=== PATIENT | male | born 1970 | race African-American/Black ===

== ENCOUNTER 2018-01-14 15:43 | Inpatient (IN) | payer MEDICARE, OTHER ==
[~2018-01-14] VITALS: Ht 175.3 cm; Wt 61.4 kg
[2018-01-14] VITALS (21 sets, daily range): BP systolic 98–141; BP diastolic 62–92; PULSE 88–127; RESP 18–40; TEMP 99–99.9; O2SAT 88–100
--- NOTE | 2018-01-14 16:01 | PD ---
HPI Chief Complaint: altered mental status Time Seen by Provider: 16:01 Travel History International Travel<30 days: No Contact w/Intl Traveler<30days: No Traveled to known affect area: No History of Present Illness HPI 47-year-old male came to the emergency room with history of fever and altered mental status. Patient is coming from a assisted. He has underlying CP and usually quite agitated. However for past 24 hours or so they have noticed that patient is not as talkative and more lethargic. They gave him Tylenol and sent him here. Patient is a GCS of 8 upon arrival. He was tachycardic. Patient is unable to give any history. History was obtained as per EMS. As per the paramedics when they went to pick him up patient was saturating in the 70s. In the ER on 50% Ventimask his sats were 87-88%. They went up to 99% on nonrebreather. PFSH Past Medical History Narrative Medical List of his past medical, surgical, social and family history was reviewed from nursing note. Social History Tobacco Use: No Allergies-Medications (Allergen,Severity, Reaction): Coded Allergies: No Known Allergies (Verified Allergy, Unknown, 01/14/18) Comments No known drug allergies. Reported Meds & Prescriptions Reported Meds & Active Scripts Active Reported Trazodone (Trazodone HCl) 100 Mg Tablet 100 Mg PO HS Trazodone (Trazodone HCl) 100 Mg Tablet 100 Mg PO TID Topamax (Topiramate) 200 Mg Tab 200 Mg PO DAILY IN THE EVENING Seroquel (Quetiapine Fumarate) 200 Mg Tab 200 Mg PO TID Potassium Chloride Liq (Potassium Chloride) 40 Meq/15 Ml Soln 80 Meq PO BID Nuedexta 20-10 mg (Dextromethorphan HBr-Quinidine) 20 Mg-10 Mg Cap 1 Cap PO BID [place] (Hydrocodone-Acetaminophen) 5 Mg-325 Mg Tab 1 Tab PO BID PRN Multi-Vitamin/Minerals (Multiple Vitamins W/ Minerals) 1 Tab Tab 1 Tab PO DAILY Lisinopril 20 Mg Tab 20 Mg PO DAILY Klonopin (Clonazepam) 1 Mg Tab 1 Mg PO QID Klonopin (Clonazepam) 1 Mg Tab 1 Mg PO Q8HR PRN Hydrocodone-Acetaminophen 5-325 mg Tab 1 Tab PO TID Dilantin-125 Liq (Phenytoin) 125 Mg/5 Ml Susp 125 Mg PO Q8HR Tylenol (Acetaminophen) 325 Mg Tab 650 Mg PO Q6H PRN Narrative Medication Awaiting for the nurse to the medical reconciliation. Review of Systems ROS Limitations: Altered Mental Status Except as stated in HPI: all other systems reviewed are Neg Physical Exam Narrative GENERAL: Unresponsive, moderate distress SKIN: Focused skin assessment warm/dry. HEAD: Atraumatic. Normocephalic. EYES: Pupils equal and round. No scleral icterus. No injection or drainage. ENT: No nasal bleeding or discharge. Dry mucous membrane NECK: Trachea midline. No JVD. CARDIOVASCULAR: Regular rate and rhythm. Tachycardia. No murmur appreciated. RESPIRATORY: No accessory muscle use. Clear to auscultation. Breath sounds equal bilaterally. GASTROINTESTINAL: Abdomen soft, non-tender, nondistended. Hepatic and splenic margins not palpable. : Hypospadias MUSCULOSKELETAL: No obvious deformities. No clubbing. No cyanosis. No edema. NEUROLOGICAL: GCS of 8 PSYCHIATRIC: Unable to assess Data Data Last Documented VS Vital Signs Date Time Temp Pulse Resp B/P (MAP) Pulse Ox O2 Delivery O2 Flow Rate FiO2 01/14/18 17:36 99.5 106 18 126/83 (97) 100 Ventilator 50 Orders Orders Sepsis Workup Initiated (01/14/18 ) Complete Blood Count With Diff (01/14/18 16:07) Comprehensive Metabolic Panel (01/14/18 16:07) Lactic Acid Sepsis Protocol (01/14/18 16:07) Urinalysis - C+S If Indicated (01/14/18 16:07) Blood Culture (01/14/18 16:07) Chest, Single Ap (01/14/18 16:07) Blood Glucose (01/14/18 16:07) Ecg Monitoring (01/14/18 16:07) Iv Access Insert/Monitor (01/14/18 16:07) Oximetry (01/14/18 16:07) Oxygen Administration (01/14/18 16:07) Vancomycin Inj (Vancomycin Inj) (01/14/18 16:07) Piperacil-Tazo 4.5 Gm Premix (Zosyn 4.5 (01/14/18 16:07) Sodium Chlor 0.9% 1000 Ml Inj (Ns 1000 M (01/14/18 16:07) Sodium Chlor 0.9% 1000 Ml Inj (Ns 1000 M (01/14/18 16:07) Sodium Chlor 0.9% 1000 Ml Inj (Ns 1000 M (01/14/18 16:07) Etomidate Inj (Amidate Inj) (01/14/18 16:22) Succinylcholine Inj (Quelicin Inj) (01/14/18 16:22) Succinylcholine Inj (Quelicin Inj) (01/14/18 16:45) Etomidate Inj (Amidate Inj) (01/14/18 16:45) Urinary Catheter Insert/Apply (01/14/18 16:34) ^ Orogastric Tube (01/14/18 16:34) Midazolam Inj (Versed Inj) (01/14/18 16:45) Propofol 500 Mg/50 Ml Inj (Diprivan 500 (01/14/18 16:55) Midazolam Inj (Versed Inj) (01/14/18 17:00) Propofol 1000 Mg/100 Ml Inj (Diprivan 10 (01/14/18 17:00) Hydromorphone Pf Inj (Dilaudid Pf Inj) (01/14/18 17:00) Arterial Blood Gas (Abg) (01/14/18 17:05) Calcium Gluconate Inj (Calcium Gluconate (01/14/18 17:30) Insulin Human Regular Inj (Novolin R Inj (01/14/18 17:45) Dextrose 50% In Johnny (Vial) Inj (D50w (Vi (01/14/18 17:30) Sodium Bicarbonate 8.4% Inj (Sodium Bica (01/14/18 17:30) Albuterol Concentrated Neb (Albuterol Co (01/14/18 17:30) Sodium Polysty Sulfate Liq (Kayexalate L (01/14/18 17:45) Admit Order (Ed Use Only) (01/14/18 17:35) Admit To Inpatient (01/14/18 ) Inpatient Certification (01/14/18 ) Code Status (01/14/18 17:38) Vital Signs (Adult) NILE.Q1H (01/14/18 17:38) Activity Bed Rest (01/14/18 17:38) Relay Man / Telemetry NILE.Q8H (01/14/18 17:38) Intake + Output NILE.Q8H (01/14/18 17:38) Bedside Glucose NILE.BGM (01/14/18 17:38) Urinary Catheter Management NILE.Q8H (01/14/18 17:38) Diet Npo (01/14/18 Dinner) Sodium Chlor 0.9% 1000 Ml Inj (Ns 1000 M (01/14/18 17:38) Sodium Chloride 0.9% Flush (Ns Flush) (01/14/18 17:45) Sodium Chloride 0.9% Flush (Ns Flush) (01/14/18 21:00) Acetaminophen (Tylenol) (01/14/18 17:45) Fentanyl Inj (Fentanyl Inj) (01/14/18 17:45) Albuterol-Ipratropium Neb (Duoneb Neb) (01/14/18 17:45) Albuterol-Ipratropium Neb (Duoneb Neb) (01/14/18 17:45) Chlorhexidine 0.12% Liq (Peridex 0.12% L (01/14/18 20:00) Complete Blood Count With Diff (01/15/18 06:00) Comprehensive Metabolic Panel (01/15/18 06:00) Sputum Culture And Gram Stain (01/14/18 17:38) Chest, Single Ap (01/15/18 06:00) Resp Ventilation- Pressure (01/14/18 ) Arterial Blood Gas (Abg) (01/14/18 18:30) Consult Cm-Day 5 Ltac Eval (01/14/18 ) Heparin Inj (Heparin Inj) (01/15/18 12:00) Scd Bilateral/Knee High NILE.BID (01/14/18 17:38) ^ Initiate Protocol (01/14/18 17:38) Instruction (01/14/18 17:38) [facility] [place] Nursing Information (01/14/18 17:45) Chlorhexidine 2% Cloth (Chlorhexidine 2% (01/15/18 04:00) Chlorhexidine 2% Cloth (Chlorhexidine 2% (01/14/18 17:45) [facility] Pcr Surveillance (01/14/18 17:38) Propofol 1000 Mg/100 Ml Inj (Diprivan 10 (01/14/18 17:45) ^ Infusion (01/14/18 17:38) Insulin Aspart Supplemtl Scale (Novolog (01/14/18 18:00) Ct Abd/Pel W/O Iv Contrast (01/14/18 ) Piperacil-Tazo 3.375 Gm Premix (Zosyn 3. (01/14/18 23:00) Azithromycin Inj (Zithromax Inj) (01/14/18 18:00) Legionella Urinary Antigen (01/14/18 17:48) Pneumococcal Urinary Antigen (01/14/18 17:48) Influenzae A/B Antigen (01/14/18 17:48) Labs Laboratory Tests Test 01/14/18 16:18 01/14/18 17:00 01/14/18 17:05 White Blood Count 8.6 TH/MM3 Red Blood Count 4.79 MIL/MM3 Hemoglobin 13.3 GM/DL Hematocrit 43.8 % Mean Corpuscular Volume 91.5 FL Mean Corpuscular Hemoglobin 27.7 PG Mean Corpuscular Hemoglobin Concent 30.3 % Red Cell Distribution Width 15.0 % Platelet Count 168 TH/MM3 Mean Platelet Volume 10.7 FL Neutrophils (%) (Auto) 65.0 % Lymphocytes (%) (Auto) 20.8 % Monocytes (%) (Auto) 13.8 % Eosinophils (%) (Auto) 0.0 % Basophils (%) (Auto) 0.4 % Neutrophils # (Auto) 5.6 TH/MM3 Lymphocytes # (Auto) 1.8 TH/MM3 Monocytes # (Auto) 1.2 TH/MM3 Eosinophils # (Auto) 0.0 TH/MM3 Basophils # (Auto) 0.0 TH/MM3 CBC Comment DIFF FINAL Differential Comment Blood Urea Nitrogen 68 MG/DL Creatinine 3.72 MG/DL Random Glucose 160 MG/DL Total Protein 8.1 GM/DL Albumin 3.3 GM/DL Calcium Level 9.0 MG/DL Alkaline Phosphatase 80 U/L Aspartate Amino Transf (AST/SGOT) 24 U/L Alanine Aminotransferase (ALT/SGPT) 19 U/L Total Bilirubin 0.2 MG/DL Sodium Level 154 MEQ/L Potassium Level 6.9 MEQ/L Chloride Level 120 MEQ/L Carbon Dioxide Level 37.2 MEQ/L Anion Gap -3 MEQ/L Estimat Glomerular Filtration Rate 21 ML/MIN Lactic Acid Level 0.6 mmol/L Urine Color YELLOW Urine Turbidity HAZY Urine pH 7.0 Urine Specific [place] 1.025 Urine Protein 300 mg/dL Urine Glucose (UA) NEG mg/dL Urine Ketones NEG mg/dL Urine Occult Blood SMALL Urine Nitrite POS Urine Bilirubin NEG Urine Urobilinogen 2.0 MG/DL Urine Leukocyte Esterase LARGE Urine RBC 20 /hpf Urine WBC 129 /hpf Urine Squamous Epithelial Cells <1 /hpf Urine Bacteria RARE /hpf Urine Hyaline Casts 1 /lpf Urine Granular Casts 6 /lpf Microscopic Urinalysis Comment CATH-CULTURE IND Blood Gas Puncture Site RT RADIAL Blood Gas Patient Temperature 98.6 Blood Gas HCO3 28 mmol/L Blood Gas Base Excess 3.1 mmol/L Blood Gas Oxygen Saturation 98 % Arterial Blood pH 7.40 Arterial Blood Partial Pressure CO2 46 mmHg Arterial Blood Partial Pressure O2 408 mmHG Arterial Blood Oxygen Content 16.1 Vol % Arterial Blood Carboxyhemoglobin 1.1 % Arterial Blood Methemoglobin 0.7 % Blood Gas Hemoglobin 10.9 G/DL Oxygen Delivery Device VENTILATOR Blood Gas Ventilator Setting PRVC/20/550/1.0/+5 Blood Gas Inspired Oxygen 100 % [facility] Medical Decision Making Medical Screen Exam Complete: Yes Emergency Medical Condition: Yes Medical Record Reviewed: Yes Differential Diagnosis Sepsis, pneumonia, UTI Narrative Course 5:11 PM patient is a full code. Based on his GCS and hypoxia decided to intubate him. Please refer to my procedure note. Patient tolerated the procedure well. He was given IV Zosyn and vancomycin as per sepsis protocol. Awaiting for blood test results. Patient will be admitted to the ICU. Patient is getting fluid hydration as per sepsis protocol. 5:37 PM chemistry results just came back. Patient has significant hyperkalemia with acute renal failure. His sodium and chloride is significantly elevated as well. I have given him hyperkalemia treatment as per the protocol. I discussed the case with Dr. Oh was accepted the patient. He wanted Kayexalate down the OG tube which has been ordered. Critical Care Narrative Aggregate critical care time was 75 minutes. Time to perform other separately billable procedures was not included in the critical care time. My time did not include minutes spent treating any other patients simultaneously or on activities that did not directly contribute to the patient's treatment. The services I provided to this patient were to treat and/or prevent clinically significant deterioration that could result in: Respiratory distress, hypoxia, altered mental status, sepsis protocol, vent management, hyperkalemia, hypokalemia management, acute renal failure, metabolic acidosis I provided critical care services requiring my management, as noted below: Chart data review, documentation time, medication orders and management, vital sign assessments/reviewing monitor data, ordering and reviewing lab tests, ordering and interpreting/reviewing x-rays and diagnostic studies, care of the patient and discussion of the patient with the admitting physicians. Procedures Procedure Narrative After the risks and benefits were discussed the following procedure was performed: INTUBATION: The patient was put in optimal position for the procedure. Rapid sequence intubation was initiated by me using 20 milligrams of etomidate IV and 100 milligrams of succinylcholine IV. The patient was intubated with a 7.5 cuffed endotracheal tube. Tube placement was confirmed by visualization of the tube and balloon passing through the cords, capnometry and subsequent chest x-ray. Breath sounds were equal and well aerated bilaterally postintubation. No breath sounds over stomach. Patient tolerated procedure well. EKG Prior to Arrival: No Physician Communication Physician Communication Dr. Oh Diagnosis Primary Impression: Sepsis Qualified Codes: A41.9 - Sepsis, unspecified organism Additional Impressions: Respiratory failure Qualified Codes: J96.01 - Acute respiratory failure with hypoxia Unresponsive Hypoxia Acute renal failure Qualified Codes: N17.9 - Acute kidney failure, unspecified Hyperkalemia Dehydration with hypernatremia Metabolic acidosis Admitting Information Admitting Physician Requests: it Doreen Chapman MD Jan 14, 2018 16:01
[2018-01-14] MEDS ORDERED: SODIUM CHLOR 0.9% 1000 ML INJ 1,000 ML IV ONE ×2 (16:07)
[2018-01-14] MEDS ORDERED: SODIUM CHLOR 0.9% 1000 ML INJ 100 ML IV ONE (16:07)
[2018-01-14] MEDS ORDERED: VANCOMYCIN INJ 1 MG in SODIUM CHLOR 0.9% 250 ML INJ 250 ML IV STA (16:07)
[2018-01-14] MEDS ORDERED: PIPERACIL-TAZO 4.5 GM PREMIX 100 ML IV STA (16:07)
[2018-01-14] MEDS ORDERED: SUCCINYLCHOLINE CHLORIDE 200 MG/10 ML VIAL ONE (16:22)
[2018-01-14] MEDS ORDERED: ETOMIDATE 40 MG/20 ML VIAL ONE (16:22)
[2018-01-14] MEDS ORDERED: MIDAZOLAM HCL 5 MG/ML VIAL (1 ML) ONE ×2 (16:45→19:32)
[2018-01-14] MEDS ORDERED: ETOMIDATE 20 MG/10 ML VIAL IV PUSH ONE (16:45)
[2018-01-14] MEDS ORDERED: SUCCINYLCHOLINE CHLORIDE 100 MG/5 ML SYRINGE IV PUSH ONE (16:45)
[2018-01-14] MEDS ORDERED: PROPOFOL 500 MG/50 ML INJ 50 ML ONE (16:55)
[2018-01-14] MEDS ORDERED: HYDROmorphone HCL PF 1 MG/ML VIAL IV PUSH ONE (17:00)
[2018-01-14] MEDS ORDERED: PROPOFOL 1000 MG/100 ML INJ 100 ML IV PRN (17:00)
[2018-01-14] MEDS ORDERED: MIDAZOLAM HCL 2 MG/2 ML VIAL IV PUSH ONE (17:00)
[2018-01-14 17:01] LABS: AUTOMATED NEUTROPHIL # 5.6 TH/MM3 (1.8-7.7); BASOPHIL % 0.4 % (0.0-2.0); HEMATOCRIT 43.8 % (39.0-51.0); HEMOGLOBIN 13.3 GM/DL (13.0-17.0); LYMPH % 20.8 % (9.0-44.0); LYMPHOCYTE # 1.8 TH/MM3 (1.0-4.8); MEAN CELL VOLUME 91.5 FL (80.0-100.0); MEAN CORPUSCULAR HEMOGLOBIN 27.7 PG (27.0-34.0); MEAN CORPUSCULAR HGB CONC 30.3 % (32.0-36.0); MEAN PLATELET VOLUME 10.7 FL (7.0-11.0); MONO % 13.8 % (0.0-8.0); MONOCYTE # 1.2 TH/MM3 (0-0.9); PLATELET COUNT 168 TH/MM3 (150-450); RED BLOOD COUNT 4.79 MIL/MM3 (4.50-5.90); WHITE BLOOD COUNT 8.6 TH/MM3 (4.0-11.0)
--- NOTE | 2018-01-14 17:18 | RADRPT ---
EXAM DATE/TIME: 01/14/2018 16:52 [facility] COMPARISON: No previous studies available for comparison. INDICATIONS : Evaluate ET tube placement. MEDICAL HISTORY : Unobtainable SURGICAL HISTORY : Unobtainable ENCOUNTER: Initial ACUITY: 1 day PAIN SCORE: 0/10 LOCATION: Bilateral chest FINDINGS: ETT is at the level of the clavicles. NGT is in the stomach. Minimal bilateral patchy airspace diseas e. Cardiomedi some contours are within normal limits. Bony thorax is intact. CONCLUSION: 1. ETT in good position. NGT in the stomach. 2. Minimal patchy bilateral lower lung zone airspace disease, likely atelectasis. Delbert Villanueva MD on January 14, 2018 at 17:17 Board Certified Radiologist. This report was verified electronically.
[2018-01-14 17:26] LABS: ALBUMIN 3.3 GM/DL (3.4-5.0); ALKALINE PHOSPHATASE 80 U/L (45-117); ALT (GPT) 19 U/L (12-78); AST (GOT) 24 U/L (15-37); BICARBONATE 37.2 MEQ/L (21.0-32.0); BLOOD UREA NITROGEN 68 MG/DL (7-18); CHLORIDE 120 MEQ/L (98-107); CREATININE 3.72 MG/DL (0.60-1.30); GLOMERULAR FILTRATION RATE 21 ML/MIN (>89); GLUCOSE,RANDOM 160 MG/DL (74-106); SODIUM (NA) 154 MEQ/L (136-145); TOTAL BILIRUBIN ADULT 0.2 MG/DL (0.2-1.0); TOTAL PROTEIN 8.1 GM/DL (6.4-8.2)
[2018-01-14] MEDS ORDERED: RESP: ALBUTEROL CONC 2.5 MG/0.5 ML NEB INH ONE (17:30)
[2018-01-14] MEDS ORDERED: DEXTROSE 50% IN WATER 50 ML VIAL(D50) IV PUSH ONE (17:30)
[2018-01-14] MEDS ORDERED: SODIUM BICARBONATE 8.4% SOLN 50 MEQ/50 ML VIAL SLOW IVP ONE (17:30)
[2018-01-14] MEDS ORDERED: CALCIUM GLUCONATE 10% 1 GM/10 ML VIAL SLOW IVP ONE (17:30)
[2018-01-14] MEDS ORDERED: SODIUM CHLOR 0.9% 1000 ML INJ 1,000 ML IV SCH (17:38)
[2018-01-14] MEDS ORDERED: RESP: ALBUTEROL 2.5 MG/IPRATROPIUM 0.5 MG NEB (PRN) INH (17:45)
[2018-01-14] MEDS ORDERED: MISCELLANEOUS NURSING INFORMATION XX SCH (17:45)
[2018-01-14] MEDS ORDERED: ACETAMINOPHEN 325 MG TAB PO PRN (17:45)
[2018-01-14] MEDS ORDERED: CHLORHEXIDINE GLUCONATE 2 % 1 PACK (2 CLOTHS) TOP PRN (17:45)
[2018-01-14] MEDS ORDERED: INSULIN HUMAN REGULAR 1,000 UNITS/10 ML VIAL IV PUSH ONE (17:45)
[2018-01-14] MEDS ORDERED: SODIUM POLYSTYRENE SULFONATE SUSP 15 GM/60 ML CUP PO ONE (17:45)
[2018-01-14] MEDS ORDERED: TYLE325T PO (17:47)
[2018-01-14] MEDS ORDERED: HYDR-3516 PO (17:47)
[2018-01-14] MEDS ORDERED: LISI-515 PO (17:47)
[2018-01-14] MEDS ORDERED: NORC5TAB PO (17:47)
[2018-01-14] MEDS ORDERED: POTA10LI10 PO (17:47)
[2018-01-14] MEDS ORDERED: SERO200T PO (17:47)
[2018-01-14] MEDS ORDERED: NUED20CA PO (17:47)
[2018-01-14] MEDS ORDERED: TOPI200 PO (17:47)
[2018-01-14] MEDS ORDERED: TRAZ100T10 PO ×2 (17:47)
[2018-01-14] MEDS ORDERED: CLON1 PO ×2 (17:47)
[2018-01-14] MEDS ORDERED: MULTTAB62 PO (17:47)
[2018-01-14] MEDS ORDERED: DILA125S PO (17:47)
[2018-01-14] MEDS: INSULIN ASPART SUPPLEMENTAL SCALE SQ SCH (18:00)
[2018-01-14 18:21] LABS: BACTERIA, URINE RARE /hpf; BILIRUBIN, URINE NEG (NEG); BLOOD, URINE SMALL (NEG); GLUCOSE,URINE NEG (NEG); HYALINE CAST, URINE 1 /lpf (RARE); KETONE, URINE NEG (NEG); NITRITE,URINE POS (NEG); SQUAMOUS EPITHELIAL CELL URINE <1 /hpf (0-5); URINE COLOR YELLOW (YELLW/STRAW); URINE LEUKOCYTE ESTERASE LARGE (NEG)
[2018-01-14] MEDS ORDERED: ROCURONIUM INJ 50 MG/5 ML VIAL IV ONE (18:45)
[2018-01-14] MEDS: RESP: ALBUTEROL 2.5 MG/IPRATROPIUM 0.5 MG NEB (SCH) NEB ×2 (19:09→19:14)
[2018-01-14] MEDS: PROPOFOL 1000 MG/100 ML INJ 100 ML IV PRN ×2 (19:29→20:33)
[2018-01-14] MEDS: SODIUM POLYSTYRENE SULFONATE SUSP 15 GM/60 ML CUP OG-TUBE SCH ×4 (19:36→23:44)
[2018-01-14] MEDS: CHLORHEXIDINE 0.12% (ORAL KIT) 15 ML CUP MT SCH (20:00)
--- NOTE | 2018-01-14 20:15 | RADRPT ---
EXAM DATE/TIME: 01/14/2018 19:56 [facility] COMPARISON: No previous studies available for comparison. INDICATIONS : Tachycardia, fever, and lethargy. ORAL CONTRAST: No oral contrast ingested. RADIATION DOSE: 5.17 CTDIvol (mGy) MEDICAL HISTORY : Seizures. Hypertension. Mental retardation SURGICAL HISTORY : None. ENCOUNTER: Initial ACUITY: 1 day PAIN SCALE: Non-responsive LOCATION: cranial TECHNIQUE: Volumetric scanning of the abdomen and pelvis was performed. Using automated exposure control and ad justment of the mA and/or kV according to patient size, radiation dose was kept as low as reasonably achievable to obtain optimal diagnostic quality images. DICOM format image data is available electro nically for review and comparison. FINDINGS: Patchy infiltrates are noted within the posterior lung bases bilaterally. Tiny bilateral pleural effu sions are noted. The heart is enlarged. Tiny pericardial effusion is noted. The liver is enlarged. Sc attered low-density lesions are noted throughout the liver parenchyma measuring 1.7, 1.2 and 1.5 cm. Without intravenous contrast enhancement it is difficult to determine etiology of these low density l esions. No biliary ductal dilatation is noted the gallbladder is distended but demonstrates no calcif ied gallstone or pericholecystic fluid. There is a 1.9 cm right adrenal nodule consistent with probab le adrenal adenoma. The left adrenal gland is unremarkable. No hydronephrosis is noted. No calcified renal calculus is noted the spleen is unremarkable. Uncomplicated colonic diverticulosis is noted. No acute diverticulitis is noted. The abdominal aorta and inferior vena cava are unremarkable. No ascit es is noted. The appendix is normal. The urinary bladder is nondistended and demonstrates diffuse wal l thickening raising the possibility of cystitis. Clinical correlation is recommended. The bladder co ntains a Walsh catheter. Degenerative changes and scoliosis of the thoracolumbar spine are noted. CONCLUSION: 1. Patchy infiltrate within the posterior lung bases bilaterally raising possibility of atelectasis o r pneumonia. 2. Tiny bilateral pleural effusions. 3. Cardiomegaly and tiny pericardial effusion. 4. Hepatomegaly. 5. Scattered low-density lesions throughout the liver which are indeterminate in etiology. 6. 1.9 cm right adrenal nodule consistent with probable adrenal adenoma. 7. Uncomplicated colonic diverticulosis. 8. Diffuse urinary bladder wall thickening raising the possibility of cystitis. Clinical correlation is recommended. 9. Degenerative changes and scoliosis of the thoraco-lumbar spine. Pedrito Hastings MD on January 14, 2018 at 20:06 Board Certified Radiologist. This report was verified electronically.
--- NOTE | 2018-01-14 20:19 | RADRPT ---
EXAM DATE/TIME: 01/14/2018 19:56 [facility] COMPARISON: CHEST SINGLE AP, January 14, 2018, 16:52. INDICATIONS : Tachycardia, fever and lethargy. RADIATION DOSE: 5.17 CTDIvol (mGy) ; Combined studies - Thorax/Abdomen/Pelvis MEDICAL HISTORY : Seizures. Hypertension. Mental retardation SURGICAL HISTORY : None. ENCOUNTER: Initial ACUITY: 1 day PAIN SCALE: Non-responsive LOCATION: chest TECHNIQUE: Volumetric scanning of the chest was performed. Using automated exposure control and adjustment of t he mA and/or kV according to patient size, radiation dose was kept as low as reasonably achievable to obtain optimal diagnostic quality images. DICOM format image data is available electronically for r eview and comparison. Follow-up recommendations for detected pulmonary nodules are based at a minimum on nodule size and pa tient risk factors according to Fleischner Society Guidelines. FINDINGS: LUNGS: Posterior bibasilar patchiness noted consistent with pneumonia or atelectasis. There is no pneumothor ax. No concerning pulmonary nodule is visualized. PLEURAE: Tiny bilateral pleural effusions are noted. MEDIASTINUM: The heart is prominent in size. Tiny pericardial effusion is noted AXILLAE: Within normal limits. No lymphadenopathy. MUSCULOSKELETAL: Degenerative changes and scoliosis of the thoracic spine are noted. MISCELLANEOUS: The visualized upper abdominal organs demonstrate no acute abnormality. CONCLUSION: 1. Posterior bibasilar patchiness consistent with pneumonia or atelectasis. Clinical correlation is r ecommended. 2. Cardiomegaly. 3. Tiny pericardial effusion. 4. Tiny bilateral pleural effusions. 5. Degenerative changes and scoliosis of the thoracic spine. Pedrito Hastings MD on January 14, 2018 at 20:14 Board Certified Radiologist. This report was verified electronically.
[2018-01-14] MEDS: SODIUM CHLORIDE 0.9% FLUSH 10 ML FLUSH IV FLUSH SCH (20:33)
[2018-01-14] MEDS ORDERED: LORazepam 2 MG/ML VIAL ONE (20:41)
[2018-01-14] MEDS ORDERED: LORazepam 2 MG/ML VIAL IV ONE (20:45)
[2018-01-14] MEDS ORDERED: VANCOMYCIN INJ 1,000 MG in SODIUM CHLOR 0.9% 250 ML INJ 250 ML IV STA (20:50)
[2018-01-14] MEDS ORDERED: FAMOTIDINE 20 MG/2 ML VIAL IV PUSH SCH (21:00)
[2018-01-14] MEDS: FAMOTIDINE 20 MG/2 ML VIAL IV PUSH SCH (21:29)
[2018-01-14 21:31] LABS: BICARBONATE 32.7 MEQ/L (21.0-32.0); CALCIUM 8.9 MG/DL (8.5-10.1); CREATININE 3.26 MG/DL (0.60-1.30)
[2018-01-14] MEDS: AZITHROMYCIN INJ 500 MG in SODIUM CHLOR 0.9% 250 ML INJ 250 ML IV SCH (21:32)
--- NOTE | 2018-01-14 21:49 | HHI.HP ---
[facility] Service Critical Care Medicine Primary Care Physician Brady Fletcher MD Admission Diagnosis respiratory failure, acute renal failure, unresponsive, sepsis Diagnosis: (1) Acute hypoxemic respiratory failure Diagnosis: Principal (2) Acute encephalopathy Diagnosis: Principal (3) Acute renal failure Diagnosis: Principal (4) Hyperkalemia Diagnosis: Principal (5) Sepsis Diagnosis: Principal (6) Dehydration with hypernatremia Diagnosis: Principal (7) Seizure disorder Diagnosis: Secondary Chief Complaint: Altered mental status Sepsis Travel History International Travel<30 Days: No Contact w/Intl Traveler <30 Da: No Traveled to Known Affected Are: No Sepsis Criteria SIRS Criteria (2 or more): Heart rate over 90, RR > 20 or PaCO2 < 32 Sepsis Criteria (SIRS+source): Infect source susp/known Severe Sepsis (+one): Acute Oliguria/Renal Failure Criteria Outcome: Meets severe sepsis criteria History of Present Illness Patient is a 47-year-old -Marshallese male with past medical history significant for cerebral palsy, hypertension, agitation at baseline, seizure disorder on Topamax and Dilantin was brought to the emergency department for fever and altered mental station. Apparently he is usually quite agitated at baseline, over the last 24 hours had been lethargic. Due to the mental status change patient was brought to the ICU. GCS was 8 on arrival patient was tachypneic, tachycardic and critically ill. In NH at the time of EMS pickup oxygen saturation was in the 70s. In the ER on 50% Ventimask oxygen saturation 87-88%. Intubated due to hypoxemic respiratory failure and also for airway protection. Lab work showed patient had significant hyperkalemia and acute renal failure. Potassium was 6.9 treated with calcium chloride, IV insulin and D50, bicarb and Kayexalate. Patient also received 1 L normal saline bolus and was placed on normal saline infusion. UA showed evidence of severe UTI. Empirically received Zosyn and vancomycin in the ED I evaluated the patient in the ICU. CT chest showed bibasilar infiltrates indicating possible pneumonia, CT abdomen showed indeterminate low-density liver lesions and some bladder thickness indicating cystitis. Patient will be continued on vancomycin and Zosyn and azithromycin. Repeat sodium came back at 160 potassium is down to 4. I will discontinue normal saline and place on half- normal saline at 150 ml per hour. Bolus of 1 L half-normal saline ordered. Cultures have been ordered and is pending at this time. Patient has urinary catheter and is making urine which is cloudy. Apparently had shaking movements after arrival to ICU subsided with 2 mg IV Ativan. EEG had been ordered. Also check Dilantin level. Review of Systems ROS Limitations: Intubated, Altered Mental Status Past Family Social History Allergies: Coded Allergies: No Known Allergies (Verified Allergy, Unknown, 01/14/18) Past Medical History Cerebral palsy Seizure disorder Agitation Hypertension Past Surgical History Unable to obtain intubated patient Reported Medications Trazodone (Trazodone HCl) 100 Mg Tablet 100 Mg PO HS Trazodone (Trazodone HCl) 100 Mg Tablet 100 Mg PO TID Topamax (Topiramate) 200 Mg Tab 200 Mg PO DAILY IN THE EVENING Seroquel (Quetiapine Fumarate) 200 Mg Tab 200 Mg PO TID Potassium Chloride Liq (Potassium Chloride) 40 Meq/15 Ml Soln 80 Meq PO BID Nuedexta 20-10 mg (Dextromethorphan HBr-Quinidine) 20 Mg-10 Mg Cap 1 Cap PO BID [place] (Hydrocodone-Acetaminophen) 5 Mg-325 Mg Tab 1 Tab PO BID PRN Multi-Vitamin/Minerals (Multiple Vitamins W/ Minerals) 1 Tab Tab 1 Tab PO DAILY Lisinopril 20 Mg Tab 20 Mg PO DAILY Klonopin (Clonazepam) 1 Mg Tab 1 Mg PO QID Klonopin (Clonazepam) 1 Mg Tab 1 Mg PO Q8HR PRN Hydrocodone-Acetaminophen 5-325 mg Tab 1 Tab PO TID Dilantin-125 Liq (Phenytoin) 125 Mg/5 Ml Susp 125 Mg PO Q8HR Tylenol (Acetaminophen) 325 Mg Tab 650 Mg PO Q6H PRN Active Ordered Medications Reviewed Family History Unable to obtain intubated patient Social History Patient has cerebral palsy and is a assisted resident. No further history is obtainable Physical Exam Vital Signs Vital Signs Date Time Temp Pulse Resp B/P (MAP) Pulse Ox O2 Delivery O2 Flow Rate FiO2 01/14/18 21:00 50 01/14/18 20:30 99.1 98 22 98/62 (74) 100 01/14/18 20:30 99 01/14/18 19:11 100 50 01/14/18 19:00 99.0 104 18 115/65 (82) 100 Ventilator 50 3/2/18 18:30 99.0 110 20 141/92 (108) 100 Ventilator 50 18 17:59 99.1 103 20 126/81 (96) 100 Ventilator 50 18 17:36 99.5 106 18 126/83 (97) 100 Ventilator 50 18 17:17 99.9 109 20 138/92 (107) 100 Ventilator 50 01/14/18 16:43 96 100 01/14/18 16:29 100 01/14/18 16:16 40 87 Venturi Mask 50 01/14/18 16:15 88 Venturi Mask 50 01/14/18 16:15 88 Venturi Mask 50 18 16:10 127 40 126/76 (93) 93 Physical Exam GENERAL: Critically ill intubated sedated with propofol SKIN: warm/dry. HEAD: Atraumatic. Normocephalic. EYES: Bilateral corneal opacities ENT: Orotracheally intubated. Dry mucous membrane NECK: Trachea midline. No JVD. CARDIOVASCULAR: Regular rate and rhythm. Tachycardic. No murmur appreciated. RESPIRATORY: Breath sounds equal bilaterally. No wheezes or crackles GASTROINTESTINAL: Abdomen soft, non-tender, nondistended. Hepatic and splenic margins not palpable. : Hypospadias. Walsh in place with cloudy urine MUSCULOSKELETAL: Lower extremity muscle wasting NEUROLOGICAL: Intubated sedated, Withdraws x4 to painful stimuli, Do not follow commands Laboratory Laboratory Tests Test 01/14/18 16:18 01/14/18 17:00 01/14/18 17:05 01/14/18 20:44 White Blood Count 8.6 Red Blood Count 4.79 Hemoglobin 13.3 Hematocrit 43.8 Mean Corpuscular Volume 91.5 Mean Corpuscular Hemoglobin 27.7 Mean Corpuscular Hemoglobin Concent 30.3 Red Cell Distribution Width 15.0 Platelet Count 168 Mean Platelet Volume 10.7 Neutrophils (%) (Auto) 65.0 Lymphocytes (%) (Auto) 20.8 Monocytes (%) (Auto) 13.8 Eosinophils (%) (Auto) 0.0 Basophils (%) (Auto) 0.4 Neutrophils # (Auto) 5.6 Lymphocytes # (Auto) 1.8 Monocytes # (Auto) 1.2 Eosinophils # (Auto) 0.0 Basophils # (Auto) 0.0 CBC Comment DIFF FINAL Differential Comment Blood Urea Nitrogen 68 Creatinine 3.72 Random Glucose 160 Total Protein 8.1 Albumin 3.3 Calcium Level 9.0 Alkaline Phosphatase 80 Aspartate Amino Transf (AST/SGOT) 24 Alanine Aminotransferase (ALT/SGPT) 19 Total Bilirubin 0.2 Sodium Level 154 Potassium Level 6.9 Chloride Level 120 Carbon Dioxide Level 37.2 Anion Gap -3 Estimat Glomerular Filtration Rate 21 Lactic Acid Level 0.6 Urine Color YELLOW Urine Turbidity HAZY Urine pH 7.0 Urine Specific [place] 1.025 Urine Protein 300 Urine Glucose (UA) NEG Urine Ketones NEG Urine Occult Blood SMALL Urine Nitrite POS Urine Bilirubin NEG Urine Urobilinogen 2.0 Urine Leukocyte Esterase LARGE Urine RBC 20 Urine WBC 129 Urine Squamous Epithelial Cells <1 Urine Bacteria RARE Urine Hyaline Casts 1 Urine Granular Casts 6 Microscopic Urinalysis Comment CATH-CULTURE IND Blood Gas Puncture Site RT RADIAL Blood Gas Patient Temperature 98.6 Blood Gas HCO3 28 Blood Gas Base Excess 3.1 Blood Gas Oxygen Saturation 98 Arterial Blood pH 7.40 Arterial Blood Partial Pressure CO2 46 Arterial Blood Partial Pressure O2 408 Arterial Blood Oxygen Content 16.1 Arterial Blood Carboxyhemoglobin 1.1 Arterial Blood Methemoglobin 0.7 Blood Gas Hemoglobin 10.9 Oxygen Delivery Device VENTILATOR Blood Gas Ventilator Setting PRVC/20/550/1.0/+5 Blood Gas Inspired Oxygen 100 Date/Time Source Procedure Growth Status 01/14/18 16:15 Blood Peripheral Aerobic Blood Culture Pending Received 01/14/18 16:15 Blood Peripheral Anaerobic Blood Culture Pending Received 01/14/18 17:00 Urine Clean Catch Urine Culture Pending Received Result Diagram: 01/14/18 1618 01/14/[address] chest shows bibasilar infiltrate CT abdomen shows evidence of cystitis, bibasilar infiltrates, indeterminate low- density liver lesions Septic Shock Reassessment Septic shock perfusion: reassessment completed Caprini VTE Risk Assessment Caprini VTE Risk Assessment: Mod/High Risk (score >= 2) Caprini Risk Assessment Model Point Value = 1 Point Value = 2 Point Value = 3 Point Value = 5 Age 41-60 Minor surgery BMI > 25 kg/m2 Swollen legs Varicose veins or History of unexplained or recurrent spontaneous Oral contraceptives or hormone replacement Sepsis (< 1 month) Serious lung disease, including pneumonia (< 1 month) Abnormal pulmonary function Acute myocardial infarction Congestive heart failure (< 1 month) History of inflammatory bowel disease Medical patient at bed rest Age 61-74 Arthroscopic surgery Major open surgery (> 45 min) Laparoscopic surgery (> 45 min) Malignancy Confined to bed (> 72 hours) Immobilizing plaster cast Central venous access Age >= 75 History of VTE Family history of VTE Factor V Leiden Prothrombin [id number] Lupus anticoagulant Anticardiolipin antibodies Elevated serum homocysteine Heparin-induced thrombocytopenia Other congenital or acquired thrombophilia Stroke (< 1 month) Elective arthroplasty Hip, pelvis, or leg fracture Acute spinal cord injury (< 1 month) Prophylaxis Regimen Total Risk Factor Score Risk Level Prophylaxis Regimen 0-1 Low Early ambulation 2 Moderate Order ONE of the following: *Sequential Compression Device (SCD) *Heparin 5000 units SQ BID 3-4 Higher Order ONE of the following medications: *Heparin 5000 units SQ TID *Enoxaparin/Lovenox 40 mg SQ daily (WT < 150 kg, CrCl > 30 mL/min) *Enoxaparin/Lovenox 30 mg SQ daily (WT < 150 kg, CrCl > 10-29 mL/min) *Enoxaparin/Lovenox 30 mg SQ BID (WT < 150 kg, CrCl > 30 mL/min) AND/OR *Sequential Compression Device (SCD) 5 or more Highest Order ONE of the following medications: *Heparin 5000 units SQ TID (Preferred with Epidurals) *Enoxaparin/Lovenox 40 mg SQ daily (WT < 150 kg, CrCl > 30 mL/min) *Enoxaparin/Lovenox 30 mg SQ daily (WT < 150 kg, CrCl > 10-29 mL/min) *Enoxaparin/Lovenox 30 mg SQ BID (WT < 150 kg, CrCl > 30 mL/min) AND *Sequential Compression Device (SCD) Assessment and Plan Assessment and Plan NEURO: Acute metabolic encephalopathy Seizure disorder Underlying cerebral palsy -Propofol for sedation and ventilator synchrony -Ativan as needed for agitation and seizure -Continue Dilantin and Topamax, check Dilantin level -EEG in a.m. RESP: Acute hypoxemic respiratory failure Healthcare associated pneumonia -PRVC mode of ventialtion -DuoNeb every 6 hours as needed -Continue empiric vancomycin and Zosyn with azithromycin -Start vent weaning when mental status permits CV: History of hypertension -Received normal saline bolus in the ED -Change maintenance fluid to half-normal saline after 1 L normal saline bolus -Holding lisinopril -Not requiring antihypertensive medication at this time GI: -N.p.o., IV famotidine -Start tube feeds in 24 hours ENDO Acute kidney failure Severe dehydration Hypernatremia Hyperkalemia -Monitor renal function closely. Walsh catheter. -CT abdomen pelvis did not show any evidence of obstruction -Half-normal saline 1 L bolus, change maintenance fluid to half-normal saline at 150 mL/h -Status post hyperkalemia treatment with Kayexalate, calcium chloride, IV bicarb , IV insulin and dextrose, and DuoNeb ID: Severe sepsis UTI Healthcare associated pneumonia -Follow-up on blood urine and sputum cultures, urine for Legionella and pneumococcal antigen -Broad-spectrum antibiotics with vancomycin and Zosyn and azithromycin HEME: -Monitor CBC, CMP, coags PROPH: -Bilateral lower extremity SCDs/MATEO. Heparin 5000 units subcu every 12, IV famotidine LINES: -Utilize peripheral IVs, central line if needed CC time 45 min Code Status Full Discussed Condition With Bedside RN Problem Qualifiers (1) Acute renal failure: Qualified Codes: N17.9 - Acute kidney failure, unspecified (2) Sepsis: Qualified Codes: A41.9 - Sepsis, unspecified organism Eloisa Chang MD Jan 14, 2018 21:49
[2018-01-14] MEDS ORDERED: SODIUM CHLOR 0.45% 1000 ML INJ 1,000 ML IV ONE (22:00)
[2018-01-14] MEDS: SODIUM CHLOR 0.45% 1000 ML INJ 1,000 ML IV SCH (22:17)
[2018-01-14] MEDS: PIPERACIL-TAZO 3.375 GM PREMIX 50 ML IV SCH (23:42)
[2018-01-15] VITALS (45 sets, daily range): BP systolic 94–205; BP diastolic 54–116; PULSE 71–109; RESP 16; TEMP 94.6–98.6; O2SAT 99–100
[2018-01-15] MEDS: hydrALAZINE HCL 20 MG/ML VIAL IV PUSH PRN ×2 (00:06→04:11)
[2018-01-15] MEDS: PROPOFOL 1000 MG/100 ML INJ 100 ML IV PRN ×5 (00:07→20:27)
[2018-01-15] MEDS: SODIUM POLYSTYRENE SULFONATE SUSP 15 GM/60 ML CUP OG-TUBE SCH (00:10)
[2018-01-15] MEDS: RESP: ALBUTEROL 2.5 MG/IPRATROPIUM 0.5 MG NEB (SCH) NEB ×4 (03:47→21:07)
[2018-01-15] MEDS: CHLORHEXIDINE GLUCONATE 2 % 1 PACK (2 CLOTHS) TOP SCH (04:00)
[2018-01-15] MEDS: SODIUM CHLOR 0.45% 1000 ML INJ 1,000 ML IV SCH ×2 (04:14→11:41)
--- NOTE | 2018-01-15 05:22 | RADRPT ---
EXAM DATE/TIME: 01/15/2018 04:27 [facility] COMPARISON: CHEST SINGLE AP, January 14, 2018, 16:52. INDICATIONS : Shortness of breath, possible pulmonary disease. MEDICAL HISTORY : Hypertension. Cerebral Palsy Seizures SURGICAL HISTORY : None. ENCOUNTER: Subsequent ACUITY: 2 days PAIN SCORE: Non-responsive. LOCATION: Bilateral chest FINDINGS: ET tube tip above the level of the clavicles. Gastric tube tip projects within the stomach and the s tra-port is located almost 3 cm above the hemidiaphragm. The right lung is clear. No definite infil trates seen on the left side, however, a plastic device superimposes over the left lower lung. CONCLUSION: 1. Cannot exclude left lower lobe infiltrate. 2. The side-port of the gastric tube is 3 cm above the hemidiaphragm and the tube needs to be advance d. 3. ET tube tip is high, above the level of the clavicles. Jarad Richardson MD on January 15, 2018 at 5:20 Board Certified Radiologist. This report was verified electronically.
[2018-01-15 05:50] LABS: AUTOMATED NEUTROPHIL # 5.5 TH/MM3 (1.8-7.7); BASOPHIL % 0.4 % (0.0-2.0); EOSINOPHIL % 0.1 % (0.0-4.0); HEMATOCRIT 41.2 % (39.0-51.0); HEMOGLOBIN 12.9 GM/DL (13.0-17.0); LYMPH % 25.2 % (9.0-44.0); LYMPHOCYTE # 2.2 TH/MM3 (1.0-4.8); MEAN CELL VOLUME 88.8 FL (80.0-100.0); MEAN CORPUSCULAR HEMOGLOBIN 27.9 PG (27.0-34.0); MEAN CORPUSCULAR HGB CONC 31.4 % (32.0-36.0); MEAN PLATELET VOLUME 11.4 FL (7.0-11.0); MONO % 11.5 % (0.0-8.0); NEUT % 62.8 % (16.0-70.0); PLATELET COUNT 112 TH/MM3 (150-450); RED BLOOD COUNT 4.64 MIL/MM3 (4.50-5.90); RED CELL DISTRIBUTION WIDTH 14.6 % (11.6-17.2); WHITE BLOOD COUNT 8.7 TH/MM3 (4.0-11.0)
[2018-01-15] MEDS: INSULIN ASPART SUPPLEMENTAL SCALE SQ SCH ×5 (06:00→23:24)
[2018-01-15 06:14] LABS: ALBUMIN 2.7 GM/DL (3.4-5.0); ALKALINE PHOSPHATASE 68 U/L (45-117); ALT (GPT) 17 U/L (12-78); AST (GOT) 26 U/L (15-37); BICARBONATE 31.3 MEQ/L (21.0-32.0); BLOOD UREA NITROGEN 55 MG/DL (7-18); CALCIUM 8.6 MG/DL (8.5-10.1); CHLORIDE 120 MEQ/L (98-107); CREATININE 2.76 MG/DL (0.60-1.30); GLOMERULAR FILTRATION RATE 30 ML/MIN (>89); GLUCOSE,RANDOM 84 MG/DL (74-106); PHENYTOIN (DILANTIN) 8.7 MCG/ML (10.0-20.0); TOTAL BILIRUBIN ADULT 0.4 MG/DL (0.2-1.0); TOTAL PROTEIN 6.7 GM/DL (6.4-8.2)
[2018-01-15 06:18] LABS: SODIUM (NA) 157 MEQ/L (136-145)
[2018-01-15] MEDS: PHENYTOIN SUSP 100 MG/4 ML CUP PO SCH ×3 (06:37→20:11)
[2018-01-15] MEDS: PIPERACIL-TAZO 3.375 GM PREMIX 50 ML IV SCH ×3 (06:38→20:11)
[2018-01-15] MEDS: TOPIRAMATE 200 MG TAB PO SCH (09:06)
[2018-01-15] MEDS: QUEtiapine FUMARATE 200 MG TAB PO SCH ×3 (09:06→17:29)
[2018-01-15] MEDS: SODIUM CHLORIDE 0.9% FLUSH 10 ML FLUSH IV FLUSH SCH ×2 (09:07→20:10)
[2018-01-15] MEDS: CHLORHEXIDINE 0.12% (ORAL KIT) 15 ML CUP MT SCH ×2 (09:07→20:00)
[2018-01-15] MEDS ORDERED: HEPARIN SODIUM - SQ 10,000 UNITS/ML VIAL SQ SCH (12:00)
--- NOTE | 2018-01-15 12:38 | HHI.CCPN ---
Subjective Remarks/Hospital Course 01/14: Patient is a 47-year-old -[place] male with past medical history significant for cerebral palsy, hypertension, agitation at baseline, seizure disorder on Topamax and Dilantin was brought to the emergency department for fever and altered mental station. Apparently he is usually quite agitated at baseline, over the last 24 hours had been lethargic. Due to the mental status change patient was brought to the ICU. GCS was 8 on arrival patient was tachypneic, tachycardic and critically ill. In NH at the time of EMS pickup oxygen saturation was in the 70s. In the ER on 50% Ventimask oxygen saturation 87-88%. Intubated due to hypoxemic respiratory failure and also for airway protection. Lab work showed patient had significant hyperkalemia and acute renal failure. Potassium was 6.9 treated with calcium chloride, IV insulin and D50, bicarb and Kayexalate. Patient also received 1 L normal saline bolus and was placed on normal saline infusion. UA showed evidence of severe UTI. Empirically received Zosyn and vancomycin in the ED Dr. Chang evaluated the patient in the ICU. CT chest showed bibasilar infiltrates indicating possible pneumonia, CT abdomen showed indeterminate low- density liver lesions and some bladder thickness indicating cystitis. Patient will be continued on vancomycin and Zosyn and azithromycin. Repeat sodium came back at 160 potassium is down to 4. I will discontinue normal saline and place on half-normal saline at 150 ml per hour. Bolus of 1 L half-normal saline ordered. Cultures have been ordered and is pending at this time. Patient has urinary catheter and is making urine which is cloudy. Apparently had shaking movements after arrival to ICU subsided with 2 mg IV Ativan. EEG had been ordered. Also check Dilantin level. 01/15: Remains sedated, orally intubated on mechanical ventilation. Objective Vital Signs Date Time Temp Pulse Resp B/P (MAP) Pulse Ox O2 Delivery O2 Flow Rate FiO2 01/15/18 12:19 100 45 01/15/18 06:30 86 01/15/18 06:30 98.2 106/62 (77) 01/14/18 20:30 22 01/14/18 19:00 Ventilator Intake and Output 01/15/18 01/15/18 01/16/18 08:00 16:00 00:00 Intake Total 440 ml 2617 ml Output Total 1300 ml Balance -860 ml 2617 ml Result Diagram: 01/15/18 0423 01/15/18 0423 Other Results Microbiology Date/Time Source Procedure Growth Status 01/14/18 20:36 Nasal Washing Influenza Types A,B Antigen (DENISHA) - Final NEGATIVE FOR FLU A AND B ANTIGEN.... Complete 01/14/18 17:00 Urine Catheterized Urine Legionella Antigen - Final PRESUMPTIVE NEGATIVE FOR LEGIONELLA P... Complete 01/14/18 17:00 Urine Catheterized Urine Streptococcus pneumoniae Antigen (M - Final PRESUMPTIVE NEGATIVE FOR STREPTOCOCCU... Complete Laboratory Tests Test 01/14/18 17:05 01/14/18 21:56 Blood Gas Puncture Site RT RADIAL RT RADIAL Blood Gas Patient Temperature 98.6 98.6 Blood Gas HCO3 28 mmol/L (22-26) 31 mmol/L (22-26) Blood Gas Base Excess 3.1 mmol/L (-2-2) 8.1 mmol/L (-2-2) Blood Gas Oxygen Saturation 98 % (90-100) 97 % (90-100) Arterial Blood pH 7.40 (7.380-7.420) 7.59 (7.380-7.420) Arterial Blood Partial Pressure CO2 46 mmHg (38-42) 32 mmHg (38-42) Arterial Blood Partial Pressure O2 408 mmHG (61-120) 137 mmHg (61-120) Arterial Blood Oxygen Content 16.1 Vol % (12.0-20.0) 16.1 Vol % (12.0-20.0) Arterial Blood Carboxyhemoglobin 1.1 % (0-4) 1.0 % (0-4) Arterial Blood Methemoglobin 0.7 % (0-2) 1.5 % (0-2) Blood Gas Hemoglobin 10.9 G/DL (12.0-16.0) 11.7 G/DL (12.0-16.0) Oxygen Delivery Device VENTILATOR VENTILATOR Blood Gas Ventilator Setting [facility]/20/550/1.0/+5 SEE COMMENTS Blood Gas Inspired Oxygen 100 % 50 % Imaging CT chest shows bibasilar infiltrate CT abdomen shows evidence of cystitis, bibasilar infiltrates, indeterminate low- density liver lesions Objective Remarks GENERAL: Critically ill intubated sedated with propofol SKIN: warm/dry. HEAD: Atraumatic. Normocephalic. EYES: Bilateral corneal opacities ENT: Orotracheally intubated. Dry mucous membrane NECK: Trachea midline. No JVD. CARDIOVASCULAR: Regular rate and rhythm. Tachycardic. No murmur appreciated. RESPIRATORY: Breath sounds equal bilaterally. No wheezes or crackles GASTROINTESTINAL: Abdomen soft, non-tender, nondistended. Hepatic and splenic margins not palpable. : Hypospadias. Walsh in place with cloudy urine MUSCULOSKELETAL: Lower extremity muscle wasting NEUROLOGICAL: Intubated sedated, Withdraws x4 to painful stimuli, Does not follow commands A/P Assessment and Plan NEURO: Acute metabolic encephalopathy Seizure disorder Underlying cerebral palsy -Propofol for sedation and ventilator synchrony -Ativan as needed for agitation and seizure -Continue Dilantin and Topamax, check Dilantin level -Follow-up EEG. RESP: Acute hypoxemic respiratory failure Healthcare associated pneumonia -PRVC mode mechanical ventilation -DuoNeb every 6 hours as needed -Continue empiric vancomycin and Zosyn with azithromycin -Start vent weaning when mental status permits CV: History of hypertension -Received normal saline bolus in the ED -Change maintenance fluid : Decrease half and is to 50 cc/h, start D5 water at 50 cc/h for hypernatremia. Add free water. -Holding lisinopril -Not requiring antihypertensive medication at this time GI: - IV famotidine -Start tube feeds with Jevity 1.5 and advanced to goal as tolerated. ENDO Acute kidney failure Severe dehydration Hypernatremia Hyperkalemia -Monitor renal function closely. Walsh catheter. -CT abdomen pelvis did not show any evidence of obstruction -Status post fluid resuscitation. Change half and is to 50 cc per hour and add D5 water and free water via OG tube in view of hypernatremia -Status post hyperkalemia treatment with Kayexalate, calcium chloride, IV bicarb , IV insulin and dextrose, and DuoNeb ID: Severe sepsis UTI Healthcare associated pneumonia -Follow-up on blood urine and sputum cultures, urine for Legionella and pneumococcal antigen -Broad-spectrum antibiotics with vancomycin and Zosyn and azithromycin HEME: Thrombocytopenia -Monitor CBC, CMP, coags. Hold heparin and check HIV screen for thrombocytopenia PROPH: -Bilateral lower extremity SCDs/MATEO. Heparin 5000 units subcu every 12 to be held on 01/15, check hit screen in view of thrombocytopenia, IV famotidine LINES: -Utilize peripheral IVs, central line if needed CC time 45 min excluding procedures Dioni Oh MD Jan 15, 2018 12:38
[2018-01-15] MEDS ORDERED: DEXTROSE 5% IN WATE 1000ML INJ 1,000 ML IV SCH (12:45)
[2018-01-15] MEDS: FREE WATER G-TUBE SCH ×4 (13:07→23:24)
--- NOTE | 2018-01-15 13:37 | MG ---
cc: La Heath MD EEG NUMBER: [id number] REFERRING PROVIDER: Dr. Chang ROOM: 508-B INTRODUCTION: With hyperventilation and photic, intubated, sedated. Diprivan at 50 mcg, unable to turn off due to severe agitation. Intubated, responds to stimulation during hookup. No imaging. He is a 47-year-old correction patient with underlying cerebral palsy, talking and more lethargic, shaking. Resolved with 2 mg of Ativan. History of CP as stated, hypertension, seizure, blind, encephalopathic. On Dilantin, Zosyn, Fentanyl, propofol. DESCRIPTION OF RECORD: There is artifact but overall some slowing of background of predominantly 3-4 Hz. There is a phase reversal seen over the left temporal parietal region at epoch of 14, not continuous. Again noted over the right parietal cental at epoch 10, as well as left central parietal at the same epoch but again not continuous. Hyperventilation could not be performed. He is intubated and sedated. Photic stimulation does elicit a driving response. IMPRESSION: Abnormal EEG due to background slowing; however, likely due to sedation, some scattered phase reversal seen but no active seizure-like activity. Clinical correlation. La Heath MD DF/PATTY , 12:16 PM , 01:36 PM
[2018-01-15] MEDS: MIDAZOLAM 100 MG/NS 100 ML DRIP Premix IV PRN (16:03)
[2018-01-15] MEDS: AZITHROMYCIN INJ 500 MG in SODIUM CHLOR 0.9% 250 ML INJ 250 ML IV SCH (17:28)
[2018-01-15] MEDS: FAMOTIDINE 20 MG/2 ML VIAL IV PUSH SCH (20:10)
[2018-01-15 21:36] LABS: BICARBONATE 26.6 MEQ/L (21.0-32.0); CALCIUM 8.1 MG/DL (8.5-10.1); CREATININE 2.36 MG/DL (0.60-1.30)
[2018-01-16] VITALS (18 sets, daily range): BP systolic 97–145; BP diastolic 59–84; PULSE 83–108; RESP 16; TEMP 97–98; O2SAT 99–100
[2018-01-16] MEDS: PROPOFOL 1000 MG/100 ML INJ 100 ML IV PRN ×4 (00:36→16:24)
[2018-01-16] MEDS: SODIUM CHLOR 0.45% 1000 ML INJ 1,000 ML IV SCH ×2 (02:58→23:58)
[2018-01-16] MEDS: FREE WATER G-TUBE SCH ×6 (02:59→23:58)
[2018-01-16] MEDS: CHLORHEXIDINE GLUCONATE 2 % 1 PACK (2 CLOTHS) TOP SCH (02:59)
[2018-01-16] MEDS: RESP: ALBUTEROL 2.5 MG/IPRATROPIUM 0.5 MG NEB (SCH) NEB ×4 (03:29→21:07)
[2018-01-16] MEDS: PIPERACIL-TAZO 3.375 GM PREMIX 50 ML IV SCH ×3 (05:44→23:58)
[2018-01-16] MEDS: PHENYTOIN SUSP 100 MG/4 ML CUP PO SCH ×3 (05:44→21:13)
--- NOTE | 2018-01-16 05:47 | RADRPT ---
EXAM DATE/TIME: 01/16/2018 03:13 [facility] COMPARISON: CHEST SINGLE AP, January 15, 2018, 4:27. INDICATIONS : Shortness of breath, possible pulmonary disease. MEDICAL HISTORY : Hypertension. Cerebral palsy Seizures SURGICAL HISTORY : None. ENCOUNTER: Subsequent ACUITY: 3 days PAIN SCORE: Non-responsive. LOCATION: Bilateral chest FINDINGS: ET tube tip is above the level of the clavicles. Gastric tube is coiled within the stomach. Interva l development of consolidation in the left lower lung with loss of delineation of the entire left hem idiaphragm and air bronchograms. The right lung is clear. CONCLUSION: Interval development of left lower lobe consolidation. Jarad Richardson MD on January 16, 2018 at 5:45 Board Certified Radiologist. This report was verified electronically.
[2018-01-16] MEDS: INSULIN ASPART SUPPLEMENTAL SCALE SQ SCH ×3 (05:59→18:00)
[2018-01-16] MEDS: MIDAZOLAM 100 MG/NS 100 ML DRIP Premix IV PRN (07:54)
[2018-01-16] MEDS: QUEtiapine FUMARATE 200 MG TAB PO SCH ×3 (07:55→18:18)
[2018-01-16] MEDS: CHLORHEXIDINE 0.12% (ORAL KIT) 15 ML CUP MT SCH ×2 (07:56→21:12)
[2018-01-16] MEDS: SODIUM CHLORIDE 0.9% FLUSH 10 ML FLUSH IV FLUSH SCH ×2 (07:56→21:12)
[2018-01-16] MEDS: TOPIRAMATE 200 MG TAB PO SCH (07:56)
--- NOTE | 2018-01-16 10:33 | HHI.CCPN ---
Subjective Remarks/Hospital Course 01/14: Patient is a 47-year-old -Greek male with past medical history significant for cerebral palsy, hypertension, agitation at baseline, seizure disorder on Topamax and Dilantin was brought to the emergency department for fever and altered mental station. Apparently he is usually quite agitated at baseline, over the last 24 hours had been lethargic. Due to the mental status change patient was brought to the ICU. GCS was 8 on arrival patient was tachypneic, tachycardic and critically ill. In NH at the time of EMS pickup oxygen saturation was in the 70s. In the ER on 50% Ventimask oxygen saturation 87-88%. Intubated due to hypoxemic respiratory failure and also for airway protection. Lab work showed patient had significant hyperkalemia and acute renal failure. Potassium was 6.9 treated with calcium chloride, IV insulin and D50, bicarb and Kayexalate. Patient also received 1 L normal saline bolus and was placed on normal saline infusion. UA showed evidence of severe UTI. Empirically received Zosyn and vancomycin in the ED Dr. Chang evaluated the patient in the ICU. CT chest showed bibasilar infiltrates indicating possible pneumonia, CT abdomen showed indeterminate low- density liver lesions and some bladder thickness indicating cystitis. Patient will be continued on vancomycin and Zosyn and azithromycin. Repeat sodium came back at 160 potassium is down to 4. I will discontinue normal saline and place on half-normal saline at 150 ml per hour. Bolus of 1 L half-normal saline ordered. Cultures have been ordered and is pending at this time. Patient has urinary catheter and is making urine which is cloudy. Apparently had shaking movements after arrival to ICU subsided with 2 mg IV Ativan. EEG had been ordered. Also check Dilantin level. 01/15: Remains sedated, orally intubated on mechanical ventilation. 01/16: Remains sedated, orally intubated on mechanical ventilation. Tolerating tube feeds. Objective Vital Signs Date Time Temp Pulse Resp B/P (MAP) Pulse Ox O2 Delivery O2 Flow Rate FiO2 01/16/18 07:49 99 35 01/16/18 06:00 96 01/16/18 04:00 97.0 16 106/67 (80) 01/14/18 19:00 Ventilator Intake and Output 01/16/18 01/16/18 01/17/18 08:00 16:00 00:00 Intake Total 342 ml Output Total 950 ml Balance -608 ml Result Diagram: 01/15/18 0423 01/15/182025 Other Results Microbiology Date/Time Source Procedure Growth Status 01/14/18 20:36 Nasal Washing Influenza Types A,B Antigen (DENISHA) - Final NEGATIVE FOR FLU A AND B ANTIGEN.... Complete 01/14/18 17:00 Urine Catheterized Urine Legionella Antigen - Final PRESUMPTIVE NEGATIVE FOR LEGIONELLA P... Complete 01/14/18 17:00 Urine Catheterized Urine Streptococcus pneumoniae Antigen (M - Final PRESUMPTIVE NEGATIVE FOR STREPTOCOCCU... Complete Imaging CT chest shows bibasilar infiltrate CT abdomen shows evidence of cystitis, bibasilar infiltrates, indeterminate low- density liver lesions Objective Remarks GENERAL: Critically ill intubated sedated with propofol SKIN: warm/dry. HEAD: Atraumatic. Normocephalic. EYES: Bilateral corneal opacities ENT: Orotracheally intubated. Dry mucous membrane NECK: Trachea midline. No JVD. CARDIOVASCULAR: Regular rate and rhythm. Tachycardic. No murmur appreciated. RESPIRATORY: Breath sounds equal bilaterally. No wheezes or crackles GASTROINTESTINAL: Abdomen soft, non-tender, nondistended. Hepatic and splenic margins not palpable. : Hypospadias. Walsh in place with cloudy urine MUSCULOSKELETAL: Lower extremity muscle wasting NEUROLOGICAL: Intubated sedated, Withdraws x4 to painful stimuli, Does not follow commands A/P Assessment and Plan NEURO: Acute metabolic encephalopathy Seizure disorder Underlying cerebral palsy -Propofol for sedation and ventilator synchrony -Ativan as needed for agitation and seizure -Continue Dilantin and Topamax, check Dilantin level -Follow-up EEG. RESP: Acute hypoxemic respiratory failure Healthcare associated pneumonia -PRVC mode mechanical ventilation -DuoNeb every 6 hours as needed -Continue empiric vancomycin and Zosyn with azithromycin -Start vent weaning when mental status permits CV: History of hypertension -Received normal saline bolus in the ED -Change maintenance fluid : 1/2NS 50 cc/h, D5 water at 50 cc/h for hypernatremia. Continue free water. -Holding lisinopril -Not requiring antihypertensive medication at this time GI: - IV famotidine -Tolerating tube feeds with Jevity 1.5, advanced to goal ENDO Acute kidney failure Severe dehydration Hypernatremia Hyperkalemia -Monitor renal function closely. Walsh catheter. -CT abdomen pelvis did not show any evidence of obstruction -Status post fluid resuscitation. Continue 1/2NS and free water via OG tube in view of hypernatremia. Stop D5W. -Status post hyperkalemia treatment with Kayexalate, calcium chloride, IV bicarb , IV insulin and dextrose, and DuoNeb ID: Severe sepsis UTI Healthcare associated pneumonia -Follow-up on blood urine and sputum cultures, urine for Legionella and pneumococcal antigen -Broad-spectrum antibiotics with vancomycin and Zosyn and azithromycin HEME: Thrombocytopenia -Monitor CBC, CMP, coags. Hold heparin and check HIV screen for thrombocytopenia PROPH: -Bilateral lower extremity SCDs/MATEO. Heparin 5000 units subcu every 12 to be held on 01/15, check HIT screen in view of thrombocytopenia, IV famotidine LINES: -Utilize peripheral IVs, central line if needed CC time 35 min excluding procedures Dioni Oh MD Jan 16, 2018 10:33
[2018-01-16 10:46] LABS: AUTOMATED NEUTROPHIL # 3.3 TH/MM3 (1.8-7.7); BASOPHIL % 0.4 % (0.0-2.0); EOSINOPHIL # 0.1 TH/MM3 (0-0.4); EOSINOPHIL % 1.8 % (0.0-4.0); HEMATOCRIT 34.7 % (39.0-51.0); HEMOGLOBIN 11.1 GM/DL (13.0-17.0); LYMPH % 17.8 % (9.0-44.0); LYMPHOCYTE # 0.8 TH/MM3 (1.0-4.8); MEAN CELL VOLUME 86.7 FL (80.0-100.0); MEAN CORPUSCULAR HEMOGLOBIN 27.6 PG (27.0-34.0); MEAN CORPUSCULAR HGB CONC 31.9 % (32.0-36.0); MEAN PLATELET VOLUME 10.5 FL (7.0-11.0); MONO % 9.4 % (0.0-8.0); MONOCYTE # 0.4 TH/MM3 (0-0.9); NEUT % 70.6 % (16.0-70.0); PLATELET COUNT 103 TH/MM3 (150-450); RED CELL DISTRIBUTION WIDTH 14.9 % (11.6-17.2); WHITE BLOOD COUNT 4.7 TH/MM3 (4.0-11.0)
[2018-01-16 11:17] LABS: ALBUMIN 2.3 GM/DL (3.4-5.0); ALKALINE PHOSPHATASE 60 U/L (45-117); ALT (GPT) 14 U/L (12-78); AST (GOT) 20 U/L (15-37); BICARBONATE 30.4 MEQ/L (21.0-32.0); BLOOD UREA NITROGEN 44 MG/DL (7-18); CALCIUM 8.1 MG/DL (8.5-10.1); CHLORIDE 113 MEQ/L (98-107); GLOMERULAR FILTRATION RATE 31 ML/MIN (>89); GLUCOSE,RANDOM 99 MG/DL (74-106); SODIUM (NA) 149 MEQ/L (136-145); TOTAL BILIRUBIN ADULT 0.3 MG/DL (0.2-1.0); TOTAL PROTEIN 5.7 GM/DL (6.4-8.2)
[2018-01-16] MEDS ORDERED: POTASSIUM CHLORIDE 25 MEQ EFFERVESCENT TAB OG-TUBE ONE (11:30)
[2018-01-16 13:16] LABS: HEPARIN INDUCED PLATELET AB Weak Positive (NEGATIVE)
[2018-01-16] MEDS ORDERED: POTASSIUM CHLORIDE 25 MEQ EFFERVESCENT TAB PO ONE (13:30)
[2018-01-16] MEDS: AZITHROMYCIN INJ 500 MG in SODIUM CHLOR 0.9% 250 ML INJ 250 ML IV SCH (18:18)
[2018-01-16] MEDS: FAMOTIDINE 20 MG/2 ML VIAL IV PUSH SCH (21:12)
[2018-01-17] VITALS (20 sets, daily range): BP systolic 90–158; BP diastolic 56–104; PULSE 77–109; RESP 12–24; TEMP 98.1–100.2; O2SAT 98–100
[2018-01-17] MEDS: FREE WATER G-TUBE SCH ×6 (03:29→23:29)
[2018-01-17] MEDS: CHLORHEXIDINE GLUCONATE 2 % 1 PACK (2 CLOTHS) TOP SCH (03:29)
[2018-01-17] MEDS: PROPOFOL 1000 MG/100 ML INJ 100 ML IV PRN ×4 (03:29→23:29)
[2018-01-17] MEDS: RESP: ALBUTEROL 2.5 MG/IPRATROPIUM 0.5 MG NEB (SCH) NEB ×4 (03:35→20:30)
[2018-01-17] MEDS: PHENYTOIN SUSP 100 MG/4 ML CUP PO SCH ×3 (05:21→20:52)
[2018-01-17] MEDS: INSULIN ASPART SUPPLEMENTAL SCALE SQ SCH ×5 (05:21→23:30)
[2018-01-17] MEDS: MIDAZOLAM 100 MG/NS 100 ML DRIP Premix IV PRN (05:22)
[2018-01-17] MEDS ORDERED: MIDAZOLAM HCL 5 MG/ML VIAL (1 ML) ONE (05:42)
[2018-01-17] MEDS ORDERED: MIDAZOLAM HCL 2 MG/2 ML VIAL IV PUSH ONE (05:45)
[2018-01-17] MEDS ORDERED: ROCURONIUM INJ 50 MG/5 ML VIAL IV ONE (05:45)
--- NOTE | 2018-01-17 05:56 | RADRPT ---
EXAM DATE/TIME: 01/17/2018 05:30 [facility] COMPARISON: CT ABDOMEN & PELVIS W/O CONTRAST, January 14, 2018, 19:56. CT THORAX W/O CONTRAST, January 14, 2018, 19: 56. CHEST SINGLE AP, January 16, 2018, 3:13. INDICATIONS : Post ET tube placement MEDICAL HISTORY : Hypertension. cerebral palsy, seizures SURGICAL HISTORY : None. ENCOUNTER: Subsequent ACUITY: 4 - 6 days PAIN SCORE: Non-responsive. LOCATION: Bilateral chest FINDINGS: Portable AP view of the chest demonstrates a normal-sized cardiac silhouette. Nasogastric tube course s beyond the GE junction. Endotracheal tube has been placed and distal tip is at the clavicular head level measuring approximately 5.4 cm from the bill. There is persistent left basilar/retrocardiac o pacity obscuring the left hemidiaphragm. No pneumothorax is identified. CONCLUSION: 1. The endotracheal tube distal tip measures 5.4 cm from the bill. 2. Stable left basilar airspace opacity. Bernardo Redd MD on January 17, 2018 at 5:52 Board Certified Radiologist. This report was verified electronically.
[2018-01-17] MEDS: PIPERACIL-TAZO 3.375 GM PREMIX 50 ML IV SCH ×2 (06:08→15:10)
--- NOTE | 2018-01-17 06:08 | PD.PROCEDR ---
Procedure Note Procedure PROCEDURE NOTE PROCEDURE: Endotracheal intubation INDICATION: ETT dislodged, resp failure DETAILS OF PROCEDURE: Tube feeds placed on hold. The patient was placed in optimal position and preoxygenated with 100% FiO2 via [id number]. Oximeter oxygen saturation of 100% was obtained prior to direct laryngoscopy. The patient was on propofol drip 50 mcg/kg/min and versed drip for sedation. He was administered Versed 2 mg IV and Rocuronium 50 mg IV. Direct laryngoscopy was performed with a 3 Gonzalez laryngoscope blade and ETT cuff was visualized with cuff above the cords. Obtained a Glidescope and and a grade I Cormack-Lehane view was obtained. The endotracheal tube was visualized passing through the cords. Correct placement was confirmed with colorimetric CO2 detector. Breath sounds were equal bilaterally. No sounds auscultated over the stomach. The endotracheal tube was secured with a commercial tube aguilar at a depth of 27 cm at the lips. The patient was connected to the ventilator. The patient tolerated the procedure well without any apparent complication. Oxygen saturations were maintained greater than 99% at all times. Stat chest x-ray was ordered and demonstrated satisfactory position. Cathryn Burt MD Jan 17, 2018 06:08
--- NOTE | 2018-01-17 06:46 | RADRPT ---
EXAM DATE/TIME: 01/17/2018 06:19 [facility] COMPARISON: CHEST SINGLE AP, January 17, 2018, 5:30. INDICATIONS : Post ET tube placement. MEDICAL HISTORY : Hypertension. Cerebral palsy Seizures SURGICAL HISTORY : None. ENCOUNTER: Subsequent ACUITY: 4 - 6 days PAIN SCORE: Non-responsive. LOCATION: Bilateral chest FINDINGS: Rotated AP view of the chest demonstrates a normal-sized cardiac silhouette. Endotracheal tube is pre sent with distal tip measuring 2.6 cm from the bill. Nasogastric tube courses beyond the GE junctio n. There is stable left basilar/retrocardiac airspace opacity obscuring the left hemidiaphragm. No pn eumothorax is identified. CONCLUSION: 1. Endotracheal tube distal tip measures approximately 2.6 cm from the bill. 2. Stable left basilar airspace opacity. Bernardo Redd MD on January 17, 2018 at 6:43 Board Certified Radiologist. This report was verified electronically.
[2018-01-17] MEDS: CHLORHEXIDINE 0.12% (ORAL KIT) 15 ML CUP MT SCH ×2 (08:00→20:00)
--- NOTE | 2018-01-17 08:53 | HHI.CCPN ---
Subjective Remarks/Hospital Course 01/14: Patient is a 47-year-old -Scottish male with past medical history significant for cerebral palsy, hypertension, agitation at baseline, seizure disorder on Topamax and Dilantin was brought to the emergency department for fever and altered mental station. Apparently he is usually quite agitated at baseline, over the last 24 hours had been lethargic. Due to the mental status change patient was brought to the ICU. GCS was 8 on arrival patient was tachypneic, tachycardic and critically ill. In NH at the time of EMS pickup oxygen saturation was in the 70s. In the ER on 50% Ventimask oxygen saturation 87-88%. Intubated due to hypoxemic respiratory failure and also for airway protection. Lab work showed patient had significant hyperkalemia and acute renal failure. Potassium was 6.9 treated with calcium chloride, IV insulin and D50, bicarb and Kayexalate. Patient also received 1 L normal saline bolus and was placed on normal saline infusion. UA showed evidence of severe UTI. Empirically received Zosyn and vancomycin in the ED Dr. Chang evaluated the patient in the ICU. CT chest showed bibasilar infiltrates indicating possible pneumonia, CT abdomen showed indeterminate low- density liver lesions and some bladder thickness indicating cystitis. Patient will be continued on vancomycin and Zosyn and azithromycin. Repeat sodium came back at 160 potassium is down to 4. I will discontinue normal saline and place on half-normal saline at 150 ml per hour. Bolus of 1 L half-normal saline ordered. Cultures have been ordered and is pending at this time. Patient has urinary catheter and is making urine which is cloudy. Apparently had shaking movements after arrival to ICU subsided with 2 mg IV Ativan. EEG had been ordered. Also check Dilantin level. 01/15: Remains sedated, orally intubated on mechanical ventilation. 01/16: Remains sedated, orally intubated on mechanical ventilation. Tolerating tube feeds. 01/17 Patient was reintubated early this morning as his ETT dislodged. Sedated with Versed, Diprivan. Afebrile. Objective Vital Signs Date Time Temp Pulse Resp B/P (MAP) Pulse Ox O2 Delivery O2 Flow Rate FiO2 01/17/18 06:00 100 01/17/18 04:00 98.2 16 134/84 (101) 100 01/17/18 04:00 35 01/14/18 19:00 Ventilator Intake and Output 01/17/18 01/17/18 01/18/18 08:00 16:00 00:00 Intake Total 1476 ml Output Total 525 ml Balance 951 ml Result Diagram: 01/16/18 0940 01/16/18 2108 Other Results Laboratory Tests Test 01/16/18 09:20 01/16/18 09:40 01/16/18 21:08 Blood Urea Nitrogen 44 MG/DL Creatinine 2.70 MG/DL Random Glucose 99 MG/DL Total Protein 5.7 GM/DL Albumin 2.3 GM/DL Calcium Level 8.1 MG/DL Alkaline Phosphatase 60 U/L Aspartate Amino Transf (AST/SGOT) 20 U/L Alanine Aminotransferase (ALT/SGPT) 14 U/L Total Bilirubin 0.3 MG/DL Sodium Level 149 MEQ/L Potassium Level 2.8 MEQ/L 4.7 MEQ/L Chloride Level 113 MEQ/L Carbon Dioxide Level 30.4 MEQ/L Anion Gap 6 MEQ/L Estimat Glomerular Filtration Rate 31 ML/MIN White Blood Count 4.7 TH/MM3 Red Blood Count 4.00 MIL/MM3 Hemoglobin 11.1 GM/DL Hematocrit 34.7 % Mean Corpuscular Volume 86.7 FL Mean Corpuscular Hemoglobin 27.6 PG Mean Corpuscular Hemoglobin Concent 31.9 % Red Cell Distribution Width 14.9 % Platelet Count 103 TH/MM3 Mean Platelet Volume 10.5 FL Neutrophils (%) (Auto) 70.6 % Lymphocytes (%) (Auto) 17.8 % Monocytes (%) (Auto) 9.4 % Eosinophils (%) (Auto) 1.8 % Basophils (%) (Auto) 0.4 % Neutrophils # (Auto) 3.3 TH/MM3 Lymphocytes # (Auto) 0.8 TH/MM3 Monocytes # (Auto) 0.4 TH/MM3 Eosinophils # (Auto) 0.1 TH/MM3 Basophils # (Auto) 0.0 TH/MM3 CBC Comment DIFF FINAL Differential Comment Imaging Last Impressions Chest X-Ray 01/17/18 0000 Signed Impressions: Service Date/Time: Wednesday, January 17, 2018 06:19 - CONCLUSION: 1. Endotracheal tube distal tip measures approximately 2.6 cm from the bill. 2. Stable left basilar airspace opacity. Bernardo Redd MD Chest CT 01/14/18 0000 Signed Impressions: Service Date/Time: Sunday, January 14, 2018 19:56 - CONCLUSION: 1. Posterior bibasilar patchiness consistent with pneumonia or atelectasis. Clinical correlation is recommended. 2. Cardiomegaly. 3. Tiny pericardial effusion. 4. Tiny bilateral pleural effusions. 5. Degenerative changes and scoliosis of the thoracic spine. Pedrito Hastings MD Abdomen/Pelvis CT 01/14/18 0000 Signed Impressions: Service Date/Time: Sunday, January 14, 2018 19:56 - CONCLUSION: 1. Patchy infiltrate within the posterior lung bases bilaterally raising possibility of atelectasis or pneumonia. 2. Tiny bilateral pleural effusions. 3. Cardiomegaly and tiny pericardial effusion. 4. Hepatomegaly. 5. Scattered low-density lesions throughout the liver which are indeterminate in etiology. 6. 1.9 cm right adrenal nodule consistent with probable adrenal adenoma. 7. Uncomplicated colonic diverticulosis. 8. Diffuse urinary bladder wall thickening raising the possibility of cystitis. Clinical correlation is recommended. 9. Degenerative changes and scoliosis of the thoraco-lumbar spine. Pedrito Hastings MD Objective Remarks GENERAL: Patient is 47 yo intubated and sedated SKIN: Warm and dry. HEAD: Normocephalic. EYES: No scleral icterus. No injection or drainage. NECK: Supple, trachea midline. No JVD or lymphadenopathy. CARDIOVASCULAR: Regular rate and rhythm without murmurs, gallops, or rubs. RESPIRATORY: Breath sounds equal bilaterally. No accessory muscle use. GASTROINTESTINAL: Abdomen soft, non-tender, nondistended. MUSCULOSKELETAL: No cyanosis, or edema. Neuro: Sedated A/P Assessment and Plan NEURO: Acute metabolic encephalopathy Seizure disorder Underlying cerebral palsy -Propofol/ Versed for sedation and ventilator synchrony. Daily sedation vacation. -Ativan as needed for agitation and seizure -Continue Dilantin 125mg Q8 and Topamax, Dilantin level 8.7 on 01/15 RESP: Acute hypoxemic respiratory failure- Reintubated earlier today ( ETT dislodged) Healthcare associated pneumonia -Continue with vent support keep sat >92% -DuoNeb every 6 hours as needed SBT daily as sona. Check ABG CV: History of hypertension -Monitor HR and BP keep MAP>65mmHg GI: - IV famotidine -Tolerating tube feeds with Jevity 1.5, advanced to goal Acute kidney failure Severe dehydration Hypernatremia -Monitor renal function, I/O's, avoid nephrotoxins -CT abdomen pelvis did not show any evidence of hydronephrosis -Status post fluid resuscitation. Continue 1/2NS@50ml/hr, Free water 200ml Q4 and free water monitor sodium level. -Follow up BMP ID: UTI Healthcare associated pneumonia -Broad-spectrum antibiotics with vancomycin and Zosyn and azithromycin -Monitor for signs of infections ( Fever, WBC) Urine cx: Proteus Strep pneumonia and Legionella urinary Ag, Flu screening all negative on 01/14 HEME: Thrombocytopenia -Monitor CBC, CMP, coags. -Hep PLT induced ab: weakly positive, check SARA PROPH: -Bilateral lower extremity SCDs/MATEO. Heparin held on 01/15, Hep PLT ab weakly +, check SARA, heme eval, IV famotidine LINES: -Utilize peripheral IVs, Level 3 Wilder Delaney MD Jan 17, 2018 08:53
[2018-01-17] MEDS: SODIUM CHLORIDE 0.9% FLUSH 10 ML FLUSH IV FLUSH SCH ×2 (09:00→20:52)
[2018-01-17] MEDS: QUEtiapine FUMARATE 200 MG TAB PO SCH ×3 (09:08→17:34)
[2018-01-17] MEDS: TOPIRAMATE 200 MG TAB PO SCH (09:08)
[2018-01-17 11:58] LABS: AUTOMATED NEUTROPHIL # 4.4 TH/MM3 (1.8-7.7); BASOPHIL % 0.5 % (0.0-2.0); EOSINOPHIL # 0.2 TH/MM3 (0-0.4); HEMATOCRIT 33.5 % (39.0-51.0); HEMOGLOBIN 10.4 GM/DL (13.0-17.0); LYMPH % 9.9 % (9.0-44.0); LYMPHOCYTE # 0.6 TH/MM3 (1.0-4.8); MEAN CELL VOLUME 87.4 FL (80.0-100.0); MEAN CORPUSCULAR HEMOGLOBIN 27.2 PG (27.0-34.0); MEAN CORPUSCULAR HGB CONC 31.1 % (32.0-36.0); MEAN PLATELET VOLUME 11.3 FL (7.0-11.0); MONO % 11.3 % (0.0-8.0); MONOCYTE # 0.7 TH/MM3 (0-0.9); NEUT % 75.3 % (16.0-70.0); PLATELET COUNT 112 TH/MM3 (150-450); RED BLOOD COUNT 3.84 MIL/MM3 (4.50-5.90); RED CELL DISTRIBUTION WIDTH 15.3 % (11.6-17.2); WHITE BLOOD COUNT 5.8 TH/MM3 (4.0-11.0)
[2018-01-17 12:25] LABS: ALKALINE PHOSPHATASE 62 U/L (45-117); TOTAL BILIRUBIN ADULT 0.4 MG/DL (0.2-1.0); TOTAL PROTEIN 5.6 GM/DL (6.4-8.2)
[2018-01-17 12:29] LABS: ALBUMIN 2.2 GM/DL (3.4-5.0); ALT (GPT) 15 U/L (12-78); AST (GOT) 23 U/L (15-37); BICARBONATE 25.4 MEQ/L (21.0-32.0); BLOOD UREA NITROGEN 40 MG/DL (7-18); CALCIUM 7.7 MG/DL (8.5-10.1); CHLORIDE 114 MEQ/L (98-107); CREATININE 2.66 MG/DL (0.60-1.30); GLOMERULAR FILTRATION RATE 31 ML/MIN (>89); GLUCOSE,RANDOM 78 MG/DL (74-106); SODIUM (NA) 149 MEQ/L (136-145)
[2018-01-17] MEDS: AZITHROMYCIN INJ 500 MG in SODIUM CHLOR 0.9% 250 ML INJ 250 ML IV SCH (17:36)
[2018-01-17] MEDS: SODIUM CHLOR 0.45% 1000 ML INJ 1,000 ML IV SCH (20:15)
[2018-01-17 20:49] LABS: IRON (FE) 23 MCG/DL (65-175)
[2018-01-17] MEDS: FAMOTIDINE 20 MG/2 ML VIAL IV PUSH SCH (20:52)
[2018-01-17] MEDS: PIPERACIL-TAZO 2.25 GM PREMIX 50 ML IV SCH (20:52)
[2018-01-17 21:14] LABS: % SATURATION IRON PROFILE 13.1 % (20-50); FERRITIN 91 NG/ML (26-388); FOLATE 11.4 NG/ML (3.1-17.5); TOTAL IRON BINDING CAPACITY 175 MCG/DL (250-450)
[2018-01-18] VITALS (37 sets, daily range): BP systolic 122–210; BP diastolic 77–115; PULSE 76–129; RESP 12–45; O2SAT 93–100
[2018-01-18] MEDS: CHLORHEXIDINE GLUCONATE 2 % 1 PACK (2 CLOTHS) TOP SCH (03:16)
[2018-01-18] MEDS: FREE WATER G-TUBE SCH ×5 (03:16→20:00)
[2018-01-18] MEDS: PROPOFOL 1000 MG/100 ML INJ 100 ML IV PRN (03:16)
[2018-01-18] MEDS: PIPERACIL-TAZO 2.25 GM PREMIX 50 ML IV SCH ×4 (03:16→20:25)
[2018-01-18] MEDS: RESP: ALBUTEROL 2.5 MG/IPRATROPIUM 0.5 MG NEB (SCH) NEB ×5 (03:45→23:34)
[2018-01-18 04:52] LABS: BICARBONATE 25.9 MEQ/L (21.0-32.0); CALCIUM 7.8 MG/DL (8.5-10.1); CREATININE 2.29 MG/DL (0.60-1.30)
[2018-01-18] MEDS: PHENYTOIN SUSP 100 MG/4 ML CUP PO SCH ×3 (05:20→22:00)
[2018-01-18] MEDS: MIDAZOLAM 100 MG/NS 100 ML DRIP Premix IV PRN (05:20)
[2018-01-18] MEDS: INSULIN ASPART SUPPLEMENTAL SCALE SQ SCH ×3 (05:21→15:52)
[2018-01-18] MEDS ORDERED: Vancomycin Consult Pharmacy 1 EA OTHER SCH (07:30)
--- NOTE | 2018-01-18 07:30 | HHI.CCPN ---
Subjective Remarks/Hospital Course 01/14: Patient is a 47-year-old -[place] male with past medical history significant for cerebral palsy, hypertension, agitation at baseline, seizure disorder on Topamax and Dilantin was brought to the emergency department for fever and altered mental station. Apparently he is usually quite agitated at baseline, over the last 24 hours had been lethargic. Due to the mental status change patient was brought to the ICU. GCS was 8 on arrival patient was tachypneic, tachycardic and critically ill. In NH at the time of EMS pickup oxygen saturation was in the 70s. In the ER on 50% Ventimask oxygen saturation 87-88%. Intubated due to hypoxemic respiratory failure and also for airway protection. Lab work showed patient had significant hyperkalemia and acute renal failure. Potassium was 6.9 treated with calcium chloride, IV insulin and D50, bicarb and Kayexalate. Patient also received 1 L normal saline bolus and was placed on normal saline infusion. UA showed evidence of severe UTI. Empirically received Zosyn and vancomycin in the ED Dr. Chang evaluated the patient in the ICU. CT chest showed bibasilar infiltrates indicating possible pneumonia, CT abdomen showed indeterminate low- density liver lesions and some bladder thickness indicating cystitis. Patient will be continued on vancomycin and Zosyn and azithromycin. Repeat sodium came back at 160 potassium is down to 4. I will discontinue normal saline and place on half-normal saline at 150 ml per hour. Bolus of 1 L half-normal saline ordered. Cultures have been ordered and is pending at this time. Patient has urinary catheter and is making urine which is cloudy. Apparently had shaking movements after arrival to ICU subsided with 2 mg IV Ativan. EEG had been ordered. Also check Dilantin level. 01/15: Remains sedated, orally intubated on mechanical ventilation. 01/16: Remains sedated, orally intubated on mechanical ventilation. Tolerating tube feeds. 01/17 Patient was reintubated early this morning as his ETT dislodged. Sedated with Versed, Diprivan. Afebrile. 01/18 No events overnight. Sedated with Diprivan, Versed and intubated. Afebrile. Objective Vital Signs Date Time Temp Pulse Resp B/P (MAP) Pulse Ox O2 Delivery O2 Flow Rate FiO2 01/18/18 06:00 90 01/18/18 04:41 100 30 01/18/18 04:00 97.5 12 129/80 (96) 01/14/18 19:00 Ventilator Intake and Output 01/18/18 01/18/18 01/19/18 08:00 16:00 00:00 Intake Total 1322 ml Output Total 1050 ml Balance 272 ml Result Diagram: 01/17/18 1046 01/18/18 0415 Other Results Laboratory Tests Test 01/17/18 10:46 01/17/18 13:25 01/17/18 19:57 01/18/18 04:15 White Blood Count 5.8 TH/MM3 Red Blood Count 3.84 MIL/MM3 Hemoglobin 10.4 GM/DL Hematocrit 33.5 % Mean Corpuscular Volume 87.4 FL Mean Corpuscular Hemoglobin 27.2 PG Mean Corpuscular Hemoglobin Concent 31.1 % Red Cell Distribution Width 15.3 % Platelet Count 112 TH/MM3 Mean Platelet Volume 11.3 FL Neutrophils (%) (Auto) 75.3 % Lymphocytes (%) (Auto) 9.9 % Monocytes (%) (Auto) 11.3 % Eosinophils (%) (Auto) 3.0 % Basophils (%) (Auto) 0.5 % Neutrophils # (Auto) 4.4 TH/MM3 Lymphocytes # (Auto) 0.6 TH/MM3 Monocytes # (Auto) 0.7 TH/MM3 Eosinophils # (Auto) 0.2 TH/MM3 Basophils # (Auto) 0.0 TH/MM3 CBC Comment DIFF FINAL Differential Comment Blood Urea Nitrogen 40 MG/DL 34 MG/DL Creatinine 2.66 MG/DL 2.29 MG/DL Random Glucose 78 MG/DL 122 MG/DL Total Protein 5.6 GM/DL Albumin 2.2 GM/DL Calcium Level 7.7 MG/DL 7.8 MG/DL Alkaline Phosphatase 62 U/L Aspartate Amino Transf (AST/SGOT) 23 U/L Alanine Aminotransferase (ALT/SGPT) 15 U/L Total Bilirubin 0.4 MG/DL Sodium Level 149 MEQ/L 147 MEQ/L Potassium Level 4.0 MEQ/L 3.7 MEQ/L Chloride Level 114 MEQ/L 116 MEQ/L Carbon Dioxide Level 25.4 MEQ/L 25.9 MEQ/L Anion Gap 10 MEQ/L 5 MEQ/L Estimat Glomerular Filtration Rate 31 ML/MIN 37 ML/MIN Blood Smear Pathologist Review Haptoglobin 95 MG/DL Iron Level 23 MCG/DL Total Iron Binding Capacity 175 MCG/DL Percent Iron Saturation 13.1 % Ferritin 91 NG/ML Lactate Dehydrogenase 270 U/L Vitamin B12 Level 494 PG/ML Folate 11.4 NG/ML Test 01/18/18 06:00 Imaging Last Impressions Chest X-Ray 01/17/18 0000 Signed Impressions: Service Date/Time: Wednesday, January 17, 2018 06:19 - CONCLUSION: 1. Endotracheal tube distal tip measures approximately 2.6 cm from the bill. 2. Stable left basilar airspace opacity. Bernardo Redd MD Chest CT 01/14/18 0000 Signed Impressions: Service Date/Time: Sunday, January 14, 2018 19:56 - CONCLUSION: 1. Posterior bibasilar patchiness consistent with pneumonia or atelectasis. Clinical correlation is recommended. 2. Cardiomegaly. 3. Tiny pericardial effusion. 4. Tiny bilateral pleural effusions. 5. Degenerative changes and scoliosis of the thoracic spine. Pedrito Hastings MD Abdomen/Pelvis CT 01/14/18 0000 Signed Impressions: Service Date/Time: Sunday, January 14, 2018 19:56 - CONCLUSION: 1. Patchy infiltrate within the posterior lung bases bilaterally raising possibility of atelectasis or pneumonia. 2. Tiny bilateral pleural effusions. 3. Cardiomegaly and tiny pericardial effusion. 4. Hepatomegaly. 5. Scattered low-density lesions throughout the liver which are indeterminate in etiology. 6. 1.9 cm right adrenal nodule consistent with probable adrenal adenoma. 7. Uncomplicated colonic diverticulosis. 8. Diffuse urinary bladder wall thickening raising the possibility of cystitis. Clinical correlation is recommended. 9. Degenerative changes and scoliosis of the thoraco-lumbar spine. Pedrito Hastings MD Objective Remarks GENERAL: Patient is 47 yo intubated and sedated SKIN: Warm and dry. HEAD: Normocephalic. EYES: No scleral icterus. No injection or drainage. NECK: Supple, trachea midline. No JVD or lymphadenopathy. CARDIOVASCULAR: Regular rate and rhythm without murmurs, gallops, or rubs. RESPIRATORY: Breath sounds equal bilaterally. No accessory muscle use. GASTROINTESTINAL: Abdomen soft, non-tender, nondistended. MUSCULOSKELETAL: No cyanosis, or edema. Neuro: Sedated A/P Assessment and Plan NEURO: Acute metabolic encephalopathy Seizure disorder Underlying cerebral palsy -Propofol/ Versed for sedation and ventilator synchrony. Daily sedation vacation. -Ativan as needed for agitation and seizure -Continue Dilantin 125mg Q8 and Topamax, Dilantin level 8.7 on 01/15 RESP: Acute hypoxemic respiratory failure- Reintubated earlier today ( ETT dislodged) Healthcare associated pneumonia -Continue with vent support keep sat >92% -DuoNeb every 6 hours as needed SBT daily as sona. CV: History of hypertension -Monitor HR and BP keep MAP>65mmHg GI: - IV famotidine -Tolerating tube feeds with Jevity 1.5@60ml/hr Acute kidney failure Severe dehydration Hypernatremia -Monitor renal function, I/O's, avoid nephrotoxins Cr:2.29 today from 2.66 -CT abdomen pelvis did not show any evidence of hydronephrosis -Status post fluid resuscitation. Continue 1/2NS@50ml/hr, Free water 200ml Q4 monitor sodium level. ID: UTI MRSA pneumonia -Broad-spectrum antibiotics with vancomycin, Zosyn and azithromycin -Monitor for signs of infections ( Fever, WBC) Urine cx: Proteus Sputum cx: MRSA Strep pneumonia and Legionella urinary Ag, Flu screening all negative on 01/14 HEME: Thrombocytopenia -Monitor CBC, CMP, coags. -Hep PLT induced ab: weakly positive, check SARA PROPH: -Bilateral lower extremity SCDs/MATEO. Heparin held on 01/15, Hep PLT ab weakly +, follow up SARA, heme eval, IV famotidine LINES: -Utilize peripheral IVs, Level 3 Wilder Delaney MD Jan 18, 2018 07:30
[2018-01-18 08:28] LABS: INTERNATIONAL NORMALIZED RATIO 1.3 RATIO; PROTHROMBIN TIME - PATIENT 12.9 SEC (9.8-11.6)
[2018-01-18] MEDS: CHLORHEXIDINE 0.12% (ORAL KIT) 15 ML CUP MT SCH ×2 (08:37→20:00)
[2018-01-18] MEDS: QUEtiapine FUMARATE 200 MG TAB PO SCH ×3 (08:38→17:44)
[2018-01-18] MEDS: SODIUM CHLORIDE 0.9% FLUSH 10 ML FLUSH IV FLUSH SCH ×2 (08:39→20:25)
[2018-01-18] MEDS ORDERED: VANCOMYCIN INJ 1,500 MG in SODIUM CHLORID 0.9% 500 ML INJ 500 ML IV ONE (10:00)
[2018-01-18 10:57] LABS: AUTOMATED NEUTROPHIL # 5.1 TH/MM3 (1.8-7.7); BASOPHIL # 0.1 TH/MM3 (0-0.2); BASOPHIL % 0.9 % (0.0-2.0); EOSINOPHIL # 0.3 TH/MM3 (0-0.4); EOSINOPHIL % 3.4 % (0.0-4.0); HEMOGLOBIN 10.6 GM/DL (13.0-17.0); LYMPH % 19.9 % (9.0-44.0); LYMPHOCYTE # 1.6 TH/MM3 (1.0-4.8); MEAN CELL VOLUME 86.6 FL (80.0-100.0); MEAN CORPUSCULAR HEMOGLOBIN 27.8 PG (27.0-34.0); MEAN CORPUSCULAR HGB CONC 32.1 % (32.0-36.0); MEAN PLATELET VOLUME 10.6 FL (7.0-11.0); MONO % 11.7 % (0.0-8.0); MONOCYTE # 0.9 TH/MM3 (0-0.9); NEUT % 64.1 % (16.0-70.0); PLATELET COUNT 95 TH/MM3 (150-450); RED BLOOD COUNT 3.81 MIL/MM3 (4.50-5.90); RED CELL DISTRIBUTION WIDTH 14.8 % (11.6-17.2); WHITE BLOOD COUNT 7.9 TH/MM3 (4.0-11.0)
--- NOTE | 2018-01-18 11:45 | MB ---
cc: Tatyana Rose MD DATE OF CONSULT: 01/17/2018 CHIEF COMPLAINT: 1. Thrombocytopenia. 2. Respiratory failure. 3. Acute renal failure. 4. Sepsis. HISTORY OF PRESENT ILLNESS: Mr. Early is a 47-year-old gentleman with a history of cerebral palsy, hypertension, baseline agitation, seizure disorder, on Topamax and Dilantin, who was brought into the emergency department on January 14 with fever and altered mental status. The majority of the history and physical was obtained from chart review, as the patient is intubated and sedated and unable to answer questions. Per admission History and Physical, he is agitated at baseline. In 24 hours leading up to hospital admission, he became lethargic. He was found to be tachypneic, tachycardic and critically ill. Oxygen saturation was in the 70s percent when EMS [facility]. He was intubated due to hypoxemic respiratory failure and for airway protection. He was also found to be hyperkalemic and in acute renal failure. His potassium was 6.9 on admission. LABORATORY DATA: Additional laboratory studies from admission with a platelet count of 168,000, hemoglobin of 13.3 and white blood cell count of 8.6. Sodium was 154, potassium 6.9, creatinine is 3.72, total bilirubin 0.2, AST 24, ALT 19, alkaline phosphatase is 80, total protein is 8.1 and albumin is 3.3. Additional laboratory studies show platelet count on January 15 of 112,000, platelet count on January 16 of 103,000 and a platelet count today, January 17, of 112,000. Laboratory studies from September 2012 with a white blood cell count of 7.8, hemoglobin 15.1 and a platelet count of 157,000. IMAGING STUDIES: From January 14, with a CT scan of the chest which showed posterior bibasilar patchiness, consistent with pneumonia or atelectasis, cardiomegaly, tiny pericardial effusion, tiny bilateral pleural effusions. Abdomen and pelvis CT with hepatomegaly. Scattered low density lesions throughout the liver. 1.9 cm right adrenal nodule, consistent with probable adrenal adenoma. Diffuse urinary bladder wall thickening, raising the possibility of cystitis. REVIEW OF SYSTEMS: Unable to obtain as the patient is intubated and sedated. PAST MEDICAL HISTORY: 1. Cerebral palsy. 2. Seizure disorder. 3. Agitation at baseline. 4. Hypertension. MEDICATIONS IN THE INTERMEDIATE: Trazodone, Topamax, Seroquel, potassium chloride, [place], lisinopril, Klonopin, Percocet, Dilantin, Tylenol. FAMILY HISTORY: Unable to obtain as the patient is intubated and sedated. SOCIAL HISTORY: He has cerebral palsy and is a [facility] resident. PHYSICAL EXAMINATION: GENERAL: Critically ill man, intubated, sedated. SKIN: Warm and dry. HEAD: Normocephalic. EYES: No scleral icterus. ENT: With ET tube in place. NECK: Supple, with no palpable lymphadenopathy. CARDIOVASCULAR: Regular rate and rhythm, with no murmurs. RESPIRATORY: Breath sounds equal bilaterally. ABDOMEN: Soft, nontender, nondistended, bowel sounds present. MUSCULOSKELETAL: Thin lower extremities, muscle wasting present. NEUROLOGIC: Intubated and sedated. ASSESSMENT AND PLAN: Thrombocytopenia in a patient with a baseline platelet count around 150,000, that has fallen to low 100s since hospital stay. He is currently intubated and sedated, with sepsis, with medication list that includes azithromycin and Zosyn. We will obtain workup to include ferritin, iron profile, B12, folate, coag, smear. Abdominal imaging revealed evidence of hepatomegaly. Low probably of heparin-induced thrombocytopenia with low 4 T score. Possibility of disseminated intravascular coagulation with sepsis. We will check coags and fibrinogen. We will order peripheral blood cell smear for pathology review. We will also order LDH and haptoglobin. On review of medications, new medications include azithromycin, which has a 1% chance of thrombocytopenia. Feel that clinical picture of thrombocytopenia due to sepsis and new antibiotic use predominates. Hematology service will continue to follow. MD KELSEA Magana/GALINA , 06:04 PM , 10:11 PM [place]
[2018-01-18] MEDS: TOPIRAMATE 200 MG TAB PO SCH (12:12)
[2018-01-18] MEDS ORDERED: RESP: ALBUTEROL 2.5 MG/IPRATROPIUM 0.5 MG NEB (PRN) NEB (13:30)
[2018-01-18] MEDS: AZITHROMYCIN INJ 500 MG in SODIUM CHLOR 0.9% 250 ML INJ 250 ML IV SCH (17:45)
[2018-01-18] MEDS ORDERED: DEXT 5%-NACL 0.45% 1000 ML INJ 1,000 ML IV SCH (18:00)
[2018-01-18] MEDS: hydrALAZINE HCL 20 MG/ML VIAL IV PUSH PRN ×2 (18:40→23:31)
[2018-01-18] MEDS: FAMOTIDINE 20 MG/2 ML VIAL IV PUSH SCH (20:26)
[2018-01-18] MEDS: LORazepam 2 MG/ML VIAL IV PUSH PRN (20:26)
--- NOTE | 2018-01-18 21:53 | PD.ONC.PN ---
Subjective Subjective Remarks s/p extubation. Resting in bed, agitated. Objective Data Date Time Temp Pulse Resp B/P (MAP) Pulse Ox O2 Delivery O2 Flow Rate FiO2 01/18/18 20:51 93 21 01/18/18 18:00 99.1 97 19 189/93 (125) 01/18/18 17:45 99.1 99 13 210/98 (135) 01/18/18 17:00 99.1 99 23 100 01/18/18 16:00 99.0 93 20 97 01/18/18 15:00 99.0 101 24 99 01/18/18 14:35 97 Nasal Cannula 2.00 01/18/18 14:35 97 Nasal Cannula 2 01/18/18 14:00 99.1 93 40 98 01/18/18 13:00 99.3 118 27 100 01/18/18 12:30 99.3 106 29 186/95 (125) 99 01/18/18 12:00 30 01/18/18 12:00 99.0 98 35 169/97 (121) 98 01/18/18 11:39 98 30 01/18/18 11:30 99.0 102 43 165/107 (126) 96 01/18/18 11:00 99.1 103 27 167/87 (113) 98 01/18/18 10:45 99.3 104 25 171/77 (108) 99 01/18/18 10:30 99.5 110 32 164/88 (113) 99 01/18/18 10:15 99.5 129 37 174/103 (126) 95 01/18/18 10:02 99.1 118 40 190/94 (126) 97 01/18/18 10:00 99.0 116 29 181/115 (137) 98 01/18/18 09:45 97.3 110 40 169/91 (117) 97 01/18/18 09:30 97.3 101 31 171/96 (121) 97 01/18/18 09:15 98.2 91 15 172/98 (122) 99 01/18/18 09:00 97.9 92 20 163/91 (115) 100 01/18/18 08:52 99 30 01/18/18 08:52 30 01/18/18 08:45 98.4 85 18 151/92 (111) 100 01/18/18 08:30 98.4 89 17 136/85 (102) 99 01/18/18 08:15 98.4 82 12 131/78 (95) 99 01/18/18 08:00 98.4 80 12 122/77 (92) 99 01/18/18 08:00 30 01/18/18 06:00 90 01/18/18 04:41 100 30 01/18/18 04:00 79 01/18/18 04:00 30 01/18/18 04:00 97.5 79 12 129/80 (96) 99 01/18/18 02:00 76 01/18/18 01:10 98 30 01/18/18 00:00 30 01/18/18 00:00 84 01/18/18 00:00 98.1 84 12 137/79 (98) 100 01/17/18 22:30 99 30 01/17/18 22:12 99 30 01/17/18 22:00 77 01/18/18 01/18/18 01/18/18 07:00 15:00 23:00 Intake Total 1422 ml 50 ml 2820 ml Output Total 1050 ml 2700 ml Balance 372 ml 50 ml 120 ml Result Diagram: 01/18/18 1015 01/18/18 0415 Laboratory Results Laboratory Tests Test 01/18/18 04:15 01/18/18 08:14 01/18/18 10:15 01/18/18 12:52 Blood Urea Nitrogen 34 MG/DL Creatinine 2.29 MG/DL Random Glucose 122 MG/DL Calcium Level 7.8 MG/DL Sodium Level 147 MEQ/L Potassium Level 3.7 MEQ/L Chloride Level 116 MEQ/L Carbon Dioxide Level 25.9 MEQ/L Anion Gap 5 MEQ/L Estimat Glomerular Filtration Rate 37 ML/MIN Prothrombin Time 12.9 SEC Prothromb Time International Ratio 1.3 RATIO Activated Partial Thromboplast Time 32.2 SEC Fibrinogen 209 mg/dL White Blood Count 7.9 TH/MM3 Red Blood Count 3.81 MIL/MM3 Hemoglobin 10.6 GM/DL Hematocrit 33.0 % Mean Corpuscular Volume 86.6 FL Mean Corpuscular Hemoglobin 27.8 PG Mean Corpuscular Hemoglobin Concent 32.1 % Red Cell Distribution Width 14.8 % Platelet Count 95 TH/MM3 Mean Platelet Volume 10.6 FL Neutrophils (%) (Auto) 64.1 % Lymphocytes (%) (Auto) 19.9 % Monocytes (%) (Auto) 11.7 % Eosinophils (%) (Auto) 3.4 % Basophils (%) (Auto) 0.9 % Neutrophils # (Auto) 5.1 TH/MM3 Lymphocytes # (Auto) 1.6 TH/MM3 Monocytes # (Auto) 0.9 TH/MM3 Eosinophils # (Auto) 0.3 TH/MM3 Basophils # (Auto) 0.1 TH/MM3 CBC Comment AUTO DIFF Differential Comment AUTO DIFF CONFIRMED Platelet Estimate LOW Platelet Morphology Comment ENLARGED Red Cell Morphology Comment NORMAL Hematology Comments Blood Gas Puncture Site RT RADIAL Blood Gas Patient Temperature 98.6 Blood Gas HCO3 25 mmol/L Blood Gas Base Excess -0.3 mmol/L Blood Gas Oxygen Saturation 97 % Arterial Blood pH 7.33 Arterial Blood Partial Pressure CO2 49 mmHg Arterial Blood Partial Pressure O2 123 mmHg Arterial Blood Oxygen Content 12.8 Vol % Arterial Blood Carboxyhemoglobin 0.8 % Arterial Blood Methemoglobin 1.4 % Blood Gas Hemoglobin 9.3 G/DL Oxygen Delivery Device VENTILATOR Blood Gas Ventilator Setting CPAP +5PEEP/10PSV Blood Gas Inspired Oxygen 40 % Culture Results Microbiology Date/Time Source Procedure Growth Status 01/17/18 11:20 Sputum Endotracheal Gram Stain - Final Resulted 01/17/18 11:20 Sputum Culture - Preliminary S. Aureus Mrsa Resulted Administered Medications Medications (Trade) Dose Ordered Sig/Sally Route PRN Reason Start Time Stop Time Status Last Admin Dose Admin Sodium Chloride (NS Flush) 2 ml BID IV FLUSH 01/14/18 21:00 01/18/18 20:25 Fentanyl Citrate (fentaNYL INJ) 50 mcg Q1H PRN IV PUSH SEE LABEL COMMENTS 01/14/18 17:45 01/18/18 21:23 Chlorhexidine Gluconate (Peridex 0.12% Liq) 15 ml BID@08,20 MT 01/14/18 20:00 01/18/18 08:37 Chlorhexidine Gluconate (Chlorhexidine 2% Cloth) 3 pack Taper DAILY@04 TOP 01/15/18 04:00 01/11/19 03:59 01/18/18 03:16 Propofol 100 ml @ 1.77 mls/hr TITRATE PRN IV SEDATION 01/14/18 17:45 01/18/18 03:16 Azithromycin 500 mg/Sodium Chloride 250 ml @ 250 mls/hr Q24H IV 01/14/18 18:00 01/18/18 17:45 Famotidine (Pepcid Inj) 20 mg HS IV PUSH 01/14/18 21:00 01/18/18 20:26 Lorazepam (Ativan Inj) 1 mg Q2H PRN IV PUSH seizures 01/14/18 22:00 01/18/18 20:26 Phenytoin (Dilantin Liq) 125 mg Q8HR PO 01/15/18 06:00 01/18/18 14:00 Quetiapine Fumarate (SEROquel) 200 mg TID PO 01/15/18 09:00 01/18/18 17:44 Topiramate (Topamax) 200 mg DAILY PO 01/15/18 09:00 01/18/18 12:12 Hydralazine HCl (Apresoline Inj) 20 mg Q4H PRN IV PUSH SBP >160 01/14/18 22:15 01/18/18 18:40 Water (Free Water) 200 ml Q4HR G-TUBE 01/15/18 12:45 01/18/18 12:00 Midazolam HCl 100 ml @ 2 mls/hr TITRATE PRN IV SEDATION 01/15/18 15:00 01/18/18 05:20 Piperacillin Sod/ Tazobactam Sod 50 ml @ 100 mls/hr Q6H IV 01/17/18 21:00 01/18/18 20:25 Albuterol/ Ipratropium (Duoneb Neb) 1 ampule Q4HR NEB NEB 01/18/18 16:00 01/18/18 20:48 Dextrose/Sodium Chloride 1,000 ml @ 50 mls/hr Q20H IV 01/18/18 18:00 01/18/18 17:45 Objective Remarks GENERAL: thin, chronically ill appearing man, no distress SKIN: Warm and dry. HEAD: Normocephalic. EYES: No darinage CARDIOVASCULAR: Regular rate and rhythm without murmurs. RESPIRATORY: Breath sounds equal bilaterally. No accessory muscle use. GASTROINTESTINAL: Abdomen soft, non-tender, nondistended. EXTREMITIES: No cyanosis, or edema. MUSCULOSKELETAL: Adequate muscle tone. NEUROLOGICAL: No obvious focal deficit. Awake, alert, and oriented x3. PSYCHIATRIC: Appropriate mood and affect; insight and judgment normal. Assessment/Plan Assessment 1. Thrombocytopenia: Uncertain of baseline platelet count. Platelets 168K on admission to the hospital. No evidence of TMA. Prolonged, PT, PTT. Low fibrinogen. Component of DIC given sepsis and infection. HIT antibody is positive with weak positive OD. From studies 1-5% of patients with weak positive and OD from 0.4 to 1.0 return positive. Low liklihood for SARA to be positive. Pending results. No evidence of clot. Will check ultrasound bilateral upper and lower extremities. Ideally would be on anticoagulation. Unable to give heparin, lovenox at this time. Arixtra cannot be used due to renal function. Could consider full intensity anticoagulation with argatroban, however higher risk of bleeding given platelet and prolonged, PT, PTT, low fibrinogen. Will discuss with ICU team. 2. Anemia: anemia of chronic inflammation. No evidence of hemolysis. Vitamin B12, folate replete 3. CASE: due to dehyration 4. ID: MRSA pneumonia, UTI Tatyana Rose MD Jan 18, 2018 21:53
--- NOTE | 2018-01-18 23:20 | RADRPT ---
EXAM DATE/TIME: 01/18/2018 22:13 [facility] COMPARISON: No previous studies available for comparison. INDICATIONS : Bilateral leg swelling. MEDICAL HISTORY : Blind. Seizures. MRSA. Anemia. Hypertension. SURGICAL HISTORY : Unable to obtain. ENCOUNTER: Initial ACUITY: 1 day PAIN SCORE: Non-responsive LOCATION: Bilateral legs. TECHNIQUE: Venous ultrasound of the left and right leg was performed from the inguinal ligament to the proximal calf. Real-time, color Doppler and spectral tracing, compression and augmentation techniques were us ed. FINDINGS: RIGHT LEG: There is normal compressibility of the deep venous system from the inguinal region to the proximal ca lf. No echogenic clot is seen in the lumen of the common femoral, femoral, popliteal, and posterior tibial veins. There is a normal response of the venous system to proximal and distal augmentation an d respiration. LEFT LEG: There is normal compressibility of the deep venous system from the inguinal region to the proximal ca lf. No echogenic clot is seen in the lumen of the common femoral, femoral, and popliteal veins. The posterior tibial vein was not visualized. There is a normal response of the venous system to proxima l and distal augmentation and respiration. CONCLUSION: No DVT or superficial venous thrombosis is identified within either lower extremity. Bernardo Redd MD on January 18, 2018 at 23:17 Board Certified Radiologist. This report was verified electronically.
--- NOTE | 2018-01-18 23:23 | RADRPT ---
EXAM DATE/TIME: 01/18/2018 22:27 [facility] COMPARISON: No previous studies available for comparison. INDICATIONS : Bilateral arm swelling. MEDICAL HISTORY : Blind. Seizures. MRSA. Anemia. Hypertension. SURGICAL HISTORY : Unable to obtain. ENCOUNTER: Initial ACUITY: 1 day PAIN SCORE: Non-responsive LOCATION: Bilateral arms. FINDINGS: RIGHT UPPER EXTREMITY: There are abnormal intraluminal echoes with lack of normal compression within the basilic vein. There is no blood flow seen indicating occlusive thrombus. The remaining veins of the right upper extremit y including the internal jugular vein are patent. LEFT UPPER EXTREMITY: There is lack of normal compression of the left subclavian, axillary, and basilic veins. There is lac k of normal blood flow within these vessels consistent with occlusive thrombus. The cephalic vein is not visualized. The remaining veins of the left upper extremity are patent including the internal jug ular vein. CONCLUSION: 1. In the right upper extremity, there is occlusive thrombus within the basilic vein. The remaining v eins of the left upper extremity are patent. 2. In the left upper extremity, there is occlusive thrombus within the subclavian, axillary, and basi lic veins. Bernardo Redd MD on January 18, 2018 at 23:18 Board Certified Radiologist. This report was verified electronically.
[2018-01-19] VITALS (16 sets, daily range): BP systolic 166–203; BP diastolic 80–103; PULSE 91–118; RESP 18–42; O2SAT 92–98
[2018-01-19] MEDS: PIPERACIL-TAZO 2.25 GM PREMIX 50 ML IV SCH ×3 (03:13→16:35)
[2018-01-19] MEDS: FREE WATER G-TUBE SCH ×3 (03:13→09:39)
[2018-01-19] MEDS: RESP: ALBUTEROL 2.5 MG/IPRATROPIUM 0.5 MG NEB (SCH) NEB ×5 (03:53→20:00)
[2018-01-19] MEDS: PHENYTOIN SUSP 100 MG/4 ML CUP PO SCH ×3 (04:53→20:13)
[2018-01-19 05:36] LABS: AUTOMATED NEUTROPHIL # 8.1 TH/MM3 (1.8-7.7); BASOPHIL % 0.3 % (0.0-2.0); EOSINOPHIL # 0.1 TH/MM3 (0-0.4); EOSINOPHIL % 0.6 % (0.0-4.0); HEMATOCRIT 34.2 % (39.0-51.0); HEMOGLOBIN 11.1 GM/DL (13.0-17.0); LYMPH % 5.1 % (9.0-44.0); LYMPHOCYTE # 0.5 TH/MM3 (1.0-4.8); MEAN CELL VOLUME 85.4 FL (80.0-100.0); MEAN CORPUSCULAR HEMOGLOBIN 27.8 PG (27.0-34.0); MEAN CORPUSCULAR HGB CONC 32.5 % (32.0-36.0); MEAN PLATELET VOLUME 10.7 FL (7.0-11.0); MONO % 8.9 % (0.0-8.0); MONOCYTE # 0.9 TH/MM3 (0-0.9); NEUT % 85.1 % (16.0-70.0); PLATELET COUNT 121 TH/MM3 (150-450); RED CELL DISTRIBUTION WIDTH 14.2 % (11.6-17.2); WHITE BLOOD COUNT 9.6 TH/MM3 (4.0-11.0)
[2018-01-19] MEDS: INSULIN ASPART SUPPLEMENTAL SCALE SQ SCH ×5 (06:00→23:04)
[2018-01-19 06:11] LABS: BICARBONATE 26.7 MEQ/L (21.0-32.0); CALCIUM 7.8 MG/DL (8.5-10.1); CREATININE 1.72 MG/DL (0.60-1.30); RANDOM VANCOMYCIN 13.9 COMMENT
[2018-01-19] MEDS ORDERED: SODIUM PHOSPHATE INJ 30 MMOL in SODIUM CHLOR 0.9% 250 ML INJ 240 ML IV PRN (07:15)
[2018-01-19] MEDS ORDERED: POTASSIUM CHLORIDE 25 MEQ EFFERVESCENT TAB PO PRN (07:15)
[2018-01-19] MEDS ORDERED: POTASSIUM PHOSPHATE INJ 30 MMOL in SODIUM CHLOR 0.9% 250 ML INJ 250 ML IV PRN (07:15)
[2018-01-19] MEDS ORDERED: POTASSIUM PHOSPHATE MONOBASIC 500 MG TAB PO PRN (07:15)
[2018-01-19] MEDS ORDERED: POTASSIUM CHLOR 40 MEQ PREMIX 100 ML IV PRN ×2 (07:15)
[2018-01-19] MEDS ORDERED: POTASSIUM PHOSPHATE MONOBASIC 500 MG TAB PO/TUBE PRN (07:15)
[2018-01-19] MEDS ORDERED: MAGNESIUM OXIDE 400 MG TAB PO PRN (07:15)
[2018-01-19] MEDS ORDERED: MAGNESIUM SULFATE INJ 4 GM in SODIUM CHLORIDE 0.9% INJ 92 ML IV PRN (07:15)
--- NOTE | 2018-01-19 07:15 | HHI.CCPN ---
Subjective Remarks/Hospital Course 01/14: Patient is a 47-year-old -[place] male with past medical history significant for cerebral palsy, hypertension, agitation at baseline, seizure disorder on Topamax and Dilantin was brought to the emergency department for fever and altered mental station. Apparently he is usually quite agitated at baseline, over the last 24 hours had been lethargic. Due to the mental status change patient was brought to the ICU. GCS was 8 on arrival patient was tachypneic, tachycardic and critically ill. In NH at the time of EMS pickup oxygen saturation was in the 70s. In the ER on 50% Ventimask oxygen saturation 87-88%. Intubated due to hypoxemic respiratory failure and also for airway protection. Lab work showed patient had significant hyperkalemia and acute renal failure. Potassium was 6.9 treated with calcium chloride, IV insulin and D50, bicarb and Kayexalate. Patient also received 1 L normal saline bolus and was placed on normal saline infusion. UA showed evidence of severe UTI. Empirically received Zosyn and vancomycin in the ED Dr. Chang evaluated the patient in the ICU. CT chest showed bibasilar infiltrates indicating possible pneumonia, CT abdomen showed indeterminate low- density liver lesions and some bladder thickness indicating cystitis. Patient will be continued on vancomycin and Zosyn and azithromycin. Repeat sodium came back at 160 potassium is down to 4. I will discontinue normal saline and place on half-normal saline at 150 ml per hour. Bolus of 1 L half-normal saline ordered. Cultures have been ordered and is pending at this time. Patient has urinary catheter and is making urine which is cloudy. Apparently had shaking movements after arrival to ICU subsided with 2 mg IV Ativan. EEG had been ordered. Also check Dilantin level. 01/15: Remains sedated, orally intubated on mechanical ventilation. 01/16: Remains sedated, orally intubated on mechanical ventilation. Tolerating tube feeds. 01/17 Patient was reintubated early this morning as his ETT dislodged. Sedated with Versed, Diprivan. Afebrile. 01/18 No events overnight. Sedated with Diprivan, Versed and intubated. Afebrile. 01/19 Patient was extubated yesterday on 2L oxygen with good sats. T:100.0 Objective Vital Signs Date Time Temp Pulse Resp B/P (MAP) Pulse Ox O2 Delivery O2 Flow Rate FiO2 01/19/18 02:00 105 01/19/18 00:00 100.0 31 166/80 (108) 92 01/18/18 21:30 Nasal Cannula 2.00 01/18/18 20:51 21 Result Diagram: 01/19/18 0424 01/19/18 0424 Other Results Laboratory Tests Test 01/18/18 08:14 01/18/18 10:15 01/18/18 12:52 01/19/18 04:24 Prothrombin Time 12.9 SEC Prothromb Time International Ratio 1.3 RATIO Activated Partial Thromboplast Time 32.2 SEC Fibrinogen 209 mg/dL White Blood Count 7.9 TH/MM3 9.6 TH/MM3 Red Blood Count 3.81 MIL/MM3 4.00 MIL/MM3 Hemoglobin 10.6 GM/DL 11.1 GM/DL Hematocrit 33.0 % 34.2 % Mean Corpuscular Volume 86.6 FL 85.4 FL Mean Corpuscular Hemoglobin 27.8 PG 27.8 PG Mean Corpuscular Hemoglobin Concent 32.1 % 32.5 % Red Cell Distribution Width 14.8 % 14.2 % Platelet Count 95 TH/MM3 121 TH/MM3 Mean Platelet Volume 10.6 FL 10.7 FL Neutrophils (%) (Auto) 64.1 % 85.1 % Lymphocytes (%) (Auto) 19.9 % 5.1 % Monocytes (%) (Auto) 11.7 % 8.9 % Eosinophils (%) (Auto) 3.4 % 0.6 % Basophils (%) (Auto) 0.9 % 0.3 % Neutrophils # (Auto) 5.1 TH/MM3 8.1 TH/MM3 Lymphocytes # (Auto) 1.6 TH/MM3 0.5 TH/MM3 Monocytes # (Auto) 0.9 TH/MM3 0.9 TH/MM3 Eosinophils # (Auto) 0.3 TH/MM3 0.1 TH/MM3 Basophils # (Auto) 0.1 TH/MM3 0.0 TH/MM3 CBC Comment AUTO DIFF DIFF FINAL Differential Comment AUTO DIFF CONFIRMED Platelet Estimate LOW Platelet Morphology Comment ENLARGED Red Cell Morphology Comment NORMAL Hematology Comments Blood Gas Puncture Site RT RADIAL Blood Gas Patient Temperature 98.6 Blood Gas HCO3 25 mmol/L Blood Gas Base Excess -0.3 mmol/L Blood Gas Oxygen Saturation 97 % Arterial Blood pH 7.33 Arterial Blood Partial Pressure CO2 49 mmHg Arterial Blood Partial Pressure O2 123 mmHg Arterial Blood Oxygen Content 12.8 Vol % Arterial Blood Carboxyhemoglobin 0.8 % Arterial Blood Methemoglobin 1.4 % Blood Gas Hemoglobin 9.3 G/DL Oxygen Delivery Device VENTILATOR Blood Gas Ventilator Setting CPAP +5PEEP/10PSV Blood Gas Inspired Oxygen 40 % Blood Urea Nitrogen 22 MG/DL Creatinine 1.72 MG/DL Random Glucose 81 MG/DL Calcium Level 7.8 MG/DL Sodium Level 147 MEQ/L Potassium Level 2.0 MEQ/L Chloride Level 109 MEQ/L Carbon Dioxide Level 26.7 MEQ/L Anion Gap 11 MEQ/L Estimat Glomerular Filtration Rate 51 ML/MIN Random Vancomycin Level 13.9 COMMENT Imaging Last Impressions Upper Extremity Ultrasound 01/18/18 0000 Signed Impressions: Service Date/Time: Thursday, January 18, 2018 22:27 - CONCLUSION: 1. In the right upper extremity, there is occlusive thrombus within the basilic vein. The remaining veins of the left upper extremity are patent. 2. In the left upper extremity, there is occlusive thrombus within the subclavian, axillary, and basilic veins. Bernardo Redd MD Lower Extremity Ultrasound 01/18/18 0000 Signed Impressions: Service Date/Time: Thursday, January 18, 2018 22:13 - CONCLUSION: No DVT or superficial venous thrombosis is identified within either lower extremity. Bernardo Redd MD Chest X-Ray 01/17/18 0000 Signed Impressions: Service Date/Time: Wednesday, January 17, 2018 06:19 - CONCLUSION: 1. Endotracheal tube distal tip measures approximately 2.6 cm from the bill. 2. Stable left basilar airspace opacity. Bernardo Redd MD Chest CT 01/14/18 0000 Signed Impressions: Service Date/Time: Sunday, January 14, 2018 19:56 - CONCLUSION: 1. Posterior bibasilar patchiness consistent with pneumonia or atelectasis. Clinical correlation is recommended. 2. Cardiomegaly. 3. Tiny pericardial effusion. 4. Tiny bilateral pleural effusions. 5. Degenerative changes and scoliosis of the thoracic spine. Pedrito Hastings MD Abdomen/Pelvis CT 01/14/18 0000 Signed Impressions: Service Date/Time: Sunday, January 14, 2018 19:56 - CONCLUSION: 1. Patchy infiltrate within the posterior lung bases bilaterally raising possibility of atelectasis or pneumonia. 2. Tiny bilateral pleural effusions. 3. Cardiomegaly and tiny pericardial effusion. 4. Hepatomegaly. 5. Scattered low-density lesions throughout the liver which are indeterminate in etiology. 6. 1.9 cm right adrenal nodule consistent with probable adrenal adenoma. 7. Uncomplicated colonic diverticulosis. 8. Diffuse urinary bladder wall thickening raising the possibility of cystitis. Clinical correlation is recommended. 9. Degenerative changes and scoliosis of the thoraco-lumbar spine. Pedrito Hastings MD Objective Remarks GENERAL: Patient is 47 yo lying in bed in NAD SKIN: Warm and dry. HEAD: Normocephalic. EYES: No scleral icterus. No injection or drainage. NECK: Supple, trachea midline. No JVD or lymphadenopathy. CARDIOVASCULAR: Tachycardic without murmurs, gallops, or rubs. RESPIRATORY: Breath sounds equal bilaterally. No accessory muscle use. GASTROINTESTINAL: Abdomen soft, non-tender, nondistended. MUSCULOSKELETAL: No cyanosis, or edema. Neuro: non verbal, A/P Assessment and Plan NEURO: Acute metabolic encephalopathy Seizure disorder Underlying cerebral palsy Monitor neuro status and avoid sedatives. -Ativan as needed for agitation and seizure -Continue Dilantin 125mg Q8 and Topamax, Dilantin level 8.7 on 01/15 RESP: Acute hypoxemic respiratory failure- Reintubated earlier today ( ETT dislodged) Healthcare associated pneumonia -Continue with oxygen keep sat >92% -DuoNeb every 6 hours as needed CV: History of hypertension -Place on Lopressor 50mg Q12- Monitor HR and BP keep MAP>65mmHg GI: - IV famotidine -Speech eval, diet per speech Acute kidney failure Severe dehydration Hypernatremia -Monitor renal function, I/O's, avoid nephrotoxins Renal function is improving with Cr: 1.79 from 2.29, will need K replacement today -d/c IVF -CT abdomen pelvis did not show any evidence of hydronephrosis ID: UTI MRSA pneumonia -Broad-spectrum antibiotics with vancomycin, Zosyn and azithromycin -Monitor for signs of infections ( Fever, WBC) Urine cx: Proteus Sputum cx: MRSA Strep pneumonia and Legionella urinary Ag, Flu screening all negative on 01/14 HEME: Thrombocytopenia -Monitor CBC, CMP, coags. -Hep PLT induced ab: weakly positive, follow up on SARA, will discuss with Heme about starting Argatroban PROPH: -Bilateral lower extremity SCDs/MATEO. Heparin held on 01/15, Hep PLT ab weakly +, follow up SARA, heme eval, IV famotidine :Doppler US UE: In the right upper extremity, there is occlusive thrombus within the basilic vein. In the left upper extremity, there is occlusive thrombus within the subclavian, axillary, and basilic veins. Doppler US LE: No DVT LINES: -Utilize peripheral IVs, Level 2 Wilder Delaney MD Jan 19, 2018 07:15
[2018-01-19 08:05] LABS: DIRECT BILIRUBIN ADULT 0.2 MG/DL (0.0-0.2)
[2018-01-19 08:09] LABS: ALBUMIN 2.5 GM/DL (3.4-5.0)
[2018-01-19 08:11] LABS: MAGNESIUM 1.9 MG/DL (1.5-2.5)
[2018-01-19 08:12] LABS: INDIRECT BILIRUBIN 0.4 MG/DL (0.0-0.8); PHOSPHORUS 1.2 MG/DL (2.5-4.9); TOTAL BILIRUBIN ADULT 0.6 MG/DL (0.2-1.0); TOTAL PROTEIN 6.5 GM/DL (6.4-8.2)
[2018-01-19] MEDS: LORazepam 2 MG/ML VIAL IV PUSH PRN ×3 (09:36→20:28)
[2018-01-19] MEDS: hydrALAZINE HCL 20 MG/ML VIAL IV PUSH PRN ×3 (09:36→20:13)
[2018-01-19] MEDS: SODIUM CHLORIDE 0.9% FLUSH 10 ML FLUSH IV FLUSH SCH ×2 (09:37→20:12)
[2018-01-19] MEDS: CHLORHEXIDINE GLUCONATE 2 % 1 PACK (2 CLOTHS) TOP SCH (09:38)
[2018-01-19] MEDS: POTASSIUM CHLOR 20 MEQ PREMIX 100 ML IV PRN ×2 (09:47→13:55)
[2018-01-19] MEDS: TOPIRAMATE 200 MG TAB PO SCH ×2 (09:48→14:48)
[2018-01-19] MEDS: QUEtiapine FUMARATE 200 MG TAB PO SCH ×3 (09:48→18:00)
[2018-01-19] MEDS: CHLORHEXIDINE 0.12% (ORAL KIT) 15 ML CUP MT SCH ×2 (09:49→19:55)
[2018-01-19 11:17] LABS: INTERNATIONAL NORMALIZED RATIO 1.1 RATIO
[2018-01-19] MEDS ORDERED: MISCELLANEOUS PHARMACY INFORMATION OTHER ONE (12:15)
[2018-01-19] MEDS: SODIUM CHLORIDE 0.9% FLUSH 10 ML FLUSH IV FLUSH PRN (12:39)
[2018-01-19] MEDS ORDERED: VANCOMYCIN INJ 1,250 MG in SODIUM CHLOR 0.9% 250 ML INJ 250 ML IV ONE (13:00)
[2018-01-19] MEDS: ARGATROBAN INJ 250 MG in SODIUM CHLOR 0.9% 250 ML INJ 250 ML IV PRN (14:50)
--- NOTE | 2018-01-19 14:55 | PD.ONC.PN ---
Subjective Subjective Remarks Tmax 100F overnight. patient is non-verbal. has been moaning all morning. per nurse this is his baseline. no bleeding. Objective Data Date Time Temp Pulse Resp B/P (MAP) Pulse Ox O2 Delivery O2 Flow Rate FiO2 01/19/18 14:10 19 01/19/18 13:47 93 Nasal Cannula 4.00 01/19/18 02:00 105 01/19/18 00:00 100.0 113 31 166/80 (108) 92 01/19/18 00:00 113 01/18/18 22:00 113 01/18/18 21:30 96 Nasal Cannula 2.00 01/18/18 20:51 93 21 01/18/18 20:00 99.3 101 45 166/77 (106) 95 01/18/18 20:00 101 01/18/18 18:00 99.1 97 19 189/93 (125) 01/18/18 17:45 99.1 99 13 210/98 (135) 01/18/18 17:00 99.1 99 23 100 01/18/18 16:00 99.0 93 20 97 01/18/18 15:00 99.0 101 24 99 01/19/18 01/19/18 01/19/18 07:00 15:00 23:00 Intake Total 50 ml Balance 50 ml Result Diagram: 01/19/18 0424 01/19/18 0424 Laboratory Results Laboratory Tests Test 01/19/18 04:24 01/19/18 07:45 01/19/18 10:43 White Blood Count 9.6 TH/MM3 Red Blood Count 4.00 MIL/MM3 Hemoglobin 11.1 GM/DL Hematocrit 34.2 % Mean Corpuscular Volume 85.4 FL Mean Corpuscular Hemoglobin 27.8 PG Mean Corpuscular Hemoglobin Concent 32.5 % Red Cell Distribution Width 14.2 % Platelet Count 121 TH/MM3 Mean Platelet Volume 10.7 FL Neutrophils (%) (Auto) 85.1 % Lymphocytes (%) (Auto) 5.1 % Monocytes (%) (Auto) 8.9 % Eosinophils (%) (Auto) 0.6 % Basophils (%) (Auto) 0.3 % Neutrophils # (Auto) 8.1 TH/MM3 Lymphocytes # (Auto) 0.5 TH/MM3 Monocytes # (Auto) 0.9 TH/MM3 Eosinophils # (Auto) 0.1 TH/MM3 Basophils # (Auto) 0.0 TH/MM3 CBC Comment DIFF FINAL Differential Comment Blood Urea Nitrogen 22 MG/DL Creatinine 1.72 MG/DL Random Glucose 81 MG/DL Total Protein 6.5 GM/DL Albumin 2.5 GM/DL Calcium Level 7.8 MG/DL Phosphorus Level 1.2 MG/DL Magnesium Level 1.9 MG/DL Alkaline Phosphatase 74 U/L Aspartate Amino Transf (AST/SGOT) 26 U/L Alanine Aminotransferase (ALT/SGPT) 25 U/L Total Bilirubin 0.6 MG/DL Direct Bilirubin 0.2 MG/DL Sodium Level 147 MEQ/L Potassium Level 2.0 MEQ/L Chloride Level 109 MEQ/L Carbon Dioxide Level 26.7 MEQ/L Anion Gap 11 MEQ/L Estimat Glomerular Filtration Rate 51 ML/MIN Indirect Bilirubin 0.4 MG/DL Random Vancomycin Level 13.9 COMMENT Fibrinogen 436 mg/dL Prothrombin Time 11.0 SEC Prothromb Time International Ratio 1.1 RATIO Activated Partial Thromboplast Time 25.6 SEC Culture Results Microbiology Date/Time Source Procedure Growth Status 01/17/18 11:20 Sputum Endotracheal Gram Stain - Final Complete 01/17/18 11:20 Sputum Culture - Final S. Aureus Mrsa Complete Administered Medications Medications (Trade) Dose Ordered Sig/Sally Route PRN Reason Start Time Stop Time Status Last Admin Dose Admin Sodium Chloride (NS Flush) 2 ml UNSCH PRN IV FLUSH FLUSH AFTER USING IV ACCESS 01/14/18 17:45 01/19/18 12:39 Sodium Chloride (NS Flush) 2 ml BID IV FLUSH 01/14/18 21:00 01/19/18 09:37 Fentanyl Citrate (fentaNYL INJ) 50 mcg Q1H PRN IV PUSH SEE LABEL COMMENTS 01/14/18 17:45 01/19/18 12:38 Chlorhexidine Gluconate (Peridex 0.12% Liq) 15 ml BID@08,20 MT 01/14/18 20:00 01/19/18 09:49 Chlorhexidine Gluconate (Chlorhexidine 2% Cloth) 3 pack Taper DAILY@04 TOP 01/15/18 04:00 01/11/19 03:59 01/18/18 03:16 Propofol 100 ml @ 1.77 mls/hr TITRATE PRN IV SEDATION 3/2/18 17:45 01/18/18 03:16 Azithromycin 500 mg/Sodium Chloride 250 ml @ 250 mls/hr Q24H IV 01/14/18 18:00 01/18/18 17:45 Famotidine (Pepcid Inj) 20 mg HS IV PUSH 01/14/18 21:00 01/18/18 20:26 Lorazepam (Ativan Inj) 1 mg Q2H PRN IV PUSH seizures 01/14/18 22:00 01/19/18 09:36 Phenytoin (Dilantin Liq) 125 mg Q8HR PO 01/15/18 06:00 01/18/18 14:00 Quetiapine Fumarate (SEROquel) 200 mg TID PO 01/15/18 09:00 01/19/18 09:48 Topiramate (Topamax) 200 mg DAILY PO 01/15/18 09:00 01/19/18 09:48 Hydralazine HCl (Apresoline Inj) 20 mg Q4H PRN IV PUSH SBP >160 01/14/18 22:15 01/19/18 09:36 Midazolam HCl 100 ml @ 2 mls/hr TITRATE PRN IV SEDATION 01/15/18 15:00 01/18/18 05:20 Albuterol/ Ipratropium (Duoneb Neb) 1 ampule Q4HR NEB NEB 01/18/18 16:00 01/19/18 03:53 Potassium Chloride 100 ml @ 50 mls/hr Q2H PRN IV For Potassium 2.8 - 3.2 mEq/L 01/19/18 07:15 01/19/18 13:55 Potassium Phosphate (K-Phos) 2,000 mg Q4H PRN PO For Phosphorus < 2.5 mg/dL 01/19/18 07:15 01/19/18 11:33 Objective Remarks GENERAL: Middle aged male, lying in bed, moaning, in restraints. SKIN: Warm and dry. HEAD: Normocephalic. EYES: No scleral icterus. No injection or drainage. NECK: Supple, trachea midline. CARDIOVASCULAR: Regular rate and rhythm RESPIRATORY: anterior vincent clear. GASTROINTESTINAL: Abdomen soft, non-tender, nondistended. EXTREMITIES: No cyanosis NEUROLOGICAL: awake. does not answer questions. does not follow commands. Assessment/Plan Problem List: (1) Thrombocytopenia ICD Codes: D69.6 - Thrombocytopenia, unspecified Plan: --likely d/t hepatosplenomegaly + sepsis + recent antibiotic use. --+HIT KIM, SARA pending. --coags WNL today. --++ DVT, RUE + LUE --peripheral blood smear pending. --LDH mildly elevated, haptoglobin WNL, no sign of hemolysis Assessment 47y/o male admitted with AMS. Hematology consulted for thrombocytopenia. history of cerebral palsy, hypertension, baseline agitation, seizure disorder, on Topamax and Dilantin, who was brought into the emergency department on January 14 with fever and altered mental status. The majority of the history and Plan 1. start Argatroban d/t + HIT + bilateral upper extremity DVT. monitor closely for bleeding. await SARA 2. monitor CBC 3. continue supportive care. Attending Statement The exam, history, and the medical decision-making described in the above note were completed with the assistance of the mid-level provider. I reviewed and agree with the findings presented. I attest that I had a [id number] encounter with the patient on the same day, and personally performed and documented my assessment and findings in the medical record. 47 yoM admitted with sepsis. Now with upper extremity clot. 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 SARA pending. Continue argatroban. Gia Rosario Jan 19, 2018 14:55 Tatyana Rose MD Jan 21, 2018 19:06
[2018-01-19] MEDS: AZITHROMYCIN INJ 500 MG in SODIUM CHLOR 0.9% 250 ML INJ 250 ML IV SCH (16:34)
--- NOTE | 2018-01-19 17:13 | PD.ONC.PN ---
Subjective Subjective Remarks Laying in bed. Agitated. s/p extubation. Objective Data Date Time Temp Pulse Resp B/P (MAP) Pulse Ox O2 Delivery O2 Flow Rate FiO2 01/19/18 14:10 19 01/19/18 13:47 93 Nasal Cannula 4.00 01/19/18 02:00 105 01/19/18 00:00 100.0 113 31 166/80 (108) 92 01/19/18 00:00 113 01/18/18 22:00 113 01/18/18 21:30 96 Nasal Cannula 2.00 01/18/18 20:51 93 21 01/18/18 20:00 99.3 101 45 166/77 (106) 95 01/18/18 20:00 101 01/18/18 18:00 99.1 97 19 189/93 (125) 01/18/18 17:45 99.1 99 13 210/98 (135) 01/18/18 17:00 99.1 99 23 100 01/19/18 01/19/18 01/19/18 07:00 15:00 23:00 Intake Total 50 ml 480 ml Balance 50 ml 480 ml Result Diagram: 01/19/18 0424 01/19/18 0424 Laboratory Results Laboratory Tests Test 01/19/18 04:24 01/19/18 07:45 01/19/18 10:43 White Blood Count 9.6 TH/MM3 Red Blood Count 4.00 MIL/MM3 Hemoglobin 11.1 GM/DL Hematocrit 34.2 % Mean Corpuscular Volume 85.4 FL Mean Corpuscular Hemoglobin 27.8 PG Mean Corpuscular Hemoglobin Concent 32.5 % Red Cell Distribution Width 14.2 % Platelet Count 121 TH/MM3 Mean Platelet Volume 10.7 FL Neutrophils (%) (Auto) 85.1 % Lymphocytes (%) (Auto) 5.1 % Monocytes (%) (Auto) 8.9 % Eosinophils (%) (Auto) 0.6 % Basophils (%) (Auto) 0.3 % Neutrophils # (Auto) 8.1 TH/MM3 Lymphocytes # (Auto) 0.5 TH/MM3 Monocytes # (Auto) 0.9 TH/MM3 Eosinophils # (Auto) 0.1 TH/MM3 Basophils # (Auto) 0.0 TH/MM3 CBC Comment DIFF FINAL Differential Comment Blood Urea Nitrogen 22 MG/DL Creatinine 1.72 MG/DL Random Glucose 81 MG/DL Total Protein 6.5 GM/DL Albumin 2.5 GM/DL Calcium Level 7.8 MG/DL Phosphorus Level 1.2 MG/DL Magnesium Level 1.9 MG/DL Alkaline Phosphatase 74 U/L Aspartate Amino Transf (AST/SGOT) 26 U/L Alanine Aminotransferase (ALT/SGPT) 25 U/L Total Bilirubin 0.6 MG/DL Direct Bilirubin 0.2 MG/DL Sodium Level 147 MEQ/L Potassium Level 2.0 MEQ/L Chloride Level 109 MEQ/L Carbon Dioxide Level 26.7 MEQ/L Anion Gap 11 MEQ/L Estimat Glomerular Filtration Rate 51 ML/MIN Indirect Bilirubin 0.4 MG/DL Random Vancomycin Level 13.9 COMMENT Fibrinogen 436 mg/dL Prothrombin Time 11.0 SEC Prothromb Time International Ratio 1.1 RATIO Activated Partial Thromboplast Time 25.6 SEC Culture Results Microbiology Date/Time Source Procedure Growth Status 01/17/18 11:20 Sputum Endotracheal Gram Stain - Final Complete 01/17/18 11:20 Sputum Culture - Final S. Aureus Mrsa Complete Administered Medications Medications (Trade) Dose Ordered Sig/Sally Route PRN Reason Start Time Stop Time Status Last Admin Dose Admin Sodium Chloride (NS Flush) 2 ml UNSCH PRN IV FLUSH FLUSH AFTER USING IV ACCESS 01/14/18 17:45 01/19/18 12:39 Sodium Chloride (NS Flush) 2 ml BID IV FLUSH 01/14/18 21:00 01/19/18 09:37 Chlorhexidine Gluconate (Peridex 0.12% Liq) 15 ml BID@08,20 MT 01/14/18 20:00 01/19/18 09:49 Chlorhexidine Gluconate (Chlorhexidine 2% Cloth) 3 pack Taper DAILY@04 TOP 01/15/18 04:00 01/11/19 03:59 01/18/18 03:16 Azithromycin 500 mg/Sodium Chloride 250 ml @ 250 mls/hr Q24H IV 01/14/18 18:00 01/19/18 16:34 Famotidine (Pepcid Inj) 20 mg HS IV PUSH 01/14/18 21:00 01/18/18 20:26 Lorazepam (Ativan Inj) 1 mg Q2H PRN IV PUSH seizures 01/14/18 22:00 01/19/18 14:50 Phenytoin (Dilantin Liq) 125 mg Q8HR PO 01/15/18 06:00 01/19/18 14:48 Quetiapine Fumarate (SEROquel) 200 mg TID PO 01/15/18 09:00 01/19/18 14:48 Topiramate (Topamax) 200 mg DAILY PO 01/15/18 09:00 01/19/18 14:48 Hydralazine HCl (Apresoline Inj) 20 mg Q4H PRN IV PUSH SBP >160 01/14/18 22:15 01/19/18 14:50 Albuterol/ Ipratropium (Duoneb Neb) 1 ampule Q4HR NEB NEB 01/18/18 16:00 01/19/18 15:50 Potassium Chloride 100 ml @ 50 mls/hr Q2H PRN IV For Potassium 2.8 - 3.2 mEq/L 01/19/18 07:15 01/19/18 13:55 Potassium Phosphate (K-Phos) 2,000 mg Q4H PRN PO For Phosphorus < 2.5 mg/dL 01/19/18 07:15 01/19/18 11:33 Argatroban 250 mg/ Sodium Chloride 252.5 ml @ 8.39 mls/hr TITRATE PRN IV aPTT < 50 01/19/18 12:15 01/19/18 14:50 Objective Remarks GENERAL: chronically ill appearing man in no distress SKIN: Warm and dry. HEAD: Normocephalic. CARDIOVASCULAR: Regular rate and rhythm without murmurs. RESPIRATORY: Breath sounds equal bilaterally. No accessory muscle use. GASTROINTESTINAL: Abdomen soft, non-tender, nondistended. EXTREMITIES: No cyanosis, or edema. MUSCULOSKELETAL: wasting of bilateral lower extremities NEUROLOGICAL: No obvious focal deficit. Awake, alert, and oriented x3. PSYCHIATRIC: Appropriate mood and affect; insight and judgment normal. Assessment/Plan Problem List: (1) Thrombocytopenia ICD Codes: D69.6 - Thrombocytopenia, unspecified Plan: --likely d/t hepatosplenomegaly + sepsis + recent antibiotic use. --+HIT KIM, SARA pending. --coags WNL today. --++ DVT, RUE + LUE --peripheral blood smear pending. --LDH mildly elevated, haptoglobin WNL, no sign of hemolysis Assessment 47y/o male admitted with AMS. Hematology consulted for thrombocytopenia. history of cerebral palsy, hypertension, baseline agitation, seizure disorder, on Topamax and Dilantin, who was brought into the emergency department on January 14 with fever and altered mental status. Plan 1. start Argatroban d/t + HIT + bilateral upper extremity DVT. monitor closely for bleeding. await SARA 2. monitor CBC 3. continue supportive care. Attending Statement The exam, history, and the medical decision-making described in the above note were completed with the assistance of the mid-level provider. I reviewed and agree with the findings presented. I attest that I had a [id number] encounter with the patient on the same day, and personally performed and documented my assessment and findings in the medical record. 47 yoM with cerebral palsy admitted with AMS/sedation and found to have UTI and MRSA pneumonia. Thrombocytopenia, prolonged coags, low fibrinogen likely secondary to component of DIC given sepsis and infection on admission. This has resolved with normalization of coags and increase in fibrinogen. Platelet count rising. Ultrasound reveals upper extremity VTE. Will need to start on systemic anticoagulation. Given low positive HIT will anticoagulation with argatroban ( short acting, LFT's WNL). Will follow up SARA. Will discuss with family/ custodial staff patient's clotting history and activity level to determine provoked nature of clot. Tatyana Rose MD Jan 19, 2018 17:13
[2018-01-19] MEDS: PIPERACIL-TAZO 3.375 GM PREMIX 50 ML IV SCH (18:00)
[2018-01-19 18:46] LABS: PHOSPHORUS 2.9 MG/DL (2.5-4.9)
[2018-01-19] MEDS: FAMOTIDINE 20 MG/2 ML VIAL IV PUSH SCH (20:13)
[2018-01-19] MEDS: METOPROLOL TARTRATE 50 MG TAB PO SCH (20:14)
[2018-01-20] VITALS (23 sets, daily range): BP systolic 123–237; BP diastolic 55–110; PULSE 87–115; RESP 20–40; TEMP 99–99.5; O2SAT 90–100
[2018-01-20] MEDS: PIPERACIL-TAZO 3.375 GM PREMIX 50 ML IV SCH ×3 (00:01→17:00)
[2018-01-20] MEDS: CHLORHEXIDINE GLUCONATE 2 % 1 PACK (2 CLOTHS) TOP SCH ×2 (00:02→20:11)
[2018-01-20] MEDS: RESP: ALBUTEROL 2.5 MG/IPRATROPIUM 0.5 MG NEB (SCH) NEB ×7 (00:40→23:36)
[2018-01-20 03:37] LABS: AUTOMATED NEUTROPHIL # 7.8 TH/MM3 (1.8-7.7); BASOPHIL % 0.2 % (0.0-2.0); EOSINOPHIL # 0.2 TH/MM3 (0-0.4); EOSINOPHIL % 2.2 % (0.0-4.0); HEMATOCRIT 36.8 % (39.0-51.0); HEMOGLOBIN 11.9 GM/DL (13.0-17.0); LYMPH % 8.3 % (9.0-44.0); LYMPHOCYTE # 0.8 TH/MM3 (1.0-4.8); MEAN CELL VOLUME 86.7 FL (80.0-100.0); MEAN CORPUSCULAR HEMOGLOBIN 28.1 PG (27.0-34.0); MEAN CORPUSCULAR HGB CONC 32.4 % (32.0-36.0); MEAN PLATELET VOLUME 11.1 FL (7.0-11.0); MONO % 11.2 % (0.0-8.0); MONOCYTE # 1.1 TH/MM3 (0-0.9); NEUT % 78.1 % (16.0-70.0); PLATELET COUNT 133 TH/MM3 (150-450); RED BLOOD COUNT 4.25 MIL/MM3 (4.50-5.90); RED CELL DISTRIBUTION WIDTH 14.9 % (11.6-17.2)
[2018-01-20 04:19] LABS: BICARBONATE 27.3 MEQ/L (21.0-32.0); CALCIUM 8.2 MG/DL (8.5-10.1); CREATININE 1.72 MG/DL (0.60-1.30); MAGNESIUM 2.1 MG/DL (1.5-2.5); PHOSPHORUS 2.9 MG/DL (2.5-4.9); RANDOM VANCOMYCIN 14.5 COMMENT
[2018-01-20] MEDS: PHENYTOIN SUSP 100 MG/4 ML CUP PO SCH ×3 (04:49→21:16)
[2018-01-20] MEDS: INSULIN ASPART SUPPLEMENTAL SCALE SQ SCH ×3 (04:59→17:04)
[2018-01-20] MEDS: LABETALOL HCL 100 MG/20 ML VIAL IV PUSH PRN ×2 (06:07→09:58)
[2018-01-20] MEDS: POTASSIUM CHLOR 20 MEQ PREMIX 100 ML IV PRN ×5 (06:08→22:26)
[2018-01-20] MEDS: hydrALAZINE HCL 20 MG/ML VIAL IV PUSH PRN ×2 (06:22→11:29)
--- NOTE | 2018-01-20 07:35 | HHI.CCPN ---
Subjective Remarks/Hospital Course 01/14: Patient is a 47-year-old -[place] male with past medical history significant for cerebral palsy, hypertension, agitation at baseline, seizure disorder on Topamax and Dilantin was brought to the emergency department for fever and altered mental station. Apparently he is usually quite agitated at baseline, over the last 24 hours had been lethargic. Due to the mental status change patient was brought to the ICU. GCS was 8 on arrival patient was tachypneic, tachycardic and critically ill. In NH at the time of EMS pickup oxygen saturation was in the 70s. In the ER on 50% Ventimask oxygen saturation 87-88%. Intubated due to hypoxemic respiratory failure and also for airway protection. Lab work showed patient had significant hyperkalemia and acute renal failure. Potassium was 6.9 treated with calcium chloride, IV insulin and D50, bicarb and Kayexalate. Patient also received 1 L normal saline bolus and was placed on normal saline infusion. UA showed evidence of severe UTI. Empirically received Zosyn and vancomycin in the ED Dr. Chang evaluated the patient in the ICU. CT chest showed bibasilar infiltrates indicating possible pneumonia, CT abdomen showed indeterminate low- density liver lesions and some bladder thickness indicating cystitis. Patient will be continued on vancomycin and Zosyn and azithromycin. Repeat sodium came back at 160 potassium is down to 4. I will discontinue normal saline and place on half-normal saline at 150 ml per hour. Bolus of 1 L half-normal saline ordered. Cultures have been ordered and is pending at this time. Patient has urinary catheter and is making urine which is cloudy. Apparently had shaking movements after arrival to ICU subsided with 2 mg IV Ativan. EEG had been ordered. Also check Dilantin level. 01/15: Remains sedated, orally intubated on mechanical ventilation. 01/16: Remains sedated, orally intubated on mechanical ventilation. Tolerating tube feeds. 01/17 Patient was reintubated early this morning as his ETT dislodged. Sedated with Versed, Diprivan. Afebrile. 01/18 No events overnight. Sedated with Diprivan, Versed and intubated. Afebrile. 01/19 Patient was extubated yesterday on 2L oxygen with good sats. T:100.0 01/20 Patient is on 4L oxygen, T:100.6 last night. Hypertensive. Objective Vital Signs Date Time Temp Pulse Resp B/P (MAP) Pulse Ox O2 Delivery O2 Flow Rate FiO2 01/20/18 06:00 87 01/20/18 04:17 100 Nasal Cannula 4.00 01/20/18 04:00 96.6 26 188/90 (122) 01/18/18 20:51 21 Intake and Output 01/20/18 01/20/18 01/21/18 08:00 16:00 00:00 Intake Total 100 ml Output Total 500 ml Balance -400 ml Result Diagram: 01/20/18 0140 01/20/18 0140 Other Results Laboratory Tests Test 01/19/18 07:45 01/19/18 10:43 01/19/18 17:52 01/19/18 22:31 Fibrinogen 436 mg/dL Prothrombin Time 11.0 SEC Prothromb Time International Ratio 1.1 RATIO Activated Partial Thromboplast Time 25.6 SEC 40.5 SEC 46.7 SEC Potassium Level 3.4 MEQ/L Phosphorus Level 2.9 MG/DL Test 01/20/18 01:40 White Blood Count 10.0 TH/MM3 Red Blood Count 4.25 MIL/MM3 Hemoglobin 11.9 GM/DL Hematocrit 36.8 % Mean Corpuscular Volume 86.7 FL Mean Corpuscular Hemoglobin 28.1 PG Mean Corpuscular Hemoglobin Concent 32.4 % Red Cell Distribution Width 14.9 % Platelet Count 133 TH/MM3 Mean Platelet Volume 11.1 FL Neutrophils (%) (Auto) 78.1 % Lymphocytes (%) (Auto) 8.3 % Monocytes (%) (Auto) 11.2 % Eosinophils (%) (Auto) 2.2 % Basophils (%) (Auto) 0.2 % Neutrophils # (Auto) 7.8 TH/MM3 Lymphocytes # (Auto) 0.8 TH/MM3 Monocytes # (Auto) 1.1 TH/MM3 Eosinophils # (Auto) 0.2 TH/MM3 Basophils # (Auto) 0.0 TH/MM3 CBC Comment DIFF FINAL Differential Comment Activated Partial Thromboplast Time 50.4 SEC Blood Urea Nitrogen 16 MG/DL Creatinine 1.72 MG/DL Random Glucose 86 MG/DL Calcium Level 8.2 MG/DL Phosphorus Level 2.9 MG/DL Magnesium Level 2.1 MG/DL Sodium Level 149 MEQ/L Potassium Level 2.7 MEQ/L Chloride Level 112 MEQ/L Carbon Dioxide Level 27.3 MEQ/L Anion Gap 10 MEQ/L Estimat Glomerular Filtration Rate 51 ML/MIN Random Vancomycin Level 14.5 COMMENT Imaging Last Impressions Upper Extremity Ultrasound 01/18/18 0000 Signed Impressions: Service Date/Time: Thursday, January 18, 2018 22:27 - CONCLUSION: 1. In the right upper extremity, there is occlusive thrombus within the basilic vein. The remaining veins of the left upper extremity are patent. 2. In the left upper extremity, there is occlusive thrombus within the subclavian, axillary, and basilic veins. Bernardo Redd MD Lower Extremity Ultrasound 01/18/18 0000 Signed Impressions: Service Date/Time: Thursday, January 18, 2018 22:13 - CONCLUSION: No DVT or superficial venous thrombosis is identified within either lower extremity. Bernardo Redd MD Chest X-Ray 01/17/18 0000 Signed Impressions: Service Date/Time: Wednesday, January 17, 2018 06:19 - CONCLUSION: 1. Endotracheal tube distal tip measures approximately 2.6 cm from the bill. 2. Stable left basilar airspace opacity. Bernardo Redd MD Chest CT 01/14/18 0000 Signed Impressions: Service Date/Time: Sunday, January 14, 2018 19:56 - CONCLUSION: 1. Posterior bibasilar patchiness consistent with pneumonia or atelectasis. Clinical correlation is recommended. 2. Cardiomegaly. 3. Tiny pericardial effusion. 4. Tiny bilateral pleural effusions. 5. Degenerative changes and scoliosis of the thoracic spine. Pedrito Hastings MD Abdomen/Pelvis CT 01/14/18 0000 Signed Impressions: Service Date/Time: Sunday, January 14, 2018 19:56 - CONCLUSION: 1. Patchy infiltrate within the posterior lung bases bilaterally raising possibility of atelectasis or pneumonia. 2. Tiny bilateral pleural effusions. 3. Cardiomegaly and tiny pericardial effusion. 4. Hepatomegaly. 5. Scattered low-density lesions throughout the liver which are indeterminate in etiology. 6. 1.9 cm right adrenal nodule consistent with probable adrenal adenoma. 7. Uncomplicated colonic diverticulosis. 8. Diffuse urinary bladder wall thickening raising the possibility of cystitis. Clinical correlation is recommended. 9. Degenerative changes and scoliosis of the thoraco-lumbar spine. Pedrito Hastings MD Objective Remarks GENERAL: Patient is 47 yo lying in bed in NAD SKIN: Warm and dry. HEAD: Normocephalic. EYES: No scleral icterus. No injection or drainage. NECK: Supple, trachea midline. No JVD or lymphadenopathy. CARDIOVASCULAR: Tachycardic without murmurs, gallops, or rubs. RESPIRATORY: Breath sounds equal bilaterally. No accessory muscle use. GASTROINTESTINAL: Abdomen soft, non-tender, nondistended. MUSCULOSKELETAL: No cyanosis, or edema. Neuro: non verbal, A/P Assessment and Plan NEURO: Acute metabolic encephalopathy Seizure disorder Underlying cerebral palsy Monitor neuro status and avoid sedatives. -Ativan as needed for agitation and seizure -Continue Dilantin 125mg Q8 and Topamax, Dilantin level 8.7 on 01/15, RESP: Acute hypoxemic respiratory failure- extubated 01/18 Healthcare associated pneumonia -Continue with oxygen keep sat >92% -DuoNeb every 6 hours as needed Check CXR CV: Hypertension On Lopressor 50mg Q12, add Hydralazine 50mg Q8- Monitor HR and BP keep MAP> 65mmHg GI: - IV famotidine -Place on mechanical soft diet per speech Acute kidney failure- improving Hypernatremia, hypokalemia -Monitor renal function, I/O's, avoid nephrotoxins Renal function is improving with Cr: 1.72 today, will need K replacement today Place on D5W@50ml/hr -CT abdomen pelvis did not show any evidence of hydronephrosis ID: UTI MRSA pneumonia -Broad-spectrum antibiotics with vancomycin, Zosyn and azithromycin -Monitor for signs of infections ( Fever, WBC) Panculture(Blood, sputum, UA with cx if indicated. Urine cx: Proteus Sputum cx: MRSA Strep pneumonia and Legionella urinary Ag, Flu screening all negative on 01/14 HEME: Thrombocytopenia -Monitor CBC, CMP, coags. -Hep PLT induced ab: weakly positive, follow up on SARA, On Argatroban PROPH: -Bilateral lower extremity SCDs/MATEO. Heparin held on 01/15, Hep PLT ab weakly +, follow up SARA, On Argatroban per Heme. IV famotidine :Doppler US UE: In the right upper extremity, there is occlusive thrombus within the basilic vein. In the left upper extremity, there is occlusive thrombus within the subclavian, axillary, and basilic veins. Doppler US LE: No DVT LINES: -Utilize peripheral IVs, Level 3 Wilder Delaney MD Jan 20, 2018 07:35
[2018-01-20] MEDS: CHLORHEXIDINE 0.12% (ORAL KIT) 15 ML CUP MT SCH ×2 (08:00→20:00)
--- NOTE | 2018-01-20 08:20 | RADRPT ---
EXAM DATE/TIME: 01/20/2018 07:55 [facility] COMPARISON: CHEST SINGLE AP, January 17, 2018, 6:19. INDICATIONS : Infiltrates. MEDICAL HISTORY : Blind. Seizures. MRSA. Anemia. Hypertension. SURGICAL HISTORY : Non-responsive. ENCOUNTER: Subsequent ACUITY: 1 week PAIN SCORE: Non-responsive. LOCATION: Bilateral chest FINDINGS: The heart is enlarged. The lungs demonstrate mild chronic interstitial changes with an area of consol idation in the left lung base. This area has mildly improved when compared to previous study dated 04/01. The visualized bony structures are grossly intact. No pneumothorax is seen. CONCLUSION: 1. Cardiomegaly. 2. Atelectasis/consolidation in the left lung base. This is mildly improved compared to previous stud y of 01/17/18. Arnulfo Naranjo MD on January 20, 2018 at 8:17 Board Certified Radiologist. This report was verified electronically.
[2018-01-20] MEDS: SODIUM CHLORIDE 0.9% FLUSH 10 ML FLUSH IV FLUSH SCH ×2 (09:13→21:16)
[2018-01-20] MEDS: METOPROLOL TARTRATE 50 MG TAB PO SCH ×2 (09:13→21:16)
[2018-01-20] MEDS: QUEtiapine FUMARATE 200 MG TAB PO SCH ×3 (09:14→16:59)
[2018-01-20] MEDS: DEXTROSE 5% IN WATE 1000ML INJ 1,000 ML IV SCH (09:14)
[2018-01-20] MEDS: hydrALAZINE HCL 50 MG TAB PO SCH ×3 (09:14→21:16)
[2018-01-20] MEDS: LORazepam 2 MG/ML VIAL IV PUSH PRN ×4 (09:58→23:31)
[2018-01-20] MEDS: ARGATROBAN INJ 250 MG in SODIUM CHLOR 0.9% 250 ML INJ 250 ML IV PRN (10:58)
[2018-01-20 11:24] LABS: BACTERIA, URINE RARE /hpf; BILIRUBIN, URINE NEG (NEG); BLOOD, URINE NEG (NEG); GLUCOSE,URINE NEG (NEG); HYALINE CAST, URINE 4 /lpf (RARE); KETONE, URINE TRACE mg/dL (NEG); MUCUS URINE FEW /lpf (OCC); NITRITE,URINE NEG (NEG); PH, URINE 5.5 (5.0-8.5); SQUAMOUS EPITHELIAL CELL URINE 4 /hpf (0-5); URINE COLOR YELLOW (YELLW/STRAW); URINE LEUKOCYTE ESTERASE LARGE (NEG); WHITE BLOOD CELL CLUMPS MANY
[2018-01-20] MEDS: VANCOMYCIN 1,000 MG/NS 250 ML IV SCH ×2 (11:28)
--- NOTE | 2018-01-20 11:53 | PD.ONC.PN ---
Subjective Subjective Remarks Tmax 100.6 overnight. Patient resting in room. non-verbal. Objective Data Date Time Temp Pulse Resp B/P (MAP) Pulse Ox O2 Delivery O2 Flow Rate FiO2 01/20/18 10:00 102 01/20/18 09:00 99.5 98 26 233/110 (151) 99 01/20/18 09:00 98 01/20/18 08:00 99.1 96 31 237/109 (151) 98 01/20/18 08:00 96 01/20/18 07:30 97 Nasal Cannula 2.00 01/20/18 07:30 99.1 87 24 223/98 (139) 97 01/20/18 07:00 99.3 92 39 225/95 (138) 98 01/20/18 07:00 92 01/20/18 06:00 87 01/20/18 04:17 100 Nasal Cannula 4.00 01/20/18 04:00 96.6 98 26 188/90 (122) 99 01/20/18 04:00 98 01/20/18 02:00 98 01/20/18 00:41 99 Nasal Cannula 4.00 01/20/18 00:00 99.9 99 22 188/94 (125) 97 01/20/18 00:00 99 01/19/18 22:00 102 01/19/18 20:07 Nasal Cannula 4.00 01/19/18 20:00 118 01/19/18 20:00 100.6 118 42 190/99 (129) 01/19/18 18:00 114 01/19/18 18:00 100.6 116 24 193/81 (118) 01/19/18 17:00 117 01/19/18 16:00 114 01/19/18 14:10 19 01/19/18 14:00 109 01/19/18 14:00 100.2 109 33 186/96 (126) 01/19/18 13:47 93 Nasal Cannula 4.00 01/19/18 13:00 114 19 196/86 (122) 01/19/18 13:00 114 01/19/18 12:00 100.4 109 21 184/81 (115) 01/19/18 12:00 109 01/20/18 01/20/18 01/20/18 07:00 15:00 23:00 Intake Total 100 ml Output Total 500 ml Balance -400 ml Result Diagram: 01/20/18 0140 01/20/18 0140 Laboratory Results Laboratory Tests Test 01/19/18 17:52 01/19/18 22:31 01/20/18 01:40 01/20/18 10:22 Activated Partial Thromboplast Time 40.5 SEC 46.7 SEC 50.4 SEC Potassium Level 3.4 MEQ/L 2.7 MEQ/L Phosphorus Level 2.9 MG/DL 2.9 MG/DL White Blood Count 10.0 TH/MM3 Red Blood Count 4.25 MIL/MM3 Hemoglobin 11.9 GM/DL Hematocrit 36.8 % Mean Corpuscular Volume 86.7 FL Mean Corpuscular Hemoglobin 28.1 PG Mean Corpuscular Hemoglobin Concent 32.4 % Red Cell Distribution Width 14.9 % Platelet Count 133 TH/MM3 Mean Platelet Volume 11.1 FL Neutrophils (%) (Auto) 78.1 % Lymphocytes (%) (Auto) 8.3 % Monocytes (%) (Auto) 11.2 % Eosinophils (%) (Auto) 2.2 % Basophils (%) (Auto) 0.2 % Neutrophils # (Auto) 7.8 TH/MM3 Lymphocytes # (Auto) 0.8 TH/MM3 Monocytes # (Auto) 1.1 TH/MM3 Eosinophils # (Auto) 0.2 TH/MM3 Basophils # (Auto) 0.0 TH/MM3 CBC Comment DIFF FINAL Differential Comment Blood Urea Nitrogen 16 MG/DL Creatinine 1.72 MG/DL Random Glucose 86 MG/DL Calcium Level 8.2 MG/DL Magnesium Level 2.1 MG/DL Sodium Level 149 MEQ/L Chloride Level 112 MEQ/L Carbon Dioxide Level 27.3 MEQ/L Anion Gap 10 MEQ/L Estimat Glomerular Filtration Rate 51 ML/MIN Random Vancomycin Level 14.5 COMMENT Urine Color YELLOW Urine Turbidity CLOUDY Urine pH 5.5 Urine Specific [place] 1.025 Urine Protein 100 mg/dL Urine Glucose (UA) NEG mg/dL Urine Ketones TRACE mg/dL Urine Occult Blood NEG Urine Nitrite NEG Urine Bilirubin NEG Urine Urobilinogen LESS THAN 2.0 MG/DL Urine Leukocyte Esterase LARGE Urine RBC 13 /hpf Urine WBC 133 /hpf Urine WBC Clumps MANY Urine Squamous Epithelial Cells 4 /hpf Urine Bacteria RARE /hpf Urine Hyaline Casts 4 /lpf Urine Mucus FEW /lpf Microscopic Urinalysis Comment CATH-CULTURE IND Culture Results Microbiology Date/Time Source Procedure Growth Status 01/20/18 09:02 Blood Peripheral Aerobic Blood Culture Pending Received 01/20/18 09:02 Blood Peripheral Anaerobic Blood Culture Pending Received 01/20/18 08:59 Blood Peripheral Aerobic Blood Culture Pending Received 01/20/18 08:59 Blood Peripheral Anaerobic Blood Culture Pending Received 01/20/18 10:22 Sputum Expectorated Sputum Gram Stain Pending Received 01/20/18 10:22 Sputum Expectorated Sputum Sputum Culture Pending Received 01/20/18 10:22 Urine Catheterized Urine Urine Culture Pending Received Imaging Studies Last 24 hours Impressions Chest X-Ray 01/20/18 0000 Signed Impressions: Service Date/Time: January 07:55 - CONCLUSION: 1. Cardiomegaly. 2. Atelectasis/consolidation in the left lung base. This is mildly improved compared to previous study of 01/17/18. Arnulfo Naranjo MD Administered Medications Medications (Trade) Dose Ordered Sig/Sally Route PRN Reason Start Time Stop Time Status Last Admin Dose Admin Sodium Chloride (NS Flush) 2 ml UNSCH PRN IV FLUSH FLUSH AFTER USING IV ACCESS 01/14/18 17:45 01/19/18 12:39 Sodium Chloride (NS Flush) 2 ml BID IV FLUSH 01/14/18 21:00 01/20/18 09:13 Chlorhexidine Gluconate (Peridex 0.12% Liq) 15 ml BID@08,20 MT 01/14/18 20:00 01/19/18 09:49 Chlorhexidine Gluconate (Chlorhexidine 2% Cloth) Taper DAILY@04 TOP 01/15/18 04:00 01/11/19 03:59 01/18/18 03:16 Azithromycin 500 mg/Sodium Chloride 250 ml @ 250 mls/hr Q24H IV 01/14/18 18:00 01/19/18 16:34 Famotidine (Pepcid Inj) 20 mg HS IV PUSH 01/14/18 21:00 01/19/18 20:13 Lorazepam (Ativan Inj) 1 mg Q2H PRN IV PUSH seizures 01/14/18 22:00 01/20/18 09:58 Phenytoin (Dilantin Liq) 125 mg Q8HR PO 01/15/18 06:00 01/20/18 04:49 Quetiapine Fumarate (SEROquel) 200 mg TID PO 01/15/18 09:00 01/20/18 09:14 Topiramate (Topamax) 200 mg DAILY PO 01/15/18 09:00 01/19/18 14:48 Hydralazine HCl (Apresoline Inj) 20 mg Q4H PRN IV PUSH SBP >160 01/14/18 22:15 01/20/18 11:29 Albuterol/ Ipratropium (Duoneb Neb) 1 ampule Q4HR NEB NEB 01/18/18 16:00 01/20/18 09:49 Potassium Chloride 100 ml @ 50 mls/hr Q2H PRN IV For Potassium 2.8 - 3.2 mEq/L 01/19/18 07:15 01/20/18 10:24 Potassium Phosphate (K-Phos) 2,000 mg Q4H PRN PO For Phosphorus < 2.5 mg/dL 01/19/18 07:15 01/19/18 11:33 Piperacillin Sod/ Tazobactam Sod 50 ml @ 100 mls/hr Q8H IV 01/19/18 18:00 01/20/18 09:15 Argatroban 250 mg/ Sodium Chloride 252.5 ml @ 8.39 mls/hr TITRATE PRN IV aPTT < 50 01/19/18 12:15 01/20/18 10:58 Metoprolol Tartrate (Lopressor) 50 mg Q12HR PO 01/19/18 21:00 01/20/18 09:13 Labetalol HCl (Trandate Inj) 10 mg Q4H PRN IV PUSH SYS BP GREATER THAN 170 MMHG 01/20/18 05:00 01/20/18 09:58 Hydralazine HCl (Apresoline) 50 mg Q8HR PO 01/20/18 07:30 01/20/18 09:14 Dextrose 1,000 ml @ 50 mls/hr Q20H IV 01/20/18 07:30 01/20/18 09:14 Vancomycin HCl 1000 mg/Sodium Chloride 250 ml @ 250 mls/hr Q24H IV 01/20/18 13:00 01/20/18 11:28 Objective Remarks GENERAL: Middle aged male, supine in bed in nad. SKIN: Warm and dry. HEAD: Normocephalic. NECK: Supple, trachea midline. CARDIOVASCULAR: Regular rate and rhythm RESPIRATORY: anterior vincent clear. GASTROINTESTINAL: Abdomen soft, non-tender, nondistended. EXTREMITIES: No cyanosis NEUROLOGICAL: awake. does not track with eyes. does not answer questions. does not follow commands. Assessment/Plan Problem List: (1) Thrombocytopenia ICD Codes: D69.6 - Thrombocytopenia, unspecified Plan: --likely d/t hepatosplenomegaly + sepsis + recent antibiotic use. --+HIT KIM, SARA pending. --coags WNL today. --++ DVT, RUE + LUE --peripheral blood smear shows no fragmented red blood cells. --LDH mildly elevated, haptoglobin WNL, no sign of hemolysis Assessment 47y/o male admitted with AMS. Hematology consulted for thrombocytopenia. history of cerebral palsy, hypertension, baseline agitation, seizure disorder, on Topamax and Dilantin, who was brought into the emergency department on January 14 with fever and altered mental status. Plan 1. continue Argatroban, await SARA 2. monitor CBC 3. continue supportive care. Attending Statement The exam, history, and the medical decision-making described in the above note were completed with the assistance of the mid-level provider. I reviewed and agree with the findings presented. I attest that I had a [id number] encounter with the patient on the same day, and personally performed and documented my assessment and findings in the medical record. 47 yoM with cerebral palsy, baseline agitation admitted with sepsis. Hematolgoy consulted for TCP. Found to have upper extremity VTE. 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 SARA pending. Continue argatroban. Gia Rosario Jan 20, 2018 11:53 Tatyana Rose MD Jan 21, 2018 19:11
[2018-01-20] MEDS ORDERED: DILTIAZEM HCL 25 MG/5 ML VIAL IV ONE (12:00)
[2018-01-20] MEDS: niCARdipine INJ 25 MG in SODIUM CHLOR 0.9% 250 ML INJ 240 ML IV PRN ×2 (12:39→15:21)
[2018-01-20] MEDS: niCARdipine INJ 50 MG in SODIUM CHLORID 0.9% 500 ML INJ 480 ML IV PRN ×2 (17:00→21:16)
[2018-01-20] MEDS: AZITHROMYCIN INJ 500 MG in SODIUM CHLOR 0.9% 250 ML INJ 250 ML IV SCH (17:00)
[2018-01-20] MEDS: FAMOTIDINE 20 MG/2 ML VIAL IV PUSH SCH (21:16)
[2018-01-21] VITALS (15 sets, daily range): BP systolic 138–156; BP diastolic 62–70; PULSE 86–146; RESP 25–55; TEMP 98.4; O2SAT 92–97
[2018-01-21] MEDS: PIPERACIL-TAZO 3.375 GM PREMIX 50 ML IV SCH ×3 (01:03→18:09)
[2018-01-21] MEDS: POTASSIUM CHLOR 20 MEQ PREMIX 100 ML IV PRN ×6 (01:03→23:33)
[2018-01-21] MEDS: LORazepam 2 MG/ML VIAL IV PUSH PRN ×2 (01:51→20:31)
[2018-01-21] MEDS: niCARdipine INJ 50 MG in SODIUM CHLORID 0.9% 500 ML INJ 480 ML IV PRN ×4 (02:42→16:38)
[2018-01-21] MEDS: DEXTROSE 5% IN WATE 1000ML INJ 1,000 ML IV SCH (02:43)
[2018-01-21] MEDS: RESP: ALBUTEROL 2.5 MG/IPRATROPIUM 0.5 MG NEB (SCH) NEB ×5 (04:00→20:29)
[2018-01-21] MEDS: INSULIN ASPART SUPPLEMENTAL SCALE SQ SCH ×4 (04:55→18:00)
[2018-01-21] MEDS: PHENYTOIN SUSP 100 MG/4 ML CUP PO SCH ×3 (04:56→20:30)
[2018-01-21] MEDS: METOPROLOL TARTRATE 50 MG TAB PO SCH ×2 (04:56→20:31)
[2018-01-21] MEDS: hydrALAZINE HCL 50 MG TAB PO SCH ×3 (05:26→20:31)
--- NOTE | 2018-01-21 07:17 | HHI.CCPN ---
Subjective Remarks/Hospital Course 01/14: Patient is a 47-year-old -[place] male with past medical history significant for cerebral palsy, hypertension, agitation at baseline, seizure disorder on Topamax and Dilantin was brought to the emergency department for fever and altered mental station. Apparently he is usually quite agitated at baseline, over the last 24 hours had been lethargic. Due to the mental status change patient was brought to the ICU. GCS was 8 on arrival patient was tachypneic, tachycardic and critically ill. In NH at the time of EMS pickup oxygen saturation was in the 70s. In the ER on 50% Ventimask oxygen saturation 87-88%. Intubated due to hypoxemic respiratory failure and also for airway protection. Lab work showed patient had significant hyperkalemia and acute renal failure. Potassium was 6.9 treated with calcium chloride, IV insulin and D50, bicarb and Kayexalate. Patient also received 1 L normal saline bolus and was placed on normal saline infusion. UA showed evidence of severe UTI. Empirically received Zosyn and vancomycin in the ED Dr. Chang evaluated the patient in the ICU. CT chest showed bibasilar infiltrates indicating possible pneumonia, CT abdomen showed indeterminate low- density liver lesions and some bladder thickness indicating cystitis. Patient will be continued on vancomycin and Zosyn and azithromycin. Repeat sodium came back at 160 potassium is down to 4. I will discontinue normal saline and place on half-normal saline at 150 ml per hour. Bolus of 1 L half-normal saline ordered. Cultures have been ordered and is pending at this time. Patient has urinary catheter and is making urine which is cloudy. Apparently had shaking movements after arrival to ICU subsided with 2 mg IV Ativan. EEG had been ordered. Also check Dilantin level. 01/15: Remains sedated, orally intubated on mechanical ventilation. 01/16: Remains sedated, orally intubated on mechanical ventilation. Tolerating tube feeds. 01/17 Patient was reintubated early this morning as his ETT dislodged. Sedated with Versed, Diprivan. Afebrile. 01/18 No events overnight. Sedated with Diprivan, Versed and intubated. Afebrile. 01/19 Patient was extubated yesterday on 2L oxygen with good sats. T:100.0 01/20 Patient is on 4L oxygen, T:100.6 last night. Hypertensive. 01/21 Patient is lying in bed in NAD. On Cardene drip 15mg/hr, BP is better. Afebrile. On Argatroban drip. Objective Vital Signs Date Time Temp Pulse Resp B/P (MAP) Pulse Ox O2 Delivery O2 Flow Rate FiO2 01/21/18 07:00 109 153/69 01/21/18 04:00 99.1 25 97 01/20/18 23:35 Nasal Cannula 3.00 01/18/18 20:51 21 Intake and Output 01/21/18 01/21/18 01/22/18 08:00 16:00 00:00 Intake Total 2350 ml Output Total 600 ml Balance 1750 ml Result Diagram: 01/20/18 0140 01/20/18 1937 Other Results Laboratory Tests Test 01/20/18 10:22 01/20/18 19:37 Urine Color YELLOW Urine Turbidity CLOUDY Urine pH 5.5 Urine Specific [place] 1.025 Urine Protein 100 mg/dL Urine Glucose (UA) NEG mg/dL Urine Ketones TRACE mg/dL Urine Occult Blood NEG Urine Nitrite NEG Urine Bilirubin NEG Urine Urobilinogen LESS THAN 2.0 MG/DL Urine Leukocyte Esterase LARGE Urine RBC 13 /hpf Urine WBC 133 /hpf Urine WBC Clumps MANY Urine Squamous Epithelial Cells 4 /hpf Urine Bacteria RARE /hpf Urine Hyaline Casts 4 /lpf Urine Mucus FEW /lpf Microscopic Urinalysis Comment CATH-CULTURE IND Potassium Level 2.8 MEQ/L Imaging Last Impressions Chest X-Ray 01/20/18 0000 Signed Impressions: Service Date/Time: January 07:55 - CONCLUSION: 1. Cardiomegaly. 2. Atelectasis/consolidation in the left lung base. This is mildly improved compared to previous study of 01/17/18. Arnulfo Naranjo MD Upper Extremity Ultrasound 01/18/18 0000 Signed Impressions: Service Date/Time: Thursday, January 18, 2018 22:27 - CONCLUSION: 1. In the right upper extremity, there is occlusive thrombus within the basilic vein. The remaining veins of the left upper extremity are patent. 2. In the left upper extremity, there is occlusive thrombus within the subclavian, axillary, and basilic veins. Bernardo Redd MD Lower Extremity Ultrasound 3/6/18 0000 Signed Impressions: Service Date/Time: Thursday, January 18, 2018 22:13 - CONCLUSION: No DVT or superficial venous thrombosis is identified within either lower extremity. Bernardo Redd MD Chest CT 01/14/18 0000 Signed Impressions: Service Date/Time: Sunday, January 14, 2018 19:56 - CONCLUSION: 1. Posterior bibasilar patchiness consistent with pneumonia or atelectasis. Clinical correlation is recommended. 2. Cardiomegaly. 3. Tiny pericardial effusion. 4. Tiny bilateral pleural effusions. 5. Degenerative changes and scoliosis of the thoracic spine. Pedrito Hastings MD Abdomen/Pelvis CT 01/14/18 0000 Signed Impressions: Service Date/Time: Sunday, January 14, 2018 19:56 - CONCLUSION: 1. Patchy infiltrate within the posterior lung bases bilaterally raising possibility of atelectasis or pneumonia. 2. Tiny bilateral pleural effusions. 3. Cardiomegaly and tiny pericardial effusion. 4. Hepatomegaly. 5. Scattered low-density lesions throughout the liver which are indeterminate in etiology. 6. 1.9 cm right adrenal nodule consistent with probable adrenal adenoma. 7. Uncomplicated colonic diverticulosis. 8. Diffuse urinary bladder wall thickening raising the possibility of cystitis. Clinical correlation is recommended. 9. Degenerative changes and scoliosis of the thoraco-lumbar spine. Pedrito Hastings MD Objective Remarks GENERAL: Patient is 47 yo lying in bed in NAD SKIN: Warm and dry. HEAD: Normocephalic. EYES: No scleral icterus. No injection or drainage. NECK: Supple, trachea midline. No JVD or lymphadenopathy. CARDIOVASCULAR: Tachycardic without murmurs, gallops, or rubs. RESPIRATORY: Breath sounds equal bilaterally. No accessory muscle use. GASTROINTESTINAL: Abdomen soft, non-tender, nondistended. MUSCULOSKELETAL: No cyanosis, or edema. Neuro: non verbal, A/P Assessment and Plan NEURO: Acute metabolic encephalopathy Seizure disorder Underlying cerebral palsy Monitor neuro status and avoid sedatives. -Ativan as needed for agitation and seizure -Continue Dilantin 125mg Q8 and Topamax, Dilantin level 8.7 on 01/15, RESP: Acute hypoxemic respiratory failure- extubated 01/18 Healthcare associated pneumonia -Continue with oxygen keep sat >92% -DuoNeb every 6 hours as needed CXR 01/20: Atelectasis/consolidation in the left lung base. This is mildly improved compared to previous study of 01/17/18. CV: Hypertension Wean off Cardene drip, on Lopressor 50mg Q12, Hydralazine 50mg Q8, add Clonidine 0.2mg Q8 Monitor HR and BP keep MAP>65mmHg GI: - IV famotidine - on mechanical soft diet per speech Acute kidney failure- improving Hypernatremia, hypokalemia -Monitor renal function, I/O's, avoid nephrotoxins -Renal function is improving with Cr: 1.44 from 1.72. d/c IVF -CT abdomen pelvis did not show any evidence of hydronephrosis ID: UTI MRSA pneumonia -Broad-spectrum antibiotics with vancomycin, Zosyn and azithromycin -Monitor for signs of infections ( Fever, WBC) Panculture(Blood, sputum, Urine) 01/20 Urine cx: Proteus Sputum cx: MRSA Strep pneumonia and Legionella urinary Ag, Flu screening all negative on 01/14 HEME: Thrombocytopenia -Monitor CBC, CMP, coags. -Hep PLT induced ab: weakly positive, follow up on SARA, On Argatroban drip per Heme PROPH: -Bilateral lower extremity SCDs/MATEO. Heparin held on 01/15, Hep PLT ab weakly +, follow up SARA, On Argatroban drip. IV famotidine :Doppler US UE: In the right upper extremity, there is occlusive thrombus within the basilic vein. In the left upper extremity, there is occlusive thrombus within the subclavian, axillary, and basilic veins. Doppler US LE: No DVT LINES: -Utilize peripheral IVs, Follow up on labs Level 2 Wilder Delaney MD Jan 21, 2018 07:17
[2018-01-21] MEDS: CHLORHEXIDINE 0.12% (ORAL KIT) 15 ML CUP MT SCH ×2 (08:00→20:00)
[2018-01-21] MEDS: cloNIDine HCL 0.2 MG TAB PO SCH ×3 (08:18→23:34)
[2018-01-21] MEDS: QUEtiapine FUMARATE 200 MG TAB PO SCH ×3 (08:19→18:10)
[2018-01-21] MEDS: ARGATROBAN INJ 250 MG in SODIUM CHLOR 0.9% 250 ML INJ 250 ML IV PRN (08:24)
--- NOTE | 2018-01-21 10:08 | PD.ONC.PN ---
Subjective Subjective Remarks Afebrile overnight. Patient moans and makes noises, but is otherwise non-verbal. in restraints. Objective Data Date Time Temp Pulse Resp B/P (MAP) Pulse Ox O2 Delivery O2 Flow Rate FiO2 01/21/18 08:00 112 01/21/18 08:00 99.3 146 55 140/62 (88) 97 01/21/18 07:36 96 Nasal Cannula 2.00 01/21/18 07:00 109 153/69 01/21/18 06:00 112 01/21/18 04:00 107 01/21/18 04:00 99.1 107 25 150/68 (95) 97 01/21/18 02:42 104 140/60 01/21/18 02:00 101 01/21/18 00:00 98 01/21/18 00:00 98.6 98 29 142/65 (90) 95 01/20/18 23:35 94 Nasal Cannula 3.00 01/20/18 22:00 95 01/20/18 21:31 96 Nasal Cannula 4.00 01/20/18 21:16 109 136/65 01/20/18 20:00 103 01/20/18 20:00 98.8 103 27 123/56 (78) 96 01/20/18 18:00 102 01/20/18 17:00 115 01/20/18 17:00 112 151/63 01/20/18 16:00 103 01/20/18 16:00 99.0 103 38 132/55 (80) 96 01/20/18 15:21 105 148/69 01/20/18 15:00 98.6 109 39 185/84 (117) 95 01/20/18 15:00 109 01/20/18 14:00 99.0 103 40 180/84 (116) 96 01/20/18 14:00 103 01/20/18 13:00 99.3 97 34 206/99 (134) 90 01/20/18 12:39 94 205/111 01/20/18 12:00 90 01/20/18 12:00 99.0 90 20 228/109 (148) 99 01/20/18 11:00 98.8 88 35 98 01/20/18 10:00 102 01/20/18 10:00 99.7 102 23 231/105 (147) 96 01/21/18 01/21/18 01/21/18 07:00 15:00 23:00 Intake Total 2350 ml Output Total 600 ml Balance 1750 ml Result Diagram: 01/20/18 0140 01/20/18 193 Laboratory Results Laboratory Tests Test 01/20/18 10:22 01/20/18 19:37 Urine Color YELLOW Urine Turbidity CLOUDY Urine pH 5.5 Urine Specific [place] 1.025 Urine Protein 100 mg/dL Urine Glucose (UA) NEG mg/dL Urine Ketones TRACE mg/dL Urine Occult Blood NEG Urine Nitrite NEG Urine Bilirubin NEG Urine Urobilinogen LESS THAN 2.0 MG/DL Urine Leukocyte Esterase LARGE Urine RBC 13 /hpf Urine WBC 133 /hpf Urine WBC Clumps MANY Urine Squamous Epithelial Cells 4 /hpf Urine Bacteria RARE /hpf Urine Hyaline Casts 4 /lpf Urine Mucus FEW /lpf Microscopic Urinalysis Comment CATH-CULTURE IND Potassium Level 2.8 MEQ/L Culture Results Microbiology Date/Time Source Procedure Growth Status 01/20/18 09:02 Blood Peripheral Aerobic Blood Culture Pending Received 01/20/18 09:02 Blood Peripheral Anaerobic Blood Culture Pending Received 01/20/18 08:59 Blood Peripheral Aerobic Blood Culture Pending Received 01/20/18 08:59 Blood Peripheral Anaerobic Blood Culture Pending Received 01/20/18 10:22 Sputum Expectorated Sputum Gram Stain - Final Resulted 01/20/18 10:22 Sputum Expectorated Sputum Sputum Culture Pending Resulted 01/20/18 10:22 Urine Catheterized Urine Urine Culture Pending Received Administered Medications Medications (Trade) Dose Ordered Sig/Sally Route PRN Reason Start Time Stop Time Status Last Admin Dose Admin Sodium Chloride (NS Flush) 2 ml UNSCH PRN IV FLUSH FLUSH AFTER USING IV ACCESS 01/14/18 17:45 01/19/18 12:39 Sodium Chloride (NS Flush) 2 ml BID IV FLUSH 01/14/18 21:00 01/20/18 21:16 Chlorhexidine Gluconate (Peridex 0.12% Liq) 15 ml BID@08,20 MT 01/14/18 20:00 01/19/18 09:49 Chlorhexidine Gluconate (Chlorhexidine 2% Cloth) Taper DAILY@04 TOP 01/15/18 04:00 01/11/19 03:59 01/18/18 03:16 Azithromycin 500 mg/Sodium Chloride 250 ml @ 250 mls/hr Q24H IV 01/14/18 18:00 01/20/18 17:00 Famotidine (Pepcid Inj) 20 mg HS IV PUSH 01/14/18 21:00 01/20/18 21:16 Lorazepam (Ativan Inj) 1 mg Q2H PRN IV PUSH seizures 01/14/18 22:00 01/21/18 01:51 Phenytoin (Dilantin Liq) 125 mg Q8HR PO 01/15/18 06:00 01/21/18 04:56 Quetiapine Fumarate (SEROquel) 200 mg TID PO 01/15/18 09:00 01/21/18 08:19 Topiramate (Topamax) 200 mg DAILY PO 01/15/18 09:00 01/19/18 14:48 Hydralazine HCl (Apresoline Inj) 20 mg Q4H PRN IV PUSH SBP >160 01/14/18 22:15 01/20/18 11:29 Albuterol/ Ipratropium (Duoneb Neb) 1 ampule Q4HR NEB NEB 01/18/18 16:00 01/21/18 07:36 Potassium Chloride 100 ml @ 50 mls/hr Q2H PRN IV For Potassium 2.8 - 3.2 mEq/L 01/19/18 07:15 01/21/18 04:56 Potassium Phosphate (K-Phos) 2,000 mg Q4H PRN PO For Phosphorus < 2.5 mg/dL 01/19/18 07:15 01/19/18 11:33 Piperacillin Sod/ Tazobactam Sod 50 ml @ 100 mls/hr Q8H IV 01/19/18 18:00 01/21/18 01:03 Argatroban 250 mg/ Sodium Chloride 252.5 ml @ 8.39 mls/hr TITRATE PRN IV aPTT < 50 01/19/18 12:15 01/21/18 08:24 Metoprolol Tartrate (Lopressor) 50 mg Q12HR PO 01/19/18 21:00 01/21/18 04:56 Labetalol HCl (Trandate Inj) 10 mg Q4H PRN IV PUSH SYS BP GREATER THAN 170 MMHG 01/20/18 05:00 01/20/18 09:58 Hydralazine HCl (Apresoline) 50 mg Q8HR PO 01/20/18 07:30 01/21/18 05:26 Dextrose 1,000 ml @ 50 mls/hr Q20H IV 01/20/18 07:30 01/21/18 02:43 Vancomycin HCl 1000 mg/Sodium Chloride 250 ml @ 250 mls/hr Q24H IV 01/20/18 13:00 01/20/18 11:28 Nicardipine HCl 50 mg/Sodium Chloride 500 ml @ 50 mls/hr TITRATE PRN IV Blood pressure management 01/20/18 16:00 01/21/18 07:00 Clonidine (Catapres) 0.2 mg Q8H PO 01/21/18 08:00 01/21/18 08:18 Objective Remarks GENERAL: Middle aged male, supine in bed in nad. SKIN: Warm and dry. HEAD: Normocephalic. NECK: Supple, trachea midline. CARDIOVASCULAR: +S1/S2, tachy RESPIRATORY: anterior vincent clear. GASTROINTESTINAL: Abdomen nondistended. EXTREMITIES: No cyanosis NEUROLOGICAL: awake. moans, does not follow commands. Assessment/Plan Problem List: (1) Thrombocytopenia ICD Codes: D69.6 - Thrombocytopenia, unspecified Plan: --likely d/t hepatosplenomegaly + sepsis + recent antibiotic use. --+HIT KIM, SARA negative --coags WNL today. --++ DVT, RUE + LUE --peripheral blood smear shows no fragmented red blood cells. --LDH mildly elevated, haptoglobin WNL, no sign of hemolysis Assessment 47y/o male admitted with AMS. Hematology consulted for thrombocytopenia. history of cerebral palsy, hypertension, baseline agitation, seizure disorder, on Topamax and Dilantin, who was brought into the emergency department on January 14 with fever and altered mental status. Plan 1. HIT negative. 2. stop Argatroban, start heparin. Attending Statement The exam, history, and the medical decision-making described in the above note were completed with the assistance of the mid-level provider. I reviewed and agree with the findings presented. I attest that I had a [id number] encounter with the patient on the same day, and personally performed and documented my assessment and findings in the medical record. 47 yoM with baseline seizure disorder, cerebral palsy admitted with AMS, sepsis. Per report he is back to his baseline mental status. Hematology service initially consulted for TCP. At that time he had prolongation of coags and low fibrinogen. Some component of DIC due to sepsis. This has resolved. 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 Argatroban transition to heparin today. 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 If renal function improves could consider apixaban. Gia Rosario Jan 21, 2018 10:08 Tatyana Rose MD Jan 21, 2018 18:59
[2018-01-21 10:56] LABS: AUTOMATED NEUTROPHIL # 4.7 TH/MM3 (1.8-7.7); BASOPHIL % 0.5 % (0.0-2.0); EOSINOPHIL # 0.3 TH/MM3 (0-0.4); EOSINOPHIL % 5.1 % (0.0-4.0); HEMATOCRIT 32.9 % (39.0-51.0); HEMOGLOBIN 10.6 GM/DL (13.0-17.0); LYMPH % 10.8 % (9.0-44.0); LYMPHOCYTE # 0.7 TH/MM3 (1.0-4.8); MEAN CELL VOLUME 86.8 FL (80.0-100.0); MEAN CORPUSCULAR HEMOGLOBIN 27.9 PG (27.0-34.0); MEAN CORPUSCULAR HGB CONC 32.1 % (32.0-36.0); MEAN PLATELET VOLUME 10.3 FL (7.0-11.0); MONO % 11.9 % (0.0-8.0); MONOCYTE # 0.8 TH/MM3 (0-0.9); NEUT % 71.7 % (16.0-70.0); PLATELET COUNT 150 TH/MM3 (150-450); RED BLOOD COUNT 3.79 MIL/MM3 (4.50-5.90); RED CELL DISTRIBUTION WIDTH 14.8 % (11.6-17.2); WHITE BLOOD COUNT 6.6 TH/MM3 (4.0-11.0)
[2018-01-21 11:26] LABS: BICARBONATE 26.7 MEQ/L (21.0-32.0); CALCIUM 8.4 MG/DL (8.5-10.1); CREATININE 1.44 MG/DL (0.60-1.30)
[2018-01-21] MEDS: TOPIRAMATE 200 MG TAB PO SCH (12:36)
[2018-01-21] MEDS: HEPARIN-D5W 25,000 U/250 ML 250 ML IV PRN (13:44)
[2018-01-21] MEDS: VANCOMYCIN 1,000 MG/NS 250 ML IV SCH ×2 (18:11)
[2018-01-21] MEDS: SODIUM CHLORIDE 0.9% FLUSH 10 ML FLUSH IV FLUSH SCH ×2 (18:12→20:31)
[2018-01-21] MEDS: AZITHROMYCIN INJ 500 MG in SODIUM CHLOR 0.9% 250 ML INJ 250 ML IV SCH (18:12)
[2018-01-21] MEDS: FAMOTIDINE 20 MG/2 ML VIAL IV PUSH SCH (20:31)
[2018-01-22] VITALS (12 sets, daily range): BP systolic 130–166; BP diastolic 66–85; PULSE 62–116; RESP 21–32; TEMP 98.6–99.7; O2SAT 88–99
[2018-01-22] MEDS: niCARdipine INJ 50 MG in SODIUM CHLORID 0.9% 500 ML INJ 480 ML IV PRN ×4 (00:46→21:30)
[2018-01-22] MEDS: RESP: ALBUTEROL 2.5 MG/IPRATROPIUM 0.5 MG NEB (SCH) NEB ×6 (01:09→20:45)
[2018-01-22] MEDS: POTASSIUM CHLOR 20 MEQ PREMIX 100 ML IV PRN ×5 (02:00→22:52)
[2018-01-22] MEDS: LORazepam 2 MG/ML VIAL IV PUSH PRN ×3 (02:17→16:08)
[2018-01-22] MEDS: PIPERACIL-TAZO 3.375 GM PREMIX 50 ML IV SCH ×2 (02:17→10:22)
[2018-01-22] MEDS: CHLORHEXIDINE GLUCONATE 2 % 1 PACK (2 CLOTHS) TOP SCH (04:00)
[2018-01-22 05:11] LABS: AUTOMATED NEUTROPHIL # 3.8 TH/MM3 (1.8-7.7); BASOPHIL % 0.4 % (0.0-2.0); EOSINOPHIL # 0.4 TH/MM3 (0-0.4); EOSINOPHIL % 6.9 % (0.0-4.0); HEMATOCRIT 33.1 % (39.0-51.0); HEMOGLOBIN 10.5 GM/DL (13.0-17.0); LYMPH % 16.9 % (9.0-44.0); MEAN CELL VOLUME 86.8 FL (80.0-100.0); MEAN CORPUSCULAR HEMOGLOBIN 27.6 PG (27.0-34.0); MEAN CORPUSCULAR HGB CONC 31.8 % (32.0-36.0); MONO % 12.9 % (0.0-8.0); MONOCYTE # 0.8 TH/MM3 (0-0.9); NEUT % 62.9 % (16.0-70.0); PLATELET COUNT 166 TH/MM3 (150-450); RED BLOOD COUNT 3.82 MIL/MM3 (4.50-5.90); RED CELL DISTRIBUTION WIDTH 15.2 % (11.6-17.2)
[2018-01-22 05:13] LABS: BICARBONATE 21.1 MEQ/L (21.0-32.0); CALCIUM 8.3 MG/DL (8.5-10.1); CREATININE 1.38 MG/DL (0.60-1.30)
[2018-01-22] MEDS: INSULIN ASPART SUPPLEMENTAL SCALE SQ SCH ×4 (06:00→17:20)
[2018-01-22] MEDS: hydrALAZINE HCL 50 MG TAB PO SCH ×2 (06:09→21:27)
[2018-01-22] MEDS: PHENYTOIN SUSP 100 MG/4 ML CUP PO SCH ×3 (06:14→21:28)
[2018-01-22] MEDS: CHLORHEXIDINE 0.12% (ORAL KIT) 15 ML CUP MT SCH ×2 (08:00→20:00)
[2018-01-22] MEDS ORDERED: POTASSIUM CHLORIDE 25 MEQ EFFERVESCENT TAB PO ONE (08:30)
[2018-01-22] MEDS: METOPROLOL TARTRATE 50 MG TAB PO SCH (08:32)
[2018-01-22] MEDS: cloNIDine HCL 0.2 MG TAB PO SCH ×2 (08:32→16:29)
[2018-01-22] MEDS: TOPIRAMATE 200 MG TAB PO SCH (08:32)
[2018-01-22] MEDS: QUEtiapine FUMARATE 200 MG TAB PO SCH ×3 (08:32→17:20)
[2018-01-22] MEDS: HEPARIN-D5W 25,000 U/250 ML 250 ML IV PRN (08:35)
[2018-01-22] MEDS: SODIUM CHLORIDE 0.9% FLUSH 10 ML FLUSH IV FLUSH SCH ×2 (08:35→21:29)
--- NOTE | 2018-01-22 13:06 | HHI.CCPN ---
Subjective Remarks/Hospital Course 01/14: Patient is a 47-year-old -[place]ron[place] male with past medical history significant for cerebral palsy, hypertension, agitation at baseline, seizure disorder on Topamax and Dilantin was brought to the emergency department for fever and altered mental station. Apparently he is usually quite agitated at baseline, over the last 24 hours had been lethargic. Due to the mental status change patient was brought to the ICU. GCS was 8 on arrival patient was tachypneic, tachycardic and critically ill. In NH at the time of EMS pickup oxygen saturation was in the 70s. In the ER on 50% Ventimask oxygen saturation 87-88%. Intubated due to hypoxemic respiratory failure and also for airway protection. Lab work showed patient had significant hyperkalemia and acute renal failure. Potassium was 6.9 treated with calcium chloride, IV insulin and D50, bicarb and Kayexalate. Patient also received 1 L normal saline bolus and was placed on normal saline infusion. UA showed evidence of severe UTI. Empirically received Zosyn and vancomycin in the ED Dr. Chang evaluated the patient in the ICU. CT chest showed bibasilar infiltrates indicating possible pneumonia, CT abdomen showed indeterminate low- density liver lesions and some bladder thickness indicating cystitis. Patient will be continued on vancomycin and Zosyn and azithromycin. Repeat sodium came back at 160 potassium is down to 4. I will discontinue normal saline and place on half-normal saline at 150 ml per hour. Bolus of 1 L half-normal saline ordered. Cultures have been ordered and is pending at this time. Patient has urinary catheter and is making urine which is cloudy. Apparently had shaking movements after arrival to ICU subsided with 2 mg IV Ativan. EEG had been ordered. Also check Dilantin level. 01/15: Remains sedated, orally intubated on mechanical ventilation. 01/16: Remains sedated, orally intubated on mechanical ventilation. Tolerating tube feeds. 01/17 Patient was reintubated early this morning as his ETT dislodged. Sedated with Versed, Diprivan. Afebrile. 01/18 No events overnight. Sedated with Diprivan, Versed and intubated. Afebrile. 01/19 Patient was extubated yesterday on 2L oxygen with good sats. T:100.0 01/20 Patient is on 4L oxygen, T:100.6 last night. Hypertensive. 01/21 Patient is lying in bed in NAD. On Cardene drip 15mg/hr, BP is better. Afebrile. On Argatroban drip. Subjective: 01/22 Afebrile. On RA. Remains on cardene drip 10mg/hr. On heparin drip 1100 units/hr. Taking po; thickened liquids; nurse states he ate a chicken sandwich. He is nonverbal but communicates his needs by crying out when he needs a nurse, pursed lips to indicate he doesn't want anything else to eat, etc. This is his baseline per my discussion with [facility]. Objective Vital Signs Date Time Temp Pulse Resp B/P (MAP) Pulse Ox O2 Delivery O2 Flow Rate FiO2 01/22/18 10:58 94 134/71 01/22/18 08:00 99.5 21 95 01/21/18 20:32 21 01/21/18 07:36 Nasal Cannula 2.00 Intake and Output 01/22/18 01/22/18 01/22/18 07:59 15:59 23:59 Intake Total 150 ml 785 ml Balance 150 ml 785 ml Result Diagram: 01/22/18 0411 01/22/18 1020 Other Results Microbiology Date/Time Source Procedure Growth Status 01/20/18 10:22 Sputum Expectorated Sputum Gram Stain - Final Complete 01/20/18 10:22 Sputum Expectorated Sputum Sputum Culture - Final HEAVY GROWTH NORMAL RESPIRATORY RENATE Complete 01/20/18 10:22 Urine Catheterized Urine Urine Culture - Final NO GROWTH IN 48 HOURS. Complete Imaging Last Impressions Chest X-Ray 01/20/18 0000 Signed Impressions: Service Date/Time: January 07:55 - CONCLUSION: 1. Cardiomegaly. 2. Atelectasis/consolidation in the left lung base. This is mildly improved compared to previous study of 01/17/18. Arnulfo Naranjo MD Upper Extremity Ultrasound 01/18/18 0000 Signed Impressions: Service Date/Time: Thursday, January 18, 2018 22:27 - CONCLUSION: 1. In the right upper extremity, there is occlusive thrombus within the basilic vein. The remaining veins of the left upper extremity are patent. 2. In the left upper extremity, there is occlusive thrombus within the subclavian, axillary, and basilic veins. Bernardo Redd MD Lower Extremity Ultrasound 01/18/18 0000 Signed Impressions: Service Date/Time: Thursday, January 18, 2018 22:13 - CONCLUSION: No DVT or superficial venous thrombosis is identified within either lower extremity. Bernardo Redd MD Chest CT 01/14/18 0000 Signed Impressions: Service Date/Time: Sunday, January 14, 2018 19:56 - CONCLUSION: 1. Posterior bibasilar patchiness consistent with pneumonia or atelectasis. Clinical correlation is recommended. 2. Cardiomegaly. 3. Tiny pericardial effusion. 4. Tiny bilateral pleural effusions. 5. Degenerative changes and scoliosis of the thoracic spine. Pedrito Hastings MD Abdomen/Pelvis CT 01/14/18 0000 Signed Impressions: Service Date/Time: Sunday, January 14, 2018 19:56 - CONCLUSION: 1. Patchy infiltrate within the posterior lung bases bilaterally raising possibility of atelectasis or pneumonia. 2. Tiny bilateral pleural effusions. 3. Cardiomegaly and tiny pericardial effusion. 4. Hepatomegaly. 5. Scattered low-density lesions throughout the liver which are indeterminate in etiology. 6. 1.9 cm right adrenal nodule consistent with probable adrenal adenoma. 7. Uncomplicated colonic diverticulosis. 8. Diffuse urinary bladder wall thickening raising the possibility of cystitis. Clinical correlation is recommended. 9. Degenerative changes and scoliosis of the thoraco-lumbar spine. Pedrito Hastings MD Objective Remarks GENERAL: Patient is 47 yo laying in bed. SKIN: Warm and dry. HEAD: Normocephalic. EYES: Resists attempts at eye opening. Chronic changes with scarred cornea on the left, unable to visualize right well as it deviates upward upon attempts to visualize. No scleral icterus. No injection or drainage. NECK: Supple, trachea midline. No JVD or lymphadenopathy. CARDIOVASCULAR: Tachycardic rate 102 without murmurs, gallops, or rubs. RESPIRATORY: Breath sounds equal bilaterally, clear. No accessory muscle use. On RA. GASTROINTESTINAL: Abdomen soft, non-tender, nondistended. Bowel sounds present. Scar from prior PEG site LUQ, healed without drainage. : Qiunteros in place MUSCULOSKELETAL: No cyanosis, or edema. NEURO: Eyes closed, resists attempts to open, nonverbal. Deformities bilateral hands, contractures BLE. Moves all extremities. A/P Assessment and Plan NEURO: Acute metabolic encephalopathy Seizure disorder Underlying cerebral palsy Fully dependent for ADL baseline Blind Monitor neuro status -Ativan as needed for seizure -Continue Dilantin 125mg Q8 and Topamax 200 daily, Albumin corrected Dilantin level 13.6 on 01/15. - Contineu seroquel 200 mg po tid. Klonopin 1 mg po q8 hours prn anxiety. Trazodone held since admission, will continue to hold due to initiation of linezolid. RESP: Acute hypoxemic respiratory failure- extubated 01/18 Healthcare associated pneumonia (MRSA) -On RA. -Decrease DuoNeb to every 6 hours. EZPAP q6 hoursresp CXR 01/20: Atelectasis/consolidation in the left lung base. This is mildly improved compared to previous study of 01/17/18. CV: Hypertension Wean off Cardene drip for SBP <160. Use labetalol prn to facilitate cardene weaning. Increase Lopressor 75 mg Q12, Hydralazine 50mg Q6, Clonidine 0.2mg Q8 Lisinopril held due to KATHERINE. GI: - IV famotidine - on mechanical soft, nectar thick regular diet. Followed by speech Acute kidney failure- improving Hypernatremia, hypokalemia Quinteros in place. Not previously removed due to concern for hypospadia. Discussed with [facility], patient chronically incontinent and wears a diaper without indwelling catheter at AR. potassium 50 meQ po now. Continue to replace per protocol. Per ED documentation, was placed by RN on one attempt. Will d/c quinteros and monitor for evidence of retention. -Monitor renal function, I/O's, avoid nephrotoxins. -CT abdomen pelvis did not show any evidence of hydronephrosis ID: UTI MRSA pneumonia -Has been on Broad-spectrum antibiotics with vancomycin, Zosyn and azithromycin 01/14 #9. Will d/c azithromycin. Urine cx from 01/14 with proteus, repeat urine culrue 01/20 negative final. Will d/ c Zosyn. Does not have chronic quinteros at AR, removing. Has been on vancomycin, last trough 3.8 was below target at 14.5. Do not see contraindication to linezolid, so will d/c vanc and use linezolid po. Will need 14 days coverage for MRSA pneumonia. Continue to hold trazodone. Urine cx: Proteus Sputum cx: MRSA Strep pneumonia and Legionella urinary Ag, Flu screening all negative on 01/14 HEME: Thrombocytopenia R basilic superficial thrombosis L subclavian, axillary DVT, and basilic thrombosis -Monitor CBC, CMP, coags. -Hep PLT induced ab: weakly positive, SARA negative. Argatroban discontinued and now on heparin drip per hematology. Platelets normalized. Consider transition to OAT ?rivaroxaban. PROPH: -Bilateral lower extremity SCDs/MATEO. Heparin drip as per above. IV famotidine LINES: -Utilize peripheral IVs, Will remain in IMC for now as weaning off cardene drip for HTN. Po meds adjusted. Consult hospitalist to assume care 01/23. Level 2 Cathryn Burt MD Jan 22, 2018 13:06
--- NOTE | 2018-01-22 13:15 | PD.ONC.PN ---
Subjective Subjective Remarks T-max 99.5 this morning Patient occasionally moaning Per RN, he has been taking his nasal cannula off; O2 sats are now noted to be in the mid 80s Objective Data Date Time Temp Pulse Resp B/P (MAP) Pulse Ox O2 Delivery O2 Flow Rate FiO2 01/22/18 10:58 94 134/71 01/22/18 10:00 97 01/22/18 08:00 99.5 109 21 166/72 (103) 95 01/22/18 08:00 109 01/22/18 04:00 98.9 111 21 163/72 (102) 99 01/22/18 04:00 116 01/22/18 02:00 109 01/22/18 00:46 99 152/81 01/22/18 00:00 94 01/22/18 00:00 98.6 89 22 152/81 (104) 92 01/21/18 22:00 86 01/21/18 20:32 96 21 01/21/18 20:00 98.4 107 51 146/64 (91) 93 01/21/18 20:00 92 01/21/18 18:00 112 01/21/18 16:38 118 150/68 01/21/18 16:03 93 01/21/18 16:00 112 01/21/18 16:00 98.6 121 38 156/70 (98) 92 01/21/18 14:00 112 01/22/18 01/22/18 01/22/18 07:00 15:00 23:00 Intake Total 150 ml 785 ml Balance 150 ml 785 ml Result Diagram: 01/22/18 0411 01/22/18 1020 Laboratory Results Laboratory Tests Test 01/21/18 20:15 01/22/18 04:11 01/22/18 10:20 Activated Partial Thromboplast Time 45.7 SEC 35.7 SEC White Blood Count 6.0 TH/MM3 Red Blood Count 3.82 MIL/MM3 Hemoglobin 10.5 GM/DL Hematocrit 33.1 % Mean Corpuscular Volume 86.8 FL Mean Corpuscular Hemoglobin 27.6 PG Mean Corpuscular Hemoglobin Concent 31.8 % Red Cell Distribution Width 15.2 % Platelet Count 166 TH/MM3 Mean Platelet Volume 10.0 FL Neutrophils (%) (Auto) 62.9 % Lymphocytes (%) (Auto) 16.9 % Monocytes (%) (Auto) 12.9 % Eosinophils (%) (Auto) 6.9 % Basophils (%) (Auto) 0.4 % Neutrophils # (Auto) 3.8 TH/MM3 Lymphocytes # (Auto) 1.0 TH/MM3 Monocytes # (Auto) 0.8 TH/MM3 Eosinophils # (Auto) 0.4 TH/MM3 Basophils # (Auto) 0.0 TH/MM3 CBC Comment DIFF FINAL Differential Comment Blood Urea Nitrogen 7 MG/DL Creatinine 1.38 MG/DL Random Glucose 88 MG/DL Calcium Level 8.3 MG/DL Sodium Level 143 MEQ/L Potassium Level 2.7 MEQ/L 3.2 MEQ/L Chloride Level 111 MEQ/L Carbon Dioxide Level 21.1 MEQ/L Anion Gap 11 MEQ/L Estimat Glomerular Filtration Rate 66 ML/MIN Culture Results Microbiology Date/Time Source Procedure Growth Status 01/20/18 09:02 Blood Peripheral Aerobic Blood Culture - Preliminary NO GROWTH IN 2 DAYS Resulted 01/20/18 09:02 Blood Peripheral Anaerobic Blood Culture - Preliminary NO GROWTH IN 2 DAYS Resulted 01/20/18 08:59 Blood Peripheral Aerobic Blood Culture - Preliminary NO GROWTH IN 2 DAYS Resulted 01/20/18 08:59 Blood Peripheral Anaerobic Blood Culture - Preliminary NO GROWTH IN 2 DAYS Resulted 01/20/18 10:22 Sputum Expectorated Sputum Gram Stain - Final Complete 01/20/18 10:22 Sputum Expectorated Sputum Sputum Culture - Final HEAVY GROWTH NORMAL RESPIRATORY RENATE Complete 01/20/18 10:22 Urine Catheterized Urine Urine Culture - Final NO GROWTH IN 48 HOURS. Complete Administered Medications Medications (Trade) Dose Ordered Sig/Sally Route PRN Reason Start Time Stop Time Status Last Admin Dose Admin Sodium Chloride (NS Flush) 2 ml UNSCH PRN IV FLUSH FLUSH AFTER USING IV ACCESS 01/14/18 17:45 01/19/18 12:39 Sodium Chloride (NS Flush) 2 ml BID IV FLUSH 01/14/18 21:00 01/22/18 08:35 Acetaminophen (Tylenol) 650 mg Q6H PRN PO PAIN 1 TO 5 AND/OR FEVER >101F 01/14/18 17:45 01/21/18 20:40 Chlorhexidine Gluconate (Peridex 0.12% Liq) 15 ml BID@08,20 MT 01/14/18 20:00 01/19/18 09:49 Chlorhexidine Gluconate (Chlorhexidine 2% Cloth) Taper DAILY@04 TOP 01/15/18 04:00 01/11/19 03:59 01/18/18 03:16 Azithromycin 500 mg/Sodium Chloride 250 ml @ 250 mls/hr Q24H IV 01/14/18 18:00 01/21/18 18:12 Famotidine (Pepcid Inj) 20 mg HS IV PUSH 01/14/18 21:00 01/21/18 20:31 Lorazepam (Ativan Inj) 1 mg Q2H PRN IV PUSH seizures 01/14/18 22:00 01/22/18 12:10 Phenytoin (Dilantin Liq) 125 mg Q8HR PO 01/15/18 06:00 01/22/18 06:14 Quetiapine Fumarate (SEROquel) 200 mg TID PO 01/15/18 09:00 01/22/18 08:32 Topiramate (Topamax) 200 mg DAILY PO 01/15/18 09:00 01/22/18 08:32 Hydralazine HCl (Apresoline Inj) 20 mg Q4H PRN IV PUSH SBP >160 01/14/18 22:15 01/20/18 11:29 Albuterol/ Ipratropium (Duoneb Neb) 1 ampule Q4HR NEB NEB 01/18/18 16:00 01/22/18 08:19 Potassium Chloride 100 ml @ 50 mls/hr Q2H PRN IV For Potassium 2.8 - 3.2 mEq/L 01/19/18 07:15 01/22/18 02:00 Potassium Phosphate (K-Phos) 2,000 mg Q4H PRN PO For Phosphorus < 2.5 mg/dL 01/19/18 07:15 01/19/18 11:33 Piperacillin Sod/ Tazobactam Sod 50 ml @ 100 mls/hr Q8H IV 01/19/18 18:00 01/22/18 10:22 Metoprolol Tartrate (Lopressor) 50 mg Q12HR PO 01/19/18 21:00 01/22/18 08:32 Labetalol HCl (Trandate Inj) 10 mg Q4H PRN IV PUSH SYS BP GREATER THAN 170 MMHG 3/8/18 05:00 01/20/18 09:58 Hydralazine HCl (Apresoline) 50 mg Q8HR PO 01/20/18 07:30 01/22/18 06:09 Vancomycin HCl 1000 mg/Sodium Chloride 250 ml @ 250 mls/hr Q24H IV 01/20/18 13:00 01/21/18 18:11 Nicardipine HCl 50 mg/Sodium Chloride 500 ml @ 50 mls/hr TITRATE PRN IV Blood pressure management 01/20/18 16:00 01/22/18 10:58 Clonidine (Catapres) 0.2 mg Q8H PO 01/21/18 08:00 01/22/18 08:32 Heparin Sodium/ Dextrose 250 ml @ 11 mls/hr TITRATE PRN IV Coagulation Management 01/21/18 10:45 01/22/18 08:35 Objective Remarks GENERAL: Middle aged male, supine in bed in no obvious distress. SKIN: Warm and dry. HEAD: Normocephalic. NECK: Supple, trachea midline. CARDIOVASCULAR: +S1/S2, tachy RESPIRATORY: Anterior vincent clear. O2 sats in the mid 80s. GASTROINTESTINAL: Abdomen nondistended. EXTREMITIES: No cyanosis. Severe muscle wasting in the bilateral lower extremities NEUROLOGICAL: Not following commands. Eyes closed during exam today. He is moving his head back and forth Assessment/Plan Problem List: (1) Thrombocytopenia ICD Codes: D69.6 - Thrombocytopenia, unspecified Plan: --likely d/t hepatosplenomegaly + sepsis + recent antibiotic use. --+HIT KIM, SARA negative --coags WNL today. --++ DVT, RUE + LUE --peripheral blood smear shows no fragmented red blood cells. --LDH mildly elevated, haptoglobin WNL, no sign of hemolysis Assessment 47y/o male admitted with AMS. Hematology consulted for thrombocytopenia. history of cerebral palsy, hypertension, baseline agitation, seizure disorder, on Topamax and Dilantin, who was brought into the emergency department on January 14 with fever and altered mental status. Plan 1. Patient tolerating heparin drip. 2. Platelets have now normalized. Attending Statement The exam, history, and the medical decision-making described in the above note were completed with the assistance of the mid-level provider. I reviewed and agree with the findings presented. I attest that I had a [id number] encounter with the patient on the same day, and personally performed and documented my assessment and findings in the medical record. No c/o No bleeding Thrombocytopenia has resolved. Plat are NL x 2 days. Renae Vergara Jan 22, 2018 13:15 Jono Last MD Jan 23, 2018 00:22
[2018-01-22] MEDS: LINEZOLID 600 MG TAB PO SCH (21:28)
[2018-01-22] MEDS: FAMOTIDINE 20 MG/2 ML VIAL IV PUSH SCH (21:28)
[2018-01-22] MEDS: METOPROLOL TARTRATE 25 MG TAB PO SCH (21:28)
[2018-01-22] MEDS: clonazePAM 1 MG TAB PO PRN (21:30)
[2018-01-22] MEDS: hydrALAZINE HCL 20 MG/ML VIAL IV PUSH PRN (21:30)
[2018-01-23] VITALS (14 sets, daily range): BP systolic 144–171; BP diastolic 72–87; PULSE 88–120; RESP 22–32; TEMP 98.8–99.8; O2SAT 93–100
[2018-01-23] MEDS: hydrALAZINE HCL 20 MG/ML VIAL IV PUSH PRN ×2 (00:59→06:12)
[2018-01-23] MEDS: hydrALAZINE HCL 50 MG TAB PO SCH ×4 (00:59→20:27)
[2018-01-23] MEDS: cloNIDine HCL 0.2 MG TAB PO SCH ×4 (00:59→23:58)
[2018-01-23] MEDS: niCARdipine INJ 50 MG in SODIUM CHLORID 0.9% 500 ML INJ 480 ML IV PRN ×3 (01:32→20:27)
[2018-01-23] MEDS: RESP: ALBUTEROL 2.5 MG/IPRATROPIUM 0.5 MG NEB (SCH) NEB ×4 (03:44→21:21)
[2018-01-23] MEDS: CHLORHEXIDINE GLUCONATE 2 % 1 PACK (2 CLOTHS) TOP SCH (04:00)
[2018-01-23 04:47] LABS: AUTOMATED NEUTROPHIL # 3.4 TH/MM3 (1.8-7.7); BASOPHIL % 0.6 % (0.0-2.0); EOSINOPHIL # 0.4 TH/MM3 (0-0.4); EOSINOPHIL % 6.6 % (0.0-4.0); HEMATOCRIT 32.8 % (39.0-51.0); HEMOGLOBIN 10.6 GM/DL (13.0-17.0); LYMPH % 20.7 % (9.0-44.0); LYMPHOCYTE # 1.3 TH/MM3 (1.0-4.8); MEAN CELL VOLUME 85.4 FL (80.0-100.0); MEAN CORPUSCULAR HEMOGLOBIN 27.5 PG (27.0-34.0); MEAN CORPUSCULAR HGB CONC 32.3 % (32.0-36.0); MEAN PLATELET VOLUME 9.6 FL (7.0-11.0); MONO % 15.6 % (0.0-8.0); MONOCYTE # 0.9 TH/MM3 (0-0.9); NEUT % 56.5 % (16.0-70.0); PLATELET COUNT 199 TH/MM3 (150-450); RED BLOOD COUNT 3.84 MIL/MM3 (4.50-5.90); WHITE BLOOD COUNT 6.1 TH/MM3 (4.0-11.0)
[2018-01-23 05:12] LABS: CREATININE 1.37 MG/DL (0.60-1.30); MAGNESIUM 1.2 MG/DL (1.5-2.5)
[2018-01-23] MEDS: INSULIN ASPART SUPPLEMENTAL SCALE SQ SCH ×4 (06:00→17:15)
[2018-01-23] MEDS: PHENYTOIN SUSP 100 MG/4 ML CUP PO SCH ×3 (06:12→20:29)
[2018-01-23] MEDS: POTASSIUM CHLOR 20 MEQ PREMIX 100 ML IV PRN ×5 (06:13→23:58)
[2018-01-23] MEDS: CHLORHEXIDINE 0.12% (ORAL KIT) 15 ML CUP MT SCH ×2 (08:00→20:00)
[2018-01-23] MEDS ORDERED: POTASSIUM CHLORIDE INJ 20 MEQ, MAGNESIUM SULFATE INJ 2 GM in SODIUM CHLOR 0.9% 1000 ML ... IV ONE (08:15)
[2018-01-23] MEDS: HEPARIN-D5W 25,000 U/250 ML 250 ML IV PRN (08:20)
[2018-01-23] MEDS: QUEtiapine FUMARATE 200 MG TAB PO SCH ×3 (08:22→17:46)
[2018-01-23] MEDS: LINEZOLID 600 MG TAB PO SCH ×2 (08:22→20:27)
[2018-01-23] MEDS: SODIUM CHLORIDE 0.9% FLUSH 10 ML FLUSH IV FLUSH SCH ×2 (08:23→20:28)
[2018-01-23] MEDS: METOPROLOL TARTRATE 25 MG TAB PO SCH ×2 (08:23→20:27)
[2018-01-23] MEDS: TOPIRAMATE 200 MG TAB PO SCH (08:23)
[2018-01-23] MEDS: POTASSIUM CHLORIDE 25 MEQ EFFERVESCENT TAB PO SCH ×2 (09:00→20:28)
--- NOTE | 2018-01-23 09:14 | HHI.PR ---
Subjective Remarks Nursing reports the patient has had more loose stools since last night; has been successfully weaning cardene w/o setbacks. Otherwise no deteriorations. Reports very good p.o. intake. Patient appears to be quite nonverbal at baseline. Objective Vital Signs Date Time Temp Pulse Resp B/P (MAP) Pulse Ox O2 Delivery O2 Flow Rate FiO2 01/23/18 08:46 95 21 01/23/18 06:00 120 01/23/18 04:00 96 01/23/18 04:00 98.8 96 30 149/72 (97) 100 01/23/18 02:00 97 01/23/18 01:32 97 152/72 01/23/18 00:00 99.2 91 28 144/75 (98) 95 01/23/18 00:00 91 01/22/18 22:00 106 01/22/18 21:30 121 175/176 01/22/18 20:46 93 01/22/18 20:00 110 01/22/18 20:00 99.2 110 28 165/77 (106) 94 01/22/18 18:00 105 01/22/18 16:31 115 160/73 01/22/18 16:00 88 01/22/18 16:00 99.7 88 27 130/85 (100) 88 01/22/18 14:00 108 01/22/18 12:00 62 01/22/18 12:00 99.5 62 32 134/66 (88) 99 01/22/18 10:58 94 134/71 01/22/18 10:00 97 I/O 01/22/18 01/22/18 01/22/18 01/23/18 01/23/18 01/23/18 07:00 15:00 23:00 07:00 15:00 23:00 Intake Total 150 ml 785 ml 2710 ml 1041 ml Output Total 1500 ml Balance 150 ml 785 ml 1210 ml 1041 ml Intake Oral 1440 ml 480 ml IV Total 150 ml 785 ml 1270 ml 561 ml Output Urine Total 1500 ml # Voids 4 # Bowel Movements 2 4 Result Diagram: 01/23/18 0400 01/23/18 0400 Objective Remarks Hyperactive bowel sounds, abdomen otherwise appears nontender, nondistended Patient lying in bed, no acute distress, on room air A/P Assessment and Plan New onset diarrhea -likely colitis since there's no n/v; checking for c. diff hypokalemia - replaicng via IV and po, mg low, replacing w/ standing order Acute metabolic encephalopathy - resolved Seizure disorder -Ativan as needed for seizure -Continue Dilantin 125mg Q8 and Topamax 200 daily, Albumin corrected Dilantin level 13.6 on 01/15. Underlying cerebral palsy - on mechanical soft, nectar thick regular diet. Followed by speech Blind - fall precautions - Contineu seroquel 200 mg po tid. Klonopin 1 mg po q8 hours prn anxiety. Trazodone held since admission, will continue to hold due to initiation of linezolid. Acute hypoxemic respiratory failure- extubated 01/18 - resolved Healthcare associated pneumonia (MRSA) DuoNeb EZPAP CXR 01/20: Atelectasis/consolidation in the left lung base. This is mildly improved compared to previous study of 01/17/18. was recently switched form vanc to linezolid; s/p tx w/ zosyn and zithromax; HTN urgency Weaning cardene. continue Lopressor, Hydralazine, Clonidine Lisinopril held due to KATHERINE. Acute kidney failure- improving Walsh in place. Not previously removed due to concern for hypospadia. Discussed with correction, patient chronically incontinent and wears a diaper without indwelling catheter at -. -CT abdomen pelvis did not show any evidence of hydronephrosis Proteus UTI - resolved thrombocytopenia R basilic superficial thrombosis L subclavian, axillary DVT, and basilic thrombosis -Monitor CBC, CMP, coags. -Hep PLT induced ab: weakly positive, SARA negative. on heparin drip per hematology. Consider transition to OAT ?rivaroxaban. Will remain in IMC for now as weaning off cardene drip for HTN and severe electrolyte derangements. Po meds adjusted. Lane Castro MD Jan 23, 2018 09:14
[2018-01-23] MEDS: clonazePAM 1 MG TAB PO PRN ×2 (11:30→20:28)
[2018-01-23] MEDS ORDERED: PHARMACY ORDERED LAB ONE (12:45)
--- NOTE | 2018-01-23 15:17 | PD.ONC.PN ---
Subjective Subjective Remarks T-max 99.8 this morning Per RN, he has had some oozing where his catheter was removed however this is getting better Objective Data Date Time Temp Pulse Resp B/P (MAP) Pulse Ox O2 Delivery O2 Flow Rate FiO2 01/23/18 14:00 93 01/23/18 12:21 96 169/87 01/23/18 12:00 99.6 93 31 169/87 (114) 95 01/23/18 12:00 93 01/23/18 10:00 91 01/23/18 08:46 95 21 01/23/18 08:00 105 01/23/18 08:00 99.8 105 28 171/79 (109) 95 01/23/18 06:00 120 01/23/18 04:00 96 01/23/18 04:00 98.8 96 30 149/72 (97) 100 01/23/18 02:00 97 01/23/18 01:32 97 152/72 01/23/18 00:00 99.2 91 28 144/75 (98) 95 01/23/18 00:00 91 01/22/18 22:00 106 01/22/18 21:30 121 175/176 01/22/18 20:46 93 01/22/18 20:00 110 01/22/18 20:00 99.2 110 28 165/77 (106) 94 01/22/18 18:00 105 01/22/18 16:31 115 160/73 01/22/18 16:00 88 01/22/18 16:00 99.7 88 27 130/85 (100) 88 01/23/18 01/23/18 01/23/18 07:00 15:00 23:00 Intake Total 1041 ml Balance 1041 ml Result Diagram: 01/23/18 0400 01/23/18 0400 Laboratory Results Laboratory Tests Test 01/23/18 04:00 01/23/18 10:08 White Blood Count 6.1 TH/MM3 Red Blood Count 3.84 MIL/MM3 Hemoglobin 10.6 GM/DL Hematocrit 32.8 % Mean Corpuscular Volume 85.4 FL Mean Corpuscular Hemoglobin 27.5 PG Mean Corpuscular Hemoglobin Concent 32.3 % Red Cell Distribution Width 15.0 % Platelet Count 199 TH/MM3 Mean Platelet Volume 9.6 FL Neutrophils (%) (Auto) 56.5 % Lymphocytes (%) (Auto) 20.7 % Monocytes (%) (Auto) 15.6 % Eosinophils (%) (Auto) 6.6 % Basophils (%) (Auto) 0.6 % Neutrophils # (Auto) 3.4 TH/MM3 Lymphocytes # (Auto) 1.3 TH/MM3 Monocytes # (Auto) 0.9 TH/MM3 Eosinophils # (Auto) 0.4 TH/MM3 Basophils # (Auto) 0.0 TH/MM3 CBC Comment DIFF FINAL Differential Comment Activated Partial Thromboplast Time 54.7 SEC Blood Urea Nitrogen 7 MG/DL Creatinine 1.37 MG/DL Random Glucose 96 MG/DL Calcium Level 8.0 MG/DL Magnesium Level 1.2 MG/DL Sodium Level 142 MEQ/L Potassium Level 2.8 MEQ/L Chloride Level 110 MEQ/L Carbon Dioxide Level 21.0 MEQ/L Anion Gap 11 MEQ/L Estimat Glomerular Filtration Rate 67 ML/MIN Stool C. difficile Toxin (PCR) NEGATIVE Stl C. difficile Toxin Epiderm 027 PRESUMPTIVE NEGATIVE Administered Medications Medications (Trade) Dose Ordered Sig/Sally Route PRN Reason Start Time Stop Time Status Last Admin Dose Admin Sodium Chloride (NS Flush) 2 ml UNSCH PRN IV FLUSH FLUSH AFTER USING IV ACCESS 01/14/18 17:45 01/19/18 12:39 Sodium Chloride (NS Flush) 2 ml BID IV FLUSH 01/14/18 21:00 01/23/18 08:23 Acetaminophen (Tylenol) 650 mg Q6H PRN PO PAIN 1 TO 5 AND/OR FEVER >101F 01/14/18 17:45 01/21/18 20:40 Chlorhexidine Gluconate (Peridex 0.12% Liq) 15 ml BID@08,20 MT 01/14/18 20:00 01/19/18 09:49 Chlorhexidine Gluconate (Chlorhexidine 2% Cloth) Taper DAILY@04 TOP 01/15/18 04:00 01/11/19 03:59 01/18/18 03:16 Famotidine (Pepcid Inj) 20 mg HS IV PUSH 01/14/18 21:00 01/22/18 21:28 Lorazepam (Ativan Inj) 1 mg Q2H PRN IV PUSH seizures 01/14/18 22:00 01/22/18 16:08 Phenytoin (Dilantin Liq) 125 mg Q8HR PO 01/15/18 06:00 01/23/18 14:52 Quetiapine Fumarate (SEROquel) 200 mg TID PO 01/15/18 09:00 01/23/18 12:25 Topiramate (Topamax) 200 mg DAILY PO 01/15/18 09:00 01/23/18 08:23 Hydralazine HCl (Apresoline Inj) 20 mg Q4H PRN IV PUSH SBP >160 01/14/18 22:15 01/23/18 06:12 Potassium Chloride 100 ml @ 50 mls/hr Q2H PRN IV For Potassium 2.8 - 3.2 mEq/L 01/19/18 07:15 01/23/18 12:22 Magnesium Oxide (Mag-Ox) 800 mg UNSCH PRN PO For Magnesium 1.2 - 1.6 mg/dL 01/19/18 07:15 01/23/18 08:22 Potassium Phosphate (K-Phos) 2,000 mg Q4H PRN PO For Phosphorus < 2.5 mg/dL 01/19/18 07:15 01/19/18 11:33 Labetalol HCl (Trandate Inj) 10 mg Q4H PRN IV PUSH SYS BP GREATER THAN 170 MMHG 01/20/18 05:00 01/20/18 09:58 Clonidine (Catapres) 0.2 mg Q8H PO 01/21/18 08:00 01/23/18 08:22 Heparin Sodium/ Dextrose 250 ml @ 11 mls/hr TITRATE PRN IV Coagulation Management 01/21/18 10:45 01/23/18 08:20 Clonazepam (KlonoPIN) 1 mg Q8H PRN PO ANXIETY 01/22/18 14:15 01/23/18 11:30 Albuterol/ Ipratropium (Duoneb Neb) 1 ampule Q6HR NEB NEB 01/22/18 16:00 01/23/18 08:45 Nicardipine HCl 50 mg/Sodium Chloride 500 ml @ 50 mls/hr TITRATE PRN IV Blood pressure management 01/22/18 14:30 01/23/18 12:21 Metoprolol Tartrate (Lopressor) 75 mg Q12HR PO 01/22/18 21:00 01/23/18 08:23 Hydralazine HCl (Apresoline) 50 mg Q6H PO 01/22/18 20:00 01/23/18 14:52 Linezolid (Zyvox) 600 mg Q12HR PO 01/22/18 21:00 01/23/18 08:22 Objective Remarks GENERAL: Middle aged male, supine in bed in no obvious distress. SKIN: Warm and dry. HEAD: Normocephalic. NECK: Supple, trachea midline. CARDIOVASCULAR: +S1/S2, tachy RESPIRATORY: Anterior vincent clear. GASTROINTESTINAL: Abdomen nondistended. EXTREMITIES: No cyanosis. Severe muscle wasting in the bilateral lower extremities NEUROLOGICAL: Not following commands. Eyes closed during exam today. He is moving his head back and forth Assessment/Plan Problem List: (1) Thrombocytopenia ICD Codes: D69.6 - Thrombocytopenia, unspecified Plan: 01/23/18: Patient therapeutic on heparin drip. Platelets normal 3 days. Likely transition to anticoagulation by mouth tomorrow if he continues to have no bleeding from his penis. --likely d/t hepatosplenomegaly + sepsis + recent antibiotic use. --+HIT KIM, SARA negative (2) DVT (deep venous thrombosis) ICD Codes: I82.409 - Acute embolism and thrombosis of unspecified deep veins of unspecified lower extremity Plan: --Ultrasound shows DVT in the bilateral upper extremities --On heparin drip Assessment 47y/o male admitted with AMS. Hematology consulted for thrombocytopenia. history of cerebral palsy, hypertension, baseline agitation, seizure disorder, on Topamax and Dilantin, who was brought into the emergency department on January 14 with fever and altered mental status. Attending Statement The exam, history, and the medical decision-making described in the above note were completed with the assistance of the mid-level provider. I reviewed and agree with the findings presented. I attest that I had a [id number] encounter with the patient on the same day, and personally performed and documented my assessment and findings in the medical record. No c/o Plat are back to normal. On heparin for DVT. May transition to oral anticoag. tomorrow. Renae Vergara Jan 23, 2018 15:17 Jono Last MD Jan 23, 2018 22:55
[2018-01-23] MEDS: LABETALOL HCL 100 MG/20 ML VIAL IV PUSH PRN (17:22)
[2018-01-23] MEDS: FAMOTIDINE 20 MG/2 ML VIAL IV PUSH SCH (20:29)
[2018-01-23 22:58] LABS: MAGNESIUM 1.4 MG/DL (1.5-2.5)
[2018-01-24] VITALS (21 sets, daily range): BP systolic 139–184; BP diastolic 64–95; PULSE 91–108; RESP 28–44; TEMP 98–99.2; O2SAT 93–97
[2018-01-24] MEDS: hydrALAZINE HCL 20 MG/ML VIAL IV PUSH PRN (00:10)
[2018-01-24] MEDS: hydrALAZINE HCL 50 MG TAB PO SCH ×4 (00:41→22:56)
[2018-01-24] MEDS: niCARdipine INJ 50 MG in SODIUM CHLORID 0.9% 500 ML INJ 480 ML IV PRN ×4 (01:12→22:54)
[2018-01-24] MEDS: POTASSIUM CHLOR 20 MEQ PREMIX 100 ML IV PRN (02:36)
[2018-01-24] MEDS: CHLORHEXIDINE GLUCONATE 2 % 1 PACK (2 CLOTHS) TOP SCH (03:51)
[2018-01-24] MEDS: MAGNESIUM SULFATE INJ 2 GM in SODIUM CHLORIDE 0.9% INJ 96 ML IV PRN (04:08)
[2018-01-24] MEDS: RESP: ALBUTEROL 2.5 MG/IPRATROPIUM 0.5 MG NEB (SCH) NEB ×4 (04:22→20:56)
[2018-01-24] MEDS: INSULIN ASPART SUPPLEMENTAL SCALE SQ SCH ×5 (06:00→23:07)
[2018-01-24] MEDS: PHENYTOIN SUSP 100 MG/4 ML CUP PO SCH ×3 (06:57→22:59)
[2018-01-24] MEDS: CHLORHEXIDINE 0.12% (ORAL KIT) 15 ML CUP MT SCH ×2 (08:00→20:00)
[2018-01-24] MEDS: POTASSIUM CHLORIDE 25 MEQ EFFERVESCENT TAB PO SCH ×2 (09:20→22:57)
[2018-01-24] MEDS: METOPROLOL TARTRATE 25 MG TAB PO SCH ×2 (09:21→22:58)
[2018-01-24] MEDS: LINEZOLID 600 MG TAB PO SCH ×2 (09:21→22:58)
[2018-01-24] MEDS: QUEtiapine FUMARATE 200 MG TAB PO SCH ×3 (09:21→16:59)
[2018-01-24] MEDS: cloNIDine HCL 0.2 MG TAB PO SCH ×3 (09:21→23:07)
[2018-01-24] MEDS: SODIUM CHLORIDE 0.9% FLUSH 10 ML FLUSH IV FLUSH SCH ×2 (09:21→22:56)
[2018-01-24] MEDS: TOPIRAMATE 200 MG TAB PO SCH (09:21)
[2018-01-24] MEDS: LORazepam 2 MG/ML VIAL IV PUSH PRN ×2 (10:17→17:14)
--- NOTE | 2018-01-24 11:40 | HHI.PR ---
Subjective Remarks C. difficile PCR was negative yesterday yet nursing reports he still is having loose stool. Needed to go back higher up on Cardene drip from 5-10Otherwise no deteriorations. Reports very good p.o. intake. Patient appears to be quite nonverbal at baseline. Objective Vital Signs Date Time Temp Pulse Resp B/P (MAP) Pulse Ox O2 Delivery O2 Flow Rate FiO2 01/24/18 10:01 97 01/24/18 09:33 99 01/24/18 09:30 99 01/24/18 09:15 100 01/24/18 09:00 101 01/24/18 08:45 101 01/24/18 08:30 97 01/24/18 08:15 97 01/24/18 08:00 99 01/24/18 08:00 98.7 99 30 184/95 (124) 97 01/24/18 08:00 99 01/24/18 06:00 98 01/24/18 04:00 95 01/24/18 04:00 99.2 95 28 158/78 (104) 95 01/24/18 02:00 93 01/24/18 01:12 90 146/69 01/24/18 00:00 96 01/24/18 00:00 98.0 96 28 168/81 (110) 93 01/23/18 22:00 88 01/23/18 21:21 93 01/23/18 20:27 104 156/79 01/23/18 20:00 98.9 96 32 156/79 (104) 94 01/23/18 20:00 96 01/23/18 18:00 96 01/23/18 16:00 99.7 98 22 171/86 (114) 94 01/23/18 16:00 98 01/23/18 14:00 93 01/23/18 12:21 96 169/87 01/23/18 12:00 99.6 93 31 169/87 (114) 95 01/23/18 12:00 93 I/O 01/23/18 01/23/18 01/23/18 01/24/18 01/24/18 01/24/18 07:00 15:00 23:00 07:00 15:00 23:00 Intake Total 1041 ml 907 ml 1700 ml 1370 ml Balance 1041 ml 907 ml 1700 ml 1370 ml Intake Oral 480 ml 1200 ml IV Total 561 ml 907 ml 500 ml 1370 ml # Voids 4 3 4 # Bowel Movements 4 3 3 Result Diagram: 01/23/18 0400 01/23/185 Objective Remarks Hyperactive bowel sounds, abdomen otherwise appears nontender, nondistended Patient lying in bed, no acute distress, on room air, nonverbal, spontaneously rotates his head periodically A/P Assessment and Plan diarrhea -likely colitis since there's no n/v; c diff neg. will consider CT abd/GI consult if not improving by lulu HTN urgency Weaning cardene. continue Lopressor, hydralazine, clonidine, will add on nifedipine restarting lisinopril: addendum; held hypokalemia - bmp still pending from this morning Seizure disorder -Ativan as needed for seizure -Continue Dilantin 125mg Q8 and Topamax 200 daily, Albumin corrected Dilantin level 13.6 on 01/15. Underlying cerebral palsy - on mechanical soft, nectar thick regular diet. Followed by speech Blind - fall precautions - Continue seroquel 200 mg po tid. Klonopin 1 mg po q8 hours prn anxiety. Trazodone held since admission, will continue to hold due to initiation of linezolid. Acute hypoxemic respiratory failure- extubated 01/18 - resolved Healthcare associated pneumonia (MRSA) DuoNeb EZPAP CXR 01/20: Atelectasis/consolidation in the left lung base. This is mildly improved compared to previous study of 01/17/18. was recently switched form vanc to linezolid; s/p tx w/ zosyn and zithromax; - ordering procalcitonin to help gauge duration of abx Acute kidney failure- improving Walsh in place. Not previously removed due to concern for hypospadia. Discussed with mcc, patient chronically incontinent and wears a diaper without indwelling catheter at -. -CT abdomen pelvis did not show any evidence of hydronephrosis thrombocytopenia R basilic superficial thrombosis L subclavian, axillary DVT, and basilic thrombosis -Monitor CBC, CMP, coags. -Hep PLT induced ab: weakly positive, SARA negative. on heparin drip per hematology. Consider transition to OAT ?rivaroxaban. Will remain in [facility] for now as weaning off cardene drip for HTN and severe electrolyte derangements. Po meds adjusted. Addendum: BMP showing increasing creatinine, may actually be reflective of benign physiologic changes in response to correction of hypertensive urgency. Nonetheless we will stop lisinopril, give more IV fluids. Will obtain echocardiogram to ensure patient does not have heart failure risk in light of having recent history of acute hypoxic respiratory failure on ventilator. Lane Castro MD Jan 24, 2018 11:40
[2018-01-24] MEDS ORDERED: LISINOPRIL 20 MG TAB PO SCH (11:45)
[2018-01-24 13:27] LABS: HEMATOCRIT 34.9 % (39.0-51.0); HEMOGLOBIN 11.3 GM/DL (13.0-17.0); MEAN CORPUSCULAR HEMOGLOBIN 27.4 PG (27.0-34.0); MEAN CORPUSCULAR HGB CONC 32.3 % (32.0-36.0); MEAN PLATELET VOLUME 10.6 FL (7.0-11.0); PLATELET COUNT 229 TH/MM3 (150-450); RED CELL DISTRIBUTION WIDTH 14.8 % (11.6-17.2); WHITE BLOOD COUNT 6.4 TH/MM3 (4.0-11.0)
[2018-01-24] MEDS: NIFEdipine 10 MG CAP PO SCH ×2 (13:40→22:59)
[2018-01-24 13:52] LABS: BICARBONATE 20.8 MEQ/L (21.0-32.0); CALCIUM 8.9 MG/DL (8.5-10.1); CREATININE 1.52 MG/DL (0.60-1.30)
[2018-01-24] MEDS ORDERED: SODIUM CHLOR 0.9% 1000 ML INJ 1,000 ML IV ONE (16:45)
--- NOTE | 2018-01-24 16:58 | HHI.HCPN ---
Palliative care consulted to assist with goals of care for Mr. Early. No next of kin or contact information in EMR. Spoke with [facility]. Staff reports they lost contact with family many years ago; they have sent certified letters and never got a response. Staff states they are in contact with [employer] and Mr. Early is on the top of the list for a guardian. Contacts listed with [facility] is Italia Hernandez and Ashutosh Sharath, again no contact information. Palliative care will request accurint report for Mr. Early in at attempt to locate contacts and other family. Google search produced possible contact information for Italia Hernandez: [phone]. Attempted to contact, number just rings then rings busy. Unable to narrow down results for either contact on social media without further information. Palliative care will continue to follow throughout hospitalization and review goals of care when medical proxy decision maker is identified. Meena Stanford, [employer] OPERATOR Jan 24, 2018 16:58
--- NOTE | 2018-01-24 17:46 | PD.CONS ---
Consult Service Palliative Care Consult Requested By Dr. Castro Primary Care Physician Brady Fletcher MD Reason for Consultation a. To assist with evaluation and management of symptoms including: Agitation , anxiety b. To assist medical decision maker(s) with: better understanding of current medical conditions; weighing benefits/burdens of medical treatment options; making medical treatment decisions. HPI History of Present Illness This is an unfortunate 47-year-old -[place] male who resides at [facility], admitted to [facility] 01/14 with fever and altered mental status. He has a history of underlying cerebral palsy and at baseline is quite agitated, however developed altered mental status at the [facility] and was transferred to [place] for further evaluation. Patient is both sight and hearing impaired, unable to give any history. History is obtained from the chart. Paramedics report oxygen saturation in the 70s upon initial admission, increasing to 99% on nonrebreather, eventually decompensating to the point of requiring intubation.. ED course: * Laboratory: WBC 8.6, hemoglobin 13.3, hematocrit 43.8, platelets 168, sodium 154, potassium 6.9, BUN 68, creatinine 3.72, calcium 9.0, alkaline phosphatase 80, AST 24, ALT 19, lactic acid 0.6. Urinalysis was positive for nitrite with large leukocyte esterase with culture indicated. Arterial blood gas showed a pH of 7.4, PCO2 46, PaO2 408, HCO3 28, base excess 3.1, 98% on MO VC 550/20/1 0.0/+5/100%. On evaluation this is a middle-aged -[place] male, agitated, shaking his head from side to side in the bed. Eyes are closed and he resists the exam. Both legs show some level of contracture with mild contracture in the left upper extremity. He shrieks frequently tends to come to gentle touch. He has a history of cerebral palsy, seizure disorder, chronic agitation and hypertension. Per the [facility], there has been no contact with family for years, in spite of certified letters and other attempts to locate. An [employer] report has been requested from case management. curtain worker, Meena Stanford, spoke with [facility] and was informed that the patient is at the top of the list to obtain a securities counselor on aging guardian but at this time has no decision-maker. . 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 . Review of Systems ROS Limitations: Clinical Condition, Altered Mental Status, Hearing Impaired, Speech Impaired, Other Constitutional: COMPLAINS OF: Change in appetite Neurologic: COMPLAINS OF: Seizures Psychiatric: COMPLAINS OF: Agitation Past Family Social History Coded Allergies: No Known Allergies (Verified Allergy, Unknown, 01/14/18) Past Medical History Cerebral palsy Seizure disorder Agitation Hypertension . Past Surgical History Unobtainable . Reported Medications Reported Meds & Active Scripts Active Reported Trazodone (Trazodone HCl) 100 Mg Tablet 100 Mg PO HS Trazodone (Trazodone HCl) 100 Mg Tablet 100 Mg PO TID Topamax (Topiramate) 200 Mg Tab 200 Mg PO DAILY IN THE EVENING Seroquel (Quetiapine Fumarate) 200 Mg Tab 200 Mg PO TID Potassium Chloride Liq (Potassium Chloride) 40 Meq/15 Ml Soln 80 Meq PO BID Nuedexta 20-10 mg (Dextromethorphan HBr-Quinidine) 20 Mg-10 Mg Cap 1 Cap PO BID Massena (Hydrocodone-Acetaminophen) 5 Mg-325 Mg Tab 1 Tab PO BID PRN Multi-Vitamin/Minerals (Multiple Vitamins W/ Minerals) 1 Tab Tab 1 Tab PO DAILY Lisinopril 20 Mg Tab 20 Mg PO DAILY Klonopin (Clonazepam) 1 Mg Tab 1 Mg PO QID Klonopin (Clonazepam) 1 Mg Tab 1 Mg PO Q8HR PRN Hydrocodone-Acetaminophen 5-325 mg Tab 1 Tab PO TID Dilantin-125 Liq (Phenytoin) 125 Mg/5 Ml Susp 125 Mg PO Q8HR Tylenol (Acetaminophen) 325 Mg Tab 650 Mg PO Q6H PRN . . Current Medications Medications (Trade) Dose Ordered Sig/Sally Route Start Time Stop Time Status Last Admin (NS Flush) 2 ml UNSCH PRN IV FLUSH 01/14/18 17:45 01/19/18 12:39 (NS Flush) 2 ml BID IV FLUSH 01/14/18 21:00 01/24/18 09:21 (Tylenol) 650 mg Q6H PRN PO 01/14/18 17:45 01/21/18 20:40 (Peridex 0.12% Liq) 15 ml BID@08,20 MT 01/14/18 20:00 01/24/18 08:00 Miscellaneous Information 1 [id number] XX 01/14/18 17:45 (Chlorhexidine 2% Cloth) Taper DAILY@04 TOP 01/15/18 04:00 01/11/19 03:59 01/18/18 03:16 (Chlorhexidine 2% Cloth) 3 pack UNSCH PRN TOP 01/14/18 17:45 (NovoLOG SUPPLEMENTAL SCALE) 1 Q6HR SQ 01/14/18 18:00 (Pepcid Inj) 20 mg HS IV PUSH 01/14/18 21:00 01/23/18 20:29 (Ativan Inj) 1 mg Q2H PRN IV PUSH 01/14/18 22:00 01/24/18 17:14 (Dilantin Liq) 125 mg Q8HR PO 01/15/18 06:00 01/24/18 12:42 (SEROquel) 200 mg TID PO 01/15/18 09:00 01/24/18 16:59 (Topamax) 200 mg DAILY PO 01/15/18 09:00 01/24/18 09:21 (Apresoline Inj) 20 mg Q4H PRN IV PUSH 01/14/18 22:15 01/24/18 00:10 (Duoneb Neb) 1 ampule Q2HR NEB PRN NEB 01/18/18 13:30 Potassium Chloride 100 ml @ 50 mls/hr Q2H PRN IV 01/19/18 07:15 Potassium Chloride 100 ml @ 50 mls/hr Q2H PRN IV 01/19/18 07:15 01/24/18 02:36 (K-Lyte Cl Eff) 50 meq UNSCH PRN PO 01/19/18 07:15 Potassium Chloride 100 ml @ 25 mls/hr UNSCH PRN IV 01/19/18 07:15 Potassium Chloride 100 ml @ 50 mls/hr Q2H PRN IV 01/19/18 07:15 Magnesium Sulfate 4 gm/Sodium Chloride 100 ml @ 50 mls/hr UNSCH PRN IV 01/19/18 07:15 (Mag-Ox) 800 mg UNSCH PRN PO 01/19/18 07:15 01/23/18 08:22 Magnesium Sulfate 2 gm/Sodium Chloride 100 ml @ 50 mls/hr UNSCH PRN IV 01/19/18 07:15 01/24/18 04:08 (K-Phos) 2,000 mg Q4H PRN PO 01/19/18 07:15 01/19/18 11:33 Sodium Phosphate 30 mmol/Sodium Chloride 250 ml @ 42 mls/hr UNSCH PRN IV 01/19/18 07:15 (K-Phos) 2,000 mg UNSCH PRN PO/TUBE 01/19/18 07:15 Potassium Phosphate 30 mmol/ Sodium Chloride 260 ml @ 42 mls/hr UNSCH PRN IV 01/19/18 07:15 (Trandate Inj) 10 mg Q4H PRN IV PUSH 01/20/18 05:00 01/23/18 17:22 (Catapres) 0.2 mg Q8H PO 01/21/18 08:00 01/24/18 16:59 Heparin Sodium/ Dextrose 250 ml @ 11 mls/hr TITRATE PRN IV 01/21/18 10:45 01/23/18 08:20 (KlonoPIN) 1 mg Q8H PRN PO 01/22/18 14:15 01/23/18 20:28 (Duoneb Neb) 1 ampule Q6HR NEB NEB 01/22/18 16:00 01/24/18 10:01 Nicardipine HCl 50 mg/Sodium Chloride 500 ml @ 50 mls/hr TITRATE PRN IV 01/22/18 14:30 01/24/18 13:51 (Lopressor) 75 mg Q12HR PO 01/22/18 21:00 01/24/18 09:21 (Apresoline) 50 mg Q6H PO 01/22/18 20:00 01/24/18 12:41 (Zyvox) 600 mg Q12HR PO 01/22/18 21:00 01/24/18 09:21 (K-Lyte Cl Eff) 25 meq Q12HR PO 01/23/18 09:00 01/24/18 09:20 (Procardia) 10 mg Q8HR PO 01/24/18 14:00 01/24/18 13:40 Sodium Chloride 1,000 ml @ 999 mls/hr BOLUS ONCE IV 01/24/18 16:45 01/24/18 17:45 01/24/18 16:56 Sodium Chloride 1,000 ml @ 42 mls/hr [id number] IV 01/24/18 16:45 . Family History Unobtainable . Substance Use Tobacco: Unobtainable Alcohol: Unobtainable Prescription med abuse: Unobtainable Illicits: Unobtainable . Psychosocial History [facility] in a [facility]. No family in contact with patient. . Spiritual/Cultural Factors Unobtainable. . Living Will: Never completed Health Care Surrogate: Never completed Durable Power of Ios Software Engineer: Never completed Physical Exam Vital Signs Date Time Temp Pulse Resp B/P (MAP) Pulse Ox O2 Delivery O2 Flow Rate FiO2 01/24/18 16:45 114 149/65 01/24/18 16:00 108 01/24/18 15:56 101 145/67 01/24/18 14:00 103 01/24/18 13:51 96 145/69 01/24/18 12:00 98.9 92 30 140/66 (90) 94 01/24/18 12:00 92 01/24/18 10:01 97 01/24/18 10:00 91 01/24/18 09:33 99 01/24/18 09:30 99 01/24/18 09:15 100 01/24/18 09:00 101 01/24/18 08:45 101 01/24/18 08:30 97 01/24/18 08:15 97 01/24/18 08:00 99 01/24/18 08:00 98.7 99 30 184/95 (124) 97 01/24/18 08:00 99 01/24/18 06:00 98 01/24/18 04:00 95 01/24/18 04:00 99.2 95 28 158/78 (104) 95 01/24/18 02:00 93 01/24/18 01:12 90 146/69 01/24/18 00:00 96 01/24/18 00:00 98.0 96 28 168/81 (110) 93 01/23/18 22:00 88 01/23/18 21:21 93 01/23/18 20:27 104 156/79 01/23/18 20:00 98.9 96 32 156/79 (104) 94 01/23/18 20:00 96 01/23/18 18:00 96 Exam CONSTITUTIONAL/GENERAL: This is an adequately nourished patient, in mild distress. TUBES/LINES/DRAINS: Right forearm PIV. SKIN: No jaundice, rashes, or lesions. No wounds seen anteriorly. Skin temperature appropriate. Not diaphoretic. HEAD: Atraumatic. Normocephalic. EYES: Patient resistant to exam, unable to assess. Blind. ENT: Hearing impaired NECK: Trachea midline. Supple, nontender. No palpable thyroid enlargement or nodularity. CARDIOVASCULAR: Regular rhythm, tachycardic rate, 1+ dependent edema. Diminished pulses. RESPIRATORY/CHEST: Mildly tachypneic. Lungs diminished, clear. GASTROINTESTINAL: Abdomen soft, nondistended. Bowel sounds present. GENITOURINARY: Without palpable bladder distension. Walsh catheter in place. MUSCULOSKELETAL: Swelling in both bilateral upper extremities, muscle wasting seen in bilateral lower extremities with contractures, foot drop, trace edema NEUROLOGICAL: Shaking head from side to side constantly, blind, deaf, unable to communicate. PSYCHIATRIC: Agitated, shrieks out from time to time. . Diagnostic Tests Laboratory Laboratory Tests Test 01/21/18 20:15 01/22/18 04:11 01/22/18 10:20 01/23/18 04:00 Activated Partial Thromboplast Time 45.7 SEC (24.3-30.1) 35.7 SEC (24.3-30.1) 54.7 SEC (24.3-30.1) White Blood Count 6.0 TH/MM3 (4.0-11.0) 6.1 TH/MM3 (4.0-11.0) Red Blood Count 3.82 MIL/MM3 (4.50-5.90) 3.84 MIL/MM3 (4.50-5.90) Hemoglobin 10.5 GM/DL (13.0-17.0) 10.6 GM/DL (13.0-17.0) Hematocrit 33.1 % (39.0-51.0) 32.8 % (39.0-51.0) Mean Corpuscular Volume 86.8 FL (80.0-100.0) 85.4 FL (80.0-100.0) Mean Corpuscular Hemoglobin 27.6 PG (27.0-34.0) 27.5 PG (27.0-34.0) Mean Corpuscular Hemoglobin Concent 31.8 % (32.0-36.0) 32.3 % (32.0-36.0) Red Cell Distribution Width 15.2 % (11.6-17.2) 15.0 % (11.6-17.2) Platelet Count 166 TH/MM3 (150-450) 199 TH/MM3 (150-450) Mean Platelet Volume 10.0 FL (7.0-11.0) 9.6 FL (7.0-11.0) Neutrophils (%) (Auto) 62.9 % (16.0-70.0) 56.5 % (16.0-70.0) Lymphocytes (%) (Auto) 16.9 % (9.0-44.0) 20.7 % (9.0-44.0) Monocytes (%) (Auto) 12.9 % (0.0-8.0) 15.6 % (0.0-8.0) Eosinophils (%) (Auto) 6.9 % (0.0-4.0) 6.6 % (0.0-4.0) Basophils (%) (Auto) 0.4 % (0.0-2.0) 0.6 % (0.0-2.0) Neutrophils # (Auto) 3.8 TH/MM3 (1.8-7.7) 3.4 TH/MM3 (1.8-7.7) Lymphocytes # (Auto) 1.0 TH/MM3 (1.0-4.8) 1.3 TH/MM3 (1.0-4.8) Monocytes # (Auto) 0.8 TH/MM3 (0-0.9) 0.9 TH/MM3 (0-0.9) Eosinophils # (Auto) 0.4 TH/MM3 (0-0.4) 0.4 TH/MM3 (0-0.4) Basophils # (Auto) 0.0 TH/MM3 (0-0.2) 0.0 TH/MM3 (0-0.2) CBC Comment DIFF FINAL DIFF FINAL Differential Comment Blood Urea Nitrogen 7 MG/DL (7-18) 7 MG/DL (7-18) Creatinine 1.38 MG/DL (0.60-1.30) 1.37 MG/DL (0.60-1.30) Random Glucose 88 MG/DL (74-106) 96 MG/DL (74-106) Calcium Level 8.3 MG/DL (8.5-10.1) 8.0 MG/DL (8.5-10.1) Sodium Level 143 MEQ/L (136-145) 142 MEQ/L (136-145) Potassium Level 2.7 MEQ/L (3.5-5.1) 3.2 MEQ/L (3.5-5.1) 2.8 MEQ/L (3.5-5.1) Chloride Level 111 MEQ/L (98-107) 110 MEQ/L (98-107) Carbon Dioxide Level 21.1 MEQ/L (21.0-32.0) 21.0 MEQ/L (21.0-32.0) Anion Gap 11 MEQ/L (5-15) 11 MEQ/L (5-15) Estimat Glomerular Filtration Rate 66 ML/MIN (>89) 67 ML/MIN (>89) Magnesium Level 1.2 MG/DL (1.5-2.5) Test 01/23/18 10:08 01/23/18 22:35 01/24/18 12:27 Stool C. difficile Toxin (PCR) NEGATIVE (NEGATIVE) Stl C. difficile Toxin Epiderm 027 PRESUMPTIVE NEGATIVE Potassium Level 3.4 MEQ/L (3.5-5.1) 3.6 MEQ/L (3.5-5.1) Magnesium Level 1.4 MG/DL (1.5-2.5) White Blood Count 6.4 TH/MM3 (4.0-11.0) Red Blood Count 4.10 MIL/MM3 (4.50-5.90) Hemoglobin 11.3 GM/DL (13.0-17.0) Hematocrit 34.9 % (39.0-51.0) Mean Corpuscular Volume 85.0 FL (80.0-100.0) Mean Corpuscular Hemoglobin 27.4 PG (27.0-34.0) Mean Corpuscular Hemoglobin Concent 32.3 % (32.0-36.0) Red Cell Distribution Width 14.8 % (11.6-17.2) Platelet Count 229 TH/MM3 (150-450) Mean Platelet Volume 10.6 FL (7.0-11.0) Activated Partial Thromboplast Time 34.6 SEC (24.3-30.1) Blood Urea Nitrogen 5 MG/DL (7-18) Creatinine 1.52 MG/DL (0.60-1.30) Random Glucose 96 MG/DL (74-106) Calcium Level 8.9 MG/DL (8.5-10.1) Sodium Level 139 MEQ/L (136-145) Chloride Level 108 MEQ/L (98-107) Carbon Dioxide Level 20.8 MEQ/L (21.0-32.0) Anion Gap 10 MEQ/L (5-15) Estimat Glomerular Filtration Rate 59 ML/MIN (>89) . Result Diagram: 01/24/18 1227 01/24/18 1227 Microbiology Microbiology Date/Time Source Procedure Growth Status 01/20/18 09:02 Blood Peripheral Aerobic Blood Culture - Preliminary NO GROWTH IN 4 DAYS Resulted 01/20/18 09:02 Blood Peripheral Anaerobic Blood Culture - Preliminary NO GROWTH IN 4 DAYS Resulted 01/20/18 10:22 Sputum Expectorated Sputum Gram Stain - Final Complete 01/20/18 10:22 Sputum Expectorated Sputum Sputum Culture - Final HEAVY GROWTH NORMAL RESPIRATORY RENATE Complete 01/20/18 10:22 Urine Catheterized Urine Urine Culture - Final NO GROWTH IN 48 HOURS. Complete . Imaging Last Impressions Chest X-Ray 01/20/18 0000 Signed Impressions: Service Date/Time: January 07:55 - CONCLUSION: 1. Cardiomegaly. 2. Atelectasis/consolidation in the left lung base. This is mildly improved compared to previous study of 01/17/18. Arnulfo Naranjo MD Upper Extremity Ultrasound 01/18/18 0000 Signed Impressions: Service Date/Time: Thursday, January 18, 2018 22:27 - CONCLUSION: 1. In the right upper extremity, there is occlusive thrombus within the basilic vein. The remaining veins of the left upper extremity are patent. 2. In the left upper extremity, there is occlusive thrombus within the subclavian, axillary, and basilic veins. Bernardo Redd MD Lower Extremity Ultrasound 01/18/18 0000 Signed Impressions: Service Date/Time: Thursday, January 18, 2018 22:13 - CONCLUSION: No DVT or superficial venous thrombosis is identified within either lower extremity. Bernardo Redd MD Chest CT 01/14/18 0000 Signed Impressions: Service Date/Time: Sunday, January 14, 2018 19:56 - CONCLUSION: 1. Posterior bibasilar patchiness consistent with pneumonia or atelectasis. Clinical correlation is recommended. 2. Cardiomegaly. 3. Tiny pericardial effusion. 4. Tiny bilateral pleural effusions. 5. Degenerative changes and scoliosis of the thoracic spine. Pedrito Hastings MD Abdomen/Pelvis CT 01/14/18 0000 Signed Impressions: Service Date/Time: Sunday, January 14, 2018 19:56 - CONCLUSION: 1. Patchy infiltrate within the posterior lung bases bilaterally raising possibility of atelectasis or pneumonia. 2. Tiny bilateral pleural effusions. 3. Cardiomegaly and tiny pericardial effusion. 4. Hepatomegaly. 5. Scattered low-density lesions throughout the liver which are indeterminate in etiology. 6. 1.9 cm right adrenal nodule consistent with probable adrenal adenoma. 7. Uncomplicated colonic diverticulosis. 8. Diffuse urinary bladder wall thickening raising the possibility of cystitis. Clinical correlation is recommended. 9. Degenerative changes and scoliosis of the thoraco-lumbar spine. Pedrito Hastings MD . Procedures 01/14/18: Endotracheal intubation 01/17/2018: Endotracheal intubation due to tube dislodgment . Patient/Family Conference Issues Discussed: * Palliative care role, purpose, approach * Additional medical, psychosocial, and spiritual history * Patients general health, functional status, and cognitive changes in the months leading up to the current hospitalization * Patient/family understanding of the current medical problems * Patient/family understanding of prognosis * Patients goals of care as best understood from advance directives and/or conversations and/or values * Current medical treatment options and benefits/burdens of those options * Likely scenarios comparing ongoing aggressive care with a transition to comfort measures only * Questions answered to the best of my ability * Palliative care contact information provided Assessment and Plan Disease Oriented Problem List: (1) Cerebral palsy (2) DVT (deep venous thrombosis) (3) Seizure disorder (4) Acute hypoxemic respiratory failure (5) Hyperkalemia Symptom Scale: (1) Agitation 0-10 Scale: Unable to quantify (2) Anxiety 0-10 Scale: Unable to quantify Pertinent Non-Medical Issues Psychosocial: Resides in a care home facility. No family and contact for years. Spiritual: Unobtainable Legal: Pending appointment of a guardian from the [facility]. Ethical issues impacting care: No decision-maker. . Important Contacts No available contacts. [employer] report has been requested. . Prognosis His prognosis is guarded. He is at significant risk of compromise due to his inability to communicate, seizure disorder, cerebral palsy, declining status with dehydration causing hyperkalemia, hypernatremia. Patient was admitted with UTI with sepsis. At this time he has no legal decision maker and is not capacitated to make his own decisions. He is at risk of continued complication and decline. . Code Status: Full Code (By default) Plan PLAN: Legal decision maker: At this time we have no legal decision maker. Patient is incapacitated to make his own decisions, no family has been able to be located for some years, per the [facility], and he has been on the [facility] list awaiting appointment of a guardian. He is reportedly near the top of the list. Will follow up with [facility] to attempt to expedite. Goals: Aggressive by default. CODE STATUS: FULL CODE by default. SYMPTOMS: * Agitation: His agitation is chronic, likely exacerbating his hypertension. He is receiving clonidine 1 mg every 8 hours as needed for anxiety, Seroquel 200 mg p.o. 3 times daily, Lorazepam 1 mg every 2 hours as needed for seizures. He has received 2 mg of Ativan today and frequently shrieks out. Would recommend psychiatry consultation to assist in medication management. * Anxiety: This is likely multifactorial to include unfamiliar stimulus, inability to communicate, baseline disease processes, pain. Ativan is available on an as-needed basis for seizure management, which is difficult to determine, as patient is tremulous and thrashes near continuously. Would recommend scheduled Ativan to decrease his risk of self injury and increase his level of comfort. SUMMARY In summary this is a 47-year-old male both blind and deaf with cerebral palsy unable to communicate admitted with urinary tract infection, dehydration with hyperkalemia and hypernatremia with severe agitation. The [facility] has attempted to find his family for some years but has been unable to. He is awaiting appointment of a [facility] guardian as a decision-maker. [employer] report has been requested to assist in finding a relative as a decision-maker, but at this time the patient does not have a decision-maker. He is severely disabled and would be hospice appropriate if goals were consistent. Palliative care will continue to follow the patient during hospital course as condition evolves, to assist patient/decision-maker with understanding of their medical conditions, weighing benefits/burdens of treatment options, for clarification of goals of treatment. Additionally will assist with any symptoms of palliative concern. . Thank you for the opportunity to participate in the care of Mr. Early. Attestation To help prompt me to consider important information that might be impacting today's encounter and assessment, information from prior notes written by myself or my colleagues may have been "brought forward" into today's note. My signature on this note, however, is an attestation that I personally performed the exam, history, and/or decision-making noted today, and, unless otherwise indicated, the interactions with patient, family, and staff as well as the review of records all occurred today. I also attest that the listed assessment and stated plan reflect my best clinical judgment today based on the combination of historical information, prior notes, and today's exam/ interactions. When time spent is documented, it refers only to time spent today by the signer, or if indicated, combined time spent today by collaborating physician/nurse practitioner. . Angeline Castellano Jan 24, 2018 17:46
[2018-01-24] MEDS: SODIUM CHLOR 0.9% 1000 ML INJ 1,000 ML IV SCH (18:29)
--- NOTE | 2018-01-24 18:59 | PD.ONC.PN ---
Subjective Subjective Remarks Resting in bed. Eyes are closed, intermittent yelling. S/p ativan. Objective Data Date Time Temp Pulse Resp B/P (MAP) Pulse Ox O2 Delivery O2 Flow Rate FiO2 01/24/18 18:00 106 01/24/18 17:46 109 181/84 01/24/18 17:22 102 146/75 01/24/18 17:15 101 133/80 01/24/18 16:45 114 149/65 01/24/18 16:00 98.9 108 44 146/70 (95) 97 01/24/18 16:00 108 01/24/18 15:56 101 145/67 01/24/18 14:00 103 01/24/18 13:51 96 145/69 01/24/18 12:00 98.9 92 30 140/66 (90) 94 01/24/18 12:00 92 01/24/18 10:01 97 01/24/18 10:00 91 01/24/18 09:33 99 01/24/18 09:30 99 01/24/18 09:15 100 01/24/18 09:00 101 01/24/18 08:45 101 01/24/18 08:30 97 01/24/18 08:15 97 01/24/18 08:00 99 01/24/18 08:00 98.7 99 30 184/95 (124) 97 01/24/18 08:00 99 01/24/18 06:00 98 01/24/18 04:00 95 01/24/18 04:00 99.2 95 28 158/78 (104) 95 01/24/18 02:00 93 01/24/18 01:12 90 146/69 01/24/18 00:00 96 01/24/18 00:00 98.0 96 28 168/81 (110) 93 01/23/18 22:00 88 01/23/18 21:21 93 01/23/18 20:27 104 156/79 01/23/18 20:00 98.9 96 32 156/79 (104) 94 01/23/18 20:00 96 01/24/18 01/24/18 01/24/18 07:00 15:00 23:00 Intake Total 1370 ml 2250 ml Balance 1370 ml 2250 ml Result Diagram: 01/24/18 1227 01/24/18 1227 Laboratory Results Laboratory Tests Test 01/23/18 22:35 01/24/18 12:27 Potassium Level 3.4 MEQ/L 3.6 MEQ/L Magnesium Level 1.4 MG/DL White Blood Count 6.4 TH/MM3 Red Blood Count 4.10 MIL/MM3 Hemoglobin 11.3 GM/DL Hematocrit 34.9 % Mean Corpuscular Volume 85.0 FL Mean Corpuscular Hemoglobin 27.4 PG Mean Corpuscular Hemoglobin Concent 32.3 % Red Cell Distribution Width 14.8 % Platelet Count 229 TH/MM3 Mean Platelet Volume 10.6 FL Activated Partial Thromboplast Time 34.6 SEC Blood Urea Nitrogen 5 MG/DL Creatinine 1.52 MG/DL Random Glucose 96 MG/DL Calcium Level 8.9 MG/DL Sodium Level 139 MEQ/L Chloride Level 108 MEQ/L Carbon Dioxide Level 20.8 MEQ/L Anion Gap 10 MEQ/L Estimat Glomerular Filtration Rate 59 ML/MIN Administered Medications Medications (Trade) Dose Ordered Sig/Sally Route PRN Reason Start Time Stop Time Status Last Admin Dose Admin Sodium Chloride (NS Flush) 2 ml UNSCH PRN IV FLUSH FLUSH AFTER USING IV ACCESS 01/14/18 17:45 01/19/18 12:39 Sodium Chloride (NS Flush) 2 ml BID IV FLUSH 01/14/18 21:00 01/24/18 09:21 Acetaminophen (Tylenol) 650 mg Q6H PRN PO PAIN 1 TO 5 AND/OR FEVER >101F 01/14/18 17:45 01/21/18 20:40 Chlorhexidine Gluconate (Peridex 0.12% Liq) 15 ml BID@08,20 MT 01/14/18 20:00 01/24/18 08:00 Chlorhexidine Gluconate (Chlorhexidine 2% Cloth) Taper DAILY@04 TOP 01/15/18 04:00 01/11/19 03:59 01/18/18 03:16 Famotidine (Pepcid Inj) 20 mg HS IV PUSH 01/14/18 21:00 01/23/18 20:29 Lorazepam (Ativan Inj) 1 mg Q2H PRN IV PUSH seizures 01/14/18 22:00 01/24/18 17:14 Phenytoin (Dilantin Liq) 125 mg Q8HR PO 01/15/18 06:00 01/24/18 12:42 Quetiapine Fumarate (SEROquel) 200 mg TID PO 01/15/18 09:00 01/24/18 16:59 Topiramate (Topamax) 200 mg DAILY PO 01/15/18 09:00 01/24/18 09:21 Hydralazine HCl (Apresoline Inj) 20 mg Q4H PRN IV PUSH SBP >160 01/14/18 22:15 01/24/18 00:10 Potassium Chloride 100 ml @ 50 mls/hr Q2H PRN IV For Potassium 2.8 - 3.2 mEq/L 01/19/18 07:15 01/24/18 02:36 Magnesium Oxide (Mag-Ox) 800 mg UNSCH PRN PO For Magnesium 1.2 - 1.6 mg/dL 01/19/18 07:15 01/23/18 08:22 Magnesium Sulfate 2 gm/Sodium Chloride 100 ml @ 50 mls/hr UNSCH PRN IV For Magnesium 1.2 - 1.6 mg/dL 01/19/18 07:15 01/24/18 04:08 Potassium Phosphate (K-Phos) 2,000 mg Q4H PRN PO For Phosphorus < 2.5 mg/dL 01/19/18 07:15 01/19/18 11:33 Labetalol HCl (Trandate Inj) 10 mg Q4H PRN IV PUSH SYS BP GREATER THAN 170 MMHG 01/20/18 05:00 01/23/18 17:22 Clonidine (Catapres) 0.2 mg Q8H PO 01/21/18 08:00 01/24/18 16:59 Heparin Sodium/ Dextrose 250 ml @ 11 mls/hr TITRATE PRN IV Coagulation Management 01/21/18 10:45 01/23/18 08:20 Clonazepam (KlonoPIN) 1 mg Q8H PRN PO ANXIETY 01/22/18 14:15 01/23/18 20:28 Albuterol/ Ipratropium (Duoneb Neb) 1 ampule Q6HR NEB NEB 01/22/18 16:00 01/24/18 10:01 Nicardipine HCl 50 mg/Sodium Chloride 500 ml @ 50 mls/hr TITRATE PRN IV Blood pressure management 3/10/18 14:30 01/24/18 17:22 Metoprolol Tartrate (Lopressor) 75 mg Q12HR PO 01/22/18 21:00 01/24/18 09:21 Hydralazine HCl (Apresoline) 50 mg Q6H PO 01/22/18 20:00 01/24/18 12:41 Linezolid (Zyvox) 600 mg Q12HR PO 01/22/18 21:00 01/24/18 09:21 Potassium Bicarb/ Potassium Chloride (K-Lyte Cl Eff) 25 meq Q12HR PO 01/23/18 09:00 01/24/18 09:20 Nifedipine (Procardia) 10 mg Q8HR PO 01/24/18 14:00 01/24/18 13:40 Sodium Chloride 1,000 ml @ 42 mls/hr [id number] IV 01/24/18 16:45 01/24/18 18:29 Objective Remarks GENERAL: thin, chronically ill appearing man in no distress HEAD: Normocephalic. RESPIRATORY: No accessory muscle use. GASTROINTESTINAL: Abdomen soft, non-tender, nondistended. EXTREMITIES: thin extremities MUSCULOSKELETAL: Adequate muscle tone. NEUROLOGICAL: No obvious focal deficit. Awake, alert, and oriented x3. PSYCHIATRIC: Appropriate mood and affect; insight and judgment normal. Assessment/Plan Problem List: (1) Thrombocytopenia ICD Codes: D69.6 - Thrombocytopenia, unspecified Plan: 01/23/18: Patient therapeutic on heparin drip. Platelets normal 3 days. Likely transition to anticoagulation by mouth tomorrow if he continues to have no bleeding from his penis. --likely d/t hepatosplenomegaly + sepsis + recent antibiotic use. --+HIT KIM, SARA negative (2) DVT (deep venous thrombosis) ICD Codes: I82.409 - Acute embolism and thrombosis of unspecified deep veins of unspecified lower extremity Plan: --Ultrasound shows DVT in the bilateral upper extremities --On heparin drip Assessment 47y/o male admitted with AMS. Hematology consulted for thrombocytopenia. history of cerebral palsy, hypertension, baseline agitation, seizure disorder, on Topamax and Dilantin, who was brought into the emergency department on January 14 with fever and altered mental status. Plan 1. Thrombocytopenia, prolonged coags: resolved 2. Bilateral upper extremity VTE: on heparin gtt. Tatyana Rose MD Jan 24, 2018 18:59
[2018-01-24] MEDS: FAMOTIDINE 20 MG/2 ML VIAL IV PUSH SCH (22:57)
[2018-01-25] VITALS (15 sets, daily range): BP systolic 145–167; BP diastolic 73–80; PULSE 82–112; RESP 24–59; TEMP 98–98.9; O2SAT 93–98
[2018-01-25] MEDS: hydrALAZINE HCL 50 MG TAB PO SCH ×4 (02:53→23:20)
[2018-01-25] MEDS: niCARdipine INJ 50 MG in SODIUM CHLORID 0.9% 500 ML INJ 480 ML IV PRN ×4 (02:54→23:20)
[2018-01-25] MEDS: CHLORHEXIDINE GLUCONATE 2 % 1 PACK (2 CLOTHS) TOP SCH (04:00)
[2018-01-25] MEDS: RESP: ALBUTEROL 2.5 MG/IPRATROPIUM 0.5 MG NEB (SCH) NEB ×4 (04:01→20:44)
[2018-01-25] MEDS: NIFEdipine 10 MG CAP PO SCH (05:39)
[2018-01-25] MEDS: PHENYTOIN SUSP 100 MG/4 ML CUP PO SCH ×3 (05:39→23:21)
[2018-01-25 05:40] LABS: BICARBONATE 22.5 MEQ/L (21.0-32.0); CALCIUM 8.4 MG/DL (8.5-10.1); CREATININE 1.45 MG/DL (0.60-1.30)
[2018-01-25] MEDS: CHLORHEXIDINE 0.12% (ORAL KIT) 15 ML CUP MT SCH ×2 (08:00→20:00)
[2018-01-25] MEDS: LINEZOLID 600 MG TAB PO SCH ×2 (08:11→23:19)
[2018-01-25] MEDS: QUEtiapine FUMARATE 200 MG TAB PO SCH ×3 (08:12→17:02)
[2018-01-25] MEDS: METOPROLOL TARTRATE 25 MG TAB PO SCH ×2 (08:12→23:19)
[2018-01-25] MEDS: TOPIRAMATE 200 MG TAB PO SCH (08:12)
[2018-01-25] MEDS: cloNIDine HCL 0.2 MG TAB PO SCH ×3 (08:12→23:19)
[2018-01-25] MEDS: POTASSIUM CHLORIDE 25 MEQ EFFERVESCENT TAB PO SCH ×2 (08:12→23:20)
[2018-01-25] MEDS: POTASSIUM CHLOR 20 MEQ PREMIX 100 ML IV PRN ×2 (09:31→13:20)
[2018-01-25] MEDS: HEPARIN-D5W 25,000 U/250 ML 250 ML IV PRN (09:31)
[2018-01-25] MEDS: SODIUM CHLORIDE 0.9% FLUSH 10 ML FLUSH IV FLUSH SCH ×2 (09:32→23:21)
[2018-01-25] MEDS: LORazepam 2 MG/ML VIAL IV PUSH PRN ×2 (11:08→23:19)
--- NOTE | 2018-01-25 11:16 | HHI.PR ---
Subjective Remarks There is reports patient still having watery stools. Requiring even more Cardene today despite having added Procardia yesterday. Patient maintaining p.o. intake. Objective Vital Signs Date Time Temp Pulse Resp B/P (MAP) Pulse Ox O2 Delivery O2 Flow Rate FiO2 01/25/18 10:33 92 144/76 01/25/18 09:19 96 01/25/18 08:00 98.9 102 30 167/79 (108) 98 01/25/18 08:00 106 01/25/18 07:02 100 148/68 01/25/18 06:00 98 01/25/18 04:03 93 21 01/25/18 04:00 86 01/25/18 04:00 98.7 98 24 149/75 (99) 98 01/25/18 02:54 90 170/80 01/25/18 02:00 90 01/25/18 00:00 93 01/25/18 00:00 98.5 94 28 153/73 (99) 94 01/24/18 22:54 107 185/83 01/24/18 22:00 98 01/24/18 22:00 117 192/82 01/24/18 20:58 96 21 01/24/18 20:00 101 01/24/18 20:00 98.4 107 28 139/64 (89) 97 01/24/18 18:00 106 01/24/18 17:46 109 181/84 01/24/18 17:22 102 146/75 01/24/18 17:15 101 133/80 01/24/18 16:45 114 149/65 01/24/18 16:00 98.9 108 44 146/70 (95) 97 01/24/18 16:00 108 01/24/18 15:56 101 145/67 01/24/18 14:00 103 01/24/18 13:51 96 145/69 01/24/18 12:00 98.9 92 30 140/66 (90) 94 01/24/18 12:00 92 I/O 01/24/18 01/24/18 01/24/18 01/25/18 01/25/18 01/25/18 07:00 15:00 23:00 07:00 15:00 23:00 Intake Total 1370 ml 2250 ml 1300 ml Balance 1370 ml 2250 ml 1300 ml Intake Oral 1250 ml 800 ml IV Total 1370 ml 1000 ml 500 ml # Voids 4 5 5 # Bowel Movements 3 3 2 Result Diagram: 01/24/18 1227 01/25/18 0440 Objective Remarks abdomen nontender, nondistended, soft Patient lying in bed, no acute distress, on room air, nonverbal, A/P Assessment and Plan diarrhea -likely colitis since there's no n/v; stool studies pending. c diff neg. on IVF to buffer dehydration. will re-order c diff PCR. if pcr and stool studies neg with persistent diarrhea, will consider GI consult HTN urgency Still requiring IV nicardipine, continue Lopressor, hydralazine, clonidine, will add on nifedipine Increase nifedipine dose hypokalemia - , Improving, continue replenishment, recheck in a.m. Seizure disorder -Ativan as needed for seizure -Continue Dilantin 125mg Q8 and Topamax 200 daily, Albumin corrected Dilantin level 13.6 on 01/15. Underlying cerebral palsy - on mechanical soft, nectar thick regular diet. Followed by speech Blind - fall precautions - Continue seroquel 200 mg po tid. Klonopin 1 mg po q8 hours prn anxiety. Trazodone held since admission, will continue to hold due to initiation of linezolid. Acute hypoxemic respiratory failure- extubated 01/18 - resolved Healthcare associated pneumonia (MRSA) DuoNeb EZPAP CXR 01/20: Atelectasis/consolidation in the left lung base. This is mildly improved compared to previous study of 01/17/18. was recently switched form vanc to linezolid; s/p tx w/ zosyn and zithromax; - awaiting procalcitonin to help gauge duration of abx Acute kidney failure Walsh in place. Not previously removed due to concern for hypospadia. [facility] with [facility], patient chronically incontinent and wears a diaper without indwelling catheter at -. -CT abdomen pelvis did not show any evidence of hydronephrosis - likely laggin improvement 2/2 diarrhea, IVFs thrombocytopenia R basilic superficial thrombosis L subclavian, axillary DVT, and basilic thrombosis -Monitor CBC, CMP, coags. -Hep PLT induced ab: weakly positive, SARA negative. on heparin drip per hematology. Consider transition to OAT ?rivaroxaban. Will remain in [facility] for now as weaning off cardene drip for HTN and severe electrolyte derangements. Po meds adjusted. Lane Castro MD Jan 25, 2018 11:16
[2018-01-25] MEDS: INSULIN ASPART SUPPLEMENTAL SCALE SQ SCH ×2 (12:00→18:00)
[2018-01-25] MEDS: NIFEdipine 20 MG CAP PO SCH ×2 (13:09→23:19)
[2018-01-25] MEDS: clonazePAM 1 MG TAB PO PRN (13:13)
--- NOTE | 2018-01-25 18:15 | ECHRPT ---
Indication: CONCLUSIONS The left ventricular systolic function is hyperdynamic with an estimated ejection fraction in the ra nge of 65- 70%. Normal left ventricular size. Severe concentric left ventricular hypertrophy. No regional wall motion abnormalities are present. There is mild tricuspid valve regurgitation. The estimated pulmonary arterial pressure is 46 mmHg. Trace pericardial effusion. BP: 148 / 68 HR: 100 Rhythm: Sinus MEASUREMENTS (Male / Female) Normal Values Technical Quality:good 2D ECHO LVOT Diameter 2.0 cm M-MODE LV Diastolic Diameter MM 4.9 cm 4.2 - 5.9 / 3.9 - 5.3 cm LV Systolic Diameter MM 3.4 cm LV Ejection Fraction MM Teich 59.4 % LV Cardiac Index MM Teich 3736.5 cm/minm IVS Diastolic Thickness MM 2.3 cm 0.6 - 1.0 / 0.6 - 0.9 cm LVPW Diastolic Thickness MM 2.3 cm 0.6 - 1.0 / 0.6 - 0.9 cm LV Relative Wall Thickness MM 0.9 0.24 - 0.42 / 0.22 - 0.42 LV Mass Index MM 328.9 g/m 49 - 115 / 43 - 95 g/m Aortic Root Diameter MM 3.1 cm LA Systolic Diameter MM 3.5 cm LA Ao Ratio MM 1.1 AV Cusp Separation MM 2.1 cm DOPPLER TR Peak Velocity 299.0 cm/s TR Peak Gradient 35.8 mmHg Right Atrial Pressure 10.0 mmHg Pulmonary Artery Systolic Pressu 45.8 mmHg Right Ventricular Systolic Press 45.8 mmHg PV Peak Velocity 134.0 cm/s PV Peak Gradient 7.2 mmHg FINDINGS LEFT VENTRICLE The left ventricular systolic function is hyperdynamic with an estimated ejection fraction in the ra nge of 65- 70%. Normal left ventricular size. Severe concentric left ventricular hypertrophy. No regional wall motion abnormalities are present. RIGHT VENTRICLE Normal right ventricular size and systolic function. LEFT ATRIUM The left atrial size is normal. RIGHT ATRIUM The right atrial size is normal. ATRIAL SEPTUM Normal atrial septal thickness without atrial level shunting by limited color doppler interrogation. AORTA The aortic root and proximal ascending aorta are normal in size on limited imaging. MITRAL VALVE Structurally normal mitral valve. No mitral valve stenosis or regurgitation. AORTIC VALVE Trileaflet aortic valve. No aortic valve stenosis or regurgitation. TRICUSPID VALVE Structurally normal tricuspid valve. There is mild tricuspid valve regurgitation. The estimated pulmonary arterial pressure is 45.8 mmHg. PULMONARY VALVE No pulmonary valve regurgitation or stenosis. VESSELS The inferior vena cava is normal in size. PERICARDIUM No pericardial effusion. Yoni Thurman MD, FACC (Electronically Signed) Final Date:25 January 2018 18:13
--- NOTE | 2018-01-25 18:16 | PD.ONC.PN ---
Subjective Subjective Remarks Resting in bed. Nonverbal, grimaces. Objective Data Date Time Temp Pulse Resp B/P (MAP) Pulse Ox O2 Delivery O2 Flow Rate FiO2 01/25/18 16:00 98.8 106 30 153/74 (100) 95 01/25/18 16:00 109 01/25/18 14:00 97 01/25/18 13:37 96 145/80 01/25/18 12:00 85 01/25/18 12:00 98.9 85 28 145/80 (101) 94 01/25/18 11:29 90 144/76 01/25/18 10:33 92 144/76 01/25/18 10:00 82 01/25/18 09:19 96 01/25/18 08:00 98.9 102 30 167/79 (108) 98 01/25/18 08:00 106 01/25/18 07:02 100 148/68 01/25/18 06:00 98 01/25/18 04:03 93 21 01/25/18 04:00 86 01/25/18 04:00 98.7 98 24 149/75 (99) 98 01/25/18 02:54 90 170/80 01/25/18 02:00 90 01/25/18 00:00 93 01/25/18 00:00 98.5 94 28 153/73 (99) 94 01/24/18 22:54 107 185/83 01/24/18 22:00 98 01/24/18 22:00 117 192/82 01/24/18 20:58 96 21 01/24/18 20:00 101 01/24/18 20:00 98.4 107 28 139/64 (89) 97 01/25/18 01/25/18 01/25/18 07:00 15:00 23:00 Intake Total 1300 ml 100 ml Balance 1300 ml 100 ml Result Diagram: 01/24/18 1227 01/25/18 0440 Laboratory Results Laboratory Tests Test 01/25/18 00:35 01/25/18 04:40 01/25/18 10:44 Activated Partial Thromboplast Time 45.3 SEC 42.6 SEC Blood Urea Nitrogen 6 MG/DL Creatinine 1.45 MG/DL Random Glucose 108 MG/DL Calcium Level 8.4 MG/DL Sodium Level 140 MEQ/L Potassium Level 3.3 MEQ/L Chloride Level 108 MEQ/L Carbon Dioxide Level 22.5 MEQ/L Anion Gap 10 MEQ/L Estimat Glomerular Filtration Rate 63 ML/MIN Procalcitonin 0.36 ng/mL Administered Medications Medications (Trade) Dose Ordered Sig/Sally Route PRN Reason Start Time Stop Time Status Last Admin Dose Admin Sodium Chloride (NS Flush) 2 ml UNSCH PRN IV FLUSH FLUSH AFTER USING IV ACCESS 01/14/18 17:45 01/19/18 12:39 Sodium Chloride (NS Flush) 2 ml BID IV FLUSH 01/14/18 21:00 01/25/18 09:32 Acetaminophen (Tylenol) 650 mg Q6H PRN PO PAIN 1 TO 5 AND/OR FEVER >101F 01/14/18 17:45 01/21/18 20:40 Chlorhexidine Gluconate (Peridex 0.12% Liq) 15 ml BID@08,20 MT 01/14/18 20:00 01/25/18 08:00 Chlorhexidine Gluconate (Chlorhexidine 2% Cloth) Taper DAILY@04 TOP 01/15/18 04:00 01/11/19 03:59 01/25/18 04:00 Famotidine (Pepcid Inj) 20 mg HS IV PUSH 01/14/18 21:00 01/24/18 22:57 Lorazepam (Ativan Inj) 1 mg Q2H PRN IV PUSH seizures 01/14/18 22:00 01/25/18 11:08 Phenytoin (Dilantin Liq) 125 mg Q8HR PO 01/15/18 06:00 01/25/18 13:10 Quetiapine Fumarate (SEROquel) 200 mg TID PO 01/15/18 09:00 01/25/18 17:02 Topiramate (Topamax) 200 mg DAILY PO 01/15/18 09:00 01/25/18 08:12 Hydralazine HCl (Apresoline Inj) 20 mg Q4H PRN IV PUSH SBP >160 01/14/18 22:15 01/24/18 00:10 Potassium Chloride 100 ml @ 50 mls/hr Q2H PRN IV For Potassium 2.8 - 3.2 mEq/L 01/19/18 07:15 01/24/18 02:36 Potassium Chloride 100 ml @ 50 mls/hr Q2H PRN IV For Potassium 3.3 - 3.5 mEq/L 01/19/18 07:15 01/25/18 13:20 Magnesium Oxide (Mag-Ox) 800 mg UNSCH PRN PO For Magnesium 1.2 - 1.6 mg/dL 01/19/18 07:15 01/23/18 08:22 Magnesium Sulfate 2 gm/Sodium Chloride 100 ml @ 50 mls/hr UNSCH PRN IV For Magnesium 1.2 - 1.6 mg/dL 01/19/18 07:15 01/24/18 04:08 Potassium Phosphate (K-Phos) 2,000 mg Q4H PRN PO For Phosphorus < 2.5 mg/dL 01/19/18 07:15 01/19/18 11:33 Labetalol HCl (Trandate Inj) 10 mg Q4H PRN IV PUSH SYS BP GREATER THAN 170 MMHG 01/20/18 05:00 01/23/18 17:22 Clonidine (Catapres) 0.2 mg Q8H PO 01/21/18 08:00 01/25/18 15:45 Heparin Sodium/ Dextrose 250 ml @ 11 mls/hr TITRATE PRN IV Coagulation Management 01/21/18 10:45 01/25/18 09:31 Clonazepam (KlonoPIN) 1 mg Q8H PRN PO ANXIETY 01/22/18 14:15 01/25/18 13:13 Albuterol/ Ipratropium (Duoneb Neb) 1 ampule Q6HR NEB NEB 01/22/18 16:00 01/25/18 14:50 Nicardipine HCl 50 mg/Sodium Chloride 500 ml @ 50 mls/hr TITRATE PRN IV Blood pressure management 01/22/18 14:30 01/25/18 11:29 Metoprolol Tartrate (Lopressor) 75 mg Q12HR PO 01/22/18 21:00 01/25/18 08:12 Hydralazine HCl (Apresoline) 50 mg Q6H PO 01/22/18 20:00 01/25/18 13:09 Linezolid (Zyvox) 600 mg Q12HR PO 01/22/18 21:00 01/25/18 08:11 Potassium Bicarb/ Potassium Chloride (K-Lyte Cl Eff) 25 meq Q12HR PO 01/23/18 09:00 01/25/18 08:12 Sodium Chloride 1,000 ml @ 42 mls/hr [id number] IV 01/24/18 16:45 01/24/18 18:29 Nifedipine (Procardia) 20 mg Q8HR PO 01/25/18 14:00 01/25/18 13:09 Objective Remarks GENERAL: chronically ill appearing man in no distress SKIN: Warm and dry. HEAD: Normocephalic. RESPIRATORY:. No accessory muscle use. EXTREMITIES: thin extremities MUSCULOSKELETAL: muscle wasting Assessment/Plan Problem List: (1) Thrombocytopenia ICD Codes: D69.6 - Thrombocytopenia, unspecified Plan: 01/23/18: Patient therapeutic on heparin drip. Platelets normal 3 days. Likely transition to anticoagulation by mouth tomorrow if he continues to have no bleeding from his penis. --likely d/t hepatosplenomegaly + sepsis + recent antibiotic use. --+HIT KIM, SARA negative (2) DVT (deep venous thrombosis) ICD Codes: I82.409 - Acute embolism and thrombosis of unspecified deep veins of unspecified lower extremity Plan: --Ultrasound shows DVT in the bilateral upper extremities --On heparin drip Assessment 47y/o male admitted with AMS. Hematology consulted for thrombocytopenia. history of cerebral palsy, hypertension, baseline agitation, seizure disorder, on Topamax and Dilantin, who was brought into the emergency department on January 14 with fever and altered mental status. Plan 1. Thrombocytopenia, prolonged coags: resolved 2. Bilateral upper extremity VTE: on heparin gtt. Given improved renal function can consider apixaban for long-term anticoagulation provided this medication can be crushed. As VTE was due to non transient risk factor favor indefinite anticoagulation. Inpatient hematology will continue to follow. Tatyana Rose MD Jan 25, 2018 18:16
--- NOTE | 2018-01-25 19:14 | HHI.HCPN ---
[employer] report was requested from case management. Discussed with Lis LOMBARDI today. While patient is awaiting appointment of a COA guardian, this process can, and has, taken a very long time. At this time the patient has no appointed decision-maker, and is at risk for continued complications and decline. This could subject the patient to treatment which is either inappropriate for his condition or could violate his best interest. If COA cannot appointed a guardian in a timely fashion, for patient protection, social work advantage would be an appropriate alternative. We would first need to determine whether family can be located, which has not been successful through the fpc. If the accurints report does not return a relative decision- maker, we would request that a social work advantage consult be obtained to provide the patient with the appropriate support. Angeline Castellano Jan 25, 2018 7:14 pm
[2018-01-25] MEDS: FAMOTIDINE 20 MG/2 ML VIAL IV PUSH SCH (23:19)
[2018-01-25] MEDS: SODIUM CHLOR 0.9% 1000 ML INJ 1,000 ML IV SCH (23:21)
[2018-01-26] VITALS (19 sets, daily range): BP systolic 129–195; BP diastolic 67–126; PULSE 67–128; RESP 18–62; TEMP 97.9–99.6; O2SAT 91–98
[2018-01-26] MEDS: RESP: ALBUTEROL 2.5 MG/IPRATROPIUM 0.5 MG NEB (SCH) NEB ×2 (03:15→10:03)
[2018-01-26] MEDS: hydrALAZINE HCL 50 MG TAB PO SCH ×5 (03:41→20:10)
[2018-01-26] MEDS: niCARdipine INJ 50 MG in SODIUM CHLORID 0.9% 500 ML INJ 480 ML IV PRN ×5 (03:41→18:53)
[2018-01-26] MEDS: HEPARIN-D5W 25,000 U/250 ML 250 ML IV PRN ×2 (03:45→21:30)
[2018-01-26] MEDS: CHLORHEXIDINE GLUCONATE 2 % 1 PACK (2 CLOTHS) TOP SCH (04:00)
[2018-01-26] MEDS: NIFEdipine 20 MG CAP PO SCH ×3 (05:24→20:10)
[2018-01-26] MEDS: LORazepam 2 MG/ML VIAL IV PUSH PRN ×4 (05:24→21:20)
[2018-01-26] MEDS: PHENYTOIN SUSP 100 MG/4 ML CUP PO SCH ×3 (05:24→22:00)
[2018-01-26] MEDS: INSULIN ASPART SUPPLEMENTAL SCALE SQ SCH ×4 (05:25→17:16)
[2018-01-26] MEDS: CHLORHEXIDINE 0.12% (ORAL KIT) 15 ML CUP MT SCH ×2 (08:00→20:00)
[2018-01-26] MEDS: METOPROLOL TARTRATE 25 MG TAB PO SCH (08:03)
[2018-01-26] MEDS: POTASSIUM CHLORIDE 25 MEQ EFFERVESCENT TAB PO SCH ×2 (08:03→20:10)
[2018-01-26] MEDS: TOPIRAMATE 200 MG TAB PO SCH (08:04)
[2018-01-26] MEDS: LINEZOLID 600 MG TAB PO SCH ×2 (08:04→20:10)
[2018-01-26] MEDS: cloNIDine HCL 0.2 MG TAB PO SCH ×2 (08:04→16:00)
[2018-01-26] MEDS: SODIUM CHLORIDE 0.9% FLUSH 10 ML FLUSH IV FLUSH SCH ×2 (08:04→20:10)
[2018-01-26] MEDS: QUEtiapine FUMARATE 200 MG TAB PO SCH ×4 (08:04→17:16)
[2018-01-26] MEDS: hydrALAZINE HCL 20 MG/ML VIAL IV PUSH PRN (08:18)
[2018-01-26 09:47] LABS: BICARBONATE 18.6 MEQ/L (21.0-32.0); CALCIUM 8.1 MG/DL (8.5-10.1); CREATININE 1.21 MG/DL (0.60-1.30)
[2018-01-26] MEDS: clonazePAM 1 MG TAB PO PRN ×2 (09:56→21:20)
[2018-01-26] MEDS: POTASSIUM CHLOR 20 MEQ PREMIX 100 ML IV PRN ×4 (10:57→16:44)
--- NOTE | 2018-01-26 11:07 | HHI.PR ---
Subjective Remarks Nursing reports that the patient is not taking his medications like he used to, despite them being crushed which was a form that he used to take them in. As a result they are not sure if he is actually been getting his blood pressure medications administered orally. They had to go up on the Cardene dosing even further. On the other hand he has had much less diarrhea since yesterday evening. Objective Vital Signs Date Time Temp Pulse Resp B/P (MAP) Pulse Ox O2 Delivery O2 Flow Rate FiO2 01/26/18 08:00 123 192/88 01/26/18 07:28 112 193/86 01/26/18 06:00 107 01/26/18 04:00 101 01/26/18 04:00 97.9 101 49 195/126 (149) 94 01/26/18 03:41 100 201/93 01/26/18 03:17 94 21 01/26/18 02:00 100 01/26/18 00:00 105 01/26/18 00:00 98.1 105 41 161/85 (110) 93 01/25/18 23:20 116 170/80 01/25/18 22:00 112 01/25/18 20:46 95 21 01/25/18 20:00 98.0 100 59 156/76 (102) 95 01/25/18 20:00 104 01/25/18 18:00 100 01/25/18 16:00 98.8 106 30 153/74 (100) 95 01/25/18 16:00 109 01/25/18 14:00 97 01/25/18 13:37 96 145/80 01/25/18 12:00 85 01/25/18 12:00 98.9 85 28 145/80 (101) 94 01/25/18 11:29 90 144/76 I/O 01/25/18 01/25/18 01/25/18 01/26/18 01/26/18 01/26/18 07:00 15:00 23:00 07:00 15:00 23:00 Intake Total 1300 ml 100 ml 1200 ml 100 ml Balance 1300 ml 100 ml 1200 ml 100 ml Intake Oral 800 ml 1200 ml 100 ml IV Total 500 ml 100 ml # Voids 5 6 4 # Bowel Movements 2 2 2 Result Diagram: 01/24/18 1227 01/26/18 0915 Objective Remarks abdomen nontender, nondistended, soft Patient lying in bed, no acute distress, on room air, nonverbal, spontaneously moving and rotating his head which is his baseline A/P Assessment and Plan diarrhea -Overall much improved, likely colitis since there's no n/v; stool studies pending, repeat C. difficile specimen yet to be collected as diarrhea is now much improved. If recurs consult GI HTN urgency Still a major problem, likely secondary to noncompliance with p.o. meds. Continue with weaning protocol for nifedipine, will increase Lopressor dose 200 twice daily, continue oral hydralazine and clonidine assuming the patient will take this. Patient is on as needed hydralazine and labetalol as needed hypokalemia -likely 2/2 diarrhea, rechecking Mg, continue replenishment, recheck in a.m. Seizure disorder -Ativan as needed for seizure -Continue Dilantin 125mg Q8 and Topamax 200 daily, Albumin corrected Dilantin level 13.6 on 01/15. Underlying cerebral palsy - on mechanical soft, nectar thick regular diet. Followed by speech Blind - fall precautions - Continue seroquel 200 mg po tid. Change in Klonopin from as needed to scheduled per palliative care recommendations, will administer Ativan if refusing Klonopin s Trazodone held since admission, will continue to hold due to initiation of linezolid. Healthcare associated pneumonia (MRSA) DuoNeb EZPAP CXR 01/20: Atelectasis/consolidation in the left lung base. This is mildly improved compared to previous study of 01/17/18. was recently switched form vanc to linezolid; s/p tx w/ zosyn and zithromax; - procal elevated, continue zyvox; afebrile Acute kidney failure -Walsh in place. Not previously removed due to concern for hypospadia. Discussed with retirement, patient chronically incontinent and wears a diaper without indwelling catheter at -. -CT abdomen pelvis did not show any evidence of hydronephrosis - likely laggin improvement 2/2 diarrhea, IVFs thrombocytopenia R basilic superficial thrombosis L subclavian, axillary DVT, and basilic thrombosis -Monitor CBC, CMP, coags. -Hep PLT induced ab: weakly positive, SARA negative. on heparin drip per hematology. Consider transition to OAT ?rivaroxaban. Will remain in [facility] for now as weaning off Cardene drip for HTN and severe electrolyte derangements. Po meds adjusted. Resolved problems: Acute hypoxemic respiratory failure- extubated 3/6 Discharge Planning palliative care following; pt may need NG tube needed if not taking po intake for another [address] Castro MD Jan 26, 2018 11:07
[2018-01-26] MEDS: METOPROLOL TARTRATE 100 MG TAB PO SCH ×2 (11:34→11:38)
[2018-01-26] MEDS: LABETALOL HCL 100 MG/20 ML VIAL IV PUSH PRN ×2 (11:41→21:20)
--- NOTE | 2018-01-26 13:00 | PD.ONC.PN ---
Subjective Subjective Remarks Resting in bed. Mild agitation. Objective Data Date Time Temp Pulse Resp B/P (MAP) Pulse Ox O2 Delivery O2 Flow Rate FiO2 01/26/18 11:12 104 157/71 01/26/18 08:00 99.3 126 58 192/88 (122) 97 01/26/18 08:00 123 192/88 01/26/18 07:28 112 193/86 01/26/18 06:00 107 01/26/18 04:00 101 01/26/18 04:00 97.9 101 49 195/126 (149) 94 01/26/18 03:41 100 201/93 01/26/18 03:17 94 21 01/26/18 02:00 100 01/26/18 00:00 105 01/26/18 00:00 98.1 105 41 161/85 (110) 93 01/25/18 23:20 116 170/80 01/25/18 22:00 112 01/25/18 20:46 95 21 01/25/18 20:00 98.0 100 59 156/76 (102) 95 01/25/18 20:00 104 01/25/18 18:00 100 01/25/18 16:00 98.8 106 30 153/74 (100) 95 01/25/18 16:00 109 01/25/18 14:00 97 01/25/18 13:37 96 145/80 01/26/18 01/26/18 01/26/18 07:00 15:00 23:00 Intake Total 100 ml 500 ml Balance 100 ml 500 ml Result Diagram: 01/24/18 1227 01/26/18 0915 Laboratory Results Laboratory Tests Test 01/26/18 06:57 01/26/18 09:15 Activated Partial Thromboplast Time 50.2 SEC Blood Urea Nitrogen 6 MG/DL Creatinine 1.21 MG/DL Random Glucose 89 MG/DL Calcium Level 8.1 MG/DL Sodium Level 143 MEQ/L Potassium Level 3.0 MEQ/L Chloride Level 113 MEQ/L Carbon Dioxide Level 18.6 MEQ/L Anion Gap 11 MEQ/L Estimat Glomerular Filtration Rate 77 ML/MIN Magnesium Level 1.4 MG/DL Administered Medications Medications (Trade) Dose Ordered Sig/Sally Route PRN Reason Start Time Stop Time Status Last Admin Dose Admin Sodium Chloride (NS Flush) 2 ml UNSCH PRN IV FLUSH FLUSH AFTER USING IV ACCESS 01/14/18 17:45 01/19/18 12:39 Sodium Chloride (NS Flush) 2 ml BID IV FLUSH 01/14/18 21:00 01/26/18 08:04 Acetaminophen (Tylenol) 650 mg Q6H PRN PO PAIN 1 TO 5 AND/OR FEVER >101F 01/14/18 17:45 01/21/18 20:40 Chlorhexidine Gluconate (Peridex 0.12% Liq) 15 ml BID@08,20 MT 01/14/18 20:00 01/26/18 08:00 Chlorhexidine Gluconate (Chlorhexidine 2% Cloth) Taper DAILY@04 TOP 01/15/18 04:00 01/11/19 03:59 01/25/18 04:00 Famotidine (Pepcid Inj) 20 mg HS IV PUSH 01/14/18 21:00 01/25/18 23:19 Lorazepam (Ativan Inj) 1 mg Q2H PRN IV PUSH seizures 01/14/18 22:00 01/26/18 05:24 Phenytoin (Dilantin Liq) 125 mg Q8HR PO 01/15/18 06:00 01/26/18 05:24 Quetiapine Fumarate (SEROquel) 200 mg TID PO 01/15/18 09:00 01/25/18 17:02 Topiramate (Topamax) 200 mg DAILY PO 01/15/18 09:00 01/26/18 08:04 Hydralazine HCl (Apresoline Inj) 20 mg Q4H PRN IV PUSH SBP >160 01/14/18 22:15 01/26/18 08:18 Potassium Chloride 100 ml @ 50 mls/hr Q2H PRN IV For Potassium 2.8 - 3.2 mEq/L 01/19/18 07:15 01/26/18 10:57 Potassium Chloride 100 ml @ 50 mls/hr Q2H PRN IV For Potassium 3.3 - 3.5 mEq/L 01/19/18 07:15 01/25/18 13:20 Magnesium Oxide (Mag-Ox) 800 mg UNSCH PRN PO For Magnesium 1.2 - 1.6 mg/dL 01/19/18 07:15 01/23/18 08:22 Magnesium Sulfate 2 gm/Sodium Chloride 100 ml @ 50 mls/hr UNSCH PRN IV For Magnesium 1.2 - 1.6 mg/dL 01/19/18 07:15 01/24/18 04:08 Potassium Phosphate (K-Phos) 2,000 mg Q4H PRN PO For Phosphorus < 2.5 mg/dL 01/19/18 07:15 01/19/18 11:33 Labetalol HCl (Trandate Inj) 10 mg Q4H PRN IV PUSH SYS BP GREATER THAN 170 MMHG 01/20/18 05:00 01/26/18 11:41 Clonidine (Catapres) 0.2 mg Q8H PO 01/21/18 08:00 01/26/18 08:04 Heparin Sodium/ Dextrose 250 ml @ 11 mls/hr TITRATE PRN IV Coagulation Management 01/21/18 10:45 01/26/18 03:45 Clonazepam (KlonoPIN) 1 mg Q8H PRN PO ANXIETY 01/22/18 14:15 01/26/18 09:56 Albuterol/ Ipratropium (Duoneb Neb) 1 ampule Q6HR NEB NEB 01/22/18 16:00 01/26/18 10:03 Nicardipine HCl 50 mg/Sodium Chloride 500 ml @ 50 mls/hr TITRATE PRN IV Blood pressure management 01/22/18 14:30 01/26/18 11:12 Hydralazine HCl (Apresoline) 50 mg Q6H PO 01/22/18 20:00 01/26/18 03:41 Linezolid (Zyvox) 600 mg Q12HR PO 01/22/18 21:00 01/26/18 08:04 Potassium Bicarb/ Potassium Chloride (K-Lyte Cl Eff) 25 meq Q12HR PO 01/23/18 09:00 01/26/18 08:03 Sodium Chloride 1,000 ml @ 42 mls/hr [id number] IV 01/24/18 16:45 01/25/18 23:21 Nifedipine (Procardia) 20 mg Q8HR PO 01/25/18 14:00 01/26/18 05:24 Lorazepam (Ativan Inj) 1 mg Q4H PRN IV PUSH agitation not responding to po 01/26/18 09:45 01/26/18 09:56 Objective Remarks GENERAL: thin, chronically ill appearing man in no distress SKIN: Warm and dry. HEAD: Normocephalic. CARDIOVASCULAR: Regular rate and rhythm without murmurs. RESPIRATORY: No accessory muscle use. GASTROINTESTINAL: Abdomen soft, non-tender, nondistended. EXTREMITIES: No cyanosis, or edema. MUSCULOSKELETAL: decreased muscle tone NEUROLOGICAL: impaired hearing, impaired vision, cerebral palsy Assessment/Plan Problem List: (1) Thrombocytopenia ICD Codes: D69.6 - Thrombocytopenia, unspecified Plan: 01/23/18: Patient therapeutic on heparin drip. Platelets normal 3 days. Likely transition to anticoagulation by mouth tomorrow if he continues to have no bleeding from his penis. --likely d/t hepatosplenomegaly + sepsis + recent antibiotic use. --+HIT KIM, SARA negative (2) DVT (deep venous thrombosis) ICD Codes: I82.409 - Acute embolism and thrombosis of unspecified deep veins of unspecified lower extremity Plan: --Ultrasound shows DVT in the bilateral upper extremities --On heparin drip Assessment 47y/o male admitted with AMS. Hematology consulted for thrombocytopenia. history of cerebral palsy, hypertension, baseline agitation, seizure disorder, on Topamax and Dilantin, who was brought into the emergency department on January 14 with fever and altered mental status. Plan 1. Thrombocytopenia, prolonged coags: resolved. Prolonged due to DIC as admitted for sepsis 2. Bilateral upper extremity VTE: on heparin gtt. Given improved renal function can consider apixaban for [facility] anticoagulation provided this medication can be crushed. As VTE was due to non transient risk factor favor indefinite anticoagulation. Would recommend continuing with heparin gtt while he is inpatient and until he has a reliable way of obtaining nutrition and receiving pills. Nursing staff reports that patient intermittently refuses to take crushed pills. Inpatient hematology will continue to follow. Tatyana Rose MD Jan 26, 2018 13:00
[2018-01-26] MEDS: clonazePAM 0.5 MG TAB PO SCH ×2 (13:01→17:16)
--- NOTE | 2018-01-26 13:18 | HHI.HCPN ---
[facility] results received: Ran pts ssn and NO RECORDS FOUND Ran pts name and and NO RECORDS FOUND RAN THE FORMER NOK NAME WHO WAS THEN PTS POA, WILDER ODELL AND PROVIDED DANIEL [phone] AND [phone] Attempted to contact results for Wilder Odell [phone] (straight to for [place] residence-- left message requesting call back [phone] (immediately rings busy/disconnected) If above contact information is not successful, would seem appropriate to proceed with social work advantage to determine goals of care for Mr. Early as he has been on the wait list for a guardian and timeframe undetermined for when a guardian would be appointed. Meena Stanford RECON[employer]ISSANCE CREWMEMBER, CLIENT FINANCE ANALYST Jan 26, 2018 13:18
--- NOTE | 2018-01-26 14:29 | HHI.HCPN ---
Reason for visit a. To assist with evaluation and management of symptoms including: Agitation , anxiety b. To assist medical decision maker(s) with: better understanding of current medical conditions; weighing benefits/burdens of medical treatment options; making medical treatment decisions. Subjective/Interval History Patient seen to follow-up on goals of care and symptom management. Patient improved on scheduled Klonopin 0.5 mg 3 times daily. He is also receiving Ativan 1 mg every 4 hours as needed and did receive a dose this morning for agitation and calling out. He continues to receive Seroquel 200 mg 3 times daily for agitation. Clinical course: * Vital signs: Temp 99.6, heart rate 99, blood pressure 161/74, oxygen saturation 97% on room air. He remains on a Cardene drip, with Procardia 20 mg every 8 hours, metoprolol 100 mg every 12 hours and hydralazine every 6 hours. He did not receive this mornings metoprolol as patient refused. * Labs: Sodium 143, potassium 3.0, BUN 6, creatinine 1.21, magnesium 1.4. Urine , sputum and blood cultures remain negative. Patient is lying in bed, reasonably calm, then will suddenly start screaming and flailing. No communication can be held with the patient due to his hearing and sight restrictions. He is refusing food and some medications today. . Family/friend interactions [employer] report returned the name of Italia Hernandez with 2 telephone numbers, one of which is disconnected. Message was left on the working number with an attempt to contact. She was previously listed as the patient's POA but has been out of contact with the patient for many years, per the detention where he has resided. . Advance Directives Living Will: Never completed Health Care Surrogate: Never completed Durable Power of Shell Machine Operator: Never completed Objective Vital Signs Date Time Temp Pulse Resp B/P (MAP) Pulse Ox O2 Delivery O2 Flow Rate FiO2 01/26/18 12:00 99 01/26/18 12:00 99.6 99 26 161/74 (103) 97 01/26/18 11:12 104 157/71 01/26/18 10:00 114 01/26/18 08:00 99.3 126 58 192/88 (122) 97 01/26/18 08:00 126 01/26/18 08:00 123 192/88 01/26/18 07:28 112 193/86 01/26/18 06:00 107 01/26/18 04:00 101 01/26/18 04:00 97.9 101 49 195/126 (149) 94 01/26/18 03:41 100 201/93 01/26/18 03:17 94 21 01/26/18 02:00 100 01/26/18 00:00 105 01/26/18 00:00 98.1 105 41 161/85 (110) 93 01/25/18 23:20 116 170/80 01/25/18 22:00 112 01/25/18 20:46 95 21 01/25/18 20:00 98.0 100 59 156/76 (102) 95 01/25/18 20:00 104 01/25/18 18:00 100 01/25/18 16:00 98.8 106 30 153/74 (100) 95 01/25/18 16:00 109 01/25/18 14:00 97 Intake & Output 01/26/18 01/26/18 07:00 19:00 Intake Total 100 ml 500 ml Balance 100 ml 500 ml Intake Oral 100 ml IV Total 500 ml # Voids 4 # Bowel Movements 2 Physical Exam CONSTITUTIONAL/GENERAL: This is a disabled, contracted, intermittently agitated male, restrained in bed. TUBES/LINES/DRAINS: Right forearm PIV. EYES: Patient resistant to exam, unable to assess. Blind. ENT: Hearing impaired NECK: Trachea midline. Supple. No palpable thyroid enlargement or nodularity. CARDIOVASCULAR: Regular rhythm, tachycardic rate, 1+ dependent edema. Diminished pulses. RESPIRATORY/CHEST: Mildly tachypneic. Lungs diminished, clear. GASTROINTESTINAL: Abdomen soft, nondistended. GENITOURINARY: Without palpable bladder distension. MUSCULOSKELETAL: Swelling in both bilateral upper extremities, muscle wasting seen in bilateral lower extremities with contractures, foot drop, trace edema NEUROLOGICAL: Shaking head from side to side frequently, blind, deaf, unable to communicate. PSYCHIATRIC: Calm her today, still shrieks out from time to time. . Diagnostic Tests Laboratory Laboratory Tests Test 01/23/18 22:35 01/24/18 12:27 01/25/18 00:35 01/25/18 04:40 Potassium Level 3.4 MEQ/L (3.5-5.1) 3.6 MEQ/L (3.5-5.1) 3.3 MEQ/L (3.5-5.1) Magnesium Level 1.4 MG/DL (1.5-2.5) White Blood Count 6.4 TH/MM3 (4.0-11.0) Red Blood Count 4.10 MIL/MM3 (4.50-5.90) Hemoglobin 11.3 GM/DL (13.0-17.0) Hematocrit 34.9 % (39.0-51.0) Mean Corpuscular Volume 85.0 FL (80.0-100.0) Mean Corpuscular Hemoglobin 27.4 PG (27.0-34.0) Mean Corpuscular Hemoglobin Concent 32.3 % (32.0-36.0) Red Cell Distribution Width 14.8 % (11.6-17.2) Platelet Count 229 TH/MM3 (150-450) Mean Platelet Volume 10.6 FL (7.0-11.0) Activated Partial Thromboplast Time 34.6 SEC (24.3-30.1) 45.3 SEC (24.3-30.1) Blood Urea Nitrogen 5 MG/DL (7-18) 6 MG/DL (7-18) Creatinine 1.52 MG/DL (0.60-1.30) 1.45 MG/DL (0.60-1.30) Random Glucose 96 MG/DL (74-106) 108 MG/DL (74-106) Calcium Level 8.9 MG/DL (8.5-10.1) 8.4 MG/DL (8.5-10.1) Sodium Level 139 MEQ/L (136-145) 140 MEQ/L (136-145) Chloride Level 108 MEQ/L (98-107) 108 MEQ/L (98-107) Carbon Dioxide Level 20.8 MEQ/L (21.0-32.0) 22.5 MEQ/L (21.0-32.0) Anion Gap 10 MEQ/L (5-15) 10 MEQ/L (5-15) Estimat Glomerular Filtration Rate 59 ML/MIN (>89) 63 ML/MIN (>89) Procalcitonin 0.36 ng/mL (0.00-0.08) Test 01/25/18 10:44 01/26/18 06:57 01/26/18 09:15 Activated Partial Thromboplast Time 42.6 SEC (24.3-30.1) 50.2 SEC (24.3-30.1) Blood Urea Nitrogen 6 MG/DL (7-18) Creatinine 1.21 MG/DL (0.60-1.30) Random Glucose 89 MG/DL (74-106) Calcium Level 8.1 MG/DL (8.5-10.1) Sodium Level 143 MEQ/L (136-145) Potassium Level 3.0 MEQ/L (3.5-5.1) Chloride Level 113 MEQ/L (98-107) Carbon Dioxide Level 18.6 MEQ/L (21.0-32.0) Anion Gap 11 MEQ/L (5-15) Estimat Glomerular Filtration Rate 77 ML/MIN (>89) Magnesium Level 1.4 MG/DL (1.5-2.5) . Result Diagram: 01/24/18 1227 01/26/18 0915 Microbiology Last Impressions Chest X-Ray 01/20/18 0000 Signed Impressions: Service Date/Time: January 07:55 - CONCLUSION: 1. Cardiomegaly. 2. Atelectasis/consolidation in the left lung base. This is mildly improved compared to previous study of 01/17/18. Arnulfo Naranjo MD Upper Extremity Ultrasound 01/18/18 0000 Signed Impressions: Service Date/Time: Thursday, January 18, 2018 22:27 - CONCLUSION: 1. In the right upper extremity, there is occlusive thrombus within the basilic vein. The remaining veins of the left upper extremity are patent. 2. In the left upper extremity, there is occlusive thrombus within the subclavian, axillary, and basilic veins. Bernardo Redd MD Lower Extremity Ultrasound 01/18/18 0000 Signed Impressions: Service Date/Time: Thursday, January 18, 2018 22:13 - CONCLUSION: No DVT or superficial venous thrombosis is identified within either lower extremity. Bernardo Redd MD Chest CT 01/14/18 0000 Signed Impressions: Service Date/Time: Sunday, January 14, 2018 19:56 - CONCLUSION: 1. Posterior bibasilar patchiness consistent with pneumonia or atelectasis. Clinical correlation is recommended. 2. Cardiomegaly. 3. Tiny pericardial effusion. 4. Tiny bilateral pleural effusions. 5. Degenerative changes and scoliosis of the thoracic spine. Pedrito Hastings MD Abdomen/Pelvis CT 01/14/18 0000 Signed Impressions: Service Date/Time: Sunday, January 14, 2018 19:56 - CONCLUSION: 1. Patchy infiltrate within the posterior lung bases bilaterally raising possibility of atelectasis or pneumonia. 2. Tiny bilateral pleural effusions. 3. Cardiomegaly and tiny pericardial effusion. 4. Hepatomegaly. 5. Scattered low-density lesions throughout the liver which are indeterminate in etiology. 6. 1.9 cm right adrenal nodule consistent with probable adrenal adenoma. 7. Uncomplicated colonic diverticulosis. 8. Diffuse urinary bladder wall thickening raising the possibility of cystitis. Clinical correlation is recommended. 9. Degenerative changes and scoliosis of the thoraco-lumbar spine. Pedrito Hastings MD . Imaging Last Impressions Chest X-Ray 01/20/18 0000 Signed Impressions: Service Date/Time: January 07:55 - CONCLUSION: 1. Cardiomegaly. 2. Atelectasis/consolidation in the left lung base. This is mildly improved compared to previous study of 01/17/18. Arnulfo Naranjo MD Upper Extremity Ultrasound 01/18/18 0000 Signed Impressions: Service Date/Time: Thursday, January 18, 2018 22:27 - CONCLUSION: 1. In the right upper extremity, there is occlusive thrombus within the basilic vein. The remaining veins of the left upper extremity are patent. 2. In the left upper extremity, there is occlusive thrombus within the subclavian, axillary, and basilic veins. Bernardo Redd MD Lower Extremity Ultrasound 01/18/18 0000 Signed Impressions: Service Date/Time: Thursday, January 18, 2018 22:13 - CONCLUSION: No DVT or superficial venous thrombosis is identified within either lower extremity. Bernardo Redd MD Chest CT 01/14/18 0000 Signed Impressions: Service Date/Time: Sunday, January 14, 2018 19:56 - CONCLUSION: 1. Posterior bibasilar patchiness consistent with pneumonia or atelectasis. Clinical correlation is recommended. 2. Cardiomegaly. 3. Tiny pericardial effusion. 4. Tiny bilateral pleural effusions. 5. Degenerative changes and scoliosis of the thoracic spine. Pedrito Hastings MD Abdomen/Pelvis CT 01/14/18 0000 Signed Impressions: Service Date/Time: Sunday, January 14, 2018 19:56 - CONCLUSION: 1. Patchy infiltrate within the posterior lung bases bilaterally raising possibility of atelectasis or pneumonia. 2. Tiny bilateral pleural effusions. 3. Cardiomegaly and tiny pericardial effusion. 4. Hepatomegaly. 5. Scattered low-density lesions throughout the liver which are indeterminate in etiology. 6. 1.9 cm right adrenal nodule consistent with probable adrenal adenoma. 7. Uncomplicated colonic diverticulosis. 8. Diffuse urinary bladder wall thickening raising the possibility of cystitis. Clinical correlation is recommended. 9. Degenerative changes and scoliosis of the thoraco-lumbar spine. Pedrito Hastings MD . Procedures 01/14/18: Endotracheal intubation 01/17/2018: Endotracheal intubation due to tube dislodgment . Assessment and Plan Disease Oriented Problem List: (1) Cerebral palsy (2) DVT (deep venous thrombosis) (3) Seizure disorder (4) Acute hypoxemic respiratory failure (5) Hyperkalemia Symptom Scale: (1) Agitation 0-10 Scale: Unable to quantify (2) Anxiety 0-10 Scale: Unable to quantify Pertinent Non-Medical Issues Psychosocial: Resides in a [facility] facility. No family and contact for years. Spiritual: Unobtainable Legal: Pending appointment of a guardian from the [place]. Ethical issues impacting care: No decision-maker. . Important Contacts No available contacts. [employer] report has been requested. . Prognosis His prognosis is guarded. He is at significant risk of compromise due to his inability to communicate, seizure disorder, cerebral palsy, declining status with dehydration causing hyperkalemia, hypernatremia. Patient was admitted with UTI with sepsis. At this time he has no legal decision maker and is not capacitated to make his own decisions. He is at risk of continued complication and decline. . Code Status: Full Code (By default) Plan PLAN: Legal decision maker: At this time we have no legal decision maker. Patient is incapacitated to make his own decisions, no family has been able to be located for some years, per the detention, and he has been on the [facility] list awaiting appointment of a guardian for some time. [employer] report revealed the name of his prior recorded POA, Italia Hernandez. Telephone message has been left on the only available working number. Will continue to attempt to contact her, however she has not been in contact with the detention in some years. If we are unable to contact her, social work advantage will be consulted to act as a decision-maker for the patient. Goals: Aggressive by default. CODE STATUS: FULL CODE by default. SYMPTOMS: * Agitation: His agitation is chronic, likely exacerbating his hypertension. He is receiving clonidine 0.5 mg every 8 hours, as well as 1 mg every 8 hours as needed for anxiety, Seroquel 200 mg p.o. 3 times daily, Lorazepam 1 mg every 4 hours as needed for anxiety. He has received 2 mg of Ativan today and frequently shrieks out. He has been refusing food and medications today. He remains on a Cardene drip for hypertension management. Given his altered mental status and agitation, would recommend a transdermal medication if possible, such as Catapres patch. * Anxiety: This is likely multifactorial to include unfamiliar stimulus, inability to communicate, baseline disease processes, pain. He is improving on scheduled Klonopin. Ativan is available on an as-needed basis for seizure management, which is difficult to determine, as patient is tremulous and thrashes near continuously. Palliative care will continue to follow the patient during hospital course as condition evolves, to assist patient/decision-maker with understanding of their medical conditions, weighing benefits/burdens of treatment options, for clarification of goals of treatment. Additionally will assist with any symptoms of palliative concern. . Attestation To help prompt me to consider important information that might be impacting today's encounter and assessment, information from prior notes written by myself or my colleagues may have been "brought forward" into today's note. My signature on this note, however, is an attestation that I personally performed the exam, history, and/or decision-making noted today, and, unless otherwise indicated, the interactions with patient, family, and staff as well as the review of records all occurred today. I also attest that the listed assessment and stated plan reflect my best clinical judgment today based on the combination of historical information, prior notes, and today's exam/ interactions. When time spent is documented, it refers only to time spent today by the signer, or if indicated, combined time spent today by collaborating physician/nurse practitioner. . Angeline Castellano Jan 26, 2018 2:29 pm
[2018-01-26] MEDS: SODIUM CHLOR 0.9% 1000 ML INJ 1,000 ML IV SCH (19:30)
[2018-01-26] MEDS: FAMOTIDINE 20 MG/2 ML VIAL IV PUSH SCH (20:09)
[2018-01-26] MEDS ORDERED: MORPHINE SULFATE 2 MG/ML INJ IV PUSH ONE (21:30)
[2018-01-26 23:11] LABS: BICARBONATE 21.7 MEQ/L (21.0-32.0); CALCIUM 8.7 MG/DL (8.5-10.1); CREATININE 1.28 MG/DL (0.60-1.30)
[2018-01-27] VITALS (14 sets, daily range): BP systolic 136–164; BP diastolic 68–76; PULSE 51–135; RESP 22–66; TEMP 98.1–100.2; O2SAT 92–96
[2018-01-27] MEDS: cloNIDine HCL 0.2 MG TAB PO SCH ×4 (00:52→23:52)
[2018-01-27] MEDS: hydrALAZINE HCL 50 MG TAB PO SCH ×4 (00:52→21:55)
[2018-01-27] MEDS: LORazepam 2 MG/ML VIAL IV PUSH PRN (00:52)
[2018-01-27] MEDS: LABETALOL HCL 100 MG/20 ML VIAL IV PUSH PRN ×2 (02:17→10:18)
[2018-01-27] MEDS: niCARdipine INJ 50 MG in SODIUM CHLORID 0.9% 500 ML INJ 480 ML IV PRN ×5 (02:20→21:46)
[2018-01-27] MEDS: CHLORHEXIDINE GLUCONATE 2 % 1 PACK (2 CLOTHS) TOP SCH (04:00)
[2018-01-27] MEDS: PHENYTOIN SUSP 100 MG/4 ML CUP PO SCH ×3 (05:17→21:47)
[2018-01-27] MEDS: NIFEdipine 20 MG CAP PO SCH ×3 (05:17→21:55)
[2018-01-27 05:59] LABS: HEMATOCRIT 32.2 % (39.0-51.0); HEMOGLOBIN 10.7 GM/DL (13.0-17.0); MEAN CORPUSCULAR HEMOGLOBIN 28.2 PG (27.0-34.0); MEAN CORPUSCULAR HGB CONC 33.2 % (32.0-36.0); MEAN PLATELET VOLUME 10.3 FL (7.0-11.0); PLATELET COUNT 282 TH/MM3 (150-450); RED BLOOD COUNT 3.79 MIL/MM3 (4.50-5.90); RED CELL DISTRIBUTION WIDTH 15.5 % (11.6-17.2); WHITE BLOOD COUNT 6.5 TH/MM3 (4.0-11.0)
[2018-01-27] MEDS: INSULIN ASPART SUPPLEMENTAL SCALE SQ SCH ×5 (06:00→23:52)
[2018-01-27] MEDS: TOPIRAMATE 200 MG TAB PO SCH (07:46)
[2018-01-27] MEDS: QUEtiapine FUMARATE 200 MG TAB PO SCH ×3 (07:46→18:00)
[2018-01-27] MEDS: SODIUM CHLORIDE 0.9% FLUSH 10 ML FLUSH IV FLUSH SCH ×2 (07:47→21:48)
[2018-01-27] MEDS: clonazePAM 0.5 MG TAB PO SCH ×3 (07:47→18:00)
[2018-01-27] MEDS: METOPROLOL TARTRATE 100 MG TAB PO SCH ×2 (07:47→21:54)
[2018-01-27] MEDS: CHLORHEXIDINE 0.12% (ORAL KIT) 15 ML CUP MT SCH ×2 (07:47→20:00)
[2018-01-27] MEDS: POTASSIUM CHLORIDE 25 MEQ EFFERVESCENT TAB PO SCH ×2 (07:47→21:46)
[2018-01-27] MEDS: LINEZOLID 600 MG TAB PO SCH ×2 (07:47→21:54)
[2018-01-27 10:00] LABS: BICARBONATE 21.2 MEQ/L (21.0-32.0); CALCIUM 8.4 MG/DL (8.5-10.1); CREATININE 1.27 MG/DL (0.60-1.30)
--- NOTE | 2018-01-27 10:17 | HHI.PR ---
Subjective Remarks Nursing reports that the patient is still not taking his medications. Barely eating. Blood pressure drip improved down to 10 from 15 of Cardene. Diarrhea resolved. Nursing also reports that his heart rate will shoot spontaneously from the upper 40s to over 100. Objective Vital Signs Date Time Temp Pulse Resp B/P (MAP) Pulse Ox O2 Delivery O2 Flow Rate FiO2 01/27/18 06:47 113 166/79 01/27/18 06:00 117 01/27/18 04:00 98.6 84 66 136/70 (92) 92 01/27/18 04:00 103 01/27/18 02:20 104 171/74 01/27/18 02:00 104 01/27/18 00:00 98.1 81 43 150/70 (96) 93 01/27/18 00:00 97 01/26/18 22:14 92 Nasal Cannula 4.00 01/26/18 22:00 67 01/26/18 20:00 74 01/26/18 20:00 99.5 98 28 166/74 (104) 91 01/26/18 18:53 114 163/80 01/26/18 18:09 109 01/26/18 18:07 128 135/78 01/26/18 18:00 128 01/26/18 16:51 106 135/72 01/26/18 16:00 99.6 112 18 129/75 (93) 96 01/26/18 16:00 112 01/26/18 15:00 113 155/73 (100) 95 01/26/18 14:43 116 153/78 01/26/18 14:00 103 01/26/18 14:00 103 150/67 (94) 96 01/26/18 13:00 113 135/68 (90) 95 01/26/18 12:00 99 01/26/18 12:00 99.6 99 26 161/74 (103) 97 01/26/18 11:12 104 157/71 01/26/18 11:00 101 157/71 (99) 93 I/O 01/26/18 01/26/18 01/26/18 01/27/18 01/27/18 01/27/18 07:00 15:00 23:00 07:00 15:00 23:00 Intake Total 100 ml 1200 ml 375 ml 2100 ml Output Total 0 ml Balance 100 ml 1200 ml 375 ml 2100 ml Intake Oral 100 ml 25 ml 100 ml IV Total 1200 ml 350 ml 2000 ml Stool Total 0 ml # Voids 4 6 5 # Bowel Movements 2 2 Result Diagram: 01/27/18 0435 01/27/18 0905 Objective Remarks abdomen nontender, nondistended, soft Patient lying in bed, no acute distress, on room air, nonverbal, spontaneously moving and rotating his head which is his baseline Heart sounds are regular rate rhythm, no murmurs A/P Assessment and Plan Tachybradycardia -Unsure of etiology. Echocardiogram is unremarkable. Will consider cardiology consultation if persistent. HTN urgency Still a major problem, likely secondary to noncompliance with p.o. meds. Continue with weaning protocol for nifedipine, will increase Lopressor dose 200 twice daily, continue oral hydralazine and clonidine assuming the patient will take this. Patient is on as needed hydralazine and labetalol as needed diarrhea -Overall much improved, likely colitis since there's no n/v; stool studies pending, repeat C. difficile specimen yet to be collected as diarrhea is now much improved. If recurs consult GI poor po intake - can consider CT abd although no surgical s/s present hypokalemia -Improved, replace as needed Seizure disorder -Ativan as needed for seizure -Continue Dilantin 125mg Q8 and Topamax 200 daily, Albumin corrected Dilantin level 13.6 on 01/15. Underlying cerebral palsy - on mechanical soft, nectar thick regular diet. Followed by speech Blind - fall precautions - Continue seroquel 200 mg po tid. Change in Klonopin from as needed to scheduled per palliative care recommendations, will administer Ativan if refusing Klonopin s Trazodone held since admission, will continue to hold due to initiation of linezolid. Healthcare associated pneumonia (MRSA) DuoNeb EZPAP CXR 01/20: Atelectasis/consolidation in the left lung base. This is mildly improved compared to previous study of 01/17/18. was recently switched form vanc to linezolid; s/p tx w/ zosyn and zithromax; - procal elevated, continue zyvox; afebrile Acute kidney failure -Walsh in place. Not previously removed due to concern for hypospadia. Discussed with senior care, patient chronically incontinent and wears a diaper without indwelling catheter at -. -CT abdomen pelvis did not show any evidence of hydronephrosis - likely lagging improvement 2/2 diarrhea, IVFs thrombocytopenia R basilic superficial thrombosis L subclavian, axillary DVT, and basilic thrombosis -Monitor CBC, CMP, coags. -Hep PLT induced ab: weakly positive, SARA negative. on heparin drip while inpatient. Consider transition to OAT ?rivaroxaban upon dc per oncology. Will remain in IMC for now as weaning off Cardene drip for HTN and severe electrolyte derangements. Po meds adjusted. Addendum: Had a discussion with healthcare surrogate; in summary she will arrange for possible ethics consultation to help weigh in regards to invasive procedures if warranted. I discussed with her that we may proceed with a noninvasive NG tube option for feeding tomorrow if the patient still does not tolerate p.o. intake. In total, the time spent with the patient was over 35 minute of which more than 50% of patient care was spent discussing his or her care and counseling the patient and corresponding caregivers. Resolved problems: Acute hypoxemic respiratory failure- extubated 3/6 Discharge Planning palliative care following; pt may need NG tube today. Would request palliative care to arrange for a surrogate healthcare decision maker. Lane Castro MD Jan 27, 2018 10:17
[2018-01-27] MEDS: POTASSIUM CHLOR 20 MEQ PREMIX 100 ML IV PRN ×2 (10:27→12:23)
--- NOTE | 2018-01-27 11:25 | HHI.HCPN ---
In review of notes additional number provided to case management from [employer]: #[phone]. CM notes indicate number was to the son of a Italia Hernandez. In speaking with CM, son did not know Mr. Early. Son was asked by CM to have Italia Hernandez return call to further discuss. No return call in over 24hrs. 1045am: Palliative care attempted to contact again utilizing above phone number this morning. Call was forwarded. Left VM stating they were a contact for the patient but were under no obligation to participate in decisions; requested a return call as soon as possible with their decision. Italia Hernandez is not identified as a family member of Mr. Early. [facility] did not know of a relationship between Italia Hernandez and the patient. She was reportedly his POA but she has not been in contact with the facility for many years. [employer] provided no further information for patient, potential family, additional contact information for anyone. Per [place] Statutes, proxy decision makers should be readily available to assist with medical decisions on behalf of individual(s). Given Ms. Hernandez's lack of contact for multiple years, no return contact in over 24hrs for potential match via [employer], appears social work advantage would be appropriate proxy at this time. Meena Stanford MSW, RETAIL MERCHANDISING COORDINATOR Jan 27, 2018 11:25
--- NOTE | 2018-01-27 14:10 | HHI.HCPN ---
Reviewed case management note by Disha Gupta, describing contact with the son of Italia Dick, previously identified as the patient's POA. Per discussions with [facility], attempts have been made to contact Ms. Hernandez over many years with no reply. She has not been in contact with either the patient or the senior living. There is no known relationship between Ms. Hernandez and Mr. Early. I did call the number this morning provided by case management for Ms. Hernandez's son and was transferred to [facility]. I did leave a message requesting return contact to either confirm or declining Ms. Hernandez's interest in participating in Mr. Early's care. At this time no return contact has been received. As he remains in the intensive care unit, a decision maker is essential to providing adequate and appropriate care to the patient. He is declining medications and food, and consideration for more invasive measures is in progress, and at this point a decision-maker is needed. In spite of multiple attempts to contact Ms. Hernandez by both the [place] facility where he has resided for many years and the medical providers at this hospital, no return contact has been provided. As [place] statutes indicate that proxy decision makers should be readily available to assist with medical decisions, social work advantage would appear to be the most appropriate choice at this time. Patient has been approved for a social work advantage consultation to provide a decision-maker for the patient. Angeline Castellano Jan 27, 2018 14:10
[2018-01-27] MEDS: hydrALAZINE HCL 20 MG/ML VIAL IV PUSH PRN ×2 (17:03→21:48)
[2018-01-27] MEDS: MAGNESIUM SULFATE INJ 2 GM in SODIUM CHLORIDE 0.9% INJ 96 ML IV PRN (18:23)
[2018-01-27] MEDS: FAMOTIDINE 20 MG/2 ML VIAL IV PUSH SCH (21:48)
[2018-01-27] MEDS: HEPARIN-D5W 25,000 U/250 ML 250 ML IV PRN (23:00)
[2018-01-27] MEDS: SODIUM CHLOR 0.9% 1000 ML INJ 1,000 ML IV SCH (23:53)
[2018-01-28] VITALS (13 sets, daily range): BP systolic 153–193; BP diastolic 82–97; PULSE 74–108; RESP 22–24; TEMP 97.8–99; O2SAT 95–98
[2018-01-28] MEDS: hydrALAZINE HCL 20 MG/ML VIAL IV PUSH PRN ×3 (03:19→20:40)
[2018-01-28] MEDS: CHLORHEXIDINE GLUCONATE 2 % 1 PACK (2 CLOTHS) TOP SCH (03:19)
[2018-01-28] MEDS: hydrALAZINE HCL 50 MG TAB PO SCH ×4 (03:19→20:39)
[2018-01-28] MEDS: LORazepam 2 MG/ML VIAL IV PUSH PRN (05:52)
[2018-01-28] MEDS: PHENYTOIN SUSP 100 MG/4 ML CUP PO SCH ×3 (05:52→20:38)
[2018-01-28] MEDS: NIFEdipine 20 MG CAP PO SCH ×3 (05:52→20:39)
[2018-01-28] MEDS: LABETALOL HCL 100 MG/20 ML VIAL IV PUSH PRN ×2 (05:56→11:02)
[2018-01-28] MEDS: INSULIN ASPART SUPPLEMENTAL SCALE SQ SCH ×3 (06:00→18:00)
[2018-01-28] MEDS: CHLORHEXIDINE 0.12% (ORAL KIT) 15 ML CUP MT SCH ×2 (08:00→19:32)
[2018-01-28] MEDS: SODIUM CHLORIDE 0.9% FLUSH 10 ML FLUSH IV FLUSH SCH ×2 (09:00→20:39)
[2018-01-28] MEDS: cloNIDine HCL 0.2 MG TAB PO SCH ×2 (09:30→16:22)
[2018-01-28] MEDS: TOPIRAMATE 200 MG TAB PO SCH (09:30)
[2018-01-28] MEDS: LINEZOLID 600 MG TAB PO SCH ×2 (09:30→20:39)
[2018-01-28] MEDS: niCARdipine INJ 50 MG in SODIUM CHLORID 0.9% 500 ML INJ 480 ML IV PRN (09:30)
[2018-01-28] MEDS: METOPROLOL TARTRATE 100 MG TAB PO SCH ×2 (09:31→20:39)
[2018-01-28] MEDS: clonazePAM 0.5 MG TAB PO SCH ×3 (09:31→17:21)
[2018-01-28] MEDS: POTASSIUM CHLORIDE 25 MEQ EFFERVESCENT TAB PO SCH ×2 (09:31→20:38)
[2018-01-28] MEDS: QUEtiapine FUMARATE 200 MG TAB PO SCH ×3 (09:31→17:21)
[2018-01-28] MEDS: SODIUM CHLORIDE 0.9% FLUSH 10 ML FLUSH IV FLUSH PRN ×2 (09:37→11:02)
[2018-01-28] MEDS: cloNIDine HCL 0.1 MG/24 HR PATCH T-DERMAL SCH (12:14)
[2018-01-28 13:12] LABS: BICARBONATE 21.1 MEQ/L (21.0-32.0); CALCIUM 9.2 MG/DL (8.5-10.1); CREATININE 1.39 MG/DL (0.60-1.30)
[2018-01-28 14:06] LABS: ALKALINE PHOSPHATASE 93 U/L (45-117); TOTAL BILIRUBIN ADULT 0.2 MG/DL (0.2-1.0); TOTAL PROTEIN 7.1 GM/DL (6.4-8.2)
[2018-01-28 14:10] LABS: ALBUMIN 2.6 GM/DL (3.4-5.0); ALT (GPT) 68 U/L (12-78); AST (GOT) 44 U/L (15-37); BLOOD UREA NITROGEN 5 MG/DL (7-18); CALCIUM 8.7 MG/DL (8.5-10.1); CHLORIDE 108 MEQ/L (98-107); CREATININE 1.33 MG/DL (0.60-1.30); GLOMERULAR FILTRATION RATE 69 ML/MIN (>89); GLUCOSE,RANDOM 80 MG/DL (74-106); SODIUM (NA) 140 MEQ/L (136-145)
--- NOTE | 2018-01-28 14:11 | PD.ONC.PN ---
Subjective Subjective Remarks Afebrile overnight. resting in bed. non-verbal. Objective Data Date Time Temp Pulse Resp B/P (MAP) Pulse Ox O2 Delivery O2 Flow Rate FiO2 01/28/18 12:13 97 01/28/18 12:00 88 01/28/18 12:00 99.0 88 24 153/82 (105) 97 01/28/18 12:00 88 153/82 01/28/18 10:00 76 01/28/18 09:30 85 186/92 01/28/18 08:00 108 01/28/18 08:00 98.1 108 22 188/89 (122) 96 01/28/18 06:00 87 01/28/18 04:00 98.5 78 24 177/84 (115) 95 01/28/18 04:00 78 01/28/18 02:00 85 01/28/18 00:00 97.8 82 24 170/87 (114) 98 01/28/18 00:00 82 01/27/18 22:00 128 01/27/18 21:46 78 177/79 01/27/18 20:00 99.2 78 24 157/70 (99) 93 01/27/18 20:00 78 01/27/18 19:12 93 Nasal Cannula 4.00 01/27/18 18:00 88 01/27/18 17:51 81 157/91 01/27/18 16:00 95 01/27/18 16:00 99.1 95 22 147/68 (94) 96 01/27/18 15:37 92 153/70 01/27/18 14:00 100 01/28/18 01/28/18 01/28/18 07:00 15:00 23:00 Intake Total 968 ml 160 ml Balance 968 ml 160 ml Result Diagram: 01/27/18 0435 01/28/18 1147 Laboratory Results Laboratory Tests Test 01/28/18 08:55 01/28/18 11:47 Activated Partial Thromboplast Time 53.0 SEC Blood Urea Nitrogen 5 MG/DL Creatinine 1.39 MG/DL Random Glucose 81 MG/DL Calcium Level 9.2 MG/DL Sodium Level 139 MEQ/L Potassium Level 3.7 MEQ/L Chloride Level 108 MEQ/L Carbon Dioxide Level 21.1 MEQ/L Anion Gap 10 MEQ/L Estimat Glomerular Filtration Rate 66 ML/MIN Administered Medications Medications (Trade) Dose Ordered Sig/Sally Route PRN Reason Start Time Stop Time Status Last Admin Dose Admin Sodium Chloride (NS Flush) 2 ml UNSCH PRN IV FLUSH FLUSH AFTER USING IV ACCESS 01/14/18 17:45 01/28/18 11:02 Sodium Chloride (NS Flush) 2 ml BID IV FLUSH 01/14/18 21:00 01/27/18 21:48 Acetaminophen (Tylenol) 650 mg Q6H PRN PO PAIN 1 TO 5 AND/OR FEVER >101F 01/14/18 17:45 01/21/18 20:40 Chlorhexidine Gluconate (Peridex 0.12% Liq) 15 ml BID@08,20 MT 01/14/18 20:00 01/27/18 07:47 Chlorhexidine Gluconate (Chlorhexidine 2% Cloth) Taper DAILY@04 TOP 01/15/18 04:00 01/11/19 03:59 01/25/18 04:00 Famotidine (Pepcid Inj) 20 mg HS IV PUSH 01/14/18 21:00 01/27/18 21:48 Lorazepam (Ativan Inj) 1 mg Q2H PRN IV PUSH seizures 01/14/18 22:00 01/26/18 05:24 Phenytoin (Dilantin Liq) 125 mg Q8HR PO 01/15/18 06:00 01/28/18 13:55 Quetiapine Fumarate (SEROquel) 200 mg TID PO 01/15/18 09:00 01/28/18 12:14 Topiramate (Topamax) 200 mg DAILY PO 01/15/18 09:00 01/28/18 09:30 Hydralazine HCl (Apresoline Inj) 20 mg Q4H PRN IV PUSH SBP >160 01/14/18 22:15 01/28/18 09:36 Albuterol/ Ipratropium (Duoneb Neb) 1 ampule Q2HR NEB PRN NEB SHORTNESS OF BREATH 01/18/18 13:30 01/26/18 17:11 Potassium Chloride 100 ml @ 50 mls/hr Q2H PRN IV For Potassium 2.8 - 3.2 mEq/L 01/19/18 07:15 01/26/18 16:44 Potassium Chloride 100 ml @ 50 mls/hr Q2H PRN IV For Potassium 3.3 - 3.5 mEq/L 01/19/18 07:15 01/27/18 12:23 Magnesium Oxide (Mag-Ox) 800 mg UNSCH PRN PO For Magnesium 1.2 - 1.6 mg/dL 01/19/18 07:15 01/23/18 08:22 Magnesium Sulfate 2 gm/Sodium Chloride 100 ml @ 50 mls/hr UNSCH PRN IV For Magnesium 1.2 - 1.6 mg/dL 01/19/18 07:15 01/27/18 18:23 Potassium Phosphate (K-Phos) 2,000 mg Q4H PRN PO For Phosphorus < 2.5 mg/dL 01/19/18 07:15 01/19/18 11:33 Labetalol HCl (Trandate Inj) 10 mg Q4H PRN IV PUSH SYS BP GREATER THAN 170 MMHG 01/20/18 05:00 01/28/18 11:02 Clonidine (Catapres) 0.2 mg Q8H PO 01/21/18 08:00 01/28/18 09:30 Heparin Sodium/ Dextrose 250 ml @ 11 mls/hr TITRATE PRN IV Coagulation Management 01/21/18 10:45 01/27/18 23:00 Clonazepam (KlonoPIN) 1 mg Q8H PRN PO ANXIETY 01/22/18 14:15 01/26/18 21:20 Hydralazine HCl (Apresoline) 50 mg Q6H PO 01/22/18 20:00 01/28/18 13:54 Linezolid (Zyvox) 600 mg Q12HR PO 01/22/18 21:00 01/28/18 09:30 Potassium Bicarb/ Potassium Chloride (K-Lyte Cl Eff) 25 meq Q12HR PO 01/23/18 09:00 01/28/18 09:31 Sodium Chloride 1,000 ml @ 42 mls/hr [id number] IV 01/24/18 16:45 01/27/18 23:53 Nifedipine (Procardia) 20 mg Q8HR PO 01/25/18 14:00 01/28/18 13:54 Clonazepam (KlonoPIN) 0.5 mg TID PO 01/26/18 13:00 01/28/18 12:14 Lorazepam (Ativan Inj) 1 mg Q4H PRN IV PUSH agitation not responding to po 01/26/18 09:45 01/28/18 05:52 Metoprolol Tartrate (Lopressor) 100 mg Q12HR PO 01/26/18 09:45 01/28/18 09:31 Clonidine (Catapres-Tts 0.1mg Patch.7d) 1 patch Q7D T-DERMAL 01/28/18 12:00 01/28/18 12:14 Objective Remarks GENERAL: chronically ill appearing male, supine in bed, resting. SKIN: Warm and dry. HEAD: Normocephalic. NECK: Supple, trachea midline. CARDIOVASCULAR: Regular rate and rhythm RESPIRATORY: anterior vincent clear. GASTROINTESTINAL: Abdomen soft, non-tender, nondistended. EXTREMITIES: No cyanosis Assessment/Plan Problem List: (1) DVT (deep venous thrombosis) ICD Codes: I82.409 - Acute embolism and thrombosis of unspecified deep veins of unspecified lower extremity Plan: --Ultrasound shows DVT in the bilateral upper extremities --On heparin drip Assessment 47y/o male admitted with AMS. Hematology consulted for thrombocytopenia. history of cerebral palsy, hypertension, baseline agitation, seizure disorder, on Topamax and Dilantin, who was brought into the emergency department on January 14 with fever and altered mental status. Plan 1. continue heparin drip for now. 2. once closer to discharge will transition to oral anticoagulant-->Recommend Eliquis 2.5mg PO BID on discharge Attending Statement The exam, history, and the medical decision-making described in the above note were completed with the assistance of the mid-level provider. I reviewed and agree with the findings presented. I attest that I had a [id number] encounter with the patient on the same day, and personally performed and documented my assessment and findings in the medical record. 47 yoM with cerebral palsy, baseline agitation, seizure disorder admitted with AMS and found to have sepsis. Hematology service initially consulted for thrombocytopenia and was found to have mild DIC with TCP and prolonged coags. This has resolved. Upper extremity VTE. Likely unprovoked due to non transient risk factor of decreased mobility; an element of provoked clot contributing due to sepsis. Poor renal function, poor/vaired oral intake. Creatinine clearance calculated at 26. Difficulty with warfarin due to diet. Unable to use lovenox due to renal function. In apixaban clinical trials patients with creantinine clearance less than 25 and creatinine of greater than 2.5 were excluded from clinical trials. For oral anticoagulation recommend apixaban 2.5 mg BID. Would recommend anticoagulation for a total of 2 months due to risk of bleeding. Embolization of upper extrmity VTE very rare. Unable to discuss risks vs benefits of anticoagulaiton due to comorbid medical conditions. No next of kin. Gia Rosario Jan 28, 2018 14:11 Tatyana Rose MD Jan 29, 2018 00:26
--- NOTE | 2018-01-28 15:31 | HHI.HCPN ---
Reason for visit a. To assist with evaluation and management of symptoms including: Agitation , anxiety b. To assist medical decision maker(s) with: better understanding of current medical conditions; weighing benefits/burdens of medical treatment options; making medical treatment decisions. Subjective/Interval History Patient seen to follow-up on goals of care and symptom management. Continues to refuse food and medications. Blood pressure remains elevated with need for continued Cardene drip. Discussed with Dr. Castro the possibility of a transdermal delivery system of blood pressure medication with a Catapres patch. He was in agreement with that plan and Catapres 0.1 mg patch was ordered to evaluate response as the patient has been having some tachycardia/ bradycardia episodes on telemetry with reported heart rates from 30-128. He remains agitated yelling out from time to time. He continues to require restraints to prevent disruption of medical devices. He has pulled out several IV lines and NG tube. Laboratory studies sodium 140, potassium 3.7, BUN 5, creatinine 1.33, glucose 80 , AST 44, ALT 68, alkaline phosphatase 93, albumin 2.6, lipase 72. . Family/friend interactions Spoke with [facility] staff who normally cares for the patient to obtain background information pending bioethics committee meeting today. She informs me that he has been in that facility since April 2007. His last weight was done in 2014 registering 156.5 pounds (now 136.2). He has since been unable to be weighed due to his agitation and behavior. He is bedbound but occasionally gets up for showers. She describes his behavior as that of an , unable to communicate except by calling out. He forms no words. She states that the staff assesses whether he might be hungry or wet or soiled when this occurs. He had previously had a good appetite, however prior to admission to the hospital he was found to have a decreased appetite with more sedate behavior. He has chronically been on high doses of anti-anxiety/agitation medications to include clonazepam 1 mg 4 times daily, clonazepam 1 mg every 8 hours as needed for agitation, trazodone 100 mg 3 times daily and at at bedtime , Seroquel 200 mg p.o. 3 times daily in addition to pain medication as needed. In spite of high doses of medications, she states he still continued to call out frequently and demonstrate agitation. Bioethics committee meeting was held to include hospice physicians medical residents, palliative care nurse practitioners, nurse managers, social work advantage licensed social worker, Sherin Vivas and administrative technical support agent. Medical background was presented with progression of clinical course and current status. Attempts to reach family members was described. Case was presented for questions. It was determined that Ms. Vivas felt he was an appropriate candidate for DO NOT RESUSCITATE. She expressed concern regarding returning him to the intermediate while he was not eating and discussion was held regarding artificial feeding methods. NG tube temporary feeding was considered, however it was felt that it would exacerbate his underlying agitation, require continued restraints, delay his return to the long term facility and did not provide a long-term solution. Ms. Vivas stated she was not in favor of PEG tube placement due to the inherent risks of that to include continued patient restraint, use of corset to protect device as patient presented a high risk of disrupting or pulling out the tube. It was additionally expressed is a concern that long-term PEG tube feeding would place the patient at extraordinary risk for aspiration, as he would be unable to express any symptoms and would not be compliant with head of bed elevation aspiration precautions and that it would also put him at increased risk of prolonged positioning and possible wounds. It was proposed that the patient, once blood pressure was managed, could return to the long term facility where he resided in hopes that he would be more comfortable with familiar surroundings and smells and resume eating. As he is at risk of continued decline, if he continued to refuse food and fluid, it was determined that hospice services should follow him to the intermediate for continued monitoring. It was felt that he was hospice appropriate in light of his decline in weight, infections, muscle wasting, contractures, reduced oral intake, risk for dehydration and further complications and re-hospitalizations. It was felt that his disability and debility were contributing factors to the decline. If he continues to decline and develop unmanageable symptoms in the facility, he could be transferred to a hospice care center for comfort care, rather than rehospitalized. After discussion and questions, it was deemed the most appropriate course of action for this patient by the attending members. . Advance Directives Living Will: Never completed Health Care Surrogate: Never completed Durable Power of [employer] Internship: Never completed Objective Vital Signs Date Time Temp Pulse Resp B/P (MAP) Pulse Ox O2 Delivery O2 Flow Rate FiO2 01/28/18 12:13 97 01/28/18 12:00 88 01/28/18 12:00 99.0 88 24 153/82 (105) 97 01/28/18 12:00 88 153/82 01/28/18 10:00 76 01/28/18 09:30 85 186/92 01/28/18 08:00 108 01/28/18 08:00 98.1 108 22 188/89 (122) 96 01/28/18 06:00 87 01/28/18 04:00 98.5 78 24 177/84 (115) 95 01/28/18 04:00 78 01/28/18 02:00 85 01/28/18 00:00 97.8 82 24 170/87 (114) 98 01/28/18 00:00 82 01/27/18 22:00 128 01/27/18 21:46 78 177/79 01/27/18 20:00 99.2 78 24 157/70 (99) 93 01/27/18 20:00 78 01/27/18 19:12 93 Nasal Cannula 4.00 01/27/18 18:00 88 01/27/18 17:51 81 157/91 01/27/18 16:00 95 01/27/18 16:00 99.1 95 22 147/68 (94) 96 01/27/18 15:37 92 153/70 Intake & Output 01/28/18 01/28/18 07:00 19:00 Intake Total 1794 ml 160 ml Balance 1794 ml 160 ml Intake Oral 360 ml IV Total 1434 ml 160 ml # Voids 3 # Bowel Movements 3 Physical Exam CONSTITUTIONAL/GENERAL: This is a disabled, contracted, intermittently agitated male, restrained in bed. TUBES/LINES/DRAINS: Right forearm PIV. EYES: Patient resistant to exam, unable to assess. Blind. ENT: Hearing impaired NECK: Trachea midline. Supple. No palpable thyroid enlargement or nodularity. CARDIOVASCULAR: Regular rhythm, tachycardic rate, 1+ dependent edema. Diminished pulses. RESPIRATORY/CHEST: Mildly tachypneic. Lungs diminished, clear. GASTROINTESTINAL: Abdomen soft, nondistended. GENITOURINARY: Without palpable bladder distension. MUSCULOSKELETAL: Swelling in both bilateral upper extremities, muscle wasting seen in bilateral lower extremities with contractures, foot drop, trace edema NEUROLOGICAL: blind, deaf, unable to communicate, able to spontaneously move extremities, not to command. PSYCHIATRIC: Resting quietly now, still shrieks out from time to time. . Diagnostic Tests Laboratory Laboratory Tests Test 01/26/18 06:57 01/26/18 09:15 01/26/18 22:42 01/27/18 04:35 Activated Partial Thromboplast Time 50.2 SEC (24.3-30.1) 50.4 SEC (24.3-30.1) Blood Urea Nitrogen 6 MG/DL (7-18) 5 MG/DL (7-18) Creatinine 1.21 MG/DL (0.60-1.30) 1.28 MG/DL (0.60-1.30) Random Glucose 89 MG/DL (74-106) 104 MG/DL (74-106) Calcium Level 8.1 MG/DL (8.5-10.1) 8.7 MG/DL (8.5-10.1) Sodium Level 143 MEQ/L (136-145) 141 MEQ/L (136-145) Potassium Level 3.0 MEQ/L (3.5-5.1) 3.9 MEQ/L (3.5-5.1) Chloride Level 113 MEQ/L (98-107) 111 MEQ/L (98-107) Carbon Dioxide Level 18.6 MEQ/L (21.0-32.0) 21.7 MEQ/L (21.0-32.0) Anion Gap 11 MEQ/L (5-15) 8 MEQ/L (5-15) Estimat Glomerular Filtration Rate 77 ML/MIN (>89) 72 ML/MIN (>89) Magnesium Level 1.4 MG/DL (1.5-2.5) White Blood Count 6.5 TH/MM3 (4.0-11.0) Red Blood Count 3.79 MIL/MM3 (4.50-5.90) Hemoglobin 10.7 GM/DL (13.0-17.0) Hematocrit 32.2 % (39.0-51.0) Mean Corpuscular Volume 85.0 FL (80.0-100.0) Mean Corpuscular Hemoglobin 28.2 PG (27.0-34.0) Mean Corpuscular Hemoglobin Concent 33.2 % (32.0-36.0) Red Cell Distribution Width 15.5 % (11.6-17.2) Platelet Count 282 TH/MM3 (150-450) Mean Platelet Volume 10.3 FL (7.0-11.0) Test 01/27/18 09:05 01/27/18 11:10 01/28/18 08:55 01/28/18 11:47 Blood Urea Nitrogen 5 MG/DL (7-18) 5 MG/DL (7-18) Creatinine 1.27 MG/DL (0.60-1.30) 1.33 MG/DL (0.60-1.30) Random Glucose 79 MG/DL (74-106) 80 MG/DL (74-106) Calcium Level 8.4 MG/DL (8.5-10.1) 8.7 MG/DL (8.5-10.1) Sodium Level 142 MEQ/L (136-145) 140 MEQ/L (136-145) Potassium Level 3.4 MEQ/L (3.5-5.1) 3.7 MEQ/L (3.5-5.1) Chloride Level 110 MEQ/L (98-107) 108 MEQ/L (98-107) Carbon Dioxide Level 21.2 MEQ/L (21.0-32.0) 22.0 MEQ/L (21.0-32.0) Anion Gap 11 MEQ/L (5-15) 10 MEQ/L (5-15) Estimat Glomerular Filtration Rate 73 ML/MIN (>89) 69 ML/MIN (>89) Magnesium Level 1.6 MG/DL (1.5-2.5) Activated Partial Thromboplast Time 47.9 SEC (24.3-30.1) 53.0 SEC (24.3-30.1) Total Protein 7.1 GM/DL (6.4-8.2) Albumin 2.6 GM/DL (3.4-5.0) Alkaline Phosphatase 93 U/L (45-117) Aspartate Amino Transf (AST/SGOT) 44 U/L (15-37) Alanine Aminotransferase (ALT/SGPT) 68 U/L (12-78) Total Bilirubin 0.2 MG/DL (0.2-1.0) Amylase Level 35 U/L (25-115) Lipase 72 U/L (73-393) . Result Diagram: 01/27/18 0435 01/28/18 1147 Microbiology Microbiology Date/Time Source Procedure Growth Status 01/20/18 09:02 Blood Peripheral Aerobic Blood Culture - Final NO GROWTH IN 5 DAYS Complete 01/20/18 09:02 Blood Peripheral Anaerobic Blood Culture - Final NO GROWTH IN 5 DAYS Complete 01/20/18 10:22 Sputum Expectorated Sputum Gram Stain - Final Complete 01/20/18 10:22 Sputum Expectorated Sputum Sputum Culture - Final HEAVY GROWTH NORMAL RESPIRATORY RENATE Complete 01/20/18 10:22 Urine Catheterized Urine Urine Culture - Final NO GROWTH IN 48 HOURS. Complete . Imaging Last Impressions Chest X-Ray 01/20/18 0000 Signed Impressions: Service Date/Time: January 07:55 - CONCLUSION: 1. Cardiomegaly. 2. Atelectasis/consolidation in the left lung base. This is mildly improved compared to previous study of 01/17/18. Arnulfo Naranjo MD Upper Extremity Ultrasound 01/18/18 0000 Signed Impressions: Service Date/Time: Thursday, January 18, 2018 22:27 - CONCLUSION: 1. In the right upper extremity, there is occlusive thrombus within the basilic vein. The remaining veins of the left upper extremity are patent. 2. In the left upper extremity, there is occlusive thrombus within the subclavian, axillary, and basilic veins. Bernardo Redd MD Lower Extremity Ultrasound 01/18/18 0000 Signed Impressions: Service Date/Time: Thursday, January 18, 2018 22:13 - CONCLUSION: No DVT or superficial venous thrombosis is identified within either lower extremity. Bernardo Redd MD Chest CT 01/14/18 0000 Signed Impressions: Service Date/Time: Sunday, January 14, 2018 19:56 - CONCLUSION: 1. Posterior bibasilar patchiness consistent with pneumonia or atelectasis. Clinical correlation is recommended. 2. Cardiomegaly. 3. Tiny pericardial effusion. 4. Tiny bilateral pleural effusions. 5. Degenerative changes and scoliosis of the thoracic spine. Pedrito Hastings MD Abdomen/Pelvis CT 01/14/18 0000 Signed Impressions: Service Date/Time: Sunday, January 14, 2018 19:56 - CONCLUSION: 1. Patchy infiltrate within the posterior lung bases bilaterally raising possibility of atelectasis or pneumonia. 2. Tiny bilateral pleural effusions. 3. Cardiomegaly and tiny pericardial effusion. 4. Hepatomegaly. 5. Scattered low-density lesions throughout the liver which are indeterminate in etiology. 6. 1.9 cm right adrenal nodule consistent with probable adrenal adenoma. 7. Uncomplicated colonic diverticulosis. 8. Diffuse urinary bladder wall thickening raising the possibility of cystitis. Clinical correlation is recommended. 9. Degenerative changes and scoliosis of the thoraco-lumbar spine. Pedrito Hastings MD . Procedures 01/14/18: Endotracheal intubation 01/17/2018: Endotracheal intubation due to tube dislodgment . Assessment and Plan Disease Oriented Problem List: (1) Cerebral palsy (2) DVT (deep venous thrombosis) (3) Seizure disorder (4) Acute hypoxemic respiratory failure (5) Hyperkalemia Symptom Scale: (1) Agitation 0-10 Scale: Unable to quantify (2) Anxiety 0-10 Scale: Unable to quantify Pertinent Non-Medical Issues Psychosocial: Resides in a long term facility. No family and contact for years. Spiritual: Unobtainable Legal: Social nelly akhtar, Sherin Vivas, decision-maker while in hospital. Ethical issues impacting care: No decision-maker. . Important Contacts [facility] caser up: Sherin Vivas (cell), fax [phone]. . Prognosis His prognosis is guarded. He is at significant risk of compromise due to his inability to communicate, seizure disorder, cerebral palsy, declining status with dehydration causing hyperkalemia, hypernatremia. Patient was admitted with UTI and pneumonia with sepsis. At this time he is not capacitated to make his own decisions and is refusing food, fluid and medications. [employer] caser up has been signed during hospitalization. He is at risk of continued complication and decline. . Code Status: No Code Plan PLAN: Legal decision maker: At this time we have no legal decision maker. Patient is incapacitated to make his own decisions, no family has been able to be located for some years, per the intermediate, and he has been on the [place] of aging list awaiting appointment of a guardian for some time. [facility] report revealed the name of his prior recorded POA, Italia Hernandez, who is not returning phone calls, either from the facility for many years, nor from the hospital at this time. [facility] has been consulted for decision-making while patient is hospitalized. Goals: Comfort oriented. CODE STATUS: DNR SYMPTOMS: * Agitation: His agitation is chronic, likely exacerbating his hypertension. He is ordered clonidine 0.5 mg every 8 hours, as well as 1 mg every 8 hours as needed for anxiety, Seroquel 200 mg p.o. 3 times daily, Lorazepam 1 mg every 4 hours as needed for anxiety, however he has been refusing to open his mouth for medication administration. He remains on a Cardene drip for hypertension management. Given his altered mental status and agitation, would recommend a transdermal medication if possible, such as Catapres patch, discussed with Dr. Castro and initiated at 0.1 mg today. * Anxiety: This is likely multifactorial to include unfamiliar stimulus, inability to communicate, baseline disease processes, pain. He was improving on scheduled Klonopin, but is now refusing medications. IV Ativan is available if needed. Palliative care will continue to follow the patient during hospital course as condition evolves, to assist patient/decision-maker with understanding of their medical conditions, weighing benefits/burdens of treatment options, for clarification of goals of treatment. Additionally will assist with any symptoms of palliative concern. . Attestation To help prompt me to consider important information that might be impacting today's encounter and assessment, information from prior notes written by myself or my colleagues may have been "brought forward" into today's note. My signature on this note, however, is an attestation that I personally performed the exam, history, and/or decision-making noted today, and, unless otherwise indicated, the interactions with patient, family, and staff as well as the review of records all occurred today. I also attest that the listed assessment and stated plan reflect my best clinical judgment today based on the combination of historical information, prior notes, and today's exam/ interactions. When time spent is documented, it refers only to time spent today by the signer, or if indicated, combined time spent today by collaborating physician/nurse practitioner. . Angeline Castellano Jan 28, 2018 15:30
--- NOTE | 2018-01-28 15:32 | RADRPT ---
EXAM DATE/TIME: 01/28/2018 14:18 [facility] COMPARISON: CHEST SINGLE AP, January 20, 2018, 7:55. INDICATIONS : Pneumonia. MEDICAL HISTORY : Hypertension. blind, seizures, MRSA, Anemia SURGICAL HISTORY : unable to obtain ENCOUNTER: Initial ACUITY: 2 weeks PAIN SCORE: Non-responsive. LOCATION: Bilateral chest FINDINGS: The heart is mildly enlarged. The pulmonary vascular pattern is normal. The lungs are clear. CONCLUSION: Cardiomegaly. No focal infiltrate or pulmonary vascular congestion Pedrito Hastings MD on January 28, 2018 at 15:28 Board Certified Radiologist. This report was verified electronically.
[2018-01-28] MEDS: SODIUM CHLOR 0.9% 1000 ML INJ 1,000 ML IV SCH (16:22)
--- NOTE | 2018-01-28 19:06 | HHI.PR ---
Subjective Remarks Nursing reports that the patient is still not taking his medications. Was able to come off the Cardene drip with the clonidine patch. Is now tolerating p.o. intake. Discussed with nursing and case management. Objective Vital Signs Date Time Temp Pulse Resp B/P (MAP) Pulse Ox O2 Delivery O2 Flow Rate FiO2 01/28/18 18:00 79 01/28/18 16:00 98.9 84 22 167/95 (119) 96 01/28/18 16:00 84 01/28/18 14:00 96 01/28/18 12:13 97 01/28/18 12:00 88 01/28/18 12:00 99.0 88 24 153/82 (105) 97 01/28/18 12:00 88 153/82 01/28/18 10:00 76 01/28/18 09:30 85 186/92 01/28/18 08:00 108 01/28/18 08:00 98.1 108 22 188/89 (122) 96 01/28/18 06:00 87 01/28/18 04:00 98.5 78 24 177/84 (115) 95 01/28/18 04:00 78 01/28/18 02:00 85 01/28/18 00:00 97.8 82 24 170/87 (114) 98 01/28/18 00:00 82 01/27/18 22:00 128 01/27/18 21:46 78 177/79 01/27/18 20:00 99.2 78 24 157/70 (99) 93 01/27/18 20:00 78 01/27/18 19:12 93 Nasal Cannula 4.00 I/O 01/27/18 01/27/18 01/27/18 01/28/18 01/28/18 01/28/18 07:00 15:00 23:00 07:00 15:00 23:00 Intake Total 2100 ml 600 ml 1460 ml 968 ml 160 ml 1491 ml Output Total 0 ml Balance 2100 ml 600 ml 1460 ml 968 ml 160 ml 1491 ml Intake Oral 100 ml 10 ml 360 ml 460 ml IV Total 2000 ml 600 ml 1450 ml 608 ml 160 ml 1031 ml Stool Total 0 ml # Voids 5 4 3 3 # Bowel Movements 2 3 1 Result Diagram: 01/27/18 0435 01/28/18 1147 Objective Remarks abdomen nontender, nondistended, soft Patient lying in bed, no acute distress, on room air, nonverbal Heart sounds are regular rate rhythm, no murmurs A/P Assessment and Plan Tachybradycardia -Stable at this time HTN urgency Off of Cardene drip, continue Catapres poor po intake -Now improving hypokalemia -Improved, replace as needed KATHERINE - likely 2/2 poor po intake, trial of IV bolus Seizure disorder -Ativan as needed for seizure -Continue Dilantin 125mg Q8 and Topamax 200 daily, Albumin corrected Dilantin level 13.6 on 01/15. Underlying cerebral palsy - on mechanical soft, nectar thick regular diet. Followed by speech Blind - fall precautions - Continue seroquel 200 mg po tid. Change in Klonopin from as needed to scheduled per palliative care recommendations, will administer Ativan if refusing Klonopin s Trazodone held since admission, will continue to hold due to initiation of linezolid. Healthcare associated pneumonia (MRSA) DuoNeb EZPAP CXR 01/20: Atelectasis/consolidation in the left lung base. This is mildly improved compared to previous study of 01/17/18. was recently switched form vanc to linezolid; s/p tx w/ zosyn and zithromax; - procal elevated, continue zyvox; afebrile Acute kidney failure -Walsh in place. Not previously removed due to concern for hypospadia. Discussed with correction, patient chronically incontinent and wears a diaper without indwelling catheter at -. -CT abdomen pelvis did not show any evidence of hydronephrosis - likely lagging improvement 2/2 diarrhea, IVFs thrombocytopenia R basilic superficial thrombosis L subclavian, axillary DVT, and basilic thrombosis -Monitor CBC, CMP, coags. -Hep PLT induced ab: weakly positive, SARA negative. on heparin drip while inpatient. Consider transition to OAT ?rivaroxaban upon dc per oncology. Resolved problems: Acute hypoxemic respiratory failure- extubated 01/18 Discharge Planning Will remain in [facility] for the night and if blood pressure will stable tomorrow can be transitioned to regular floor. Lane Castro MD Jan 28, 2018 19:06
[2018-01-28] MEDS ORDERED: SODIUM CHLOR 0.9% 1000 ML INJ 1,000 ML IV ONE (19:15)
[2018-01-28] MEDS: FAMOTIDINE 20 MG/2 ML VIAL IV PUSH SCH (20:39)
[2018-01-28] MEDS: HEPARIN-D5W 25,000 U/250 ML 250 ML IV PRN (20:57)
[2018-01-29] VITALS (14 sets, daily range): BP systolic 150–187; BP diastolic 86–106; PULSE 71–98; RESP 22–36; TEMP 97.5–99.8; O2SAT 94–100
[2018-01-29] MEDS: cloNIDine HCL 0.2 MG TAB PO SCH ×3 (00:02→16:14)
[2018-01-29] MEDS: hydrALAZINE HCL 20 MG/ML VIAL IV PUSH PRN ×4 (00:38→17:48)
[2018-01-29] MEDS: hydrALAZINE HCL 50 MG TAB PO SCH ×4 (02:25→20:07)
[2018-01-29] MEDS: CHLORHEXIDINE GLUCONATE 2 % 1 PACK (2 CLOTHS) TOP SCH (04:00)
[2018-01-29] MEDS: SODIUM CHLOR 0.9% 1000 ML INJ 1,000 ML IV SCH (04:49)
[2018-01-29] MEDS: PHENYTOIN SUSP 100 MG/4 ML CUP PO SCH ×3 (05:34→20:07)
[2018-01-29] MEDS: NIFEdipine 20 MG CAP PO SCH ×3 (05:34→20:16)
[2018-01-29] MEDS: LABETALOL HCL 100 MG/20 ML VIAL IV PUSH PRN (05:43)
[2018-01-29] MEDS: INSULIN ASPART SUPPLEMENTAL SCALE SQ SCH ×4 (06:00→18:00)
[2018-01-29] MEDS: clonazePAM 0.5 MG TAB PO SCH ×3 (07:21→17:48)
[2018-01-29] MEDS: QUEtiapine FUMARATE 200 MG TAB PO SCH ×3 (07:21→17:48)
[2018-01-29] MEDS: SODIUM CHLORIDE 0.9% FLUSH 10 ML FLUSH IV FLUSH SCH ×2 (07:21→20:11)
[2018-01-29] MEDS: POTASSIUM CHLORIDE 25 MEQ EFFERVESCENT TAB PO SCH ×2 (07:21→20:07)
[2018-01-29] MEDS: TOPIRAMATE 200 MG TAB PO SCH (07:21)
[2018-01-29] MEDS: LINEZOLID 600 MG TAB PO SCH ×2 (07:21→20:07)
[2018-01-29] MEDS: METOPROLOL TARTRATE 100 MG TAB PO SCH ×2 (07:21→20:07)
[2018-01-29] MEDS: CHLORHEXIDINE 0.12% (ORAL KIT) 15 ML CUP MT SCH ×2 (07:21→20:00)
--- NOTE | 2018-01-29 10:13 | PD.ONC.PN ---
Subjective Subjective Remarks Afebrile overnight. d/w nurse, hospice has been consulted since ethics meeting. patient remains on heparin gtt, no bleeding. Objective Data Date Time Temp Pulse Resp B/P (MAP) Pulse Ox O2 Delivery O2 Flow Rate FiO2 01/29/18 10:00 78 01/29/18 09:30 71 24 165/100 (121) 95 01/29/18 08:00 80 01/29/18 08:00 98.0 80 26 184/105 (131) 97 01/29/18 06:00 84 01/29/18 04:00 73 01/29/18 04:00 98.2 73 28 187/103 (131) 94 01/29/18 02:00 80 01/29/18 00:00 98.3 85 28 177/106 (129) 96 01/29/18 00:00 85 01/28/18 22:00 74 01/28/18 20:00 97.9 87 24 193/97 (129) 96 01/28/18 20:00 98 21 01/28/18 20:00 87 01/28/18 18:00 79 01/28/18 16:00 98.9 84 22 167/95 (119) 96 01/28/18 16:00 84 01/28/18 14:00 96 01/28/18 12:13 97 01/28/18 12:00 88 01/28/18 12:00 99.0 88 24 153/82 (105) 97 01/28/18 12:00 88 153/82 01/29/18 01/29/18 01/29/18 07:00 15:00 23:00 Intake Total 1483 ml Balance 1483 ml Result Diagram: 01/27/18 0435 01/28/18 1147 Laboratory Results Laboratory Tests Test 01/28/18 11:47 Blood Urea Nitrogen 5 MG/DL Creatinine 1.33 MG/DL Random Glucose 80 MG/DL Total Protein 7.1 GM/DL Albumin 2.6 GM/DL Calcium Level 8.7 MG/DL Alkaline Phosphatase 93 U/L Aspartate Amino Transf (AST/SGOT) 44 U/L Alanine Aminotransferase (ALT/SGPT) 68 U/L Total Bilirubin 0.2 MG/DL Sodium Level 140 MEQ/L Potassium Level 3.7 MEQ/L Chloride Level 108 MEQ/L Carbon Dioxide Level 22.0 MEQ/L Anion Gap 10 MEQ/L Estimat Glomerular Filtration Rate 69 ML/MIN Amylase Level 35 U/L Lipase 72 U/L Administered Medications Medications (Trade) Dose Ordered Sig/Sally Route PRN Reason Start Time Stop Time Status Last Admin Dose Admin Sodium Chloride (NS Flush) 2 ml UNSCH PRN IV FLUSH FLUSH AFTER USING IV ACCESS 01/14/18 17:45 01/28/18 11:02 Sodium Chloride (NS Flush) 2 ml BID IV FLUSH 01/14/18 21:00 01/29/18 07:21 Acetaminophen (Tylenol) 650 mg Q6H PRN PO PAIN 1 TO 5 AND/OR FEVER >101F 01/14/18 17:45 01/21/18 20:40 Chlorhexidine Gluconate (Peridex 0.12% Liq) 15 ml BID@08,20 MT 01/14/18 20:00 01/27/18 07:47 Chlorhexidine Gluconate (Chlorhexidine 2% Cloth) Taper DAILY@04 TOP 01/15/18 04:00 01/11/19 03:59 01/25/18 04:00 Famotidine (Pepcid Inj) 20 mg HS IV PUSH 01/14/18 21:00 01/28/18 20:39 Lorazepam (Ativan Inj) 1 mg Q2H PRN IV PUSH seizures 01/14/18 22:00 01/26/18 05:24 Phenytoin (Dilantin Liq) 125 mg Q8HR PO 01/15/18 06:00 01/29/18 05:34 Quetiapine Fumarate (SEROquel) 200 mg TID PO 01/15/18 09:00 01/29/18 07:21 Topiramate (Topamax) 200 mg DAILY PO 01/15/18 09:00 01/29/18 07:21 Hydralazine HCl (Apresoline Inj) 20 mg Q4H PRN IV PUSH SBP >160 01/14/18 22:15 01/29/18 09:18 Albuterol/ Ipratropium (Duoneb Neb) 1 ampule Q2HR NEB PRN NEB SHORTNESS OF BREATH 01/18/18 13:30 01/26/18 17:11 Potassium Chloride 100 ml @ 50 mls/hr Q2H PRN IV For Potassium 2.8 - 3.2 mEq/L 01/19/18 07:15 01/26/18 16:44 Potassium Chloride 100 ml @ 50 mls/hr Q2H PRN IV For Potassium 3.3 - 3.5 mEq/L 01/19/18 07:15 01/27/18 12:23 Magnesium Oxide (Mag-Ox) 800 mg UNSCH PRN PO For Magnesium 1.2 - 1.6 mg/dL 01/19/18 07:15 01/23/18 08:22 Magnesium Sulfate 2 gm/Sodium Chloride 100 ml @ 50 mls/hr UNSCH PRN IV For Magnesium 1.2 - 1.6 mg/dL 01/19/18 07:15 01/27/18 18:23 Potassium Phosphate (K-Phos) 2,000 mg Q4H PRN PO For Phosphorus < 2.5 mg/dL 01/19/18 07:15 01/19/18 11:33 Labetalol HCl (Trandate Inj) 10 mg Q4H PRN IV PUSH SYS BP GREATER THAN 170 MMHG 01/20/18 05:00 01/29/18 05:43 Clonidine (Catapres) 0.2 mg Q8H PO 01/21/18 08:00 01/29/18 07:21 Heparin Sodium/ Dextrose 250 ml @ 11 mls/hr TITRATE PRN IV Coagulation Management 01/21/18 10:45 01/28/18 20:57 Clonazepam (KlonoPIN) 1 mg Q8H PRN PO ANXIETY 01/22/18 14:15 01/26/18 21:20 Hydralazine HCl (Apresoline) 50 mg Q6H PO 01/22/18 20:00 01/29/18 07:21 Linezolid (Zyvox) 600 mg Q12HR PO 01/22/18 21:00 01/29/18 07:21 Potassium Bicarb/ Potassium Chloride (K-Lyte Cl Eff) 25 meq Q12HR PO 01/23/18 09:00 01/29/18 07:21 Sodium Chloride 1,000 ml @ 42 mls/hr [id number] IV 01/24/18 16:45 01/29/18 04:49 Nifedipine (Procardia) 20 mg Q8HR PO 01/25/18 14:00 01/29/18 05:34 Clonazepam (KlonoPIN) 0.5 mg TID PO 01/26/18 13:00 01/29/18 07:21 Lorazepam (Ativan Inj) 1 mg Q4H PRN IV PUSH agitation not responding to po 01/26/18 09:45 01/28/18 05:52 Metoprolol Tartrate (Lopressor) 100 mg Q12HR PO 01/26/18 09:45 01/29/18 07:21 Clonidine (Catapres-Tts 0.1mg Patch.7d) 1 patch Q7D T-DERMAL 01/28/18 12:00 01/28/18 12:14 Objective Remarks GENERAL: chronically ill male, supine in bed, non-verbal. SKIN: Warm and dry. peripheral IV sites in both arms without bleeding. HEAD: Normocephalic. NECK: Supple, trachea midline. CARDIOVASCULAR: Regular rate and rhythm RESPIRATORY: anterior vincent clear. GASTROINTESTINAL: Abdomen soft, non-tender, nondistended. EXTREMITIES: No cyanosis Assessment/Plan Assessment 47y/o male admitted with AMS. Hematology consulted for thrombocytopenia + DVT in bilateral UE. history of cerebral palsy, hypertension, baseline agitation, seizure disorder, on Topamax and Dilantin, who was brought into the emergency department on January 14 with fever and altered mental status. Plan 1. continue heparin gtt. 2. would recommend Eliquis 2.5mg PO BID on discharge. if patient is discharged with hospice will defer to hospice attending for decision on anticoagulation. Attending Statement The exam, history, and the medical decision-making described in the above note were completed with the assistance of the mid-level provider. I reviewed and agree with the findings presented. I attest that I had a [id number] encounter with the patient on the same day, and personally performed and documented my assessment and findings in the medical record. If one choices to anticoagulate on discharge would use brief- 2 months course of apixiban 2.5 bid and not extend beyond this given comorbidities and the fact that the DVT may have been precipitated by acute events and IVs in arm. risk of upper extremity DVT causing PE less then lower extremities. Gia Rosario Jan 29, 2018 10:13 Scott Vega MD Jan 29, 2018 14:23
[2018-01-29 13:13] LABS: BICARBONATE 20.9 MEQ/L (21.0-32.0); CALCIUM 8.6 MG/DL (8.5-10.1); CREATININE 1.82 MG/DL (0.60-1.30)
[2018-01-29] MEDS: LORazepam 2 MG/ML VIAL IV PUSH PRN (13:38)
[2018-01-29] MEDS: SODIUM CHLORIDE 0.9% FLUSH 10 ML FLUSH IV FLUSH PRN (13:39)
[2018-01-29] MEDS: FAMOTIDINE 20 MG/2 ML VIAL IV PUSH SCH (20:07)
[2018-01-29] MEDS: HEPARIN-D5W 25,000 U/250 ML 250 ML IV PRN (20:11)
--- NOTE | 2018-01-29 20:12 | HHI.PR ---
Subjective Remarks Patient took medications earlier today however as per RN not taking them now PAtient is non verbal. BP improved but still elevated in the 150's Objective Vitals Vital Signs Date Time Temp Pulse Resp B/P (MAP) Pulse Ox O2 Delivery O2 Flow Rate FiO2 01/29/18 18:00 96 01/29/18 16:00 92 01/29/18 16:00 99.1 92 26 164/97 (119) 97 01/29/18 14:00 92 01/29/18 12:26 95 01/29/18 12:00 99.8 77 22 167/99 (121) 95 01/29/18 12:00 77 01/29/18 10:00 78 01/29/18 09:30 71 24 165/100 (121) 95 01/29/18 08:00 80 01/29/18 08:00 98.0 80 26 184/105 (131) 97 01/29/18 06:00 84 01/29/18 04:00 73 01/29/18 04:00 98.2 73 28 187/103 (131) 94 01/29/18 02:00 80 01/29/18 00:00 98.3 85 28 177/106 (129) 96 01/29/18 00:00 85 01/28/18 22:00 74 I/O 01/28/18 01/28/18 01/28/18 01/29/18 01/29/18 01/29/18 07:00 15:00 23:00 07:00 15:00 23:00 Intake Total 968 ml 160 ml 2526 ml 1483 ml 760 ml Balance 968 ml 160 ml 2526 ml 1483 ml 760 ml Intake Oral 360 ml 460 ml 360 ml 760 ml IV Total 608 ml 160 ml 2066 ml 1123 ml # Voids 3 3 3 2 # Bowel Movements 3 1 3 2 Result Diagram: 01/27/18 0435 01/29/18 1220 Imaging Last Impressions Chest X-Ray 01/28/18 0000 Signed Impressions: Service Date/Time: Sunday, January 28, 2018 14:18 - CONCLUSION: Cardiomegaly. No focal infiltrate or pulmonary vascular congestion Pedrito Hastings MD Upper Extremity Ultrasound 01/18/18 0000 Signed Impressions: Service Date/Time: Thursday, January 18, 2018 22:27 - CONCLUSION: 1. In the right upper extremity, there is occlusive thrombus within the basilic vein. The remaining veins of the left upper extremity are patent. 2. In the left upper extremity, there is occlusive thrombus within the subclavian, axillary, and basilic veins. Bernardo Redd MD Lower Extremity Ultrasound 01/18/18 0000 Signed Impressions: Service Date/Time: Thursday, January 18, 2018 22:13 - CONCLUSION: No DVT or superficial venous thrombosis is identified within either lower extremity. Bernardo Redd MD Chest CT 01/14/18 0000 Signed Impressions: Service Date/Time: Sunday, January 14, 2018 19:56 - CONCLUSION: 1. Posterior bibasilar patchiness consistent with pneumonia or atelectasis. Clinical correlation is recommended. 2. Cardiomegaly. 3. Tiny pericardial effusion. 4. Tiny bilateral pleural effusions. 5. Degenerative changes and scoliosis of the thoracic spine. Pedrito Hastings MD Abdomen/Pelvis CT 01/14/18 0000 Signed Impressions: Service Date/Time: Sunday, January 14, 2018 19:56 - CONCLUSION: 1. Patchy infiltrate within the posterior lung bases bilaterally raising possibility of atelectasis or pneumonia. 2. Tiny bilateral pleural effusions. 3. Cardiomegaly and tiny pericardial effusion. 4. Hepatomegaly. 5. Scattered low-density lesions throughout the liver which are indeterminate in etiology. 6. 1.9 cm right adrenal nodule consistent with probable adrenal adenoma. 7. Uncomplicated colonic diverticulosis. 8. Diffuse urinary bladder wall thickening raising the possibility of cystitis. Clinical correlation is recommended. 9. Degenerative changes and scoliosis of the thoraco-lumbar spine. Pedrito Hastings MD Objective Remarks PAtient is awakr Clear lungs S1S2 RRR abdomen soft, nt, nd no edema in lower extremities A/P Problem List: (1) Sepsis ICD Code: A41.9 - Sepsis, unspecified organism Status: Resolved Plan: This is a 47-year-old -[place] male with past medical history significant for cerebral palsy, hypertension, agitation at baseline, seizure disorder on Topamax and Dilantin was brought to the emergency room for fever and altered mental status. The patient was also descending into the 70s, the patient was intubated due to hypoxic respiratory failure and for airway protection as well. UA showed UTI, CT chest showed bibasilar infiltrates indicating possible pneumonia. The patient was started empirically on IV broad spectrum antibiotics with IV vancomycin, Zosyn and azithromycin. Patient extubated on 01/18. Patient has antibiotics were discontinued by Dr. Burt (pizza chef) (2) Acute hypoxemic respiratory failure ICD Code: J96.01 - Acute respiratory failure with hypoxia Status: Resolved Plan: Status post intubation and mechanical ventilation and posterior extubation. Likely secondary to healthcare associated pneumonia due to MRSA. (3) Acute encephalopathy ICD Code: G93.40 - Encephalopathy, unspecified Status: Resolved Plan: Likely metabolic encephalopathy. Neurological status has been monitored. Abdomen is needed for seizure. Trazodone held since admission. Continue to hold due to initiation of linezolid. (4) Acute renal failure ICD Code: N17.9 - Acute kidney failure, unspecified Status: Acute Plan: Creatinine worsening. Consult nephrology. (5) Hyperkalemia ICD Code: E87.5 - Hyperkalemia Status: Resolved Plan: Potassium of 6.9 on admission. Patient developed hypokalemia after that. This was replaced and now potassium is within normal range. (6) Dehydration with hypernatremia ICD Code: E87.0 - Hyperosmolality and hypernatremia Status: Resolved Plan: Patient with a sodium 154 which trended up to 160. Hyponatremia was treated with hypertonic saline. No sodium is within normal range. Continue to monitor BMP. (7) Seizure disorder ICD Code: G40.909 - Epilepsy, unspecified, not intractable, without status epilepticus Plan: Continue Ativan as needed for seizure. The patient is on Dilantin 125 mg every 8, Topamax 200 g daily. Albumin corrected Dilantin level 13.6 on 01/15. (8) Hypertensive urgency ICD Code: I16.0 - Hypertensive urgency Plan: Treated the patient with Cardizem drip which has been discontinued. The patient is currently on clonidine 0.3 mg p.o. every 8 hours. Clonidine patch 0.2 mg q. 7 days. Metoprolol tartrate 100 mg p.o. every 12 hours. Hydralazine 50 mg p.o. every 6 hours. Continue labetalol IV as needed for elevated systolic blood pressure below 160. Blood pressure still labile. We will continue to monitor vital signs and adjust antihypertensive medications. (9) Hypokalemia ICD Code: E87.6 - Hypokalemia Plan: Resolved. Continue to monitor BMP and replace as needed. (10) 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 - Unspecified visual loss Plan: - fall precautions - Continue seroquel 200 mg po tid. Change in Klonopin from as needed to scheduled per palliative care recommendations, will administer Ativan if refusing Klonopin s Trazodone held since admission, will continue to hold due to initiation of linezolid (11) HCAP (healthcare-associated pneumonia) ICD Code: J18.9 - Pneumonia, unspecified organism Plan: DuoNeb CPAP CXR 01/20: Atelectasis/consolidation in the left lung base. This is mildly improved compared to previous study of 01/17/18. was recently switched form vanc to linezolid; s/p tx w/ zosyn and zithromax; procal elevated, continue zyvox; afebrile (12) Poor appetite ICD Code: R63.0 - Anorexia Status: Acute Plan: Continue to monitor oral intake. Will probably start on Megace if no improvement. (13) DVT (deep venous thrombosis) ICD Code: I82.409 - Acute embolism and thrombosis of unspecified deep veins of unspecified lower extremity Plan: Occlusive thrombus in the right basilic vein. Left upper extremity occlusive thrombus within the subclavian, axillary and basilic veins. Hematology consulted. Patient currently on heparin drip. Hematology recommends Eliquis 2.5 mg p.o. twice daily on discharge. If patient is discharged on hospice will defer to hospice attending for anticoagulation. (14) Thrombocytopenia ICD Code: D69.6 - Thrombocytopenia, unspecified Status: Resolved Plan: Hematology consulted. Patient platelets dropped down to 90 5K, however now platelets are within normal range. Assessment and Plan DVT prophylaxis: On IV heparin drip. Discharge Planning Discharge pending clinical improvement and stabilization of blood pressure. Continue to monitor intensive care unit. Problem Qualifiers (1) Sepsis: Qualified Codes: A41.9 - Sepsis, unspecified organism (2) Acute renal failure: Qualified Codes: N17.9 - Acute kidney failure, unspecified Jim Martin MD Jan 29, 2018 20:12
[2018-01-30] VITALS (19 sets, daily range): BP systolic 135–200; BP diastolic 79–138; PULSE 71–102; RESP 26–53; TEMP 97.7–100.3; O2SAT 75–100
[2018-01-30] MEDS: hydrALAZINE HCL 50 MG TAB PO SCH ×4 (00:37→21:45)
[2018-01-30] MEDS: hydrALAZINE HCL 20 MG/ML VIAL IV PUSH PRN ×2 (00:37→22:06)
[2018-01-30] MEDS: CHLORHEXIDINE GLUCONATE 2 % 1 PACK (2 CLOTHS) TOP SCH (04:00)
[2018-01-30] MEDS: PHENYTOIN SUSP 100 MG/4 ML CUP PO SCH ×3 (06:00→21:46)
[2018-01-30] MEDS: INSULIN ASPART SUPPLEMENTAL SCALE SQ SCH ×5 (06:00→23:53)
[2018-01-30] MEDS: NIFEdipine 20 MG CAP PO SCH ×3 (06:00→21:46)
[2018-01-30] MEDS: METOPROLOL TARTRATE 100 MG TAB PO SCH ×2 (07:59→21:45)
[2018-01-30] MEDS: cloNIDine HCL 0.3 MG TAB PO SCH ×3 (07:59→15:07)
[2018-01-30] MEDS: SODIUM CHLORIDE 0.9% FLUSH 10 ML FLUSH IV FLUSH SCH ×2 (07:59→21:00)
[2018-01-30] MEDS: TOPIRAMATE 200 MG TAB PO SCH (07:59)
[2018-01-30] MEDS: LINEZOLID 600 MG TAB PO SCH ×2 (07:59→21:46)
[2018-01-30] MEDS: clonazePAM 0.5 MG TAB PO SCH ×3 (07:59→17:03)
[2018-01-30] MEDS: POTASSIUM CHLORIDE 25 MEQ EFFERVESCENT TAB PO SCH ×2 (07:59→21:45)
[2018-01-30] MEDS: QUEtiapine FUMARATE 200 MG TAB PO SCH ×3 (07:59→17:03)
[2018-01-30] MEDS: CHLORHEXIDINE 0.12% (ORAL KIT) 15 ML CUP MT SCH ×2 (08:00→20:00)
[2018-01-30] MEDS: cloNIDine HCL 0.1 MG/24 HR PATCH T-DERMAL SCH (08:09)
[2018-01-30] MEDS: SODIUM CHLOR 0.9% 1000 ML INJ 1,000 ML IV SCH ×2 (10:00→20:00)
[2018-01-30] MEDS: LORazepam 2 MG/ML VIAL IV PUSH PRN (11:10)
[2018-01-30 12:26] LABS: HEMATOCRIT 34.7 % (39.0-51.0); HEMOGLOBIN 11.1 GM/DL (13.0-17.0); MEAN CELL VOLUME 86.5 FL (80.0-100.0); MEAN CORPUSCULAR HEMOGLOBIN 27.6 PG (27.0-34.0); MEAN CORPUSCULAR HGB CONC 31.9 % (32.0-36.0); PLATELET COUNT 221 TH/MM3 (150-450); RED BLOOD COUNT 4.01 MIL/MM3 (4.50-5.90); RED CELL DISTRIBUTION WIDTH 15.5 % (11.6-17.2); WHITE BLOOD COUNT 4.6 TH/MM3 (4.0-11.0)
[2018-01-30 12:44] LABS: BICARBONATE 19.6 MEQ/L (21.0-32.0); CALCIUM 8.6 MG/DL (8.5-10.1); CREATININE 1.97 MG/DL (0.60-1.30)
[2018-01-30] MEDS: LABETALOL HCL 100 MG/20 ML VIAL IV PUSH PRN ×2 (13:25→23:56)
[2018-01-30 13:39] LABS: AMORPHOUS SEDIMENT, URINE RARE; BACTERIA, URINE RARE /hpf; BILIRUBIN, URINE NEG (NEG); BLOOD, URINE NEG (NEG); GLUCOSE,URINE NEG (NEG); KETONE, URINE NEG (NEG); NITRITE,URINE NEG (NEG); URINE COLOR YELLOW (YELLW/STRAW); URINE LEUKOCYTE ESTERASE NEG (NEG)
--- NOTE | 2018-01-30 13:55 | MB ---
cc: Arnulfo Bell MD DATE OF CONSULT: REASON FOR CONSULTATION: Acute renal failure management. HISTORY OF PRESENT ILLNESS: This is a 47-year-old male who was admitted on 01/14 from a detention. The patient has history of cerebral palsy as well as blindness and diminished communication. The patient apparently had some agitation at baseline and a previous seizure disorder as well. He was brought to the emergency room with fevers and altered mental status. The patient had a prolonged ICU stay and was found to have a urinary tract infection as well as pneumonia. He was intubated initially on his time of admission and was eventually extubated on 01/19. The patient was treated with broad spectrum antibiotics for the UTI as well as pneumonia with vancomycin, Zosyn and azithromycin. The patient also had findings of thrombocytopenia and was followed up with hematology. This is attributed to possible hepatosplenomegaly, as well as antibiotics, as well as infection. In addition, the patient was found to have bilateral upper extremity DVTs, and he is being treated with heparin at this time. He has been followed here in the ICU and had been treated for an initial hypertensive urgency. He had initially been on a Cardene drip, which is off at this point, and patient continues with Catapres. Ativan is being continued for his seizures. His cultures had grown out Staph aureus with MRSA in the sputum and Proteus in the urine. At this point, the patient is resting in bed. He has limited communication with his undergoing cerebral palsy. Regarding his renal function, the patient had a creatinine upon presentation that was as high as 3.7. This was initially treated with IV fluids and his creatinine level improved to a level of 1.2. Over the last 3 days, his creatinine increased from 1.39-1.33 up to 1.82 today. Repeat labs are pending for today. Given the rise in creatinine, nephrology is consulted for further evaluation. The patient was started on IV fluids with normal saline. REVIEW OF SYSTEMS: Unobtainable as patient has limited communication. PAST MEDICAL HISTORY: Includes cerebral palsy, seizure disorder, agitation, hypertension. ALLERGIES: NO KNOWN DRUG ALLERGIES. PAST SURGICAL HISTORY: Unable to obtain. FAMILY HISTORY: Unknown. SOCIAL HISTORY: Apparent cerebral palsy and lives in a detention. No other further history is known. MEDICATIONS AT TIME OF ADMISSION: Include: 1. Trazodone. 2. Topamax. 3. Seroquel. 4. Potassium. 6. Dobbins. 7. Lisinopril. 8. Klonopin. 9. Hydrocodone. 10. Dilantin. 11. Tylenol. PHYSICAL EXAMINATION: At time of evaluation: GENERAL: Awake, alert; however, noncommunicative. VITAL SIGNS: Temperature 99.5, pulse 51, blood pressure 162/104, pulse oximetry 97% on room air. NECK: Soft, supple. CARDIAC: Regular rate and rhythm. PULMONARY: Clear to auscultation. ABDOMEN: Soft, nontender, nondistended. EXTREMITIES: No edema. LABORATORY DATA: Sodium 139, potassium 3.5, chloride 108, bicarbonate 20.9, BUN of 7, creatinine 1.8 with glucose of 112, calcium of 8.6. White count 4.6, hemoglobin 11.1, hematocrit 34.7 with platelet count of 221. ASSESSMENT AND PLAN: 1. Acute kidney injury. The patient had an initial acute kidney injury with a creatinine of 3.7. This improved down to a level of 1.2 with treatment of intravenous fluids. Over the last several days, his creatinine increased from 1.3 up to a level of 1.89. At this point, I suspect he most likely has acute kidney injury secondary to volume depletion. Per the notes, the patient has been having limited p.o. intake. At this time, agree with IV fluids, and normal saline was ordered at 100 mL per hour. Continue to closely monitor. The patient does not have a Walsh catheter at this point and is voiding on his own. Will go ahead and order a renal ultrasound. If there are any signs of any hydronephrosis, a Walsh may be necessary; however, continue with IV fluids and continue to monitor at this point. In addition, we will check urine electrolytes for fractional excretion of sodium as well. Clinically, the patient appears to be volume depleted and agree with IV fluids as ordered. He has had previous issues with hypernatremia, as well as hyperkalemia; however, at this point, his serum sodium is stable at 139, his potassium is stable at 3.5. Continue to closely monitor at this point. There were no recent contrast studies or imaging. Avoid any nephrotoxic medications and renal dose all medications as needed. 2. Sepsis. The patient had presented with pneumonia as well as urinary tract infection. These appear to be under control at this point. Continue to follow up with ICU team. The patient was treated initially with vancomycin and linezolid and now is on Zosyn and Zithromax. Again, continue renal dosing medications and antibiotics. The patient continues on Zyvox as well. 3. Thrombocytopenia. Platelets are at 221. This is improved from prior levels. Continue to follow up and monitor. He had thrombocytopenia attributed to hepatosplenomegaly, as well as antibiotics and sepsis per hematology service previously. 4. Upper extremity deep vein thromboses. The patient is on heparin and is being followed with hematology/oncology. 5. Hypertension. Blood pressure is relatively stable. The patient is off Cardene drip. Continue to monitor and titrate medications as needed. 6. Cerebral palsy. The patient has a history of blindness with cerebral palsy and limited communication with a previous seizure disorder. Continue to monitor. MD SANTOS LopezP/SB , 12:59 PM , 01:55 PM MTDFloyd
[2018-01-30] MEDS: HEPARIN-D5W 25,000 U/250 ML 250 ML IV PRN (15:48)
[2018-01-30] MEDS ORDERED: cloNIDine HCL 0.2 MG/24 HR PATCH T-DERMAL SCH (16:00)
--- NOTE | 2018-01-30 16:08 | RADRPT ---
EXAM DATE/TIME: 01/30/2018 14:43 [facility] COMPARISON: US ARM BILATERAL VENOUS DOPPLER, January 18, 2018, 22:27. INDICATIONS : Increased BUN/creatinine. MEDICAL HISTORY : Hypertension. Seizures. Blind. Mental retardation. Encephalopathy. Anxiety. Anemia. Insomnia. Cereb ral palsy. MRSA. SURGICAL HISTORY : Blood transfusions. ENCOUNTER: Initial ACUITY: 1 day PAIN SCORE: Nonresponsive. LOCATION: Bilateral flank MEASUREMENTS: RIGHT KIDNEY: 9.8 x 4.6 x 4.0 cm LEFT KIDNEY: 10.4 x 3.8 x 5.1 cm FINDINGS: RIGHT KIDNEY: The kidney appears of normal size without evidence of hydronephrosis, stone or mass. The echotexture of the kidney is increased. LEFT KIDNEY: The kidney appears of normal size without evidence of hydronephrosis, stone or mass. The echotexture is increased. BLADDER: Within normal limits given the degree of distension. CONCLUSION: 1. Bilateral echogenic kidneys suggesting underlying medical renal disease. 2. No hydronephrosis identified. Arnulfo Naranjo MD on January 30, 2018 at 16:04 Board Certified Radiologist. This report was verified electronically.
--- NOTE | 2018-01-30 16:16 | HHI.PR ---
Subjective Remarks The patient denies headache, dizziness. As per RN the patient has been having loose green stools. Patient had a low-grade fever with a T-max of 100.3. Objective Vitals Vital Signs Date Time Temp Pulse Resp B/P (MAP) Pulse Ox O2 Delivery O2 Flow Rate FiO2 01/30/18 14:00 96 01/30/18 12:00 81 01/30/18 12:00 99.5 81 51 162/104 (123) 97 01/30/18 11:00 87 30 162/94 (116) 95 01/30/18 10:00 75 01/30/18 10:00 75 50 166/92 (116) 99 01/30/18 09:00 71 32 135/82 (99) 100 01/30/18 08:00 100.3 84 44 152/98 (116) 99 01/30/18 08:00 82 01/30/18 07:00 96 53 185/138 (154) 95 01/30/18 06:00 88 01/30/18 04:00 89 01/30/18 04:00 98.6 89 42 182/94 (123) 96 01/30/18 02:00 87 01/30/18 00:00 97.7 87 26 157/99 (118) 100 01/30/18 00:00 87 01/29/18 22:00 94 01/29/18 20:00 97.5 98 36 150/86 (107) 100 01/29/18 20:00 98 01/29/18 18:00 96 I/O 01/29/18 01/29/18 01/29/18 01/30/18 01/30/18 01/30/18 07:00 15:00 23:00 07:00 15:00 23:00 Intake Total 1483 ml 760 ml 400 ml 1204 ml Balance 1483 ml 760 ml 400 ml 1204 ml Intake Oral 360 ml 760 ml 400 ml IV Total 1123 ml 1204 ml # Voids 3 2 3 # Bowel Movements 3 2 3 Result Diagram: 01/30/18 1150 01/30/18 1150 Imaging Last Impressions Chest X-Ray 01/28/18 0000 Signed Impressions: Service Date/Time: Sunday, January 28, 2018 14:18 - CONCLUSION: Cardiomegaly. No focal infiltrate or pulmonary vascular congestion Pedrito Hastings MD Upper Extremity Ultrasound 01/18/18 0000 Signed Impressions: Service Date/Time: Thursday, January 18, 2018 22:27 - CONCLUSION: 1. In the right upper extremity, there is occlusive thrombus within the basilic vein. The remaining veins of the left upper extremity are patent. 2. In the left upper extremity, there is occlusive thrombus within the subclavian, axillary, and basilic veins. Bernardo Redd MD Lower Extremity Ultrasound 01/18/18 0000 Signed Impressions: Service Date/Time: Thursday, January 18, 2018 22:13 - CONCLUSION: No DVT or superficial venous thrombosis is identified within either lower extremity. Bernardo Redd MD Chest CT 01/14/18 0000 Signed Impressions: Service Date/Time: Sunday, January 14, 2018 19:56 - CONCLUSION: 1. Posterior bibasilar patchiness consistent with pneumonia or atelectasis. Clinical correlation is recommended. 2. Cardiomegaly. 3. Tiny pericardial effusion. 4. Tiny bilateral pleural effusions. 5. Degenerative changes and scoliosis of the thoracic spine. Pedrito Hastings MD Abdomen/Pelvis CT 01/14/18 0000 Signed Impressions: Service Date/Time: Sunday, January 14, 2018 19:56 - CONCLUSION: 1. Patchy infiltrate within the posterior lung bases bilaterally raising possibility of atelectasis or pneumonia. 2. Tiny bilateral pleural effusions. 3. Cardiomegaly and tiny pericardial effusion. 4. Hepatomegaly. 5. Scattered low-density lesions throughout the liver which are indeterminate in etiology. 6. 1.9 cm right adrenal nodule consistent with probable adrenal adenoma. 7. Uncomplicated colonic diverticulosis. 8. Diffuse urinary bladder wall thickening raising the possibility of cystitis. Clinical correlation is recommended. 9. Degenerative changes and scoliosis of the thoraco-lumbar spine. Pedrito Hastings MD Objective Remarks PAtient is awakr Clear lungs S1S2 RRR abdomen soft, nt, nd no edema in lower extremities Medications and IVs Current Medications Medications (Trade) Dose Ordered Sig/Sally Route Start Time Stop Time Status Last Admin (NS Flush) 2 ml UNSCH PRN IV FLUSH 01/14/18 17:45 01/29/18 13:39 (NS Flush) 2 ml BID IV FLUSH 01/14/18 21:00 01/30/18 07:59 (Tylenol) 650 mg Q6H PRN PO 01/14/18 17:45 01/21/18 20:40 (Peridex 0.12% Liq) 15 ml BID@08,20 MT 01/14/18 20:00 01/29/18 20:00 Miscellaneous Information 1 Q361D XX 01/14/18 17:45 (Chlorhexidine 2% Cloth) Taper DAILY@04 TOP 01/15/18 04:00 01/11/19 03:59 01/25/18 04:00 (Chlorhexidine 2% Cloth) 3 pack UNSCH PRN TOP 01/14/18 17:45 (NovoLOG SUPPLEMENTAL SCALE) 1 Q6HR SQ 01/14/18 18:00 (Pepcid Inj) 20 mg HS IV PUSH 01/14/18 21:00 01/29/18 20:07 (Ativan Inj) 1 mg Q2H PRN IV PUSH 01/14/18 22:00 01/26/18 05:24 (Dilantin Liq) 125 mg Q8HR PO 01/15/18 06:00 01/30/18 13:54 (SEROquel) 200 mg TID PO 01/15/18 09:00 01/30/18 13:53 (Topamax) 200 mg DAILY PO 01/15/18 09:00 01/30/18 07:59 (Apresoline Inj) 20 mg Q4H PRN IV PUSH 01/14/18 22:15 01/30/18 00:37 (Duoneb Neb) 1 ampule Q2HR NEB PRN NEB 01/18/18 13:30 01/26/18 17:11 Potassium Chloride 100 ml @ 50 mls/hr Q2H PRN IV 01/19/18 07:15 Potassium Chloride 100 ml @ 50 mls/hr Q2H PRN IV 01/19/18 07:15 01/26/18 16:44 (K-Lyte Cl Eff) 50 meq UNSCH PRN PO 01/19/18 07:15 Potassium Chloride 100 ml @ 25 mls/hr UNSCH PRN IV 01/19/18 07:15 Potassium Chloride 100 ml @ 50 mls/hr Q2H PRN IV 01/19/18 07:15 01/27/18 12:23 Magnesium Sulfate 4 gm/Sodium Chloride 100 ml @ 50 mls/hr UNSCH PRN IV 01/19/18 07:15 (Mag-Ox) 800 mg UNSCH PRN PO 01/19/18 07:15 01/23/18 08:22 Magnesium Sulfate 2 gm/Sodium Chloride 100 ml @ 50 mls/hr UNSCH PRN IV 01/19/18 07:15 01/27/18 18:23 (K-Phos) 2,000 mg Q4H PRN PO 01/19/18 07:15 01/19/18 11:33 Sodium Phosphate 30 mmol/Sodium Chloride 250 ml @ 42 mls/hr UNSCH PRN IV 01/19/18 07:15 (K-Phos) 2,000 mg UNSCH PRN PO/TUBE 01/19/18 07:15 Potassium Phosphate 30 mmol/ Sodium Chloride 260 ml @ 42 mls/hr UNSCH PRN IV 01/19/18 07:15 (Trandate Inj) 10 mg Q4H PRN IV PUSH 01/20/18 05:00 01/30/18 13:25 Heparin Sodium/ Dextrose 250 ml @ 11 mls/hr TITRATE PRN IV 01/21/18 10:45 01/29/18 20:11 (KlonoPIN) 1 mg Q8H PRN PO 01/22/18 14:15 01/26/18 21:20 (Apresoline) 50 mg Q6H PO 01/22/18 20:00 01/30/18 13:53 (Zyvox) 600 mg Q12HR PO 01/22/18 21:00 01/30/18 07:59 (K-Lyte Cl Eff) 25 meq Q12HR PO 01/23/18 09:00 01/30/18 07:59 (Procardia) 20 mg Q8HR PO 01/25/18 14:00 01/30/18 13:54 (KlonoPIN) 0.5 mg TID PO 01/26/18 13:00 01/30/18 13:53 (Ativan Inj) 1 mg Q4H PRN IV PUSH 01/26/18 09:45 01/30/18 11:10 (Lopressor) 100 mg Q12HR PO 01/26/18 09:45 01/30/18 07:59 Nicardipine HCl 50 mg/Sodium Chloride 500 ml @ 50 mls/hr TITRATE PRN IV 01/27/18 19:00 (Catapres-Tts 0.1mg Patch.7d) 1 patch Q7D T-DERMAL 01/28/18 12:00 01/30/18 08:09 Miscellaneous Information 1 Q7D T-DERMAL 02/04/18 12:00 (Catapres) 0.3 mg Q8H PO 01/30/18 00:00 01/30/18 15:07 Sodium Chloride 1,000 ml @ 100 mls/hr Q10H IV 01/30/18 10:00 01/30/18 10:00 A/P Problem List: (1) Sepsis ICD Code: A41.9 - Sepsis, unspecified organism Status: Resolved Plan: This is a 47-year-old -[place] male with past medical history significant for cerebral palsy, hypertension, agitation at baseline, seizure disorder on Topamax and Dilantin was brought to the emergency room for fever and altered mental status. The patient was also descending into the 70s, the patient was intubated due to hypoxic respiratory failure and for airway protection as well. UA showed UTI, CT chest showed bibasilar infiltrates indicating possible pneumonia. The patient was started empirically on IV broad spectrum antibiotics with IV vancomycin, Zosyn and azithromycin. Patient extubated on 01/18. Patient has antibiotics were discontinued by Dr. Burt (environmental maintenance worker) Currently on linezolid. (2) Acute hypoxemic respiratory failure ICD Code: J96.01 - Acute respiratory failure with hypoxia Status: Resolved Plan: Status post intubation and mechanical ventilation and posterior extubation. Likely secondary to healthcare associated pneumonia due to MRSA. Status post treatment with broad spectrum IV antibiotics Continue Zyvox. (3) Acute encephalopathy ICD Code: G93.40 - Encephalopathy, unspecified Status: Resolved Plan: Likely metabolic encephalopathy. Neurological status has been monitored. Trazodone held since admission. Continue to hold due to initiation of linezolid. (4) Acute renal failure ICD Code: N17.9 - Acute kidney failure, unspecified Status: Acute Plan: Creatinine worsening. Consult nephrology. start IV normal saline check renal us (5) Hyperkalemia ICD Code: E87.5 - Hyperkalemia Status: Resolved Plan: Potassium of 6.9 on admission. Patient developed hypokalemia after that. This was replaced and now potassium is within normal range. (6) Dehydration with hypernatremia ICD Code: E87.0 - Hyperosmolality and hypernatremia Status: Resolved Plan: Patient with a sodium 154 which trended up to 160. Hyponatremia was treated with hypertonic saline. No sodium is within normal range. Continue to monitor BMP. (7) Seizure disorder ICD Code: G40.909 - Epilepsy, unspecified, not intractable, without status epilepticus Plan: Continue Ativan as needed for seizure. The patient is on Dilantin 125 mg every 8, Topamax 200 g daily. Albumin corrected Dilantin level 13.6 on 01/15. No seizures reported. (8) Hypertensive urgency ICD Code: I16.0 - Hypertensive urgency Plan: Treated the patient with Cardizem drip which has been discontinued. The patient is currently on clonidine 0.3 mg p.o. every 8 hours. Clonidine patch 0.2 mg q. 7 days. Metoprolol tartrate 100 mg p.o. every 12 hours. Hydralazine 50 mg p.o. every 6 hours. Continue labetalol IV as needed for elevated systolic blood pressure below 160. Blood pressure still labile. We will continue to monitor vital signs and adjust antihypertensive medications. (9) Hypokalemia ICD Code: E87.6 - Hypokalemia Plan: Resolved. Continue to monitor BMP and replace as needed. (10) 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 - Unspecified visual loss Plan: - fall precautions - Continue seroquel 200 mg po tid. Change in Klonopin from as needed to scheduled per palliative care recommendations, will administer Ativan if refusing Klonopin s Trazodone held since admission, will continue to hold due to initiation of linezolid (11) HCAP (healthcare-associated pneumonia) ICD Code: J18.9 - Pneumonia, unspecified organism Plan: DuoNeb CPAP CXR 01/20: Atelectasis/consolidation in the left lung base. This is mildly improved compared to previous study of 01/17/18. was recently switched form vanc to linezolid; s/p tx w/ zosyn and zithromax; procal elevated, continue zyvox; afebrile (12) Poor appetite ICD Code: R63.0 - Anorexia Status: Acute Plan: Continue to monitor oral intake. 01/30 start Megace. (13) DVT (deep venous thrombosis) ICD Code: I82.409 - Acute embolism and thrombosis of unspecified deep veins of unspecified lower extremity Plan: Occlusive thrombus in the right basilic vein. Left upper extremity occlusive thrombus within the subclavian, axillary and basilic veins. Hematology consulted. Patient currently on heparin drip. Hematology recommends Eliquis 2.5 mg p.o. twice daily on discharge. If patient is discharged on hospice will defer to hospice attending for anticoagulation. 01/30 Dc heparin Iv and start Eliquis as indicated above. (14) Thrombocytopenia ICD Code: D69.6 - Thrombocytopenia, unspecified Status: Resolved Plan: Hematology consulted. Patient platelets dropped down to 90 5K, however now platelets are within normal range. (15) Loose stools ICD Code: R19.5 - Other fecal abnormalities Plan: Check C. difficile toxin PCR. I will start the patient on Lactobacillus acidophilus. (16) Low grade fever ICD Code: R50.9 - Fever, unspecified Plan: Patient has had a low-grade fever which started on 01/27 and repeated again on 01/30. T-max 100.3. Urinalysis checked today and suspicious for UTI. Patient had a UTI on admission and urine culture grew Proteus mirabilis. The patient at the time was treated with IV Zosyn. I will start the patient IV Rocephin Assessment and Plan DVT prophylaxis: On IV heparin drip. Discharge Planning Discharge pending clinical improvement and stabilization of blood pressure. Continue to monitor intensive care unit. Problem Qualifiers (1) Sepsis: Qualified Codes: A41.9 - Sepsis, unspecified organism (2) Acute renal failure: Qualified Codes: N17.9 - Acute kidney failure, unspecified Jim Martin MD Jan 30, 2018 16:15
[2018-01-30] MEDS ORDERED: cefTRIAXone INJ 2,000 MG in SODIUM CHLORIDE 0.9% INJ 100 ML IV ONE (17:00)
[2018-01-30] MEDS ORDERED: REMOVE OLD PATCH T-DERMAL SCH (17:00)
[2018-01-30] MEDS: APIXABAN 2.5 MG TABLET PO SCH (21:45)
[2018-01-30] MEDS: FAMOTIDINE 20 MG/2 ML VIAL IV PUSH SCH (21:45)
[2018-01-31] VITALS (17 sets, daily range): BP systolic 134–222; BP diastolic 66–108; PULSE 75–123; RESP 18–20; TEMP 97.2–98.8; O2SAT 97–100
[2018-01-31] MEDS: hydrALAZINE HCL 50 MG TAB PO SCH ×4 (02:04→20:08)
[2018-01-31] MEDS: hydrALAZINE HCL 20 MG/ML VIAL IV PUSH PRN (02:05)
[2018-01-31] MEDS ORDERED: LABETALOL HCL 100 MG/20 ML VIAL IV PUSH ONE (02:15)
[2018-01-31] MEDS: LORazepam 2 MG/ML VIAL IV PUSH PRN ×6 (02:50→22:00)
[2018-01-31] MEDS: CHLORHEXIDINE GLUCONATE 2 % 1 PACK (2 CLOTHS) TOP SCH (03:27)
[2018-01-31] MEDS: niCARdipine INJ 50 MG in SODIUM CHLORID 0.9% 500 ML INJ 480 ML IV PRN ×3 (05:02→17:31)
[2018-01-31] MEDS: PHENYTOIN SUSP 100 MG/4 ML CUP PO SCH ×3 (05:20→22:26)
[2018-01-31] MEDS: INSULIN ASPART SUPPLEMENTAL SCALE SQ SCH ×3 (05:24→17:04)
[2018-01-31] MEDS: SODIUM CHLOR 0.9% 1000 ML INJ 1,000 ML IV SCH ×2 (05:25→13:44)
[2018-01-31] MEDS: NIFEdipine 20 MG CAP PO SCH ×3 (06:13→22:25)
[2018-01-31 06:25] LABS: AUTOMATED NEUTROPHIL # 3.5 TH/MM3 (1.8-7.7); BASOPHIL # 0.1 TH/MM3 (0-0.2); BASOPHIL % 1.3 % (0.0-2.0); EOSINOPHIL # 0.1 TH/MM3 (0-0.4); EOSINOPHIL % 2.3 % (0.0-4.0); HEMATOCRIT 38.2 % (39.0-51.0); HEMOGLOBIN 12.3 GM/DL (13.0-17.0); LYMPH % 19.6 % (9.0-44.0); MEAN CELL VOLUME 86.1 FL (80.0-100.0); MEAN CORPUSCULAR HEMOGLOBIN 27.7 PG (27.0-34.0); MEAN CORPUSCULAR HGB CONC 32.1 % (32.0-36.0); MEAN PLATELET VOLUME 9.1 FL (7.0-11.0); MONO % 9.6 % (0.0-8.0); MONOCYTE # 0.5 TH/MM3 (0-0.9); NEUT % 67.2 % (16.0-70.0); PLATELET COUNT 288 TH/MM3 (150-450); RED BLOOD COUNT 4.43 MIL/MM3 (4.50-5.90); RED CELL DISTRIBUTION WIDTH 15.8 % (11.6-17.2); WHITE BLOOD COUNT 5.3 TH/MM3 (4.0-11.0)
[2018-01-31 06:50] LABS: ALBUMIN 2.8 GM/DL (3.4-5.0); AST (GOT) 26 U/L (15-37); BICARBONATE 21.9 MEQ/L (21.0-32.0); CALCIUM 8.7 MG/DL (8.5-10.1); CHLORIDE 108 MEQ/L (98-107); CREATININE 1.74 MG/DL (0.60-1.30); GLOMERULAR FILTRATION RATE 51 ML/MIN (>89); GLUCOSE,RANDOM 94 MG/DL (74-106); SODIUM (NA) 141 MEQ/L (136-145)
[2018-01-31 06:58] LABS: ALKALINE PHOSPHATASE 102 U/L (45-117); ALT (GPT) 52 U/L (12-78); BLOOD UREA NITROGEN 8 MG/DL (7-18); TOTAL BILIRUBIN ADULT 0.2 MG/DL (0.2-1.0); TOTAL PROTEIN 7.5 GM/DL (6.4-8.2)
[2018-01-31] MEDS: CHLORHEXIDINE 0.12% (ORAL KIT) 15 ML CUP MT SCH ×2 (08:00→20:08)
[2018-01-31] MEDS: SODIUM CHLORIDE 0.9% FLUSH 10 ML FLUSH IV FLUSH SCH ×2 (09:00→21:25)
[2018-01-31] MEDS: TOPIRAMATE 200 MG TAB PO SCH (09:45)
[2018-01-31] MEDS: clonazePAM 0.5 MG TAB PO SCH ×3 (09:46→16:48)
[2018-01-31] MEDS: METOPROLOL TARTRATE 100 MG TAB PO SCH ×2 (09:46→21:29)
[2018-01-31] MEDS: POTASSIUM CHLORIDE 25 MEQ EFFERVESCENT TAB PO SCH ×2 (09:46→21:29)
[2018-01-31] MEDS: LINEZOLID 600 MG TAB PO SCH ×2 (09:46→21:29)
[2018-01-31] MEDS: APIXABAN 2.5 MG TABLET PO SCH ×2 (09:46→21:28)
[2018-01-31] MEDS: QUEtiapine FUMARATE 200 MG TAB PO SCH ×3 (09:52→16:48)
[2018-01-31] MEDS: cloNIDine HCL 0.2 MG TAB PO SCH ×2 (13:44→22:25)
--- NOTE | 2018-01-31 16:11 | HHI.PR ---
Subjective Remarks BP severely elevated earlier and last night Cardene drip had to be restarted. As per RN patient not very compliant with po medications. Patient is deaf, blind and non verbal Objective Vitals Vital Signs Date Time Temp Pulse Resp B/P (MAP) Pulse Ox O2 Delivery O2 Flow Rate FiO2 01/31/18 14:00 75 01/31/18 12:30 100 169/73 01/31/18 12:00 98.0 100 20 148/70 (96) 97 01/31/18 12:00 100 01/31/18 10:00 118 01/31/18 08:00 114 01/31/18 08:00 97.2 114 20 170/70 (103) 97 01/31/18 06:00 104 01/31/18 05:05 98.8 98 20 222/102 (142) 100 01/31/18 05:02 101 222/102 01/31/18 04:02 98.7 87 204/108 (140) 100 01/31/18 04:00 92 01/31/18 03:48 111 01/31/18 02:00 96 01/31/18 01:00 90 01/31/18 00:51 98.4 91 192/105 (134) 100 01/31/18 00:00 90 01/30/18 23:00 94 01/30/18 22:00 102 01/30/18 21:00 84 01/30/18 20:00 98.4 91 174/111 (132) 75 01/30/18 20:00 80 01/30/18 19:00 90 I/O 01/30/18 01/30/18 01/30/18 01/31/18 01/31/18 01/31/18 07:00 15:00 23:00 07:00 15:00 23:00 Intake Total 400 ml 1204 ml 1110.1 ml 1500 ml Output Total 100 ml Balance 400 ml 1204 ml 1110.1 ml -100 ml 1500 ml Intake Oral 400 ml 236 ml IV Total 1204 ml 874.1 ml 1500 ml Output Urine Total 100 ml # Voids 3 5 1 # Bowel Movements 3 5 0 Result Diagram: 01/31/18 0601 01/31/18 0601 Imaging Last Impressions Renal Ultrasound 01/30/18 0000 Signed Impressions: Service Date/Time: Tuesday, January 30, 2018 14:43 - CONCLUSION: 1. Bilateral echogenic kidneys suggesting underlying medical renal disease. 2. No hydronephrosis identified. Arnulfo Naranjo MD Chest X-Ray 01/28/18 0000 Signed Impressions: Service Date/Time: Sunday, January 28, 2018 14:18 - CONCLUSION: Cardiomegaly. No focal infiltrate or pulmonary vascular congestion Pedrito Hastings MD Upper Extremity Ultrasound 01/18/18 0000 Signed Impressions: Service Date/Time: Thursday, January 18, 2018 22:27 - CONCLUSION: 1. In the right upper extremity, there is occlusive thrombus within the basilic vein. The remaining veins of the left upper extremity are patent. 2. In the left upper extremity, there is occlusive thrombus within the subclavian, axillary, and basilic veins. Bernardo Redd MD Lower Extremity Ultrasound 01/18/18 0000 Signed Impressions: Service Date/Time: Thursday, January 18, 2018 22:13 - CONCLUSION: No DVT or superficial venous thrombosis is identified within either lower extremity. Bernardo Redd MD Chest CT 01/14/18 0000 Signed Impressions: Service Date/Time: Sunday, January 14, 2018 19:56 - CONCLUSION: 1. Posterior bibasilar patchiness consistent with pneumonia or atelectasis. Clinical correlation is recommended. 2. Cardiomegaly. 3. Tiny pericardial effusion. 4. Tiny bilateral pleural effusions. 5. Degenerative changes and scoliosis of the thoracic spine. Pedrito Hastings MD Abdomen/Pelvis CT 01/14/18 0000 Signed Impressions: Service Date/Time: Sunday, January 14, 2018 19:56 - CONCLUSION: 1. Patchy infiltrate within the posterior lung bases bilaterally raising possibility of atelectasis or pneumonia. 2. Tiny bilateral pleural effusions. 3. Cardiomegaly and tiny pericardial effusion. 4. Hepatomegaly. 5. Scattered low-density lesions throughout the liver which are indeterminate in etiology. 6. 1.9 cm right adrenal nodule consistent with probable adrenal adenoma. 7. Uncomplicated colonic diverticulosis. 8. Diffuse urinary bladder wall thickening raising the possibility of cystitis. Clinical correlation is recommended. 9. Degenerative changes and scoliosis of the thoraco-lumbar spine. Pedrito Hastings MD Objective Remarks PAtient is awake, patient agitated since being cleaned by RN Clear lungs S1S2 RRR abdomen soft, nt, nd no edema in lower extremities Medications and IVs Current Medications Medications (Trade) Dose Ordered Sig/Sally Route Start Time Stop Time Status Last Admin (NS Flush) 2 ml UNSCH PRN IV FLUSH 01/14/18 17:45 01/29/18 13:39 (NS Flush) 2 ml BID IV FLUSH 01/14/18 21:00 01/30/18 21:00 (Tylenol) 650 mg Q6H PRN PO 01/14/18 17:45 01/21/18 20:40 (Peridex 0.12% Liq) 15 ml BID@08,20 MT 01/14/18 20:00 01/29/18 20:00 Miscellaneous Information 1 Q361D XX 01/14/18 17:45 (Chlorhexidine 2% Cloth) Taper DAILY@04 TOP 01/15/18 04:00 01/11/19 03:59 01/25/18 04:00 (Chlorhexidine 2% Cloth) 3 pack UNSCH PRN TOP 01/14/18 17:45 (NovoLOG SUPPLEMENTAL SCALE) 1 Q6HR SQ 01/14/18 18:00 (Pepcid Inj) 20 mg HS IV PUSH 01/14/18 21:00 01/30/18 21:45 (Ativan Inj) 1 mg Q2H PRN IV PUSH 01/14/18 22:00 01/26/18 05:24 (Dilantin Liq) 125 mg Q8HR PO 01/15/18 06:00 01/31/18 12:24 (SEROquel) 200 mg TID PO 01/15/18 09:00 01/31/18 12:24 (Topamax) 200 mg DAILY PO 01/15/18 09:00 01/31/18 09:45 (Apresoline Inj) 20 mg Q4H PRN IV PUSH 01/14/18 22:15 01/31/18 02:05 (Duoneb Neb) 1 ampule Q2HR NEB PRN NEB 01/18/18 13:30 01/26/18 17:11 (Trandate Inj) 10 mg Q4H PRN IV PUSH 01/20/18 05:00 01/30/18 23:56 (KlonoPIN) 1 mg Q8H PRN PO 01/22/18 14:15 01/26/18 21:20 (Apresoline) 50 mg Q6H PO 01/22/18 20:00 01/31/18 12:24 (Zyvox) 600 mg Q12HR PO 01/22/18 21:00 01/31/18 09:46 (K-Lyte Cl Eff) 25 meq Q12HR PO 01/23/18 09:00 01/31/18 09:46 (Procardia) 20 mg Q8HR PO 01/25/18 14:00 01/31/18 12:24 (KlonoPIN) 0.5 mg TID PO 01/26/18 13:00 01/31/18 12:24 (Ativan Inj) 1 mg Q4H PRN IV PUSH 01/26/18 09:45 01/31/18 13:44 (Lopressor) 100 mg Q12HR PO 01/26/18 09:45 01/31/18 09:46 Nicardipine HCl 50 mg/Sodium Chloride 500 ml @ 50 mls/hr TITRATE PRN IV 01/27/18 19:00 01/31/18 12:30 Sodium Chloride 1,000 ml @ 100 mls/hr Q10H IV 01/30/18 10:00 01/31/18 13:44 (Catapres-Tts 0.2 Mg Patch.7d) 1 patch Q7D T-DERMAL 01/30/18 16:00 01/30/18 16:55 Miscellaneous Information 1 Q7D T-DERMAL 01/30/18 17:00 01/30/18 16:56 (Eliquis) 2.5 mg BID PO 01/30/18 21:00 01/31/18 09:46 Ceftriaxone Sodium 2000 mg/ Sodium Chloride 100 ml @ 200 mls/hr Q24H IV 01/31/18 17:00 (Catapres) 0.2 mg Q8HR PO 01/31/18 14:00 01/31/18 13:44 A/P Problem List: (1) Sepsis ICD Code: A41.9 - Sepsis, unspecified organism Status: Resolved Plan: This is a 47-year-old -[place] male with past medical history significant for cerebral palsy, hypertension, agitation at baseline, seizure disorder on Topamax and Dilantin was brought to the emergency room for fever and altered mental status. The patient was also descending into the 70s, the patient was intubated due to hypoxic respiratory failure and for airway protection as well. UA showed UTI, CT chest showed bibasilar infiltrates indicating possible pneumonia. The patient was started empirically on IV broad spectrum antibiotics with IV vancomycin, Zosyn and azithromycin. Patient extubated on 01/18. Patient has antibiotics were discontinued by Dr. Burt (grain merchandiser) Currently on linezolid. (2) Acute hypoxemic respiratory failure ICD Code: J96.01 - Acute respiratory failure with hypoxia Status: Resolved Plan: Status post intubation and mechanical ventilation and posterior extubation. Likely secondary to healthcare associated pneumonia due to MRSA. Status post treatment with broad spectrum IV antibiotics Continue Zyvox. (3) Acute encephalopathy ICD Code: G93.40 - Encephalopathy, unspecified Status: Resolved Plan: Likely metabolic encephalopathy. Neurological status has been monitored. Trazodone held since admission. Continue to hold due to initiation of linezolid. (4) Acute renal failure ICD Code: N17.9 - Acute kidney failure, unspecified Status: Acute Plan: 01/31 nephrology consulted. Appreciate recommendations. Discussed the case on 01/[address] Bell. Increasing creatinine seems to be secondary to dehydration due to poor oral intake. Patient was started on normal saline with improvement of creatinine from 1.97- 1.74. (5) Hyperkalemia ICD Code: E87.5 - Hyperkalemia Status: Resolved Plan: Potassium of 6.9 on admission. Patient developed hypokalemia after that. This was replaced and now potassium is within normal range. (6) Dehydration with hypernatremia ICD Code: E87.0 - Hyperosmolality and hypernatremia Status: Resolved Plan: Patient with a sodium 154 which trended up to 160. Hyponatremia was treated with hypotonic saline. Sodium is within normal range. Continue to monitor BMP. (7) Seizure disorder ICD Code: G40.909 - Epilepsy, unspecified, not intractable, without status epilepticus Plan: Continue Ativan as needed for seizure. The patient is on Dilantin 125 mg every 8, Topamax 200 g daily. Albumin corrected Dilantin level 13.6 on 01/15. No seizures reported. (8) Hypertensive urgency ICD Code: I16.0 - Hypertensive urgency Plan: Treated the patient with Cardizem drip which has been discontinued. The patient is currently on clonidine 0.3 mg p.o. every 8 hours. Clonidine patch 0.2 mg q. 7 days. Metoprolol tartrate 100 mg p.o. every 12 hours. Hydralazine 50 mg p.o. every 6 hours. Continue labetalol IV as needed for elevated systolic blood pressure below 160. Blood pressure still labile. We will continue to monitor vital signs and adjust antihypertensive medications. 01/31 Cardene drip had to be resumed. Since patient is not very compliant with oral medications I will increase clonidine patch to 0.3 mg every 7 days. (9) Hypokalemia ICD Code: E87.6 - Hypokalemia Plan: Resolved. Continue to monitor BMP and replace as needed. (10) 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 - Unspecified visual loss Plan: - fall precautions - Continue seroquel 200 mg po tid. Change in Klonopin from as needed to scheduled per palliative care recommendations, will administer Ativan if refusing Klonopin s Trazodone held since admission, will continue to hold due to initiation of linezolid (11) HCAP (healthcare-associated pneumonia) ICD Code: J18.9 - Pneumonia, unspecified organism Plan: DuoNeb CPAP CXR 01/20: Atelectasis/consolidation in the left lung base. This is mildly improved compared to previous study of 01/17/18. was recently switched form vanc to linezolid; s/p tx w/ zosyn and zithromax; procal elevated, continue zyvox; afebrile (12) Poor appetite ICD Code: R63.0 - Anorexia Status: Acute Plan: Continue to monitor oral intake. 01/30 start Megace. (13) DVT (deep venous thrombosis) ICD Code: I82.409 - Acute embolism and thrombosis of unspecified deep veins of unspecified lower extremity Plan: Occlusive thrombus in the right basilic vein. Left upper extremity occlusive thrombus within the subclavian, axillary and basilic veins. Hematology consulted. Patient currently on heparin drip. Hematology recommends Eliquis 2.5 mg p.o. twice daily on discharge. If patient is discharged on hospice will defer to hospice attending for anticoagulation. 01/30 Dc heparin Iv and start Eliquis as indicated above. 01/31 Patient on eliquis, no sign of active bleeding. (14) Thrombocytopenia ICD Code: D69.6 - Thrombocytopenia, unspecified Status: Resolved Plan: Hematology consulted. Patient platelets dropped down to 95K, however now platelets are within normal range. (15) Loose stools ICD Code: R19.5 - Other fecal abnormalities Plan: C. difficile on 01/31 negative. (16) Low grade fever ICD Code: R50.9 - Fever, unspecified Plan: Patient has had a low-grade fever which started on 01/27 and repeated again on 01/30. T-max 100.3. UA suspicious for UTI. Patient had a UTI on admission and urine culture grew Proteus mirabilis. The patient at the time was treated with IV Zosyn. Continue IV Rocephin. Assessment and Plan DVT prophylaxis: On IV heparin drip. Discharge Planning Discharge pending clinical improvement and stabilization of blood pressure. Continue to monitor intensive care unit. Problem Qualifiers (1) Sepsis: Qualified Codes: A41.9 - Sepsis, unspecified organism (2) Acute renal failure: Qualified Codes: N17.9 - Acute kidney failure, unspecified Jim Martin MD Jan 31, 2018 16:11
[2018-01-31] MEDS: cefTRIAXone INJ 2,000 MG in SODIUM CHLORIDE 0.9% INJ 100 ML IV SCH (16:48)
--- NOTE | 2018-01-31 18:08 | HHI.NPPN ---
Subjective History of Present Illness 47 year old male with cerebral palsy, blindness KATHERINE,CKD, HTN Objective Data Data 01/31/18 02/01/18 19:00 07:00 Intake Total 1500 ml Balance 1500 ml IV Total 1500 ml Vital Signs Date Time Temp Pulse Resp B/P (MAP) Pulse Ox O2 Delivery O2 Flow Rate FiO2 01/31/18 17:31 97 154/81 01/31/18 14:00 75 01/31/18 12:30 100 169/73 01/31/18 12:00 98.0 100 20 148/70 (96) 97 01/31/18 12:00 100 01/31/18 10:00 118 01/31/18 08:00 114 01/31/18 08:00 97.2 114 20 170/70 (103) 97 01/31/18 06:00 104 01/31/18 05:05 98.8 98 20 222/102 (142) 100 01/31/18 05:02 101 222/102 01/31/18 04:02 98.7 87 204/108 (140) 100 01/31/18 04:00 92 01/31/18 03:48 111 01/31/18 02:00 96 01/31/18 01:00 90 01/31/18 00:51 98.4 91 192/105 (134) 100 01/31/18 00:00 90 01/30/18 23:00 94 01/30/18 22:00 102 01/30/18 21:00 84 01/30/18 20:00 98.4 91 174/111 (132) 75 01/30/18 20:00 80 01/30/18 19:00 90 -: 01/31/18 0601 01/31/18 0601 Microbiology 01/31/18 Cyclospora Exam - Final, Complete NO CYCLOSPORA SEEN 01/31/18 Cryptosporidium Exam - Final, Complete NEGATIVE - NO CRYPTOSPORIDIUM ANTIGEN... 01/31/18 Stool Pus (DENISHA) - Final, Complete NO WBC'S SEEN 01/31/18 Giardia Antigen (DENISHA) - Final, Complete NEGATIVE - NO GIARDIA ANTIGEN DETECTE... 01/31/18 - Final, Complete NO ENTERIC PATHOGENS DETECTED BY PCR... 01/31/18 Rotavirus Antigen - Final, Complete NEGATIVE - ROTAVIRUS ANTIGEN IS ABSEN... 01/31/18 Stool Occult Blood (DENISHA) - Final, Complete HEMOCCULT NEGATIVE Physical Exam General Appearance: Anxious Pulmonary Resp Exam: Clear Bilaterally Cardiology CV Exam: Tachycardia Gastrointestinal/Abdomen GI Exam: Soft, Bowel Sounds Present Extremeties Extremities Exam: No Edema Extremeties Remarks contractures Assessment/Plan Problem List: (1) KATHERINE (acute kidney injury) ICD Codes: N17.9 - Acute kidney failure, unspecified Plan: improved with hydration cr 1.74 (2) Hypertensive urgency ICD Codes: I16.0 - Hypertensive urgency Plan: BP better Cardene drip (3) Cerebral palsy ICD Codes: G80.9 - Cerebral palsy, unspecified (4) CKD (chronic kidney disease) stage 3, GFR 30-59 ml/min ICD Codes: N18.3 - Chronic kidney disease, stage 3 (moderate) Plan: US showed smaller echogenic kidneys keep well hydrated GFR 51 Jarrod Bangura MD Jan 31, 2018 18:08
[2018-01-31] MEDS: FAMOTIDINE 20 MG/2 ML VIAL IV PUSH SCH (21:28)
[2018-02-01] VITALS (12 sets, daily range): BP systolic 127–166; BP diastolic 65–87; PULSE 78–126; RESP 20–40; TEMP 97.8–99; O2SAT 95–100
[2018-02-01] MEDS: SODIUM CHLOR 0.9% 1000 ML INJ 1,000 ML IV SCH ×3 (02:00→22:00)
[2018-02-01] MEDS: hydrALAZINE HCL 50 MG TAB PO SCH ×4 (02:48→20:01)
[2018-02-01] MEDS: niCARdipine INJ 50 MG in SODIUM CHLORID 0.9% 500 ML INJ 480 ML IV PRN ×2 (02:49→21:45)
[2018-02-01] MEDS: LORazepam 2 MG/ML VIAL IV PUSH PRN ×2 (03:25→06:56)
[2018-02-01] MEDS: CHLORHEXIDINE GLUCONATE 2 % 1 PACK (2 CLOTHS) TOP SCH (04:00)
[2018-02-01] MEDS: INSULIN ASPART SUPPLEMENTAL SCALE SQ SCH ×4 (06:00→18:00)
[2018-02-01] MEDS: NIFEdipine 20 MG CAP PO SCH ×3 (06:12→22:00)
[2018-02-01] MEDS: cloNIDine HCL 0.2 MG TAB PO SCH ×3 (06:12→22:00)
[2018-02-01] MEDS: PHENYTOIN SUSP 100 MG/4 ML CUP PO SCH ×3 (06:12→22:00)
[2018-02-01] MEDS: CHLORHEXIDINE 0.12% (ORAL KIT) 15 ML CUP MT SCH ×2 (08:00→20:00)
[2018-02-01] MEDS: MEGESTROL ACETATE SUSP 400 MG/10 ML CUP PO SCH (09:00)
[2018-02-01] MEDS: SODIUM CHLORIDE 0.9% FLUSH 10 ML FLUSH IV FLUSH SCH ×2 (09:00→21:00)
[2018-02-01] MEDS: POTASSIUM CHLORIDE 25 MEQ EFFERVESCENT TAB PO SCH ×2 (09:58→21:00)
[2018-02-01] MEDS: LINEZOLID 600 MG TAB PO SCH ×2 (09:58→21:00)
[2018-02-01] MEDS: TOPIRAMATE 200 MG TAB PO SCH (09:58)
[2018-02-01] MEDS: METOPROLOL TARTRATE 100 MG TAB PO SCH ×2 (09:58→21:00)
[2018-02-01] MEDS: clonazePAM 0.5 MG TAB PO SCH ×3 (09:58→18:00)
[2018-02-01] MEDS: QUEtiapine FUMARATE 200 MG TAB PO SCH ×3 (09:58→18:00)
[2018-02-01] MEDS: APIXABAN 2.5 MG TABLET PO SCH ×2 (09:58→21:00)
--- NOTE | 2018-02-01 11:27 | HHI.NPPN ---
Subjective History of Present Illness 47 year old male with cerebral palsy, blindness KATHERINE,CKD, HTN Objective Data Data Vital Signs Date Time Temp Pulse Resp B/P (MAP) Pulse Ox O2 Delivery O2 Flow Rate FiO2 02/01/18 10:00 86 02/01/18 08:00 83 02/01/18 06:00 115 02/01/18 04:00 86 02/01/18 04:00 98.4 86 22 165/79 (107) 96 02/01/18 02:49 79 172/84 02/01/18 02:00 88 02/01/18 00:00 98.3 84 20 132/66 (88) 100 02/01/18 00:00 84 01/31/18 22:00 107 01/31/18 20:00 111 01/31/18 20:00 98.0 111 18 134/66 (88) 100 01/31/18 18:19 117 132/66 01/31/18 18:00 123 01/31/18 17:31 97 154/81 01/31/18 16:00 106 01/31/18 16:00 98.4 106 18 182/77 (112) 97 01/31/18 14:00 75 01/31/18 12:30 100 169/73 01/31/18 12:00 98.0 100 20 148/70 (96) 97 01/31/18 12:00 100 -: 01/31/18 0601 01/31/18 0601 Physical Exam General Appearance: Anxious Pulmonary Resp Exam: Clear Bilaterally Cardiology CV Exam: Tachycardia Gastrointestinal/Abdomen GI Exam: Soft, Bowel Sounds Present Extremeties Extremities Exam: No Edema Extremeties Remarks contractures Assessment/Plan Problem List: (1) KATHERINE (acute kidney injury) ICD Codes: N17.9 - Acute kidney failure, unspecified Plan: no new labs with hydration last cr 1.74 (2) Hypertensive urgency ICD Codes: I16.0 - Hypertensive urgency Plan: BP better Cardene drip (3) Cerebral palsy ICD Codes: G80.9 - Cerebral palsy, unspecified (4) CKD (chronic kidney disease) stage 3, GFR 30-59 ml/min ICD Codes: N18.3 - Chronic kidney disease, stage 3 (moderate) Plan: US showed smaller echogenic kidneys keep well hydrated GFR 51 Jarrod Bangura MD Feb 01, 2018 11:27
[2018-02-01] MEDS: cefTRIAXone INJ 2,000 MG in SODIUM CHLORIDE 0.9% INJ 100 ML IV SCH (17:00)
--- NOTE | 2018-02-01 19:08 | HHI.PR ---
Subjective Remarks Patient noted to be agitated. As per RN patient is taking oral medications still on cardene drip Objective Vitals Vital Signs Date Time Temp Pulse Resp B/P (MAP) Pulse Ox O2 Delivery O2 Flow Rate FiO2 02/01/18 18:00 92 02/01/18 16:00 78 02/01/18 16:00 97.8 84 28 127/65 (85) 100 02/01/18 14:00 84 02/01/18 12:00 98.8 90 22 166/87 (113) 100 02/01/18 12:00 87 02/01/18 10:00 86 02/01/18 08:00 83 02/01/18 08:00 99.0 126 24 156/70 (98) 100 02/01/18 06:00 115 02/01/18 04:00 86 02/01/18 04:00 98.4 86 22 165/79 (107) 96 02/01/18 02:49 79 172/84 02/01/18 02:00 88 02/01/18 00:00 98.3 84 20 132/66 (88) 100 02/01/18 00:00 84 01/31/18 22:00 107 01/31/18 20:00 111 01/31/18 20:00 98.0 111 18 134/66 (88) 100 I/O 01/31/18 01/31/18 01/31/18 02/01/18 02/01/18 02/01/18 07:00 15:00 23:00 07:00 15:00 23:00 Intake Total 1500 ml 240 ml 1500 ml 1000 ml 1326 ml Output Total 100 ml Balance -100 ml 1500 ml 240 ml 1500 ml 1000 ml 1326 ml Intake Oral 240 ml 480 ml IV Total 1500 ml 1500 ml 1000 ml 846 ml Output Urine Total 100 ml # Voids 1 4 4 4 # Bowel Movements 0 2 1 1 Result Diagram: 01/31/18 0601 01/31/18 0601 Imaging Last Impressions Renal Ultrasound 01/30/18 0000 Signed Impressions: Service Date/Time: Tuesday, January 30, 2018 14:43 - CONCLUSION: 1. Bilateral echogenic kidneys suggesting underlying medical renal disease. 2. No hydronephrosis identified. Arnulfo Naranjo MD Chest X-Ray 01/28/18 0000 Signed Impressions: Service Date/Time: Sunday, January 28, 2018 14:18 - CONCLUSION: Cardiomegaly. No focal infiltrate or pulmonary vascular congestion Pedrito Hastings MD Upper Extremity Ultrasound 01/18/18 0000 Signed Impressions: Service Date/Time: Thursday, January 18, 2018 22:27 - CONCLUSION: 1. In the right upper extremity, there is occlusive thrombus within the basilic vein. The remaining veins of the left upper extremity are patent. 2. In the left upper extremity, there is occlusive thrombus within the subclavian, axillary, and basilic veins. Bernardo Redd MD Lower Extremity Ultrasound 01/18/18 0000 Signed Impressions: Service Date/Time: Thursday, January 18, 2018 22:13 - CONCLUSION: No DVT or superficial venous thrombosis is identified within either lower extremity. Bernardo Redd MD Chest CT 01/14/18 0000 Signed Impressions: Service Date/Time: Sunday, January 14, 2018 19:56 - CONCLUSION: 1. Posterior bibasilar patchiness consistent with pneumonia or atelectasis. Clinical correlation is recommended. 2. Cardiomegaly. 3. Tiny pericardial effusion. 4. Tiny bilateral pleural effusions. 5. Degenerative changes and scoliosis of the thoracic spine. Pedrito Hastings MD Abdomen/Pelvis CT 01/14/18 0000 Signed Impressions: Service Date/Time: Sunday, January 14, 2018 19:56 - CONCLUSION: 1. Patchy infiltrate within the posterior lung bases bilaterally raising possibility of atelectasis or pneumonia. 2. Tiny bilateral pleural effusions. 3. Cardiomegaly and tiny pericardial effusion. 4. Hepatomegaly. 5. Scattered low-density lesions throughout the liver which are indeterminate in etiology. 6. 1.9 cm right adrenal nodule consistent with probable adrenal adenoma. 7. Uncomplicated colonic diverticulosis. 8. Diffuse urinary bladder wall thickening raising the possibility of cystitis. Clinical correlation is recommended. 9. Degenerative changes and scoliosis of the thoraco-lumbar spine. Pedrito Hastings MD Objective Remarks PAtient is awake, patient agitated since being cleaned by RN Clear lungs S1S2 RRR abdomen soft, nt, nd no edema in lower extremities A/P Problem List: (1) Sepsis ICD Code: A41.9 - Sepsis, unspecified organism Status: Resolved Plan: This is a 47-year-old -Portuguese male with past medical history significant for cerebral palsy, hypertension, agitation at baseline, seizure disorder on Topamax and Dilantin was brought to the emergency room for fever and altered mental status. The patient was also descending into the 70s, the patient was intubated due to hypoxic respiratory failure and for airway protection as well. UA showed UTI, CT chest showed bibasilar infiltrates indicating possible pneumonia. The patient was started empirically on IV broad spectrum antibiotics with IV vancomycin, Zosyn and azithromycin. Patient extubated on 01/18. Patient has antibiotics were discontinued by Dr. Burt (shop clerk) Currently on linezolid. (2) Acute hypoxemic respiratory failure ICD Code: J96.01 - Acute respiratory failure with hypoxia Status: Resolved Plan: Status post intubation and mechanical ventilation and posterior extubation. Likely secondary to healthcare associated pneumonia due to MRSA. Status post treatment with broad spectrum IV antibiotics Continue Zyvox. (3) Acute encephalopathy ICD Code: G93.40 - Encephalopathy, unspecified Status: Resolved Plan: Likely metabolic encephalopathy. Neurological status has been monitored. Trazodone held since admission. Continue to hold due to initiation of linezolid. (4) Acute renal failure ICD Code: N17.9 - Acute kidney failure, unspecified Status: Acute Plan: 01/31 nephrology consulted. Appreciate recommendations. Discussed the case on 01/[address] Bell. Increasing creatinine seems to be secondary to dehydration due to poor oral intake. Patient was started on normal saline with improvement of creatinine from 1.97- 1.74. (5) Hyperkalemia ICD Code: E87.5 - Hyperkalemia Status: Resolved Plan: Potassium of 6.9 on admission. Patient developed hypokalemia after that. This was replaced and now potassium is within normal range. (6) Dehydration with hypernatremia ICD Code: E87.0 - Hyperosmolality and hypernatremia Status: Resolved Plan: Patient with a sodium 154 which trended up to 160. Hyponatremia was treated with hypotonic saline. Sodium is within normal range. Continue to monitor BMP. (7) Seizure disorder ICD Code: G40.909 - Epilepsy, unspecified, not intractable, without status epilepticus Plan: Continue Ativan as needed for seizure. The patient is on Dilantin 125 mg every 8, Topamax 200 g daily. Albumin corrected Dilantin level 13.6 on 01/15. No seizures reported. (8) Hypertensive urgency ICD Code: I16.0 - Hypertensive urgency Plan: Treated the patient with Cardizem drip which has been discontinued. The patient is currently on clonidine 0.3 mg p.o. every 8 hours. Clonidine patch 0.2 mg q. 7 days. Metoprolol tartrate 100 mg p.o. every 12 hours. Hydralazine 50 mg p.o. every 6 hours. Continue labetalol IV as needed for elevated systolic blood pressure below 160. Blood pressure still labile. We will continue to monitor vital signs and adjust antihypertensive medications. 01/31 Cardene drip had to be resumed. Since patient is not very compliant with oral medications I will increase clonidine patch to 0.3 mg every 7 days. 02/01 still on Cardenine drip. Titrate Cardene drip to off. discussed with RN. (9) Hypokalemia ICD Code: E87.6 - Hypokalemia Plan: Resolved. Continue to monitor BMP and replace as needed. (10) 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 - Unspecified visual loss Plan: - fall precautions - Continue seroquel 200 mg po tid. Change in Klonopin from as needed to scheduled per palliative care recommendations, will administer Ativan if refusing Klonopin s Trazodone held since admission, will continue to hold due to initiation of linezolid (11) HCAP (healthcare-associated pneumonia) ICD Code: J18.9 - Pneumonia, unspecified organism Plan: DuoNeb CPAP CXR 01/20: Atelectasis/consolidation in the left lung base. This is mildly improved compared to previous study of 01/17/18. was recently switched form vanc to linezolid; s/p tx w/ zosyn and zithromax; procal elevated, continue zyvox; afebrile (12) Poor appetite ICD Code: R63.0 - Anorexia Status: Acute Plan: Continue to monitor oral intake. 01/30 start Megace. 02/01 Continue MEgace. (13) DVT (deep venous thrombosis) ICD Code: I82.409 - Acute embolism and thrombosis of unspecified deep veins of unspecified lower extremity Plan: Occlusive thrombus in the right basilic vein. Left upper extremity occlusive thrombus within the subclavian, axillary and basilic veins. Hematology consulted. Patient currently on heparin drip. Hematology recommends Eliquis 2.5 mg p.o. twice daily on discharge. If patient is discharged on hospice will defer to hospice attending for anticoagulation. 01/30 Dc heparin Iv and start Eliquis as indicated above. 02/01 Patient on eliquis, no sign of active bleeding. (14) Thrombocytopenia ICD Code: D69.6 - Thrombocytopenia, unspecified Status: Resolved Plan: Hematology consulted. Patient platelets dropped down to 95K, however now platelets are within normal range. (15) Loose stools ICD Code: R19.5 - Other fecal abnormalities Plan: C. difficile on 01/31 negative. (16) Low grade fever ICD Code: R50.9 - Fever, unspecified Plan: Patient has had a low-grade fever which started on 01/27 and repeated again on 01/30. T-max 100.3. UA suspicious for UTI. Patient had a UTI on admission and urine culture grew Proteus mirabilis. The patient at the time was treated with IV Zosyn. 02/01 no further fevers. Continue Rocephin. Assessment and Plan DVT prophylaxis: On IV heparin drip. Discharge Planning Discharge pending clinical improvement and stabilization of blood pressure. Continue to monitor intensive care unit. Problem Qualifiers (1) Sepsis: Qualified Codes: A41.9 - Sepsis, unspecified organism (2) Acute renal failure: Qualified Codes: N17.9 - Acute kidney failure, unspecified Jim Martin MD Feb 01, 2018 19:08
[2018-02-01] MEDS: FAMOTIDINE 20 MG/2 ML VIAL IV PUSH SCH (21:00)
--- NOTE | 2018-02-01 23:51 | PD.ONC.PN ---
Subjective Subjective Remarks Resting in bed. Nonverbal. Objective Data Date Time Temp Pulse Resp B/P (MAP) Pulse Ox O2 Delivery O2 Flow Rate FiO2 02/01/18 18:00 92 02/01/18 16:00 78 02/01/18 16:00 97.8 84 28 127/65 (85) 100 02/01/18 14:00 84 02/01/18 12:00 98.8 90 22 166/87 (113) 100 02/01/18 12:00 87 02/01/18 10:00 86 02/01/18 08:00 83 02/01/18 08:00 99.0 126 24 156/70 (98) 100 02/01/18 06:00 115 02/01/18 04:00 86 02/01/18 04:00 98.4 86 22 165/79 (107) 96 02/01/18 02:49 79 172/84 02/01/18 02:00 88 02/01/18 00:00 98.3 84 20 132/66 (88) 100 02/01/18 00:00 84 Result Diagram: 01/31/18 0601/31/18600 Laboratory Results Laboratory Tests Test 02/01/18 04:26 Activated Partial Thromboplast Time 26.6 SEC Culture Results Microbiology Date/Time Source Procedure Growth Status 01/31/18 03:08 Stool Stool Cyclospora Exam - Final NO CYCLOSPORA SEEN Complete 01/31/18 03:08 Stool Stool Cryptosporidium Exam - Final NEGATIVE - NO CRYPTOSPORIDIUM ANTIGEN... Complete 01/31/18 03:08 Stool Stool Stool Pus (DENISHA) - Final NO WBC'S SEEN Complete 01/31/18 03:08 Stool Stool Giardia Antigen (DENISHA) - Final NEGATIVE - NO GIARDIA ANTIGEN DETECTE... Complete 01/31/18 03:08 Stool Stool - Final NO ENTERIC PATHOGENS DETECTED BY PCR... Complete 01/31/18 03:08 Stool Stool Rotavirus Antigen - Final NEGATIVE - ROTAVIRUS ANTIGEN IS ABSEN... Complete 01/31/18 03:08 Stool Stool Stool Occult Blood (DENISHA) - Final HEMOCCULT NEGATIVE Complete 01/30/18 11:00 Urine Catheterized Urine Urine Culture - Final NO GROWTH IN 48 HOURS. Complete Administered Medications Medications (Trade) Dose Ordered Sig/Sally Route PRN Reason Start Time Stop Time Status Last Admin Dose Admin Sodium Chloride (NS Flush) 2 ml UNSCH PRN IV FLUSH FLUSH AFTER USING IV ACCESS 01/14/18 17:45 01/29/18 13:39 Sodium Chloride (NS Flush) 2 ml BID IV FLUSH 01/14/18 21:00 02/01/18 21:00 Acetaminophen (Tylenol) 650 mg Q6H PRN PO PAIN 1 TO 5 AND/OR FEVER >101F 01/14/18 17:45 01/21/18 20:40 Chlorhexidine Gluconate (Peridex 0.12% Liq) 15 ml BID@08,20 MT 01/14/18 20:00 02/01/18 08:00 Chlorhexidine Gluconate (Chlorhexidine 2% Cloth) Taper DAILY@04 TOP 01/15/18 04:00 01/11/19 03:59 01/25/18 04:00 Famotidine (Pepcid Inj) 20 mg HS IV PUSH 01/14/18 21:00 02/01/18 21:00 Lorazepam (Ativan Inj) 1 mg Q2H PRN IV PUSH seizures 01/14/18 22:00 01/26/18 05:24 Phenytoin (Dilantin Liq) 125 mg Q8HR PO 01/15/18 06:00 02/01/18 22:00 Quetiapine Fumarate (SEROquel) 200 mg TID PO 01/15/18 09:00 02/01/18 18:00 Topiramate (Topamax) 200 mg DAILY PO 01/15/18 09:00 02/01/18 09:58 Hydralazine HCl (Apresoline Inj) 20 mg Q4H PRN IV PUSH SBP >160 01/14/18 22:15 01/31/18 02:05 Albuterol/ Ipratropium (Duoneb Neb) 1 ampule Q2HR NEB PRN NEB SHORTNESS OF BREATH 01/18/18 13:30 01/26/18 17:11 Labetalol HCl (Trandate Inj) 10 mg Q4H PRN IV PUSH SYS BP GREATER THAN 170 MMHG 01/20/18 05:00 01/30/18 23:56 Clonazepam (KlonoPIN) 1 mg Q8H PRN PO ANXIETY 01/22/18 14:15 01/26/18 21:20 Hydralazine HCl (Apresoline) 50 mg Q6H PO 01/22/18 20:00 02/01/18 20:01 Linezolid (Zyvox) 600 mg Q12HR PO 01/22/18 21:00 02/01/18 21:00 Potassium Bicarb/ Potassium Chloride (K-Lyte Cl Eff) 25 meq Q12HR PO 01/23/18 09:00 02/01/18 21:00 Nifedipine (Procardia) 20 mg Q8HR PO 01/25/18 14:00 02/01/18 22:00 Clonazepam (KlonoPIN) 0.5 mg TID PO 01/26/18 13:00 02/01/18 18:00 Lorazepam (Ativan Inj) 1 mg Q4H PRN IV PUSH agitation not responding to po 01/26/18 09:45 02/01/18 06:56 Metoprolol Tartrate (Lopressor) 100 mg Q12HR PO 01/26/18 09:45 02/01/18 21:00 Nicardipine HCl 50 mg/Sodium Chloride 500 ml @ 50 mls/hr TITRATE PRN IV Blood pressure management 01/27/18 19:00 02/01/18 02:49 Sodium Chloride 1,000 ml @ 100 mls/hr Q10H IV 01/30/18 10:00 02/01/18 13:00 Clonidine (Catapres-Tts 0.2 Mg Patch.7d) 1 patch Q7D T-DERMAL 01/30/18 16:00 01/30/18 16:55 Miscellaneous Information 1 Q7D T-DERMAL 01/30/18 17:00 01/30/18 16:56 Apixaban (Eliquis) 2.5 mg BID PO 01/30/18 21:00 02/01/18 21:00 Ceftriaxone Sodium 2000 mg/ Sodium Chloride 100 ml @ 200 mls/hr Q24H IV 01/31/18 17:00 02/01/18 17:00 Clonidine (Catapres) 0.2 mg Q8HR PO 01/31/18 14:00 02/01/18 22:00 Objective Remarks GENERAL: thin, chronically ill appearing. SKIN: Warm and dry. HEAD: Normocephalic. CARDIOVASCULAR: Regular rate and rhythm without murmurs. RESPIRATORY: Breath sounds equal bilaterally. No accessory muscle use. GASTROINTESTINAL: Abdomen soft, non-tender, nondistended. EXTREMITIES: No cyanosis, or edema. MUSCULOSKELETAL: thin, decreased muscle tone. NEUROLOGICAL: blind, deaf Assessment/Plan Problem List: (1) DVT (deep venous thrombosis) ICD Codes: I82.409 - Acute embolism and thrombosis of unspecified deep veins of unspecified lower extremity Plan: --Ultrasound shows DVT in the bilateral upper extremities --On heparin drip Assessment 47y/o male admitted with AMS. Hematology consulted for thrombocytopenia + DVT in bilateral UE. history of cerebral palsy, hypertension, baseline agitation, seizure disorder, on Topamax and Dilantin, who was brought into the emergency department on January 14 with fever and altered mental status. Plan 1. Upper extremity VTE: Currently on apixaban 2.5mg PO BID. Would continue on anticoagulation for 2 months. Risks versus benefits of anticoagulation. Patient with variable oral intake and renal function. Risks vs benefits of anticoagulation. Currently being weaned off of nicardipine gtt. Palliative care team following. Tatyana Rose MD Feb 01, 2018 23:51
[2018-02-02] VITALS (12 sets, daily range): BP systolic 140–183; BP diastolic 66–90; PULSE 70–122; RESP 24–48; TEMP 97.9–98.5; O2SAT 94–100
[2018-02-02] MEDS: SODIUM CHLOR 0.9% 1000 ML INJ 1,000 ML IV SCH ×2 (01:30→18:00)
[2018-02-02] MEDS: hydrALAZINE HCL 50 MG TAB PO SCH ×4 (02:07→21:32)
[2018-02-02] MEDS: MAGNESIUM SULFATE 1 GM PREMIX 100 ML IV SCH (02:15)
[2018-02-02] MEDS: CHLORHEXIDINE GLUCONATE 2 % 1 PACK (2 CLOTHS) TOP SCH (04:00)
[2018-02-02] MEDS: LORazepam 2 MG/ML VIAL IV PUSH PRN ×4 (04:15→17:22)
[2018-02-02 04:58] LABS: HEMATOCRIT 34.8 % (39.0-51.0); HEMOGLOBIN 11.4 GM/DL (13.0-17.0); MEAN CELL VOLUME 85.4 FL (80.0-100.0); MEAN CORPUSCULAR HGB CONC 32.8 % (32.0-36.0); PLATELET COUNT 271 TH/MM3 (150-450); RED BLOOD COUNT 4.07 MIL/MM3 (4.50-5.90); RED CELL DISTRIBUTION WIDTH 15.5 % (11.6-17.2); WHITE BLOOD COUNT 3.5 TH/MM3 (4.0-11.0)
[2018-02-02] MEDS: INSULIN ASPART SUPPLEMENTAL SCALE SQ SCH ×4 (06:00→17:25)
[2018-02-02] MEDS: cloNIDine HCL 0.2 MG TAB PO SCH ×3 (06:07→21:32)
[2018-02-02] MEDS: NIFEdipine 20 MG CAP PO SCH ×3 (06:07→21:34)
[2018-02-02] MEDS: PHENYTOIN SUSP 100 MG/4 ML CUP PO SCH ×3 (06:07→21:34)
[2018-02-02] MEDS: niCARdipine INJ 50 MG in SODIUM CHLORID 0.9% 500 ML INJ 480 ML IV PRN (06:33)
[2018-02-02] MEDS: CHLORHEXIDINE 0.12% (ORAL KIT) 15 ML CUP MT SCH (08:00)
[2018-02-02] MEDS: MEGESTROL ACETATE SUSP 400 MG/10 ML CUP PO SCH (09:22)
[2018-02-02] MEDS: METOPROLOL TARTRATE 100 MG TAB PO SCH ×2 (09:22→21:32)
[2018-02-02] MEDS: POTASSIUM CHLORIDE 25 MEQ EFFERVESCENT TAB PO SCH ×2 (09:22→21:45)
[2018-02-02] MEDS: QUEtiapine FUMARATE 200 MG TAB PO SCH ×3 (09:23→18:00)
[2018-02-02] MEDS: LINEZOLID 600 MG TAB PO SCH ×2 (09:23→21:32)
[2018-02-02] MEDS: clonazePAM 0.5 MG TAB PO SCH ×3 (09:23→18:00)
[2018-02-02] MEDS: TOPIRAMATE 200 MG TAB PO SCH (09:23)
[2018-02-02] MEDS: APIXABAN 2.5 MG TABLET PO SCH ×2 (09:23→21:33)
[2018-02-02] MEDS: SODIUM CHLORIDE 0.9% FLUSH 10 ML FLUSH IV FLUSH SCH ×2 (09:24→21:00)
--- NOTE | 2018-02-02 11:18 | HHI.NPPN ---
Subjective History of Present Illness 47 year old male with cerebral palsy, blindness KATHERINE,CKD, HTN Objective Data Data Vital Signs Date Time Temp Pulse Resp B/P (MAP) Pulse Ox O2 Delivery O2 Flow Rate FiO2 02/02/18 10:00 97 02/02/18 08:00 95 02/02/18 06:33 100 170/77 02/02/18 06:00 86 02/02/18 04:00 86 02/02/18 04:00 98.5 86 48 183/87 (119) 94 02/02/18 02:00 70 02/02/18 00:00 97.9 74 39 153/79 (103) 98 02/02/18 00:00 74 02/01/18 22:00 106 02/01/18 21:45 96 153/83 02/01/18 20:00 96 02/01/18 20:00 98.2 96 40 142/78 (99) 95 02/01/18 18:00 92 02/01/18 16:00 78 02/01/18 16:00 97.8 84 28 127/65 (85) 100 02/01/18 14:00 84 02/01/18 12:00 98.8 90 22 166/87 (113) 100 02/01/18 12:00 87 -: 02/02/18 0402 01/31/18 0601 Physical Exam General Appearance: Anxious Pulmonary Resp Exam: Clear Bilaterally Cardiology CV Exam: Tachycardia Gastrointestinal/Abdomen GI Exam: Soft, Bowel Sounds Present Extremeties Extremities Exam: No Edema Extremeties Remarks contractures Assessment/Plan Problem List: (1) KATHERINE (acute kidney injury) ICD Codes: N17.9 - Acute kidney failure, unspecified Plan: improved with hydration last cr 1.74 no bmp done challenging as refuses medications, pulls things, not eating well (2) Hypertensive urgency ICD Codes: I16.0 - Hypertensive urgency Plan: BP better Cardene drip (3) Cerebral palsy ICD Codes: G80.9 - Cerebral palsy, unspecified (4) CKD (chronic kidney disease) stage 3, GFR 30-59 ml/min ICD Codes: N18.3 - Chronic kidney disease, stage 3 (moderate) Plan: US showed smaller echogenic kidneys keep well hydrated GFR 51 Jarrod Bangura MD Feb 02, 2018 11:18
--- NOTE | 2018-02-02 12:14 | HHI.HCPN ---
Reason for visit a. To assist with evaluation and management of symptoms including: Agitation , anxiety b. To assist medical decision maker(s) with: better understanding of current medical conditions; weighing benefits/burdens of medical treatment options; making medical treatment decisions. Subjective/Interval History Patient seen to follow-up on goals of care and symptom management. Continues to refuse most food and medications, refusing to open his mouth for the RN this morning, after receiving about half of his pills. Blood pressure remains elevated with need for continued Cardene drip. He is receiving Catapres 0.2 mg transdermal patch. His blood pressure remains elevated in the 170s/180s despite the Cardene drip and transdermal patch. He remains agitated, thrashing in the bed and screaming. Laboratory studies: WBC 3.5, hemoglobin 11.4, hematocrit 34.8, platelets 271. Stool culture is Hemoccult, rotavirus Cyclospora, Cryptosporidium, Giardia and C. difficile negative. . Family/friend interactions Patient has no known acquaintances or family. He is followed by [facility]. . Advance Directives Living Will: Never completed Health Care Surrogate: Never completed Durable Power of Jack Prizer: Never completed Objective Vital Signs Date Time Temp Pulse Resp B/P (MAP) Pulse Ox O2 Delivery O2 Flow Rate FiO2 02/02/18 10:00 97 02/02/18 08:00 95 02/02/18 08:00 98.0 100 25 171/66 (101) 94 02/02/18 06:33 100 170/77 02/02/18 06:00 86 02/02/18 04:00 86 02/02/18 04:00 98.5 86 48 183/87 (119) 94 02/02/18 02:00 70 02/02/18 00:00 97.9 74 39 153/79 (103) 98 02/02/18 00:00 74 02/01/18 22:00 106 02/01/18 21:45 96 153/83 02/01/18 20:00 96 02/01/18 20:00 98.2 96 40 142/78 (99) 95 02/01/18 18:00 92 02/01/18 16:00 78 02/01/18 16:00 97.8 84 28 127/65 (85) 100 02/01/18 14:00 84 Intake & Output 02/02/18 02/02/18 07:00 19:00 Intake Total 2480 ml Balance 2480 ml Intake Oral 480 ml IV Total 2000 ml # Voids 5 # Bowel Movements 3 Physical Exam CONSTITUTIONAL/GENERAL: This is a disabled, contracted, intermittently agitated male, restrained in bed. TUBES/LINES/DRAINS: PIV. EYES: Patient resistant to exam, unable to assess. Blind. ENT: Hearing impaired NECK: Trachea midline. Supple. No palpable thyroid enlargement or nodularity. CARDIOVASCULAR: Regular rhythm, intermittently tachycardic rate, 1+ dependent edema. Diminished pulses. RESPIRATORY/CHEST: Mildly tachypneic. Lungs diminished, clear. GASTROINTESTINAL: Abdomen soft, nondistended. GENITOURINARY: Without palpable bladder distension. MUSCULOSKELETAL: Swelling in both bilateral upper extremities, muscle wasting seen in bilateral lower extremities with contractures, foot drop, trace edema NEUROLOGICAL: blind, deaf, unable to communicate, able to spontaneously move extremities, not to command. PSYCHIATRIC: Resting quietly now, still shrieks out from time to time. . Diagnostic Tests Laboratory Laboratory Tests Test 01/31/18 03:08 01/31/18 06:01 02/01/18 04:26 02/02/18 04:02 Stool C. difficile Toxin (PCR) NEGATIVE (NEGATIVE) Stl C. difficile Toxin Epiderm 027 PRESUMPTIVE NEGATIVE White Blood Count 5.3 TH/MM3 (4.0-11.0) 3.5 TH/MM3 (4.0-11.0) Red Blood Count 4.43 MIL/MM3 (4.50-5.90) 4.07 MIL/MM3 (4.50-5.90) Hemoglobin 12.3 GM/DL (13.0-17.0) 11.4 GM/DL (13.0-17.0) Hematocrit 38.2 % (39.0-51.0) 34.8 % (39.0-51.0) Mean Corpuscular Volume 86.1 FL (80.0-100.0) 85.4 FL (80.0-100.0) Mean Corpuscular Hemoglobin 27.7 PG (27.0-34.0) 28.0 PG (27.0-34.0) Mean Corpuscular Hemoglobin Concent 32.1 % (32.0-36.0) 32.8 % (32.0-36.0) Red Cell Distribution Width 15.8 % (11.6-17.2) 15.5 % (11.6-17.2) Platelet Count 288 TH/MM3 (150-450) 271 TH/MM3 (150-450) Mean Platelet Volume 9.1 FL (7.0-11.0) 9.0 FL (7.0-11.0) Neutrophils (%) (Auto) 67.2 % (16.0-70.0) Lymphocytes (%) (Auto) 19.6 % (9.0-44.0) Monocytes (%) (Auto) 9.6 % (0.0-8.0) Eosinophils (%) (Auto) 2.3 % (0.0-4.0) Basophils (%) (Auto) 1.3 % (0.0-2.0) Neutrophils # (Auto) 3.5 TH/MM3 (1.8-7.7) Lymphocytes # (Auto) 1.0 TH/MM3 (1.0-4.8) Monocytes # (Auto) 0.5 TH/MM3 (0-0.9) Eosinophils # (Auto) 0.1 TH/MM3 (0-0.4) Basophils # (Auto) 0.1 TH/MM3 (0-0.2) CBC Comment DIFF FINAL Differential Comment Blood Urea Nitrogen 8 MG/DL (7-18) Creatinine 1.74 MG/DL (0.60-1.30) Random Glucose 94 MG/DL (74-106) Total Protein 7.5 GM/DL (6.4-8.2) Albumin 2.8 GM/DL (3.4-5.0) Calcium Level 8.7 MG/DL (8.5-10.1) Alkaline Phosphatase 102 U/L (45-117) Aspartate Amino Transf (AST/SGOT) 26 U/L (15-37) Alanine Aminotransferase (ALT/SGPT) 52 U/L (12-78) Total Bilirubin 0.2 MG/DL (0.2-1.0) Sodium Level 141 MEQ/L (136-145) Potassium Level 3.5 MEQ/L (3.5-5.1) Chloride Level 108 MEQ/L (98-107) Carbon Dioxide Level 21.9 MEQ/L (21.0-32.0) Anion Gap 11 MEQ/L (5-15) Estimat Glomerular Filtration Rate 51 ML/MIN (>89) Activated Partial Thromboplast Time 26.6 SEC (24.3-30.1) 27.4 SEC (24.3-30.1) Result Diagram: 02/02/18 0402 01/31/18 0601 Microbiology Microbiology Date/Time Source Procedure Growth Status 01/31/18 03:08 Stool Stool Cyclospora Exam - Final NO CYCLOSPORA SEEN Complete 01/31/18 03:08 Stool Stool Cryptosporidium Exam - Final NEGATIVE - NO CRYPTOSPORIDIUM ANTIGEN... Complete 01/31/18 03:08 Stool Stool Stool Pus (DENISHA) - Final NO WBC'S SEEN Complete 01/31/18 03:08 Stool Stool Giardia Antigen (DENISHA) - Final NEGATIVE - NO GIARDIA ANTIGEN DETECTE... Complete 01/31/18 03:08 Stool Stool - Final NO ENTERIC PATHOGENS DETECTED BY PCR... Complete 01/31/18 03:08 Stool Stool Rotavirus Antigen - Final NEGATIVE - ROTAVIRUS ANTIGEN IS ABSEN... Complete 01/31/18 03:08 Stool Stool Stool Occult Blood (DENISHA) - Final HEMOCCULT NEGATIVE Complete Procedures 01/14/18: Endotracheal intubation 01/17/2018: Endotracheal intubation due to tube dislodgment . Assessment and Plan Disease Oriented Problem List: (1) Cerebral palsy (2) DVT (deep venous thrombosis) (3) Seizure disorder (4) Acute hypoxemic respiratory failure (5) Hyperkalemia Symptom Scale: (1) Agitation 0-10 Scale: Unable to quantify (2) Anxiety 0-10 Scale: Unable to quantify Pertinent Non-Medical Issues Psychosocial: Resides in a long term facility. No family and contact for years. Spiritual: Unobtainable Legal: Social work Sherin akhtar, decision-maker while in hospital. Ethical issues impacting care: No decision-maker. . Important Contacts [facility] nurse outreach case manager: Shrein Vivas (cell), fax [phone]. . Prognosis His prognosis is guarded. He is at significant risk of compromise due to his inability to communicate, seizure disorder, cerebral palsy, declining status with dehydration causing hyperkalemia, hypernatremia. Patient was admitted with UTI and pneumonia with sepsis. At this time he is not capacitated to make his own decisions and is refusing food, fluid and medications. [facility] nurse outreach case manager has been signed during hospitalization. He is at risk of continued complication and decline. . Code Status: No Code Plan PLAN: Legal decision maker: Social nelly akhtar, Sherin Vivas . Goals: Comfort oriented. CODE STATUS: DNR SYMPTOMS: * Agitation: His agitation is chronic, likely exacerbating his hypertension. He is ordered clonidine 0.5 mg every 8 hours, as well as 1 mg every 8 hours as needed for anxiety, Seroquel 200 mg p.o. 3 times daily, Lorazepam 1 mg every 4 hours as needed for anxiety, however he has been refusing to cooperate consistently and open his mouth for medication administration. He remains on a Cardene drip for hypertension management. Given his altered mental status and agitation, remains on a Catapres patch 0.2 mg. Will likely need to increase to 0.3 mg * Anxiety: This is likely multifactorial to include unfamiliar stimulus, inability to communicate, baseline disease processes, pain. He was improving on scheduled Klonopin, but is now refusing medications. IV Ativan is available if needed at 1 mg every 4 hours. Last dose 02/01 at 7 AM. Palliative care will continue to follow the patient during hospital course as condition evolves, to assist patient/decision-maker with understanding of their medical conditions, weighing benefits/burdens of treatment options, for clarification of goals of treatment. Additionally will assist with any symptoms of palliative concern. . Attestation To help prompt me to consider important information that might be impacting today's encounter and assessment, information from prior notes written by myself or my colleagues may have been "brought forward" into today's note. My signature on this note, however, is an attestation that I personally performed the exam, history, and/or decision-making noted today, and, unless otherwise indicated, the interactions with patient, family, and staff as well as the review of records all occurred today. I also attest that the listed assessment and stated plan reflect my best clinical judgment today based on the combination of historical information, prior notes, and today's exam/ interactions. When time spent is documented, it refers only to time spent today by the signer, or if indicated, combined time spent today by collaborating physician/nurse practitioner. . Angeline Castellano Feb 02, 2018 12:14 pm
[2018-02-02] MEDS: hydrALAZINE HCL 20 MG/ML VIAL IV PUSH PRN (16:01)
[2018-02-02] MEDS: cefTRIAXone INJ 2,000 MG in SODIUM CHLORIDE 0.9% INJ 100 ML IV SCH (17:00)
[2018-02-02 17:25] LABS: OSMOTIC GAP ND (())
[2018-02-02] MEDS: LABETALOL HCL 100 MG/20 ML VIAL IV PUSH PRN (18:55)
[2018-02-02] MEDS ORDERED: cloNIDine HCL 0.3 MG/24 HR PATCH T-DERMAL SCH (20:00)
[2018-02-02 21:16] LABS: BICARBONATE 23.7 MEQ/L (21.0-32.0); CALCIUM 8.3 MG/DL (8.5-10.1); CREATININE 1.12 MG/DL (0.60-1.30)
[2018-02-02] MEDS: FAMOTIDINE 20 MG/2 ML VIAL IV PUSH SCH (21:33)
[2018-02-02] MEDS ORDERED: POTASSIUM CHLORIDE 10 MEQ CAP PO ONE (21:45)
[2018-02-02] MEDS: POTASSIUM CHLOR 20 MEQ PREMIX 100 ML IV SCH (22:07)
[2018-02-03] VITALS (8 sets, daily range): BP systolic 122–160; BP diastolic 72–92; PULSE 78–102; RESP 20–31; TEMP 98–98.9; O2SAT 98–100
[2018-02-03] MEDS: POTASSIUM CHLOR 20 MEQ PREMIX 100 ML IV SCH (00:11)
[2018-02-03] MEDS: hydrALAZINE HCL 50 MG TAB PO SCH ×2 (03:06→08:44)
[2018-02-03] MEDS ORDERED: MAGNESIUM SULFATE 1 GM PREMIX 100 ML ONE (03:35)
[2018-02-03] MEDS: MAGNESIUM SULFATE 1 GM PREMIX 100 ML IV SCH (03:38)
[2018-02-03] MEDS: CHLORHEXIDINE GLUCONATE 2 % 1 PACK (2 CLOTHS) TOP SCH (04:00)
[2018-02-03] MEDS: SODIUM CHLOR 0.9% 1000 ML INJ 1,000 ML IV SCH (04:06)
[2018-02-03] MEDS: NIFEdipine 20 MG CAP PO SCH (05:14)
[2018-02-03] MEDS: PHENYTOIN SUSP 100 MG/4 ML CUP PO SCH ×2 (05:14→14:48)
[2018-02-03] MEDS: cloNIDine HCL 0.2 MG TAB PO SCH (05:14)
[2018-02-03] MEDS: INSULIN ASPART SUPPLEMENTAL SCALE SQ SCH ×3 (06:34→12:00)
[2018-02-03] MEDS: APIXABAN 2.5 MG TABLET PO SCH (08:43)
[2018-02-03] MEDS: QUEtiapine FUMARATE 200 MG TAB PO SCH ×2 (08:43→12:33)
[2018-02-03] MEDS: clonazePAM 0.5 MG TAB PO SCH ×2 (08:43→12:33)
[2018-02-03] MEDS: CHLORHEXIDINE 0.12% (ORAL KIT) 15 ML CUP MT SCH (08:43)
[2018-02-03] MEDS: LINEZOLID 600 MG TAB PO SCH (08:44)
[2018-02-03] MEDS: TOPIRAMATE 200 MG TAB PO SCH (08:44)
[2018-02-03] MEDS: MEGESTROL ACETATE SUSP 400 MG/10 ML CUP PO SCH (08:44)
[2018-02-03] MEDS: POTASSIUM CHLORIDE 25 MEQ EFFERVESCENT TAB PO SCH (08:44)
[2018-02-03] MEDS: SODIUM CHLORIDE 0.9% FLUSH 10 ML FLUSH IV FLUSH SCH (08:44)
[2018-02-03] MEDS: METOPROLOL TARTRATE 100 MG TAB PO SCH (08:44)
[2018-02-03 09:57] LABS: HEMATOCRIT 35.7 % (39.0-51.0); HEMOGLOBIN 11.5 GM/DL (13.0-17.0); MEAN CELL VOLUME 86.5 FL (80.0-100.0); MEAN CORPUSCULAR HGB CONC 32.3 % (32.0-36.0); MEAN PLATELET VOLUME 8.7 FL (7.0-11.0); PLATELET COUNT 231 TH/MM3 (150-450); RED BLOOD COUNT 4.12 MIL/MM3 (4.50-5.90); RED CELL DISTRIBUTION WIDTH 15.8 % (11.6-17.2); WHITE BLOOD COUNT 3.2 TH/MM3 (4.0-11.0)
[2018-02-03 10:20] LABS: BICARBONATE 23.7 MEQ/L (21.0-32.0); CALCIUM 8.3 MG/DL (8.5-10.1); CREATININE 1.3 MG/DL (0.60-1.30)
[2018-02-03] MEDS ORDERED: NIFEdipine 20 MG CAP PO SCH (11:00)
[2018-02-03] MEDS ORDERED: APIX2.5T PO (11:04)
[2018-02-03] MEDS ORDERED: Megestrol Liq PO (11:04)
[2018-02-03] MEDS ORDERED: CLON.2 PO (11:04)
[2018-02-03] MEDS ORDERED: HYDR-3801 PO (11:04)
[2018-02-03] MEDS ORDERED: ZYVO600T PO (11:04)
[2018-02-03] MEDS ORDERED: NIFE20 PO (11:04)
[2018-02-03] MEDS ORDERED: CLON.5 PO (11:04)
[2018-02-03] MEDS ORDERED: METO-338 PO (11:04)
[2018-02-03] MEDS ORDERED: CLON.3T T-DERMAL (11:04)
[2018-02-03] MEDS ORDERED: NORC5TAB PO (11:05)
--- NOTE | 2018-02-03 11:12 | HHI.DCPOC ---
Discharge Care Plan Diagnosis: (1) Blind (2) Dehydration with hypernatremia (3) Sepsis (4) Poor appetite (5) Hyperkalemia (6) Hypokalemia (7) Seizure disorder (8) Tachy-deisy syndrome (9) Agitation (10) Seizure disorder (11) Cerebral palsy (12) Anxiety (13) DVT (deep venous thrombosis) (14) Hypertensive urgency (15) HCAP (healthcare-associated pneumonia) (16) Acute hypoxemic respiratory failure (17) KATHERINE (acute kidney injury) (18) CKD (chronic kidney disease) stage 3, GFR 30-59 ml/min Goals to Promote Your Health * To prevent worsening of your condition and complications * To maintain your health at the optimal level Directions to Meet Your Goals Take your medications as prescribed Follow your dietary instruction Follow activity as directed Keep your appointments as scheduled Take your immunizations and boosters as scheduled If your symptoms worsen call your PCP, if no PCP go to Urgent Care Center or Emergency Room Smoking is Dangerous to Your Health. Avoid second hand smoke Call the 24-hour hour crisis hotline for domestic abuse at Jim Martin MD Feb 03, 2018 11:12
--- NOTE | 2018-02-03 11:22 | HHI.PR ---
Subjective Remarks late entry - patient seen on 02/02 Patient non verbal looks calm bp still elevated Objective Vitals Vital Signs Date Time Temp Pulse Resp B/P (MAP) Pulse Ox O2 Delivery O2 Flow Rate FiO2 02/03/18 10:00 78 02/03/18 08:00 102 02/03/18 08:00 98.9 102 24 132/76 (94) 99 02/03/18 06:00 90 02/03/18 04:00 98.0 94 20 158/86 (110) 100 02/03/18 04:00 94 02/03/18 02:45 82 164/99 02/03/18 02:00 78 02/03/18 00:45 80 107/68 02/03/18 00:00 82 02/03/18 00:00 98.1 82 20 143/86 (105) 99 02/02/18 22:00 80 02/02/18 20:00 98.3 98 24 167/87 (113) 100 02/02/18 20:00 104 02/02/18 18:00 112 02/02/18 16:00 98.2 122 28 183/90 (121) 99 02/02/18 16:00 109 02/02/18 14:00 91 02/02/18 12:00 89 02/02/18 12:00 98.2 101 24 140/84 (102) 98 I/O 02/02/18 02/02/18 02/02/18 02/03/18 02/03/18 02/03/18 07:00 15:00 23:00 07:00 15:00 23:00 Intake Total 1980 ml 1300 ml 1820 ml 620 ml Balance 1980 ml 1300 ml 1820 ml 620 ml Intake Oral 480 ml 50 ml 420 ml IV Total 1500 ml 1250 ml 1400 ml 620 ml # Voids 5 5 2 # Bowel Movements 3 1 1 Result Diagram: 02/03/18 0940 02/03/18 0940 Imaging Last Impressions Renal Ultrasound 01/30/18 0000 Signed Impressions: Service Date/Time: Tuesday, January 30, 2018 14:43 - CONCLUSION: 1. Bilateral echogenic kidneys suggesting underlying medical renal disease. 2. No hydronephrosis identified. Arnulfo Naranjo MD Chest X-Ray 01/28/18 0000 Signed Impressions: Service Date/Time: Sunday, January 28, 2018 14:18 - CONCLUSION: Cardiomegaly. No focal infiltrate or pulmonary vascular congestion Pedrito Hastings MD Upper Extremity Ultrasound 01/18/18 0000 Signed Impressions: Service Date/Time: Thursday, January 18, 2018 22:27 - CONCLUSION: 1. In the right upper extremity, there is occlusive thrombus within the basilic vein. The remaining veins of the left upper extremity are patent. 2. In the left upper extremity, there is occlusive thrombus within the subclavian, axillary, and basilic veins. Bernardo Redd MD Lower Extremity Ultrasound 01/18/18 0000 Signed Impressions: Service Date/Time: Thursday, January 18, 2018 22:13 - CONCLUSION: No DVT or superficial venous thrombosis is identified within either lower extremity. Bernardo Redd MD Chest CT 01/14/18 0000 Signed Impressions: Service Date/Time: Sunday, January 14, 2018 19:56 - CONCLUSION: 1. Posterior bibasilar patchiness consistent with pneumonia or atelectasis. Clinical correlation is recommended. 2. Cardiomegaly. 3. Tiny pericardial effusion. 4. Tiny bilateral pleural effusions. 5. Degenerative changes and scoliosis of the thoracic spine. Pedrito Hastings MD Abdomen/Pelvis CT 01/14/18 0000 Signed Impressions: Service Date/Time: Sunday, January 14, 2018 19:56 - CONCLUSION: 1. Patchy infiltrate within the posterior lung bases bilaterally raising possibility of atelectasis or pneumonia. 2. Tiny bilateral pleural effusions. 3. Cardiomegaly and tiny pericardial effusion. 4. Hepatomegaly. 5. Scattered low-density lesions throughout the liver which are indeterminate in etiology. 6. 1.9 cm right adrenal nodule consistent with probable adrenal adenoma. 7. Uncomplicated colonic diverticulosis. 8. Diffuse urinary bladder wall thickening raising the possibility of cystitis. Clinical correlation is recommended. 9. Degenerative changes and scoliosis of the thoraco-lumbar spine. Pedrito Hastings MD Objective Remarks PAtient is awake, patient agitated since being cleaned by RN Clear lungs S1S2 RRR abdomen soft, nt, nd no edema in lower extremities Medications and IVs Current Medications Medications (Trade) Dose Ordered Sig/Sally Route Start Time Stop Time Status Last Admin (NS Flush) 2 ml UNSCH PRN IV FLUSH 01/14/18 17:45 01/29/18 13:39 (NS Flush) 2 ml BID IV FLUSH 01/14/18 21:00 02/02/18 09:24 (Tylenol) 650 mg Q6H PRN PO 01/14/18 17:45 01/21/18 20:40 (Peridex 0.12% Liq) 15 ml BID@08,20 MT 01/14/18 20:00 02/03/18 08:43 Miscellaneous Information 1 Q361D XX 01/14/18 17:45 (Chlorhexidine 2% Cloth) 3 pack Taper DAILY@04 TOP 01/15/18 04:00 01/11/19 03:59 01/25/18 04:00 (Chlorhexidine 2% Cloth) 3 pack UNSCH PRN TOP 01/14/18 17:45 (NovoLOG SUPPLEMENTAL SCALE) 1 Q6HR SQ 01/14/18 18:00 (Pepcid Inj) 20 mg HS IV PUSH 01/14/18 21:00 02/02/18 21:33 (Ativan Inj) 1 mg Q2H PRN IV PUSH 01/14/18 22:00 02/02/18 13:22 (Dilantin Liq) 125 mg Q8HR PO 01/15/18 06:00 02/03/18 05:14 (SEROquel) 200 mg TID PO 01/15/18 09:00 02/03/18 08:43 (Topamax) 200 mg DAILY PO 01/15/18 09:00 02/03/18 08:44 (Apresoline Inj) 20 mg Q4H PRN IV PUSH 01/14/18 22:15 02/02/18 16:01 (Duoneb Neb) 1 ampule Q2HR NEB PRN NEB 01/18/18 13:30 01/26/18 17:11 (Trandate Inj) 10 mg Q4H PRN IV PUSH 01/20/18 05:00 02/02/18 18:55 (KlonoPIN) 1 mg Q8H PRN PO 01/22/18 14:15 01/26/18 21:20 (Zyvox) 600 mg Q12HR PO 01/22/18 21:00 02/03/18 08:44 (KlonoPIN) 0.5 mg TID PO 01/26/18 13:00 02/03/18 08:43 (Ativan Inj) 1 mg Q4H PRN IV PUSH 01/26/18 09:45 02/02/18 17:22 (Lopressor) 100 mg Q12HR PO 01/26/18 09:45 02/03/18 08:44 (Eliquis) 2.5 mg BID PO 01/30/18 21:00 02/03/18 08:43 (Megace Liq) 400 mg DAILY PO 02/01/18 09:00 02/03/18 08:44 (Catapres-Tts 0.3 Mg Patch.7d) 1 patch Q7D T-DERMAL 02/02/18 20:00 02/02/18 21:32 Miscellaneous Information 1 Q7D T-DERMAL 02/09/18 20:00 (Catapres) 0.4 mg Q8HR PO 02/03/18 14:00 (Apresoline) 100 mg Q6H PO 02/03/18 14:00 (Procardia) 60 mg Q8H PO 02/03/18 11:00 (KCl) 60 meq ONCE ONCE PO 02/03/18 12:00 02/03/18 12:01 A/P Problem List: (1) Sepsis ICD Code: A41.9 - Sepsis, unspecified organism Status: Resolved Plan: This is a 47-year-old -[place] male with past medical history significant for cerebral palsy, hypertension, agitation at baseline, seizure disorder on Topamax and Dilantin was brought to the emergency room for fever and altered mental status. The patient was also descending into the 70s, the patient was intubated due to hypoxic respiratory failure and for airway protection as well. UA showed UTI, CT chest showed bibasilar infiltrates indicating possible pneumonia. The patient was started empirically on IV broad spectrum antibiotics with IV vancomycin, Zosyn and azithromycin. Patient extubated on 01/18. 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 (2) Acute hypoxemic respiratory failure ICD Code: J96.01 - Acute respiratory failure with hypoxia Status: Resolved Plan: Status post intubation and mechanical ventilation and posterior extubation. Likely secondary to healthcare associated pneumonia due to MRSA. Status post treatment with broad spectrum IV antibiotics Continue Zyvox. Status post intubation and mechanical ventilation and posterior extubation. Likely secondary to healthcare associated pneumonia due to MRSA. Status post treatment with broad spectrum IV antibiotics Continue Zyvox total 14 days (3) Acute encephalopathy ICD Code: G93.40 - Encephalopathy, unspecified Status: Resolved Plan: Likely metabolic encephalopathy. Neurological status has been monitored. Trazodone held since admission. Continue to hold due to initiation of linezolid. (4) Acute renal failure ICD Code: N17.9 - Acute kidney failure, unspecified Status: Acute Plan: 01/31 nephrology consulted. Appreciate recommendations. Discussed the case on 01/[address] Bell. Increasing creatinine seems to be secondary to dehydration due to poor oral intake. Patient was started on normal saline with improvement of creatinine from 1.97- 1.74. 02/02 Creatinine improved after IVF. Down to 1.12 (5) Hyperkalemia ICD Code: E87.5 - Hyperkalemia Status: Resolved Plan: Potassium of 6.9 on admission. Patient developed hypokalemia after that. 02/02 K 2.6 sp KCL repletion IV. Continue to monitor BMP (6) Dehydration with hypernatremia ICD Code: E87.0 - Hyperosmolality and hypernatremia Status: Resolved Plan: Patient with a sodium 154 which trended up to 160. Hyponatremia was treated with hypotonic saline. Sodium is within normal range. Continue to monitor BMP. (7) Seizure disorder ICD Code: G40.909 - Epilepsy, unspecified, not intractable, without status epilepticus Plan: Continue Ativan as needed for seizure. The patient is on Dilantin 125 mg every 8, Topamax 200 g daily. Albumin corrected Dilantin level 13.6 on 01/15. No seizures reported. (8) Hypertensive urgency ICD Code: I16.0 - Hypertensive urgency Plan: Treated the patient with Cardizem drip which has been discontinued. The patient is currently on clonidine 0.3 mg p.o. every 8 hours. Clonidine patch 0.2 mg q. 7 days. Metoprolol tartrate 100 mg p.o. every 12 hours. Hydralazine 50 mg p.o. every 6 hours. Continue labetalol IV as needed for elevated systolic blood pressure below 160. Blood pressure still labile. We will continue to monitor vital signs and adjust antihypertensive medications. 01/31 Cardene drip had to be resumed. Since patient is not very compliant with oral medications I will increase clonidine patch to 0.3 mg every 7 days. 02/01 still on Cardenine drip. Titrate Cardene drip to off. discussed with RN. 02/02 BP still elevated, still on cardene. As per RN questionable if patient taking all po meds. Will increase clonidine patch dose to 0.3 mg daily. (9) Hypokalemia ICD Code: E87.6 - Hypokalemia Plan: 02/02 K 2.6 Replace with IV KCL. Monitor bmp. (10) 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 - Unspecified visual loss Plan: - fall precautions - Continue seroquel 200 mg po tid. Change in Klonopin from as needed to scheduled per palliative care recommendations, will administer Ativan if refusing Klonopin s Trazodone held since admission, will continue to hold due to initiation of linezolid (11) HCAP (healthcare-associated pneumonia) ICD Code: J18.9 - Pneumonia, unspecified organism Plan: DuoNeb CPAP CXR 01/20: Atelectasis/consolidation in the left lung base. This is mildly improved compared to previous study of 01/17/18. was recently switched form vanc to linezolid; s/p tx w/ zosyn and zithromax; procal elevated, continue zyvox; afebrile (12) Poor appetite ICD Code: R63.0 - Anorexia Status: Acute Plan: Continue to monitor oral intake. Improved appetite on Megace. (13) DVT (deep venous thrombosis) ICD Code: I82.409 - Acute embolism and thrombosis of unspecified deep veins of unspecified lower extremity Plan: Occlusive thrombus in the right basilic vein. Left upper extremity occlusive thrombus within the subclavian, axillary and basilic veins. Hematology consulted. Patient currently on heparin drip. Hematology recommends Eliquis 2.5 mg p.o. twice daily on discharge. If patient is discharged on hospice will defer to hospice attending for anticoagulation. 01/30 Dc heparin Iv and start Eliquis as indicated above. 02/01 Patient on eliquis, no sign of active bleeding. (14) Thrombocytopenia ICD Code: D69.6 - Thrombocytopenia, unspecified Status: Resolved Plan: Hematology consulted. Patient platelets dropped down to 95K, however now platelets are within normal range. (15) Loose stools ICD Code: R19.5 - Other fecal abnormalities Plan: C. difficile on 01/31 negative. (16) Low grade fever ICD Code: R50.9 - Fever, unspecified Plan: Patient has had a low-grade fever which started on 01/27 and repeated again on 01/30. T-max 100.3. UA suspicious for UTI. Patient had a UTI on admission and urine culture grew Proteus mirabilis. The patient at the time was treated with IV Zosyn. no further fevers. Continue Rocephin. Assessment and Plan DVT prophylaxis: On IV heparin drip. Discharge Planning Discharge pending clinical improvement and stabilization of blood pressure. Continue to monitor intensive care unit. Problem Qualifiers (1) Sepsis: Qualified Codes: A41.9 - Sepsis, unspecified organism (2) Acute renal failure: Qualified Codes: N17.9 - Acute kidney failure, unspecified Jim Martin MD Feb 03, 2018 11:22
--- NOTE | 2018-02-03 11:29 | HHI.DS ---
Discharge Summary Admission Date Jan 14, 2018 at 17:55 Discharge Date: Feb 03, 2018 Admitting Diagnosis respiratory failure, acute renal failure, unresponsive, sepsis (1) Sepsis ICD Code: A41.9 - Sepsis, unspecified organism Status: Resolved (2) Acute hypoxemic respiratory failure ICD Code: J96.01 - Acute respiratory failure with hypoxia Status: Resolved (3) Acute encephalopathy ICD Code: G93.40 - Encephalopathy, unspecified Status: Resolved (4) Acute renal failure ICD Code: N17.9 - Acute kidney failure, unspecified Status: Acute (5) Hyperkalemia ICD Code: E87.5 - Hyperkalemia Status: Resolved (6) Dehydration with hypernatremia ICD Code: E87.0 - Hyperosmolality and hypernatremia Status: Resolved (7) Seizure disorder ICD Code: G40.909 - Epilepsy, unspecified, not intractable, without status epilepticus (8) Hypertensive urgency ICD Code: I16.0 - Hypertensive urgency (9) Hypokalemia ICD Code: E87.6 - Hypokalemia (10) 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 - Unspecified visual loss (11) HCAP (healthcare-associated pneumonia) ICD Code: J18.9 - Pneumonia, unspecified organism (12) Poor appetite ICD Code: R63.0 - Anorexia Status: Acute (13) DVT (deep venous thrombosis) ICD Code: I82.409 - Acute embolism and thrombosis of unspecified deep veins of unspecified lower extremity (14) Thrombocytopenia ICD Code: D69.6 - Thrombocytopenia, unspecified Status: Resolved (15) Loose stools ICD Code: R19.5 - Other fecal abnormalities (16) Low grade fever ICD Code: R50.9 - Fever, unspecified Procedures none Brief History - From Admission Patient is a 47-year-old -[place] male with past medical history significant for cerebral palsy, hypertension, agitation at baseline, seizure disorder on Topamax and Dilantin was brought to the emergency department for fever and altered mental station. Apparently he is usually quite agitated at baseline, over the last 24 hours had been lethargic. Due to the mental status change patient was brought to the ICU. GCS was 8 on arrival patient was tachypneic, tachycardic and critically ill. In NH at the time of EMS pickup oxygen saturation was in the 70s. In the ER on 50% Ventimask oxygen saturation 87-88%. Intubated due to hypoxemic respiratory failure and also for airway protection. Lab work showed patient had significant hyperkalemia and acute renal failure. Potassium was 6.9 treated with calcium chloride, IV insulin and D50, bicarb and Kayexalate. Patient also received 1 L normal saline bolus and was placed on normal saline infusion. UA showed evidence of severe UTI. Empirically received Zosyn and vancomycin in the ED I evaluated the patient in the ICU. CT chest showed bibasilar infiltrates indicating possible pneumonia, CT abdomen showed indeterminate low-density liver lesions and some bladder thickness indicating cystitis. Patient will be continued on vancomycin and Zosyn and azithromycin. Repeat sodium came back at 160 potassium is down to 4. I will discontinue normal saline and place on half- normal saline at 150 ml per hour. Bolus of 1 L half-normal saline ordered. Cultures have been ordered and is pending at this time. Patient has urinary catheter and is making urine which is cloudy. Apparently had shaking movements after arrival to ICU subsided with 2 mg IV Ativan. EEG had been ordered. Also check Dilantin level. CBC/BMP: 02/03/18 0940 02/03/18 0940 Significant Findings Laboratory Tests Test 02/01/18 04:26 02/02/18 04:02 02/02/18 20:21 02/03/18 09:40 White Blood Count 3.5 TH/MM3 (4.0-11.0) 3.2 TH/MM3 (4.0-11.0) Red Blood Count 4.07 MIL/MM3 (4.50-5.90) 4.12 MIL/MM3 (4.50-5.90) Hemoglobin 11.4 GM/DL (13.0-17.0) 11.5 GM/DL (13.0-17.0) Hematocrit 34.8 % (39.0-51.0) 35.7 % (39.0-51.0) Blood Urea Nitrogen 5 MG/DL (7-18) 6 MG/DL (7-18) Calcium Level 8.3 MG/DL (8.5-10.1) 8.3 MG/DL (8.5-10.1) Potassium Level 2.6 MEQ/L (3.5-5.1) 3.0 MEQ/L (3.5-5.1) Estimat Glomerular Filtration Rate 84 ML/MIN (>89) 71 ML/MIN (>89) Random Glucose 140 MG/DL (74-106) Imaging Last Impressions Renal Ultrasound 01/30/18 0000 Signed Impressions: Service Date/Time: Tuesday, January 30, 2018 14:43 - CONCLUSION: 1. Bilateral echogenic kidneys suggesting underlying medical renal disease. 2. No hydronephrosis identified. Arnulfo Naranjo MD Chest X-Ray 01/28/18 0000 Signed Impressions: Service Date/Time: Sunday, January 28, 2018 14:18 - CONCLUSION: Cardiomegaly. No focal infiltrate or pulmonary vascular congestion Pedrito Hastings MD Upper Extremity Ultrasound 01/18/18 0000 Signed Impressions: Service Date/Time: Thursday, January 18, 2018 22:27 - CONCLUSION: 1. In the right upper extremity, there is occlusive thrombus within the basilic vein. The remaining veins of the left upper extremity are patent. 2. In the left upper extremity, there is occlusive thrombus within the subclavian, axillary, and basilic veins. Bernardo Redd MD Lower Extremity Ultrasound 01/18/18 0000 Signed Impressions: Service Date/Time: Thursday, January 18, 2018 22:13 - CONCLUSION: No DVT or superficial venous thrombosis is identified within either lower extremity. Bernardo Redd MD Chest CT 01/14/18 0000 Signed Impressions: Service Date/Time: Sunday, January 14, 2018 19:56 - CONCLUSION: 1. Posterior bibasilar patchiness consistent with pneumonia or atelectasis. Clinical correlation is recommended. 2. Cardiomegaly. 3. Tiny pericardial effusion. 4. Tiny bilateral pleural effusions. 5. Degenerative changes and scoliosis of the thoracic spine. Pedrito Hastings MD Abdomen/Pelvis CT 01/14/18 0000 Signed Impressions: Service Date/Time: Sunday, January 14, 2018 19:56 - CONCLUSION: 1. Patchy infiltrate within the posterior lung bases bilaterally raising possibility of atelectasis or pneumonia. 2. Tiny bilateral pleural effusions. 3. Cardiomegaly and tiny pericardial effusion. 4. Hepatomegaly. 5. Scattered low-density lesions throughout the liver which are indeterminate in etiology. 6. 1.9 cm right adrenal nodule consistent with probable adrenal adenoma. 7. Uncomplicated colonic diverticulosis. 8. Diffuse urinary bladder wall thickening raising the possibility of cystitis. Clinical correlation is recommended. 9. Degenerative changes and scoliosis of the thoraco-lumbar spine. Pedrito Hastings MD PE at Discharge PAtient is awake, patient agitated since being cleaned by RN Clear lungs S1S2 RRR abdomen soft, nt, nd no edema in lower extremities Pt Condition on Discharge: Stable Discharge Disposition: Discharge to SNF Discharge Time: > 30 minutes Discharge Instructions DIET: Follow Instructions for: As Tolerated, No Restrictions Speech Therapy-Diet Recommends: Mechanical Soft, [place] Thickened Liquids Activities you can perform: Continue Bedrest Follow up Referrals: PCP Follow-up - 1 Week New Medications: Apixaban (Eliquis) 2.5 Mg Tab 2.5 MG PO BID for Blood Clot Prevention, #62 TAB Clonazepam (Klonopin) 0.5 Mg Tab 0.5 MG PO TID for Agitation, #93 TAB Clonidine (Catapres) 0.2 Mg Tab 0.4 MG PO Q8HR for Blood Pressure Management, #93 TAB hold for SBP <100 or HR < 60 Clonidine 168 HR Patch ([id number] HR Patch) 0.3 Mg/24 Hr Patch 1 PATCH T-DERMAL Q7D for Blood Pressure Management, #6 PATCH hold for sbp<100 Hr <60 Hydralazine (Hydralazine) 100 Mg Tab 100 MG PO Q6H for Blood Pressure Management, #120 TAB Take with meals Linezolid (Zyvox) 600 Mg Tab 600 MG PO Q12HR for Infection, #2 TAB Metoprolol Tartrate (Lopressor) 100 Mg Tab 100 MG PO Q12HR for Blood Pressure Management, #62 TAB Nifedipine (Nifedipine) 20 Mg Cap 60 MG PO Q8H for Blood Pressure Management, #93 CAP [Megestrol Liq] () 400 MG/10 ML SUSP 400 MG PO DAILY for appetite stilmulant Continued Medications: Acetaminophen (Tylenol) 325 Mg Tab 650 MG PO Q6H PRN for PAIN/TEMP > 99F, TAB 0 Refills Hydrocodone-Acetaminophen ([place]) 5 Mg-325 Mg Tab 1 TAB PO BID PRN for PAIN, #62 TAB 0 Refills (This prescription has been renewed ) Multiple Vitamins W/ Minerals (Multi-Vitamin/Minerals) 1 Tab Tab 1 TAB PO DAILY for Nutritional Supplement Phenytoin Liq (Dilantin-125 Liq) 125 Mg/5 Ml Susp 125 MG PO Q8HR for Control Seizures, #237 ML 0 Refills Quetiapine (Seroquel) 200 Mg Tab 200 MG PO TID for PSYCHOSIS, #60 TAB 0 Refills Topiramate (Topamax) 200 Mg Tab 200 MG PO DAILY IN THE EVENING for Control Seizures, #60 TAB 0 Refills Discontinued Medications: Clonazepam (Klonopin) 1 Mg Tab 1 MG PO Q8HR PRN for ANXIETY, #90 TAB 0 Refills Clonazepam (Klonopin) 1 Mg Tab 1 MG PO QID for Anxiety, #90 TAB 0 Refills Dextromethorphan HBr-Quinidine ([place] 20-10 mg) 20 Mg-10 Mg Cap 1 CAP PO BID for Pseudobulbar Affect, #60 CAP 0 Refills Hydrocodone-Acetaminophen (Hydrocodone-Acetaminophen) 5-325 mg Tab 1 TAB PO TID for Pain, TAB 0 Refills Lisinopril (Lisinopril) 20 Mg Tab 20 MG PO DAILY, #30 TAB 0 Refills Potassium Chloride Liq (Potassium Chloride Liq) 40 Meq/15 Ml Soln 80 MEQ PO BID for Electrolyte Replacement, ML 0 Refills Trazodone (Trazodone) 100 Mg Tablet 100 MG PO TID for Control Depression, #90 TAB 0 Refills Trazodone (Trazodone) 100 Mg Tablet 100 MG PO HS for Control Depression, #30 TAB 0 Refills Jim Martin MD Feb 03, 2018 11:29
[2018-02-03] MEDS ORDERED: POTASSIUM CHLORIDE 10 MEQ CONTROLLED RELEASE TAB PO ONE (12:00)
[2018-02-03] MEDS ORDERED: hydrALAZINE HCL 100 MG TAB PO SCH (14:00)
[2018-02-03] MEDS ORDERED: cloNIDine HCL 0.2 MG TAB PO SCH (14:00)
[2018-02-04] MEDS ORDERED: REMOVE OLD CATAPRES (CLONIDINE) PATCH T-DERMAL SCH (12:00)
[2018-02-09] MEDS ORDERED: REMOVE OLD PATCH T-DERMAL SCH (20:00)
== END 2018-02-03 18:00 | disposition hospice, inpatient (51) | DRG 871 ==
LOC: NEPC 15:43 → NEDA 17:55 → HIME 20:05 → HCIS 01-30 17:01 → N03A 01-31 04:32
PROVIDERS: ADMIT Hospitalist; ATTEND Hospitalist
PROC: 0BH17EZ Insertion of Endotracheal Airway into Trachea, Via Natural or Artificial Opening (ICD-10-PCS; principal; 2018-01-14)
PROC: 5A1945Z Respiratory Ventilation, 24-96 Consecutive Hours (ICD-10-PCS; 2018-01-14)
PROC: 0BH18EZ Insertion of Endotracheal Airway into Trachea, Via Natural or Artificial Opening Endoscopic (ICD-10-PCS; 2018-01-17)
DX: A41.9 Sepsis, unspecified organism (principal); D65 Disseminated intravascular coagulation [defibrination syndrome]; J96.01 Acute respiratory failure with hypoxia; G93.41 Metabolic encephalopathy; J15.212 Pneumonia due to Methicillin resistant Staphylococcus aureus; N17.9 Acute kidney failure, unspecified; E87.0 Hyperosmolality and hypernatremia; N18.3 Chronic kidney disease, stage 3 (moderate); R16.2 Hepatomegaly with splenomegaly, not elsewhere classified; E87.2 Acidosis; I82.A12 Acute embolism and thrombosis of left axillary vein; E87.1 Hypo-osmolality and hyponatremia; I82.611 Acute embolism and thrombosis of superficial veins of right upper extremity; J98.11 Atelectasis; N39.0 Urinary tract infection, site not specified; I49.5 Sick sinus syndrome; E86.0 Dehydration; D63.8 Anemia in other chronic diseases classified elsewhere; B96.4 Proteus (mirabilis) (morganii) as the cause of diseases classified elsewhere; E87.5 Hyperkalemia; E87.6 Hypokalemia; F41.9 Anxiety disorder, unspecified; G40.909 Epilepsy, unspecified, not intractable, without status epilepticus; G80.9 Cerebral palsy, unspecified; H54.3 Unqualified visual loss, both eyes; H91.93 Unspecified hearing loss, bilateral; I12.9 Hypertensive chronic kidney disease with stage 1 through stage 4 chronic kidney disease, or unspecified chronic kidney disease; I16.0 Hypertensive urgency; K52.9 Noninfective gastroenteritis and colitis, unspecified; R65.20 Severe sepsis without septic shock; Y95 Nosocomial condition; Z66 Do not resuscitate; R45.1 Restlessness and agitation; Z78.1 Physical restraint status; Z91.14 Patient's other noncompliance with medication regimen; Z74.01 Bed confinement status
CPT/HCPCS: 31500; 36600; 43752; 51702; 71045; 71250; 74176; 76775; 76937; 80048; 80053; 80076; 80185; 80202; 81001; 82150; 82272; 82438; 82570; 82607; 82728; 82746; 82805; 82948; 83010; 83540; 83550; 83605; 83615; 83690; 83735; 84100; 84132; 84145; 84300; 84302; 84999; 85025; 85027; 85384; 85610; 85730; 86022; 86403; 87040; 87070; 87077; 87086; 87147; 87186; 87205; 87207; 87328; 87329; 87425; 87449; 87493; 87506; 87641; 87804; 93306; 93970; 94002; 94003; 94150; 94640; 94664; 95819; 96365; J0330; J0360; J0456; J0610; J0696; J0883; J1644; J1815; J2060; J2250; J2270; J2543; J3010; J3370; J3475; J3480; J7030; J7040; J7050; J7070; J7611